=== PATIENT | female | born 1940 | race Caucasian/White ===

== ENCOUNTER 2025-02-09 17:33 | Emergency (ER) | payer MEDICARE, MEDICAID, SELFPAY ==
[2025-02-09 17:44] VITALS: BP 154/61; PULSE 60; RESP 16; TEMP 36.4; O2SAT 94; BMI 22.6
[2025-02-09 18:44] VITALS: PULSE 63; O2SAT 93
[2025-02-09 19:46] LABS: Basophils % 0.4 %; Eosinophils # 0.3 10^3/uL (0.0-0.8); Hematocrit 30.8 % (36-47); Lymphocytes # 2.8 10^3/uL (0.8-4.8); Lymphocytes % 25.8 %; Mean Corpuscular HGB Conc 30.8 g/dL (30-55); Mean Corpuscular Hemoglobin 30.8 pg (27-33); Mean Platelet Volume 9.7 fL (7.4-10.4); Monocytes # 0.6 10^3/uL (0.2-0.9); Monocytes % 5.1 %; Neutrophils # 6.99 10^3/uL (1.8-7.7); Neutrophils % 65.3 %; Nucleated Red Blood Cells % 0 %; Platelet Count 235 10^3/cmm (157-399); Red Blood Count 3.08 10^6/uL (3.85-5.65)
[2025-02-09 20:07] LABS: Anion Gap 13.9 (5-19); Blood Urea Nitrogen 28 mg/dL (8-23); Calcium 9.4 mg/dL (8.5-10.5); Carbon Dioxide 25 mmol/L (22-29); Chloride 104 mmol/L (98-107); Creatinine Clr Calc Pharmacy 23.5781; Glucose 133 mg/dL (65-115); Osmolality Calculated 295 mOsm/kg (285-295); Potassium 3.9 mmol/L (3.5-5.1); Sodium 139 mmol/L (136-145)
== END 2025-02-09 20:32 | disposition left against medical advice (07) ==
PROVIDERS: Emergency Medicine; Emergency Provider Family Medicine
DX: Z53.21 Procedure and treatment not carried out due to patient leaving prior to being seen by health care provider (principal); Z01.89 Encounter for other specified special examinations
CPT/HCPCS: 36415; 80048; 85025

== ENCOUNTER 2025-03-19 12:26 | Outpatient (CLI) | payer MEDICARE, MEDICAID, SELFPAY ==
--- NOTE | 2025-03-19 12:32 | CT_ITS ---
WS: [id number] CT ABDOMEN AND PELVIS WITH AND WITHOUT CONTRAST HISTORY: CLOT HEMATURIA TECHNIQUE: Unenhanced 5 mm axial imaging first performed through the abdomen. Post contrast imaging through the abdomen and pelvis. Oral contrast has not been provided. Sagittal and coronal reformats are submitted. All CT scans at [facility] use at least one of these dose optimization techniques: automated exposure control; mA and/or kV adjustment per patient size (includes targeted exams where dose is matched to clinical indication); or iterative reconstruction. CONTRAST: Omnipaque 350; 95 mL IV. DLP: 853.08 mGy.cm COMPARISON: None available. Lung bases are hyperinflated from centrilobular emphysema. Mild cardiac enlargement. Small hiatal hernia. There is increased soft tissue extending through the distal esophagus into the fundus of the stomach. RIGHT kidney: 8.6 cm in length. Diffusely lobular cortex with cortical thinning with no obstruction. There are a few very tiny calcifications in the renal pelvis. There are a few scattered hypodensities which are too small to characterize. No uroepithelial lesions. LEFT kidney: 9.9 cm in length with mild lobulated cortex. Nonobstructing calcification lower pole measures 7 mm. There is mild LEFT perinephric stranding. No mass or ureteral dilatation. Ureter is intermittently visualized on delayed imaging. Urinary bladder: Urinary bladder is not distended. There is diffuse wall thickening measuring up to 11 mm. On delayed imaging urinary bladder still not well distended and there is bladder wall thickening. There is slight increased bladder wall thickening at the RIGHT ureteral orifice. Normal size liver. There are a few scattered hypodensities within the liver. Focal fatty sparing along the falciform ligament. Very slight central bile duct dilatation is probably on the basis of the cholecystectomy. Mild pancreatic atrophy. No pancreatic duct dilatation. Normal spleen. Normal adrenal glands. Moderate atherosclerosis aorta. Calcified plaque at the origin of the celiac axis and SMA. Calcifications continue into the common iliac arteries. No ascites or pathologically enlarged lymph nodes. No small bowel obstruction. Mild distal colonic constipation. No evidence for acute diverticulitis. Mild colonic wall thickening involving the ascending and hepatic flexure. Additional asymmetric rectal wall thickening. Prior appendectomy. Patent bilateral inguinal canals containing fat only. Severe degenerative changes in the lumbar spine. Prior posterior fusion hardware extending from L3-L5. CT/CT abdomen pelvis wo/w [id number] IMPRESSION: 1. No renal obstruction or solid mass identified. 2. Bilateral renal cortex lobulations. 3. Nonobstructing calcification 7 mm lower pole LEFT kidney. 4. Mild diffuse urinary bladder wall thickening. There is a more focal area of thickening near the orifice of the RIGHT ureter. Cystoscopy may be of benefit. 5. Distal esophageal wall thickening extending into the stomach. Upper endosco py to exclude neoplasm is recommended. 6. Multifocal areas of asymmetric colonic wall thickening including a sending colon, hepatic flexure and rectum. Recommend colonoscopy. 7. Prior cholecystectomy. 8. Prior appendectomy. 9. No ascites or adenopathy.
[2025-03-19] MEDS: iohexol 350 mg/mL 500 mL Btl (per mL) IV (12:56)
== END 2025-03-19 12:27 | disposition home or self-care (01) ==
LOC: RAD 12:28
PROVIDERS: Visit Provider Nurse Practitioner Family
DX: R31.0 Gross hematuria (principal); N28.89 Other specified disorders of kidney and ureter; N32.89 Other specified disorders of bladder; R93.3 Abnormal findings on diagnostic imaging of other parts of digestive tract; R93.89 Abnormal findings on diagnostic imaging of other specified body structures; Z90.49 Acquired absence of other specified parts of digestive tract; Z98.890 Other specified postprocedural states; J43.2 Centrilobular emphysema; I51.7 Cardiomegaly; K44.9 Diaphragmatic hernia without obstruction or gangrene; R93.421 Abnormal radiologic findings on diagnostic imaging of right kidney; R93.422 Abnormal radiologic findings on diagnostic imaging of left kidney; K76.0 Fatty (change of) liver, not elsewhere classified; K86.89 Other specified diseases of pancreas; I70.0 Atherosclerosis of aorta; I70.8 Atherosclerosis of other arteries; K55.1 Chronic vascular disorders of intestine; K59.00 Constipation, unspecified; K40.20 Bilateral inguinal hernia, without obstruction or gangrene, not specified as recurrent; M51.369 Other intervertebral disc degeneration, lumbar region without mention of lumbar back pain or lower extremity pain
CPT/HCPCS: 74178

== ENCOUNTER 2025-06-29 02:33 | Inpatient (IN) | payer OTHER, MEDICAID, SELFPAY ==
--- OUTSIDE RECORDS SUMMARY | 2025-05-15 13:00 | XMS_ITS ---
Author Organization [facility] Address [address] [place] [address] Care Team Providers Care Matrix Repairer Name Role Phone Jayden Vásquez Primary Care Provider ALMA DELIA Zavala Unavailable [phone] CHE COLLINS Unavailable [phone] REASON FOR VISIT L ESWL @ [facility] Encounters Encounter Location Date Provider Diagnosis [facility] [address] [facility] [place] [address] 05/15/2025 CHE COLLINS Plan Of Treatment No Information Progress Notes * Beatris HEMPHILL KDOB: [birth year] (85 yo F)Acc No.[id number]:05/15/2025 Patient: Wolfgang PARRA Beatris Richardson Provider: Una COLLINS MD :1940 A ge:85 Y S ex:Female Date:05/15/2025 Address:[address] [place], [place] [phone] Pcp:Jayden Vásquez * Billing Information: * Visit Code: * Procedure Codes: * Electronic signature of AUST IN MD KARINA on 06/29/2025 at 02:56 AM CDT Sign off status: Pending * Provider: Una COLLINS MD Date: 05/15/2025 Generated for Printi ng/Faxing/eTransmitting on: 06/29/2025 02:56 AM CDT
[2025-06-29] VITALS (31 sets, daily range): BP systolic 90–233; BP diastolic 47–103; PULSE 60–90; RESP 16–24; TEMP 36.1–37; O2SAT 88–100; BMI 26.7
--- NOTE | 2025-06-29 02:35 | XRR_ITS ---
PROCEDURE INFORMATION: Exam: XR Right Femur Exam date and time: 06/29/2025 3:19 AM Age: 85 years old Clinical indication: Injury or trauma; Fall; Fracture, traumatic; Closed fracture and displaced; Femur; Right; Additional info: Fall today, right femoral pain with obvious proximal deformity TECHNIQUE: Imaging protocol: Radiologic exam of the right femur. Views: 2 views. COMPARISON: CT abdomen pelvis wo/w [id number] 03/19/2025 12:51 PM FINDINGS: Bones/joints: Displaced and comminuted intertrochanteric fracture of the right femur is noted. There is advanced degenerative osteoarthritis with narrowing of the joint compartments of the right knee Soft tissues: Calcific plaque outlining the course of the right femoral vessels is noted. XR/XR femur RT min 2V* [id number] IMPRESSION: 1. There is a displaced and comminuted intertrochanteric fracture of the right femur. 2. 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
--- NOTE | 2025-06-29 02:35 | CTR_ITS ---
PROCEDURE INFORMATION: Exam: CT Head Without Contrast Exam date and time: 06/29/2025 3:50 AM Age: 85 years old Clinical indication: Injury or trauma; Fall; Concussion/head injury; Consciousness not specified; Additional info: Unwitnessed fall TECHNIQUE: Imaging protocol: Computed tomography of the head without contrast. Radiation optimization: All CT scans at this facility use at least one of these dose optimization techniques: automated exposure control; mA and/or kV adjustment per patient size (includes targeted exams where dose is matched to clinical indication); or iterative reconstruction. COMPARISON: CT cervical spin wo con* [id number] 06/29/2025 3:50 AM RADIATION DOSE METRICS: Total DLP (mGy-cm): 157.9 FINDINGS: Brain: Prominence of the sulci consistent with diffuse atrophy. No mass effect or midline shift. Periventricular and subcortical white matter low-attenuation consistent with chronic small vessel ischemic changes. No evidence of acute intracranial hemorrhage. Cerebral ventricles: Ventricular prominence proportional to sulci. No hydrocephalus. Paranasal sinuses: No significant or acute abnormality. No air-fluid levels. Mastoid air cells: No acute abnormality. No significant mastoid effusion. Bones: Calvarium appears intact. Cervical spine findings reported separately. Soft tissues: No significant soft tissue abnormalities. CT/CT head wo con* [id number] IMPRESSION: Diffuse atrophy and chronic/remote ischemic changes without evidence of superimposed acute infarct, hemorrhage, mass-effect or acute intracranial injury.
--- NOTE | 2025-06-29 02:35 | XRR_ITS ---
PROCEDURE INFORMATION: Exam: XR Chest Exam date and time: 06/29/2025 4:39 AM Age: 85 years old Clinical indication: Injury or trauma; Fall; Blunt trauma (contusions or hematomas); Additional info: Pre-op TECHNIQUE: Imaging protocol: Radiologic exam of the chest. Views: 1 view. 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 Lungs: Unremarkable. No consolidation. Pleural spaces: Unremarkable. No pleural effusion. No pneumothorax. Heart/Mediastinum: CABG. No cardiomegaly. Bones/joints: Median sternotomy. XR/XR chest 1V portable [id number] IMPRESSION: There is no evidence of active disease.
--- NOTE | 2025-06-29 02:35 | CTR_ITS ---
PROCEDURE INFORMATION: Exam: CT Cervical Spine Without Contrast Exam date and time: 06/29/2025 3:50 AM Age: 85 years old Clinical indication: Injury or trauma; Fall; Concussion/head injury; Additional info: Unwitnessed fall TECHNIQUE: Imaging protocol: Computed tomography of the cervical spine without contrast. Radiation optimization: All CT scans at this facility use at least one of these dose optimization techniques: automated exposure control; mA and/or kV adjustment per patient size (includes targeted exams where dose is matched to clinical indication); or iterative reconstruction. COMPARISON: CT head wo con* [id number] 06/29/2025 3:50 AM RADIATION DOSE METRICS: Total DLP (mGy-cm): 157.9 FINDINGS: Bones: Appearance of old C1-C2 fractures including old odontoid fracture with stabilization posterior fusion rods and pedicle screws in place C1-C3. 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 No evidence of superimposed acute fracture. Slight degenerative C4 anterior subluxation. Normal vertebral body height. Multilevel spondylosis with degenerative endplate spurring. Bilateral facet, uncovertebral and atlantoaxial joint arthrosis with marginal hypertrophic bony spurring. Discs/Spinal canal/Neural foramina: Multilevel disc space narrowing and posterior disc osteophyte complexes. Minimal to mild spinal stenosis. Varying degrees of multilevel bilateral foraminal stenosis. Lungs: Biapical scarring. Soft tissues: No significant soft tissue abnormalities. CT/CT cervical spin wo con* [id number] IMPRESSION: 1. Appearance of old C1-C2 fractures including old odontoid fracture with stabilization posterior fusion rods and pedicle screws in place C1-C3. 2. 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 3. No evidence of superimposed acute fracture. 4. Multilevel spondylosis, diffuse cervical arthrosis and degenerative changes as described.
[2025-06-29] MEDS: fentaNYL 50 mcg/mL INJ 2mL 75 MCG IVP (02:45)
--- OUTSIDE RECORDS SUMMARY | 2025-06-29 02:57 | XMS_ITS | Patient Health Record ---
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 [employer]alking [employer] Name Role Phone Vásquez, Jayden Primary Care Provider ALMA DELIA Zavala Unavailable [phone] CHE COLLINS Unavailable [phone] Allergies Allergen (clinical drug ingredient) Drug/Non Drug Allergy documented on EMR Reaction Allergy Type Onset Date Status codeine Codeine Unknown Drug Allergy Active erythromycin Erythromycin Unknown Drug Allergy A ctive Substance with sulfonamide structure and antibacterial mechanism of action (substance) Sulfa Antibiotics rash Drug Allergy Active Results Component Value Reference Range Notes Urinalysis, Routine Reviewed date:04/09/2025 02:12:15 PM Interpretation: Performing Lab: Notes/Report: Urine-Color yellow Appearance clear Glucose - Bilirubin - Ketones - Specific [place] 1.025 Occult Blood 2+ pH 6.0 Urine Protein 3+ Urobilinogen,Semi-Qn - Nitrite, Urine - WBC Esterase - Urinalysis Gross Exam - Reason For Referral Reason Renal Stone Diagnosis 1 Left renal stone (N2 0.0) Referral Organization [employer] Referring Provider First Name CHE Referring Provider Last Name KARINA Referring Provider Speciality Urology Referred Provider Specialty Urology Referral Priority Routine Medications Medication SIG (Take, Route, Frequency, Duration) Notes Start Date End Date Status tiZANidine HCl Activ e Incruse Ellipta 62.5 MCG/ACT 1 puff Inha lation Once a day Active Benazepril HCl 10 MG 1 tablet Orally Onc e a day Active oxyCODONE HCl 10 MG 1 tablet as needed Orally every 6 hrs Active Clopidogrel Bisulfate Active Mylanta Active ProAir HFA Active Sertraline HCl Activ e Nitrostat Active Lidocaine 4 % 1 patch as needed Externally Four times a day Active Levothyroxine Sodium Active Allopurinol 100 MG 1 tablet Orally Once a day Active Atorvastatin Calcium 20 MG 1 tablet Oral ly Once a day Active glipiZIDE ER Active rOPINIRole HCl 2 MG 1 tablet 1 to 3 hour s before bedtime Orally Once a day Active Biofreeze Active Acetaminophen 500 MG 1 capsule as needed Orally every 6 hrs Active Carvedilol Active Famotidine 20 MG 1 tablet at bedtime as needed Orally Once a day Active hydroCHLOROthiazide 25 MG 1 tablet in th e morning Orally Once a day Active Ergocalciferol Activ e Problems Problem Type SNOMED Code ICD Code Onset Dates Problem Status W/U Status Risk Notes Problem Low back pain (457988511) Low back pain (M54.50) Active confirmed Problem Kidney stone (82046241) Left renal stone (N20.0) Active confirmed Problem Recurrent urinary tract infection (823857688) Recurrent UTI (N39.0) Active confirmed Problem Clot hematuria (855272621) Clot hematuria (R31.0) Active confirmed Vital Signs Heart Rate 88 /min 03/05/2025 Blood pressure diastolic 88 mm Hg 03/05/2025 Height-cm 157.48 cm 03/05/2025 Weight-kg 56.25 kg 03/05/2025 Height 62 in 03/05/2025 Blood pressure systolic 206 mm Hg 03/05/2025 Weight 124 lbs 03/05/2025 BMI 22.68 kg/m2 03/05/2025 Procedures Procedure Date Ordered Date Performed Result Body Sit e Bladder Scan 03/05/2025 03/05/2025 66ml Encounters Encounter Location Date Provider Diagnosis [facility] [address] [place] [address] 03/05/2025 ALMA DELIA SHAFFER Clot hematuria R31.0 ; Recurrent UTI N39.0 ; Low back pain M54.50 ; Upper abdominal pain R10.10 ; History of kidney stones Z87.442 ; History of smoking Z87.891 and Dysuria R30.0 [facility], [facility] [address] [place] [address] 04/09/2025 CHE COLLINS Clot hematuria R31.0 ; Left renal stone N20.0 ; Recurrent UTI N39.0 ; Low back pain M54.50 ; Upper abdominal pain R10.10 ; History of kidney stones Z87.442 ; History of smoking Z87.891 and Dysuria R30.0 [facility] [address] [facility] [place] [address] 02/15/2025 ALMA DELIA SHAFFER [facility] [address] [facility] [place] [address] 03/06/2025 ALMA DELAI SHAFFER [facility] [address] [facility] [place] [address] 04/13/2025 ALMA DELIA SHAFFER Assessments Encounter Date Diagnosis (ICD Code) Assessment Notes Treatment Notes Treatment Clinical Notes Section Notes 04/09/2025 Left renal stone (ICD-10 - N20.0) 85 yo female with hematuria, chronic back pain, and history of UTIs. CT shows a 7mm left lower pole renal stone. Cysto shows multiple scars and areas of inflammation. CT and cysto findings reviewed with patient. We discussed treatment options for her left renal stone with URS vs ESWL. How procedure is performed was reviewed along with risks, benefits, alternatives, and postprocedural expectations. All questions were sought and answered to pt satisfaction and pt is agreeable to proceed. Will schedule next available. Plan: schedule Left ESWL at [facility] obtain clearance from Dr. Vásquez in to hold plavix for surgery 04/09/2025 Clot hematuria (ICD-10 - R31.0) 85 yo female with hematuria, chronic back pain, and history of UTIs. CT shows a 7mm left lower pole renal stone. Cysto shows multiple scars and areas of inflammation. CT and cysto findings reviewed with patient. We discussed treatment options for her left renal stone with URS vs ESWL. How procedure is performed was reviewed along with risks, benefits, alternatives, and postprocedural expectations. All questions were sought and answered to pt satisfaction and pt is agreeable to proceed. Will schedule next available. Plan: schedule Left ESWL at [facility] obtain clearance from Dr. Vásquez in to hold plavix for surgery 03/05/2025 Recurrent UTI (ICD-10 - N39.0) 03/05/2025 Clot hematuria (ICD-10 - R31.0) 03/05/2025 Low back pain (ICD-10 - M54.50) 04/09/2025 Recurrent UTI (ICD-10 - N39.0) 85 yo female with hematuria, chronic back pain, and history of UTIs. CT shows a 7mm left lower pole renal stone. Cysto shows multiple scars and areas of inflammation. CT and cysto findings reviewed with patient. We discussed treatment options for her left renal stone with URS vs ESWL. How procedure is performed was reviewed along with risks, benefits, alternatives, and postprocedural expectations. All questions were sought and answered to pt satisfaction and pt is agreeable to proceed. Will schedule next available. Plan: schedule Left ESWL at [facility] obtain clearance from Dr. Vásquez in [facility] to hold plavix for surgery 04/09/2025 Low back pain (ICD-10 - M54.50) 85 yo female with hematuria, chronic back pain, and history of UTIs. CT shows a 7mm left lower pole renal stone. Cysto shows multiple scars and areas of inflammation. CT and cysto findings reviewed with patient. We discussed treatment options for her left renal stone with URS vs ESWL. How procedure is performed was reviewed along with risks, benefits, alternatives, and postprocedural expectations. All questions were sought and answered to pt satisfaction and pt is agreeable to proceed. Will schedule next available. Plan: schedule Left ESWL at [facility] obtain clearance from Dr. Vásquez in [facility] to hold plavix for surgery 03/05/2025 Upper abdominal pain (ICD-10 - R10.10) 03/05/2025 History of kidney stones (ICD-10 - Z87.442) 04/09/2025 Upper abdominal pain (ICD-10 - R10.10) 85 yo female with hematuria, chronic back pain, and history of UTIs. CT shows a 7mm left lower pole renal stone. Cysto shows multiple scars and areas of inflammation. CT and cysto findings reviewed with patient. We discussed treatment options for her left renal stone with URS vs ESWL. How procedure is performed was reviewed along with risks, benefits, alternatives, and postprocedural expectations. All questions were sought and answered to pt satisfaction and pt is agreeable to proceed. Will schedule next available. Plan: schedule Left ESWL at [facility] obtain clearance from Dr. Vásquez in [place] to hold plavix for surgery 04/09/2025 History of kidney stones (ICD-10 - Z87.442) 85 yo female with hematuria, chronic back pain, and history of UTIs. CT shows a 7mm left lower pole renal stone. Cysto shows multiple scars and areas of inflammation. CT and cysto findings reviewed with patient. We discussed treatment options for her left renal stone with URS vs ESWL. How procedure is performed was reviewed along with risks, benefits, alternatives, and postprocedural expectations. All questions were sought and answered to pt satisfaction and pt is agreeable to proceed. Will schedule next available. Plan: schedule Left ESWL at [facility] obtain clearance from Dr. Vásquez in [facility] to hold plavix for surgery 03/05/2025 History of smoking (ICD-10 - Z87.891) 04/09/2025 History of smoking (ICD-10 - Z87.891) 85 yo female with hematuria, chronic back pain, and history of UTIs. CT shows a 7mm left lower pole renal stone. Cysto shows multiple scars and areas of inflammation. CT and cysto findings reviewed with patient. We discussed treatment options for her left renal stone with URS vs ESWL. How procedure is performed was reviewed along with risks, benefits, alternatives, and postprocedural expectations. All questions were sought and answered to pt satisfaction and pt is agreeable to proceed. Will schedule next available. Plan: schedule Left ESWL at [facility] obtain clearance from Dr. Vásquez in [facility] to hold plavix for surgery 03/05/2025 Dysuria (ICD-10 - R30.0) 04/09/2025 Dysuria (ICD-10 - R30.0) 85 yo female with hematuria, chronic back pain, and history of UTIs. CT shows a 7mm left lower pole renal stone. Cysto shows multiple scars and areas of inflammation. CT and cysto findings reviewed with patient. We discussed treatment options for her left renal stone with URS vs ESWL. How procedure is performed was reviewed along with risks, benefits, alternatives, and postprocedural expectations. All questions were sought and answered to pt satisfaction and pt is agreeable to proceed. Will schedule next available. Plan: schedule Left ESWL at [facility] obtain clearance from Dr. Vásquez in [facility] to hold plavix for surgery 03/05/2025 Other Unable to void in clinic, bladder scan 66ml. She will try to void prior to leaving. Patient with history of intermittent clot hematuria over the past year. We discussed the indications and rationale for a hematuria workup including the possibility of malignancy causing hematuria. In terms of the workup specifically, we discussed the need for evaluation of the upper urinary tracts with radiologic imaging and the lower urinary tract with cystoscopy. We will set up the CT scan w/ and w/o contrast and delayed imaging per hematuria protocol. We will also schedule for next available cystoscopy. Plan Of Treatment Pending Test Test Name Order Date CT Abd & Pelvis [place] & [place] [id number] 03/05/2025 BUN, Creatinine 03/05/2025 Insurance Providers Payer Name Payer Address Payer Phone Subscriber Number Group Number Insured Name Patient Relationship to Insured Coverage Start Date Coverage End Date [facility] Medicare Advantage HMO [address] [address] [place], [place] [id number] [phone] [id number] Beatris Hemphill Self - patient is the insured [place] Medicaid [address] [place], [place] [id number] Beatris Hemphill Self - patient is the insured Medical (General) History Medical History History ICD Code Cystitis with hematuria RA osteoarthritis heart disease COPD Surgical History Surgery Date(Month/Year) triple bypas gallbladder Appendix Tonsils Hospitalization History Reason Date(Month/Year) multiple
[2025-06-29 03:13] LABS: Hematocrit 28.5 % (36-47); Hemoglobin 9.00 g/dL (11.27-16.99); Mean Corpuscular HGB Conc 31.6 g/dL (30-55); Mean Corpuscular Hemoglobin 30.3 pg (27-33); Mean Corpuscular Volume 96.0 fl (85-98); Nucleated Red Blood Cells % 0 %; Platelet Count 284 10^3/cmm (157-399); Red Blood Count 2.97 10^6/uL (3.85-5.65); White Blood Count 11.68 10^3/uL (3.29-11.43)
[2025-06-29 03:23] LABS: INR 0.97 (0.8-1.2); Prothrombin Time 13.50 SECONDS (12.1-14.9)
[2025-06-29 03:30] LABS: Alanine Aminotransferase 15 U/L (0-33); Albumin Level 3.3 g/dL (3.5-5.2); Alkaline Phosphatase 133 U/L (35-105); Anion Gap 12.7 (5-19); Aspartate Amino Transferase 24 U/L (0-32); Blood Urea Nitrogen 19 mg/dL (8-23); Calcium 9.0 mg/dL (8.5-10.5); Carbon Dioxide 28 mmol/L (22-29); Chloride 104 mmol/L (98-107); Creatinine Clr Calc Pharmacy 22.9876; Globulin 3.1 g/dL (1.3-4.6); Glucose 182 mg/dL (65-115); Osmolality Calculated 299 mOsm/kg (285-295); Potassium 3.7 mmol/L (3.5-5.1); Sodium 141 mmol/L (136-145); Total Protein 6.4 g/dL (6.6-8.7)
[2025-06-29] MEDS: ketamine 100 mg/mL Inj 5 mL 35 MG IV (03:45)
[2025-06-29] MEDS: ketamine 100 mg/mL Inj 5 mL 25 MG IVP (03:50)
--- NOTE | 2025-06-29 04:17 | W.ED.FALL ---
HPI - Fall General: Chief Complaint: Fall Stated Complaint: FALL Time Seen by Provider: 06/29/25 02:35 Source: patient and EMS Mode of arrival: EMS Limitations: altered mental status History of Present Illness: Right hip pain, brought in by EMS. Patient is either in a state of delirium or has dementia due to the pain. Unable to get much history from her. Related Data Home Medications ?Medication ?Instructions ?Recorded ?Confirmed acetaminophen 500 mg tablet 1,000 mg PO DAILY 08/21/24 01/02/25 albuterol sulfate 90 mcg/actuation 2 puff inhalation Q6H PRN 08/21/24 01/02/25 aerosol inhaler allopurinol 300 mg tablet 300 mg PO DAILY 08/21/24 01/02/25 atorvastatin 20 mg tablet 20 mg PO DAILY 08/21/24 01/02/25 benazepril 20 mg tablet 20 mg PO DAILY 08/21/24 01/02/25 carvedilol 6.25 mg tablet 6.25 mg PO BID 08/21/24 01/02/25 clopidogrel 75 mg tablet 75 mg PO DAILY 08/21/24 01/02/25 ergocalciferol (vitamin D2) 50,000 50,000 unit PO .weekly 08/21/24 01/02/25 unit tablet famotidine 20 mg tablet 20 mg PO DAILY 08/21/24 01/02/25 gabapentin 300 mg capsule 300 mg PO BID 08/21/24 01/02/25 hydrochlorothiazide 12.5 mg tablet 12.5 mg PO DAILY 08/21/24 01/02/25 levothyroxine 100 mcg tablet 100 mcg PO DAILY 08/21/24 01/02/25 menthol 5 % topical gel (Biofreeze ea topical 08/21/24 01/02/25 (menthol)) nitroglycerin 0.4 mg sublingual 0.4 mg sublingual Q5M PRN 08/21/24 01/02/25 tablet (Nitrostat) oxycodone 5 mg tablet 5 mg PO BID PRN 08/21/24 01/02/25 oxycodone myristate 18 mg capsule 18 mg PO BID 08/21/24 01/02/25 sprinkle extended release 12hr(DON'T CRUSH) (Xtampza ER) polyethylene glycol 3350 17 4 g PO DAILY 08/21/24 01/02/25 gram/dose oral powder (Miralax) ropinirole 0.5 mg tablet 1.5 mg PO DAILY 08/21/24 01/02/25 trolamine salicylate 10 % topical 1 applic topical BID PRN 08/21/24 01/02/25 cream (Pain Relief (trolamine salicylate)) umeclidinium 62.5 mcg/actuation 1 inh inhalation DAILY 08/21/24 01/02/25 blister powder for inhalation (Incruse Ellipta) Previous Rx's ?Medication ?Instructions ?Recorded mupirocin calcium 2 % topical cream 1 applic topical TID #30 grams 12/26/24 Allergies Allergy/AdvReac Type Severity Reaction Status Date / Time codeine Allergy Unknown Unknown Verified 01/02/25 15:19 doxycycline Allergy Unknown Unknown Verified 01/02/25 15:19 erythromycin base Allergy Unknown Unknown Verified 01/02/25 15:19 hydromorphone (From Dilaudid) Allergy Unknown Unknown Verified 01/02/25 15:19 Sulfa (Sulfonamide Allergy Unknown Unknown Verified 01/02/25 15:19 Antibiotics) Review of Systems General: Reports: ROS unobtainable due to mental status PFSH ED PFSH: Medical History (Updated 06/29/25 @ 04:57 by Timur Ness MD) Non-pressure chronic ulcer of left lower leg, limited to breakdown of skin Fusion of spine, 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 Chronic obstructive pulmonary disease, unspecified Fibromyalgia Mixed hyperlipidemia Chronic pain syndrome Personal history of diseases of the skin and subcutaneous tissue Personal history of urinary (tract) infections Personal history of other diseases of the digestive system Unspecified dementia, unspecified severity, without behavioral disturbance, psychotic disturbance, mood disturbance, and anxiety Unsteadiness on feet Presence of cardiac pacemaker Overactive bladder Hypothyroidism, unspecified Hyperlipidemia, unspecified History of falling Gout, unspecified Gastro-esophageal reflux disease without esophagitis Essential (primary) hypertension Surgical History Presence of aortocoronary bypass graft Social History Smoking and tobacco/nicotine status: unknown if used tobacco/nicotine Housing: Intermediate Physical Exam Const: COMMON NORMALS: average body habitus, patient oriented x3, healthy appearing, alert and well nourished GENERAL APPEARANCE: well kempt, well developed and in distress HENMT: COMMON NORMALS: normocephalic, atraumatic, external ears normal and moist oral mucous membranes HEAD & SCALP: normocephalic and atraumatic EXTERNAL EAR: Yes external ears normal Eye: COMMON NORMALS: Equal, round and reactive pupils present, EOMs intact bilaterally and conjunctivae normal CONJUNCTIVA: Yes conjunctivae normal PUPIL: Yes Equal, round and reactive pupils present Neck/C-Spine: COMMON NORMALS: full ROM, no lymphadenopathy and supple Chest: CHEST: Yes Symmetrical chest wall rise and No Surgical scars present (Chest) Resp: COMMON NORMALS: normal respiratory effort, No retractions, No use of accessory muscles and clear to auscultation bilaterally AUSCULTATION: clear to auscultation bilaterally Cardio: COMMON NORMALS: regular rate, regular rhythm, S1 normal heart sound present, S2 normal heart sound present, No gallops present (Cardio), No clicks present (Cardio), No murmurs present (Cardio) and No rub (Cardio) RATE: regular rate RHYTHM: regular rhythm HEART SOUNDS: S1 normal heart sound present, S2 normal heart sound present and no murmurs PERIPHERAL PULSES: other (Radial pulses 2+ and symmetric) GI: COMMON NORMALS: Soft to palpation, non-tender and no masses INSPECTION: No abdominal distension PALPATION: Yes Soft to palpation, No Guarding due to palpation present (GI) and No Rebound tenderness present : COMMON NORMALS: Yes no CVA tenderness BLADDER/KIDNEY EXAM: Yes no CVA tenderness Back/Pelvis: COMMON NORMALS: no CVA tenderness Extremity: COMMON NORMALS: capillary refill normal and no clubbing, cyanosis or edema NARRATIVE EXTREMITY EXAM: Right lower extremity with deformity at the right hip joint and tenderness down the entire length of the femur. Right leg is externally rotated and shortened. Neuro: COMMON NORMALS: patient oriented x3 SENSORIUM/ORIENTATION: Yes alert Psych: APPEARANCE: Yes well kempt Skin: COMMON NORMALS: no rashes or lesions noted, no wounds, turgor normal and no jaundice GENERAL SKIN EXAM: no rashes or lesions noted and turgor normal Procedures Orthopedic Fracture Reduction Fracture #1: Side: right Fracture Reduction Location: other (R hip) Analgesia: procedural sedation Technique: traction/counter-traction Post Reduction X-rays Demonstrate: acceptable reduction Post-reduction neuro exam: intact Post-reduction vascular exam: intact Splint Applied: No Patient Tolerated Procedure: well Additional Comments: done for improvement in alignment and pain control Procedural Sedation Indication: other (Patient obvious deformity of the right femur with severely uncooperative for CT scan and x-ray.) Presedation Evaluation: RRR, CTAB ASA Class: III Preparation: electronic device monitor applied, pulse oximeter, supplemental O2 applied, suction/airway equipment at bedside and IV secured Ketamine dose (mg): 60 Complications: none Course Vital Signs: Vital signs: Vital Signs Temperature 98 F 06/29/25 02:41 Pulse Rate 60 06/29/25 04:19 Respiratory Rate 18 06/29/25 04:19 Blood Pressure 233/84 06/29/25 04:19 Pulse Oximetry 95 06/29/25 04:19 Oxygen Delivery Me thod Nasal Cannula 06/29/25 03:50 Oxygen Flow Rate 2 06/29/25 02:41 MDM - Fall Medical Decision Making Patient with right retrocardiac trigger, some delirium versus dementia as well. Patient was quite combative and had to be chemically sedated to perform CT scans and x-rays. Personal review of CT scan shows negative head CT for acute fracture as well as negative cervical CT for acute fracture. Femur x-ray shows displaced comminuted right hip fracture as well. Radiology read later came out and concur. This case has been discussed with Dr. Gonsales of orthopedics as well as Dr. Sanchez of the hospitalist service. Patient will be admitted. Lab Data 06/29/25 02:55 06/29/25 02:55 Radiology Impressions Cervical Spine CT 06/29/25 02:35 IMPRESSION: 1. Appearance of old C1-C2 fractures including old odontoid fracture with stabilization posterior fusion rods and pedicle screws in place C1-C3. 2. 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 3. No evidence of superimposed acute fracture. 4. Multilevel spondylosis, diffuse cervical arthrosis and degenerative changes as described. Femur X-Ray 06/29/25 02:35 IMPRESSION: 1. There is a displaced and comminuted intertrochanteric fracture of the right femur. 2. 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 Head CT 06/29/25 02:35 IMPRESSION: Diffuse atrophy and chronic/remote ischemic changes without evidence of superimposed acute infarct, hemorrhage, mass-effect or acute intracranial injury. Laboratory Results WBC 11.68 10^3/uL (3.29-11.43) H 06/29/25 02:55 RBC 2.97 10^6/uL (3.85-5.65) L 06/29/25 02:55 Hgb 9.00 g/dL (11.27-16.99) L 06/29/25 02:55 Hct 28.5 % (36-47) L 06/29/25 02:55 MCV 96.0 fl (85-98) 06/29/25 02:55 MCH 30.3 pg (27-33) 06/29/25 02:55 MCHC 31.6 g/dL (30-55) 06/29/25 02:55 RDW 14.7 % (12.1-15.1) 06/29/25 02:55 Plt Count 284 10^3/cmm (157-399) 06/29/25 02:55 MPV 9.7 fL (7.4-10.4) 06/29/25 02:55 Neut % (Auto) 70.3 % 06/29/25 02:55 Lymph % (Auto) 21.4 % 06/29/25 02:55 Floyd % (Auto) 5.6 % 06/29/25 02:55 Eos % (Auto) 1.6 % 06/29/25 02:55 Baso % (Auto) 0.3 % 06/29/25 02:55 Neut # (Auto) 8.21 10^3/uL (1.8-7.7) H 06/29/25 02:55 Lymph # (Auto) 2.5 10^3/uL (0.8-4.8) 06/29/25 02:55 Floyd # (Auto) 0.7 10^3/uL (0.2-0.9) 06/29/25 02:55 Eos # (Auto) 0.2 10^3/uL (0.0-0.8) 06/29/25 02:55 Baso # (Auto) 0.0 10^3/uL (0.0-0.1) 06/29/25 02:55 Nucleated RBC % (auto) 0 % 06/29/25 02:55 Nucleated RBCs # 0.0 /100WBC 06/29/25 02:55 PT 13.50 SECONDS (12.1-14.9) 06/29/25 02:55 INR 0.97 (0.8-1.2) 06/29/25 02:55 Sodium 141 mmol/L (136-145) 06/29/25 02:55 Potassium 3.7 mmol/L (3.5-5.1) 06/29/25 02:55 Chloride 104 mmol/L (98-107) 06/29/25 02:55 Carbon Dioxide 28 mmol/L (22-29) 06/29/25 02:55 Anion Gap 12.7 (5-19) 06/29/25 02:55 BUN 19 mg/dL (8-23) 06/29/25 02:55 Creatinine 1.5 mg/dL (0.5-0.9) H 06/29/25 02:55 GFR Calculation Not Reportable 06/29/25 02:55 Glucose 182 mg/dL (65-115) H 06/29/25 02:55 Calculated Osmolality 299 mOsm/kg (285-295) H 06/29/25 02:55 Calcium 9.0 mg/dL (8.5-10.5) 06/29/25 02:55 Total Bilirubin 0.2 mg/dL (0.15-1.2) 06/29/25 02:55 AST 24 U/L (0-32) 06/29/25 02:55 ALT 15 U/L (0-33) 06/29/25 02:55 Alkaline Phosphatase 133 U/L (35-105) H 06/29/25 02:55 Total Protein 6.4 g/dL (6.6-8.7) L 06/29/25 02:55 Albumin 3.3 g/dL (3.5-5.2) L 06/29/25 02:55 Globulin 3.1 g/dL (1.3-4.6) 06/29/25 02:55 Blood Type O Positive 06/29/25 02:55 Rho(D) Type Rh positive 06/29/25 02:55 Antibody Screen Negative 06/29/25 02:55 All radiology interpretation(s) finalized by discharge ED provider radiology interpretation(s): see MDM. reads were done personally in room during imaging. Critical Care Time Critical Care Time: Critical Care Time: Yes Total Critical Care Time: 33 Attestation: This case had a high probability of a clinically significant, sudden, or life threatening deterioration of this patient's condition which required my full and direct attention, intervention and personal management. This was due to patient's delirium and dementia and increased bedside care time. Discharge Plan Discharge Patient Disposition: Admitted As Inpatient Clinical Impression: Closed intertrochanteric fracture of right femur, Delirium, Leukocytosis, Anemia, Chronic kidney disease (CKD), stage 3 Condition: Stable Coding Level of Care Code ED Nursing Education Consultant for Alber Richardson
--- NOTE | 2025-06-29 04:19 | ECG_ITS ---
[facility] Test Date: 2025-06-29 Pat Name: Kami Hemphill Department: Room: Gender: Female Channeler Outsole: : 1940 Requested By: Timur Ness Order Number: [id number] Angelito MD: Namrata Armenta M.D. Measurements Intervals Cosby Rate: 59 P: 132 IN: 223 QRS: -48 QRSD: 112 T: 85 QT: 406 QTc: 405 Interpretive Statements ELECTRONIC ATRIAL PACEMAKER LEFT AXIS DEVIATION [QRS AXIS < -30] INCOMPLETE RIGHT BUNDLE BRANCH BLOCK [90+ ms QRS DURATION, TERMINAL R IN V1/V2, 40+ ms S IN I/aVL/V4/V5/V6] MODERATE VOLTAGE CRITERIA FOR LVH, CONSIDER NORMAL VARIANT [MEETS CRITERIA IN ONE OF: R(aVL), S(V1), R(V5), R(V5/V6)+S(V1)] POSSIBLE ANTEROSEPTAL MYOCARDIAL INFARCTION , OF INDETERMINATE AGE [30 ms Q WAVE IN V1-V4] No previous ECG available for comparison Electronically Signed On 06-29-2025 13:46:03 CDT by Namrata Armenta M.D. [email or web address]
--- NOTE | 2025-06-29 05:21 | PM.HP ---
Providers/Chief Complaint Chief Complaint: FALL History of Present Illness Kami Hemphill is a 85 year old female with a past medical history of COPD, type 2 diabetes, hypothyroidism, hyperlipidemia, history of dementia, who presents to [facility] for a fall. Currently patient is alert to person, not to place, not to time, she is in severe pain clutching at her right hip, she has received fentanyl and ketamine in the emergency room, I was not able to get much history from her but she does report severe right hip pain, at times is agitated, no family members at bedside, she is from [facility], she is on scheduled oxycodone 18 mg p.o. twice daily, is also on Plavix, presumably last dose was yesterday Medications/Allergies Home Medications ?Medication ?Instructions ?Recorded ?Confirmed ?Last Taken ?Type acetaminophen 500 mg tablet 1,000 mg PO DAILY 08/21/24 01/02/25 Unknown History albuterol sulfate 90 mcg/actuation 2 puff inhalation Q6H PRN 08/21/24 01/02/25 Unknown History aerosol inhaler allopurinol 300 mg tablet 300 mg PO DAILY 08/21/24 01/02/25 Unknown History atorvastatin 20 mg tablet 20 mg PO DAILY 08/21/24 01/02/25 Unknown History benazepril 20 mg tablet 20 mg PO DAILY 08/21/24 01/02/25 Unknown History carvedilol 6.25 mg tablet 6.25 mg PO BID 08/21/24 01/02/25 Unknown History clopidogrel 75 mg tablet 75 mg PO DAILY 08/21/24 01/02/25 Unknown History ergocalciferol (vitamin D2) 50,000 50,000 unit PO .weekly 08/21/24 01/02/25 Unknown History unit tablet famotidine 20 mg tablet 20 mg PO DAILY 08/21/24 01/02/25 Unknown History gabapentin 300 mg capsule 300 mg PO BID 08/21/24 01/02/25 Unknown History hydrochlorothiazide 12.5 mg tablet 12.5 mg PO DAILY 08/21/24 01/02/25 Unknown History levothyroxine 100 mcg tablet 100 mcg PO DAILY 08/21/24 01/02/25 Unknown History menthol 5 % topical gel (Biofreeze ea topical 08/21/24 01/02/25 Unknown History (menthol)) nitroglycerin 0.4 mg sublingual 0.4 mg sublingual Q5M PRN 08/21/24 01/02/25 Unknown History tablet (Nitrostat) oxycodone 5 mg tablet 5 mg PO BID PRN 08/21/24 01/02/25 Unknown History oxycodone myristate 18 mg capsule 18 mg PO BID 08/21/24 01/02/25 Unknown History sprinkle extended release 12hr(DON'T CRUSH) (Xtampza ER) polyethylene glycol 3350 17 4 g PO DAILY 08/21/24 01/02/25 Unknown History gram/dose oral powder (Miralax) ropinirole 0.5 mg tablet 1.5 mg PO DAILY 08/21/24 01/02/25 Unknown History trolamine salicylate 10 % topical 1 applic topical BID PRN 08/21/24 01/02/25 Unknown History cream (Pain Relief (trolamine salicylate)) umeclidinium 62.5 mcg/actuation 1 inh inhalation DAILY 08/21/24 01/02/25 Unknown History blister powder for inhalation (Incruse Ellipta) mupirocin calcium 2 % topical cream 1 applic topical TID #30 grams 12/26/24 01/02/25 Unknown Rx Allergies Allergy/AdvReac Type Severity Reaction Status Date / Time codeine Allergy Unknown Unknown Verified 01/02/25 15:19 doxycycline Allergy Unknown Unknown Verified 01/02/25 15:19 erythromycin base Allergy Unknown Unknown Verified 01/02/25 15:19 hydromorphone (From Dilaudid) Allergy Unknown Unknown Verified 01/02/25 15:19 Sulfa (Sulfonamide Allergy Unknown Unknown Verified 01/02/25 15:19 Antibiotics) PFSH Acute PFSH: Medical History Non-pressure chronic ulcer of left lower leg, limited to breakdown of skin Fusion of spine, 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 Chronic obstructive pulmonary disease, unspecified Fibromyalgia Mixed hyperlipidemia Chronic pain syndrome Personal history of diseases of the skin and subcutaneous tissue Personal history of urinary (tract) infections Personal history of other diseases of the digestive system Unspecified dementia, unspecified severity, without behavioral disturbance, psychotic disturbance, mood disturbance, and anxiety Unsteadiness on feet Presence of cardiac pacemaker Overactive bladder Hypothyroidism, unspecified Hyperlipidemia, unspecified History of falling Gout, unspecified Gastro-esophageal reflux disease without esophagitis Essential (primary) hypertension Surgical History Presence of aortocoronary bypass graft Social History Smoking and tobacco/nicotine status: unknown if used tobacco/nicotine Housing: Prison Vitals/I&O/Wt Last Vital Signs Temp 98 F 06/29/25 02:41 Pulse 60 06/29/25 04:19 Resp 18 06/29/25 04:19 BP 233/84 06/29/25 04:19 Pulse Ox 95 06/29/25 04:19 O2 Del Method Nasal Cannula 06/29/25 03:50 O2 Flow Rate 2 06/29/25 02:41 06/28/25 06/28/25 06/29/25 14:59 22:59 06:59 Intake Total 0 / 0 Balance 0 / 0 Weight last 48 hrs Weight 62.142 kg Physical Exam Const: COMMON NORMALS: no acute distress ORIENTATION/CONSCIOUSNESS: Yes awake, Yes oriented to person, Yes oriented to place and Yes confused; not oriented to time Eye: COMMON NORMALS: Equal, round and reactive pupils present Resp: COMMON NORMALS: normal respiratory effort, No retractions, No use of accessory muscles and clear to auscultation bilaterally AUSCULTATION: clear to auscultation bilaterally Cardio: COMMON NORMALS: no JVD, regular rate, regular rhythm, S1 normal heart sound present and S2 normal heart sound present RATE: regular rate RHYTHM: regular rhythm HEART SOUNDS: S1 normal heart sound present and S2 normal heart sound present GI: COMMON NORMALS: Normal to inspection, nondistended, normoactive bowel sounds present, Soft to palpation and non-tender Extremity: COMMON NORMALS: no calf tenderness and no pedal edema Neuro: OTHER: Moves bilateral upper extremities, easily agitated, grabbing at right hip Skin: OTHER: Multiple superficial wounds bilateral shins, irregular borders, with surrounding erythema, Data 06/29/25 02:55 06/29/25 02:55 A&P Assessment and plan 1. Diabetes mellitus with skin ulcer: 2. Chronic kidney disease (CKD), stage 3: 3. Anemia: 4. Closed intertrochanteric fracture of right femur: 5. Non-pressure chronic ulcer of left lower leg, limited to breakdown of skin: Plan: Right hip fracture XR/XR femur RT min 2V* [id number] IMPRESSION: 1. There is a displaced and comminuted intertrochanteric fracture of the right femur. Plan - Patient is on Plavix, last dose 06/28/2025 - Morphine for pain control - Continue home oxycodone myrisate 18 mg p.o. twice daily - Keep n.p.o. Bilateral lower extremity coronado cellulitis - Vancomycin - IV Rocephin Acute encephalopathy - Baseline mentation unknown - She does have a history of dementia - CT head showing CT/CT head wo con* [id number] IMPRESSION: Diffuse atrophy and chronic/remote ischemic changes without evidence of superimposed acute infarct, hemorrhage, mass-effect or acute intracranial injury. - Did receive ketamine, fentanyl - Monitor mentation closely - Urinalysis Type 2 diabetes mellitus, low-dose sliding scale Acute on chronic anemia Full code SCDs for DVT prophylaxis, Lovenox after surgery PDMP PDMP Reviewed: Last Reviewed 06/29/25 05:02 by Fernandez Sanchez MD Attestations Medical Necessity Statement*: Patient requires hospitalization for right hip fracture, acute encephalopathy, bilateral lower extremity cellulitis, inpatient, greater than 2 midnights Diagnoses Diabetes mellitus with skin ulcer E11.622; L98.499 Chronic kidney disease (CKD), stage 3 N18.30 Anemia D64.9 Closed intertrochanteric fracture of right femur S72.141A Non-pressure chronic ulcer of left lower leg, limited to breakdown of skin L97.921
[2025-06-29] MEDS: cefTRIAXone 1,000 mg SDV 1000 MG IVP (05:50)
[2025-06-29 05:55] LABS: Procalcitonin 0.08 ng/mL (0-0.5)
[2025-06-29 06:01] LABS: Ferritin 317 ng/mL (15-150); Iron 28 ug/dL (37-145)
[2025-06-29 06:44] LABS: Glucose Urine UA Trace (Normal); Nitrate Urine Negative (Negative); Specific Gravity, Urine 1.016 (1.005-1.030)
[2025-06-29 06:49] LABS: Add Urine Microscopic? YES; Universal Test for UA Present (0)
[2025-06-29 07:06] LABS: UA Slide Review UA Slide Review Perf
[2025-06-29] MEDS: hyDRALAzine 20 mg/mL INJ 1 mL 10 MG IVP (07:40)
[2025-06-29 07:44] LABS: Estmated Average Glucose 192; Hemoglobin A1C 8.3 % (4.0-6.0)
--- NOTE | 2025-06-29 07:49 | PC.NURSE ---
pt to or at approx [id number]
--- NOTE | 2025-06-29 07:52 | PM.CONSULT ---
Providers/Reason For Consult Consulting Physician/Specialty*: Hospitalist Reason for Consult*: Right intertrochanteric hip fracture Attending Physician: Mary Orta MD History of Present Illness History of Present Illness Kami Hemphill is a 85 year old female she had a ground-level fall apparently at the longterm. At this point she is in severe pain difficult to get any information out of her. Looks like she was on high-dose oxycodone and on Plavix. Review of Systems General: Reports: ROS unobtainable due to mental status Medications/Allergies Home Medications ?Medication ?Instructions ?Recorded ?Confirmed ?Last Taken ?Type acetaminophen 500 mg tablet 1,000 mg PO DAILY 08/21/24 01/02/25 Unknown History albuterol sulfate 90 mcg/actuation 2 puff inhalation Q6H PRN 08/21/24 01/02/25 Unknown History aerosol inhaler allopurinol 300 mg tablet 300 mg PO DAILY 08/21/24 01/02/25 Unknown History atorvastatin 20 mg tablet 20 mg PO DAILY 08/21/24 01/02/25 Unknown History benazepril 20 mg tablet 20 mg PO DAILY 08/21/24 01/02/25 Unknown History carvedilol 6.25 mg tablet 6.25 mg PO BID 08/21/24 01/02/25 Unknown History clopidogrel 75 mg tablet 75 mg PO DAILY 08/21/24 01/02/25 Unknown History ergocalciferol (vitamin D2) 50,000 50,000 unit PO .weekly 08/21/24 01/02/25 Unknown History unit tablet famotidine 20 mg tablet 20 mg PO DAILY 08/21/24 01/02/25 Unknown History gabapentin 300 mg capsule 300 mg PO BID 08/21/24 01/02/25 Unknown History hydrochlorothiazide 12.5 mg tablet 12.5 mg PO DAILY 08/21/24 01/02/25 Unknown History levothyroxine 100 mcg tablet 100 mcg PO DAILY 08/21/24 01/02/25 Unknown History menthol 5 % topical gel (Biofreeze ea topical 08/21/24 01/02/25 Unknown History (menthol)) nitroglycerin 0.4 mg sublingual 0.4 mg sublingual Q5M PRN 08/21/24 01/02/25 Unknown History tablet (Nitrostat) oxycodone 5 mg tablet 5 mg PO BID PRN 08/21/24 01/02/25 Unknown History oxycodone myristate 18 mg capsule 18 mg PO BID 08/21/24 01/02/25 Unknown History sprinkle extended release 12hr(DON'T CRUSH) (Xtampza ER) polyethylene glycol 3350 17 4 g PO DAILY 08/21/24 01/02/25 Unknown History gram/dose oral powder (Miralax) ropinirole 0.5 mg tablet 1.5 mg PO DAILY 08/21/24 01/02/25 Unknown History trolamine salicylate 10 % topical 1 applic topical BID PRN 08/21/24 01/02/25 Unknown History cream (Pain Relief (trolamine salicylate)) umeclidinium 62.5 mcg/actuation 1 inh inhalation DAILY 08/21/24 01/02/25 Unknown History blister powder for inhalation (Incruse Ellipta) mupirocin calcium 2 % topical cream 1 applic topical TID #30 grams 12/26/24 01/02/25 Unknown Rx Allergies Allergy/AdvReac Type Severity Reaction Status Date / Time codeine Allergy Unknown Unknown Verified 01/02/25 15:19 doxycycline Allergy Unknown Unknown Verified 01/02/25 15:19 erythromycin base Allergy Unknown Unknown Verified 01/02/25 15:19 hydromorphone (From Dilaudid) Allergy Unknown Unknown Verified 01/02/25 15:19 Sulfa (Sulfonamide Allergy Unknown Unknown Verified 01/02/25 15:19 Antibiotics) Current Medications Generic Name Dose Route Start Last Admin Trade Name Freq PRN Reason Stop Dose Admin Ceftriaxone Sodium 1,000 mg 06/29/25 05:45 06/29/25 05:50 Ceftriaxone 1,000 Mg Sdv IVP 1,000 mg Q24H TIMOTHY Administration Protocol Hydralazine HCl 10 mg 06/29/25 06:13 06/29/25 07:40 Hydralazine 20 Mg/Ml Inj 1 Ml IVP 10 mg Q4H PRN Administration sbp>180 or dbp>100 PFSH Acute PFSH: Medical History (Updated 06/29/25 @ 07:55 by Naif Gonsales DO) Non-pressure chronic ulcer of left lower leg, limited to breakdown of skin Fusion of spine, 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 Chronic obstructive pulmonary disease, unspecified Fibromyalgia Mixed hyperlipidemia Chronic pain syndrome Personal history of diseases of the skin and subcutaneous tissue Personal history of urinary (tract) infections Personal history of other diseases of the digestive system Unspecified dementia, unspecified severity, without behavioral disturbance, psychotic disturbance, mood disturbance, and anxiety Unsteadiness on feet Presence of cardiac pacemaker Overactive bladder Hypothyroidism, unspecified Hyperlipidemia, unspecified History of falling Gout, unspecified Gastro-esophageal reflux disease without esophagitis Essential (primary) hypertension Surgical History Presence of aortocoronary bypass graft Social History Smoking and tobacco/nicotine status: unknown if used tobacco/nicotine Housing: [facility] Vitals/I&O/Wt Last Vital Signs Temp 98 F 06/29/25 02:41 Pulse 87 06/29/25 07:13 Resp 22 H 06/29/25 06:30 BP 203/85 06/29/25 07:13 Pulse Ox 96 06/29/25 07:13 O2 Del Method Nasal Cannula 06/29/25 06:30 O2 Flow Rate 2 06/29/25 06:30 06/28/25 06/29/25 06/29/25 22:59 06:59 14:59 Intake Total 0 / 0 Balance 0 / 0 Weight last 48 hrs Weight 137 lb Physical Exam Narrative: Patient's right leg is significantly shortened and externally rotated she is grabbing her hip and pain Data 06/29/25 02:55 06/29/25 02:55 A&P Assessment and plan 1. Closed displaced intertrochanteric fracture of right femur, initial encounter: Plan to do a right hip nail today PDMP PDMP Reviewed: Not Reviewed Coding Level of Care Code Acute Code for Chg Fwd Diagnoses Closed displaced intertrochanteric fracture of right femur, initial encounter S72.141A Encounter type: initial encounter Fracture alignment: displaced
[2025-06-29 07:58] LABS: Cholesterol 102 mg/dL (0-200); HDL Cholesterol 59 mg/dL (60-100); Thyroid Stimulating Hormone 4.84 uIU/mL (0.27-4.20); Triglycerides 81 mg/dL (0-150)
--- NOTE | 2025-06-29 08:44 | ANES.PREANE2 ---
Pre-Anesthetic Assessment Height/Weight: Height 5 ft Weight 137 lb Temp Pulse Resp BP Pulse Ox O2 Del Method O2 Flow Rate 98.6 F 90 16 159/84 97 Nasal Cannula 2 06/29/25 08:11 06/29/25 08:11 06/29/25 08:11 06/29/25 08:11 06/29/25 08:11 06/29/25 08:11 06/29/25 08:11 Preop Diagnosis: Right intertrochanteric fracture Operation Date: 06/29/25 11:20 Proposed Procedures p Trochanteric Femoral Nail(Right) - Naif Gonsales, DO Was Beta Sam taken within 24 hours: N/A (Unknown) Was Clonidine taken within 24 hours: N/A Social No alcohol and No tobacco Exam Patient is arousable, ANO x 0 Airway Mallampati: Class III Dentition: full Anesthetic Plan ASA status: 4E Anesthesia: General Other: Patient arrived overnight with a right intratrochanteric fracture. Patient is asleep in bed in preop. Arousable but does not respond to questions. Multiple attempts have been made to contact family without success Surgeon states that this is emergent and patient needs surgery, plan is to proceed at this time Per chart review patient has CKD stage III Chronic Plavix use is unknown, PT/INR is WNL Type 2 diabetes, BS 209 in preop Labs reviewed from today, hemoglobin 9. Type and screen performed EKG showing atrial pacemaker, incomplete BBB and prior septal CA Plan for general anesthesia Medications/Allergies Home Medications ?Medication ?Instructions ?Recorded ?Confirmed ?Last Taken ?Type acetaminophen 500 mg tablet 1,000 mg PO DAILY 08/21/24 01/02/25 Unknown History albuterol sulfate 90 mcg/actuation 2 puff inhalation Q6H PRN 08/21/24 01/02/25 Unknown History aerosol inhaler allopurinol 300 mg tablet 300 mg PO DAILY 08/21/24 01/02/25 Unknown History atorvastatin 20 mg tablet 20 mg PO DAILY 08/21/24 01/02/25 Unknown History benazepril 20 mg tablet 20 mg PO DAILY 08/21/24 01/02/25 Unknown History carvedilol 6.25 mg tablet 6.25 mg PO BID 08/21/24 01/02/25 Unknown History clopidogrel 75 mg tablet 75 mg PO DAILY 08/21/24 01/02/25 Unknown History ergocalciferol (vitamin D2) 50,000 50,000 unit PO .weekly 08/21/24 01/02/25 Unknown History unit tablet famotidine 20 mg tablet 20 mg PO DAILY 08/21/24 01/02/25 Unknown History gabapentin 300 mg capsule 300 mg PO BID 08/21/24 01/02/25 Unknown History hydrochlorothiazide 12.5 mg tablet 12.5 mg PO DAILY 08/21/24 01/02/25 Unknown History levothyroxine 100 mcg tablet 100 mcg PO DAILY 08/21/24 01/02/25 Unknown History menthol 5 % topical gel (Biofreeze ea topical 08/21/24 01/02/25 Unknown History (menthol)) nitroglycerin 0.4 mg sublingual 0.4 mg sublingual Q5M PRN 08/21/24 01/02/25 Unknown History tablet (Nitrostat) oxycodone 5 mg tablet 5 mg PO BID PRN 08/21/24 01/02/25 Unknown History oxycodone myristate 18 mg capsule 18 mg PO BID 08/21/24 01/02/25 Unknown History sprinkle extended release 12hr(DON'T CRUSH) (Xtampza ER) polyethylene glycol 3350 17 4 g PO DAILY 08/21/24 01/02/25 Unknown History gram/dose oral powder (Miralax) ropinirole 0.5 mg tablet 1.5 mg PO DAILY 08/21/24 01/02/25 Unknown History trolamine salicylate 10 % topical 1 applic topical BID PRN 08/21/24 01/02/25 Unknown History cream (Pain Relief (trolamine salicylate)) umeclidinium 62.5 mcg/actuation 1 inh inhalation DAILY 08/21/24 01/02/25 Unknown History blister powder for inhalation (Incruse Ellipta) mupirocin calcium 2 % topical cream 1 applic topical TID #30 grams 12/26/24 01/02/25 Unknown Rx Allergies Allergy/AdvReac Type Severity Reaction Status Date / Time codeine Allergy Unknown Unknown Verified 01/02/25 15:19 doxycycline Allergy Unknown Unknown Verified 01/02/25 15:19 erythromycin base Allergy Unknown Unknown Verified 01/02/25 15:19 hydromorphone (From Dilaudid) Allergy Unknown Unknown Verified 01/02/25 15:19 Sulfa (Sulfonamide Allergy Unknown Unknown Verified 01/02/25 15:19 Antibiotics) Current Medications Generic Name Dose Route Start Last Admin Trade Name Ashishq PRN Reason Stop Dose Admin Ceftriaxone Sodium 1,000 mg 06/29/25 05:45 06/29/25 05:50 Ceftriaxone 1,000 Mg Sdv IVP 1,000 mg On Hold: 06/29/25 07:56 Q24H TIMOTHY Administration Comment: Order held by Process Protocol Transfer Hydralazine HCl 10 mg 06/29/25 06:13 06/29/25 07:40 Hydralazine 20 Mg/Ml Inj 1 Ml IVP 10 mg On Hold: 06/29/25 07:56 Q4H PRN Administration Comment: Order held by Process sbp>180 or dbp>100 Transfer [facility] Anesthesia Medical History (Updated 06/29/25 @ 07:55 by Naif Gonsales DO) Non-pressure chronic ulcer of left lower leg, limited to breakdown of skin Fusion of spine, 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 Chronic obstructive pulmonary disease, unspecified Fibromyalgia Mixed hyperlipidemia Chronic pain syndrome Personal history of diseases of the skin and subcutaneous tissue Personal history of urinary (tract) infections Personal history of other diseases of the digestive system Unspecified dementia, unspecified severity, without behavioral disturbance, psychotic disturbance, mood disturbance, and anxiety Unsteadiness on feet Presence of cardiac pacemaker Overactive bladder Hypothyroidism, unspecified Hyperlipidemia, unspecified History of falling Gout, unspecified Gastro-esophageal reflux disease without esophagitis Essential (primary) hypertension Surgical History Presence of aortocoronary bypass graft Social History Smoking and tobacco/nicotine status: unknown if used tobacco/nicotine Housing: Detention Data Anesthesia 06/29/25 02:55 06/29/25 02:55 Short CBC 06/29/25 Range/Units 02:55 WBC 11.68 H (3.29-11.43) 10^3/uL Hgb 9.00 L (11.27-16.99) g/dL Hct 28.5 L (36-47) % MCV 96.0 (85-98) fl Plt Count 284 (157-399) 10^3/cmm Neut % (Auto) 70.3 % Neut # (Auto) 8.21 H (1.8-7.7) 10^3/uL BMP 06/29/25 02:55 Sodium 141 Potassium 3.7 Chloride 104 Carbon Dioxide 28 BUN 19 Creatinine 1.5 H Glucose 182 H Calcium 9.0 Liver Function 06/29/25 Range/Units 02:55 Total Bilirubin 0.2 (0.15-1.2) mg/dL AST 24 (0-32) U/L ALT 15 (0-33) U/L Alkaline Phosphatase 133 H (35-105) U/L Albumin 3.3 L (3.5-5.2) g/dL Urine 06/29/25 Range/Units 06:28 Urine Color Larue A (Yellow) Urine Appearance Clear (CLEAR) Urine pH 5.5 (5-7) Ur Specific [place] 1.016 (1.005-1.030) Urine Protein 3+ A (Negative) Urine Glucose (UA) Trace H (Normal) Urine Ketones Trace (Negative) Urine Nitrate Negative (Negative) Urine Bilirubin Negative (Negative) Ur Leukocyte Esterase 1+ A (Negative) Urine RBC 51-100 H (0-2) /hpf Urine WBC 51-100 H (0-5) /hpf Blood Bank 06/29/25 02:55 Blood Type O Positive Rho(D) Type Rh positive Antibody Screen Negative Coags 06/29/25 02:55 PT 13.50 INR 0.97 C-Reactive Protein 3.0
--- NOTE | 2025-06-29 08:55 | PC.NURSE ---
Upon arrival to outpatient surgery patient still wearing home night gown, did not have an allergy band on, and marte statlok placed on the operative thigh. Multiple wounds and abrasions on bilateral legs also noted.
[2025-06-29] MEDS: ceFAZolin 2,000 mg SDV 2000 MG IVP (09:19)
--- NOTE | 2025-06-29 10:02 | PC.NURSE ---
Surgeon declared case emergent (loss of limb). Anesthesia consent not complete nor is the surgical consent signed by patient (mental status) or guardian (will not answer phone).
--- NOTE | 2025-06-29 10:16 | XR_ITS ---
WS: [id number] XR hip RT 2-3V wo/w pel* [id number] REASON FOR EXAM: OR PICS FINDINGS: Short intramedullary rory and large femoral neck nail fixation of comminuted intertrochanteric fracture. Surgical appliances are intact and in proper position and alignment. Fracture fragments are in good apposition and alignment. XR/XR hip RT 2-3V wo/w pel* [id number] IMPRESSION: Hip fracture with internal fixation without abnormality.
--- NOTE | 2025-06-29 10:20 | PM.OP ---
Operative Report Date of procedure: June 29, 2025 Pre-op diagnosis: Right intertrochanteric hip fracture Post-op diagnosis: same Procedure done: Right intramedullary hip nail Surgeon: Naif Gonsales DO Estimated blood loss (mL): 25 Procedure: Right intramedullary hip nail Patient was brought to the operative suite after undergoing anesthesia was placed supine on the Holden table. All areas of impingement were well-padded. Traction was applied and checked under C arm guidance to reduce the fracture. Once the fracture was adequately reduced the Holden table was locked into position. Patient was then prepped and draped in normal sterile fashion. Skin incision was made over the proximal tip of the greater trochanter. A starting wire was inserted at the tip of the greater trochanter. Opening reamer was inserted. The nail was inserted however was little tight so I brought in the canal reamers and reamed to 13 in order to facilitate placing the nail. The nail was then placed. A wire was placed up in the center center position of the head for the lag screw. The lag screw was drilled and measured to be 95 and 95 lag screw was placed the nail was a 125 degree nail. And then attention was brought to the distal locking screw. Distal locking screw was 35. Screw was placed AP lateral fluoroscopy ensured the hardware and fracture were in good position. Wounds were irrigated closed with Vicryl mary. Sterile dressings were applied and patient is transferred to the PACU in stable condition.
[2025-06-29] MEDS: fentaNYL 50 mcg/mL INJ 2mL IVP (10:40)
--- NOTE | 2025-06-29 10:47 | PC.OT ---
OT eval order received; pt placed on hold due to surgery today. Will attempt OT evaluation again at later time.
--- NOTE | 2025-06-29 10:55 | ANE.PACU2 ---
Inpatient post-anesthesia follow up: Airway intact: Yes Vital signs: Temperature 98 F Pulse Rate 75 Respiratory Rate 18 Blood Pressure 126/63 Pulse Oximetry 96 Oxygen Delivery Me thod Nasal Cannula Oxygen Flow Rate 2 Fraction of Inspir ed Oxygen Hydration adequate: Yes Nausea and vomiting: No Pain level: 1 Mental status: Baseline
--- NOTE | 2025-06-29 11:43 | PM.MISC ---
Miscellaneous Note Purpose of Documentation: Overnight labs and H&P reviewed.patient taken to the OR this morning for a right intertrochanteric hip fracture with plan for right intramedullary hip nail.
--- NOTE | 2025-06-29 14:15 | PHA.VACGOAL ---
Vancomycin Goal - Goal Vancomycin Goal:: 10-15 mg/L Vancomycin Indication:: SSTI - Therapy Current therapy:: Other Antibiotic (CEFTRIAXONE) Day of therpy:: Day []of [] . Actual body weight (kg): 137 lb - Data Labs: WBC 11.68 10^3/uL (3.29-11.43) H 06/29/25 02:55 RBC 2.97 10^6/uL (3.85-5.65) L 06/29/25 02:55 Hgb 9.00 g/dL (11.27-16.99) L 06/29/25 02:55 Hct 28.5 % (36-47) L 06/29/25 02:55 MCV 96.0 fl (85-98) 06/29/25 02:55 MCH 30.3 pg (27-33) 06/29/25 02:55 MCHC 31.6 g/dL (30-55) 06/29/25 02:55 RDW 14.7 % (12.1-15.1) 06/29/25 02:55 Sodium 141 mmol/L (136-145) 06/29/25 02:55 Potassium 3.7 mmol/L (3.5-5.1) 06/29/25 02:55 Chloride 104 mmol/L (98-107) 06/29/25 02:55 Carbon Dioxide 28 mmol/L (22-29) 06/29/25 02:55 Anion Gap 12.7 (5-19) 06/29/25 02:55 BUN 19 mg/dL (8-23) 06/29/25 02:55 Creatinine 1.5 mg/dL (0.5-0.9) H 06/29/25 02:55 GFR Calculation Not Reportable 06/29/25 02:55 Last dialysis session:: N/A Treatment plan:: new consult Regimen:: INITIAL LOADING DOSE OF 1250 MG X 1. DUE TO RENAL FUNCTION, PLAN TO PULSE DOSE. Follow up:: WILL OBTAIN TROUGH 24 HOURS POST LOADING DOSE.
--- NOTE | 2025-06-29 15:07 | PC.SOCIAL ---
IMM Update pg 2 of IMM updated and reviewed w/ patient. Copy provided and copy dated, initialed and placed in chart.
[2025-06-29] MEDS: morphine 4 mg/mL SDV 1 mL IVP (15:46)
[2025-06-29] MEDS: acetaminophen 1,000 MG/100 ML PIGGYBACK 400 MG IV (16:36)
[2025-06-29] MEDS: oxyCODONE 5 mg IR Tab/Cap 10 MG PO (17:08)
[2025-06-29] MEDS: LORazepam 1 MG/0.5 ML injection 0.5 MG IVP (19:00)
--- NOTE | 2025-06-29 23:36 | PC.NURSE ---
b/p been low, notified Dr. Sanchez, orders for stat labs and albumin received
[2025-06-30] VITALS (38 sets, daily range): BP systolic 91–187; BP diastolic 49–76; PULSE 59–68; RESP 15–21; TEMP 36.4–37.2; O2SAT 2–100
[2025-06-30 00:05] LABS: Mean Corpuscular HGB Conc 30.3 g/dL (30-55); Mean Corpuscular Hemoglobin 30.3 pg (27-33); Mean Corpuscular Volume 100.0 fl (85-98); Nucleated Red Blood Cells % 0 %; Platelet Count 192 10^3/cmm (157-399); Red Blood Count 2.08 10^6/uL (3.85-5.65); White Blood Count 11.42 10^3/uL (3.29-11.43)
[2025-06-30 00:08] LABS: Hematocrit 20.8 % (36-47); Hemoglobin 6.30 g/dL (11.27-16.99)
[2025-06-30 00:21] LABS: Alanine Aminotransferase 10 U/L (0-33); Albumin Level 2.6 g/dL (3.5-5.2); Alkaline Phosphatase 90 U/L (35-105); Anion Gap 15.4 (5-19); Aspartate Amino Transferase 22 U/L (0-32); Blood Urea Nitrogen 25 mg/dL (8-23); Calcium 8.4 mg/dL (8.5-10.5); Carbon Dioxide 25 mmol/L (22-29); Chloride 105 mmol/L (98-107); Creatinine Clr Calc Pharmacy 19.1564; Globulin 2.9 g/dL (1.3-4.6); Glucose 137 mg/dL (65-115); Lactate (Lactic Acid level) 1.1 mmol/L (0.5-2.2); Osmolality Calculated 299 mOsm/kg (285-295); Potassium 4.4 mmol/L (3.5-5.1); Sodium 141 mmol/L (136-145); Total Protein 5.5 g/dL (6.6-8.7)
--- NOTE | 2025-06-30 01:23 | P.PNCC_ITS ---
Critical Care Event Note The high probability of a clinically significant, sudden or life threatening deterioration of the patient's [] system(s) required my full and direct attention, intervention and personal management. The critical care time is as shown. This time is in addition to time spent performing any reported procedures but includes the following: [x] Data and vital sign review and interpretation [x] Patient assessment, examination and intervention [x] Documentation [x] Medication orders and management Critical Care Time Code activated: No Critical Care Time (min): 10 Additional information about critical care time: Patient's hemoglobin this evening is 92/48, hemoglobin is 6.3, no active bloody or black stools, she was on Plavix which she did receive the day before surgery, suspect that this is postoperative anemia - Given hemodynamic compromise this is a bit of a emergent situation which I have to give patient 1 unit of blood, and albumin - I can see documented anywhere in the chart that she is a [employer] - I have reached 3 separate times to reach Marshall Hemphill but unfortunately I am not able to reach him to get consent to give blood - Given that this is an emergent situation, risks and benefits, given her low blood pressure and her low hemoglobin I think you would be reasonable to go ahead and proceed with transfusing her with 1 unit of blood - I reviewed her DURABLE POWER OF NETWORK TECHNICIAN of healthcare which lists Marshall Hemphill, again I have called his #3 separate times and nursing staff have tried to call him, but unable to reach him - At #4 and her DURABLE POWER OF NETWORK TECHNICIAN it states that the DURABLE POWER OF NETWORK TECHNICIAN is effective as to healthcare decision making but I am incapacitated unable to make and communicate healthcare decision as certified by 1 physician - Currently Vonnie cannot make decisions for herself nursing staff report that she remains confused, they cannot get any clear answers from her, she mumbles and pulls away when stimulated -Will proceed and transfuse her 1 unit PRBC, albumin, monitor hemoglobin Coding Level of Care Code Acute Code for [facility] Fwd
[2025-06-30] MEDS: acetaminophen 1,000 MG/100 ML PIGGYBACK 400 MG IV ×2 (01:24→08:42)
[2025-06-30] MEDS: pantoprazole 40 mg SDV IVP ×2 (01:43→13:25)
[2025-06-30] MEDS: albumin 25 G/100 ML BAG 60 G IV (01:48)
[2025-06-30] MEDS: cefTRIAXone 1,000 mg SDV 1000 MG IVP (05:36)
--- NOTE | 2025-06-30 06:17 | PC.NURSE ---
06/29/25 @ 3366, call placed to son to obtain consent for blood products, no answer, message left to call facility and direct number to this floor given also
--- NOTE | 2025-06-30 06:19 | PC.NURSE ---
multiple calls placed to pt son to obtain consent for blood products and messages left to call facility. around 0100 call was placed to [facility], first number called stated that pt does not live there, second number called to verify that pt is not jehova witness stated she did not believe that pt is Jehova witness. also stated that she cannot look up pt info due pt out of the system right now since pt is in the hospital, also when asked about availability to reach son the person on the other line verbalized that pt son is difficult to get hold of.
--- NOTE | 2025-06-30 06:58 | PC.PHAR ---
Addendum entered by Sonya Hagen 06/30/25 08:38: Verified medications on MAR with current intermediate med list. Original Note: Pt is from [facility]
[2025-06-30 07:13] LABS: Mean Corpuscular HGB Conc 31.1 g/dL (30-55); Mean Corpuscular Hemoglobin 30.7 pg (27-33); Mean Corpuscular Volume 98.6 fl (85-98); Nucleated Red Blood Cells % 0 %; Platelet Count 165 10^3/cmm (157-399); Red Blood Count 2.12 10^6/uL (3.85-5.65); White Blood Count 9.63 10^3/uL (3.29-11.43)
[2025-06-30 07:19] LABS: Hematocrit 20.9 % (36-47); Hemoglobin 6.50 g/dL (11.27-16.99)
[2025-06-30 07:28] LABS: Alanine Aminotransferase 9 U/L (0-33); Albumin Level 2.7 g/dL (3.5-5.2); Alkaline Phosphatase 79 U/L (35-105); Anion Gap 16.2 (5-19); Aspartate Amino Transferase 27 U/L (0-32); Blood Urea Nitrogen 26 mg/dL (8-23); Calcium 8.2 mg/dL (8.5-10.5); Carbon Dioxide 24 mmol/L (22-29); Chloride 107 mmol/L (98-107); Creatinine Clr Calc Pharmacy 17.0129; Globulin 2.5 g/dL (1.3-4.6); Glucose 116 mg/dL (65-115); Osmolality Calculated 302 mOsm/kg (285-295); Potassium 4.2 mmol/L (3.5-5.1); Sodium 143 mmol/L (136-145); Total Protein 5.2 g/dL (6.6-8.7)
--- NOTE | 2025-06-30 10:25 | CTR_ITS ---
PROCEDURE INFORMATION: Exam: CT Head Without Contrast Exam date and time: 06/30/2025 1:54 PM Age: 85 years old Clinical indication: Altered mental status/memory loss; Additional info: AMS, assess for stroke TECHNIQUE: Imaging protocol: Computed tomography of the head without contrast. Radiation optimization: All CT scans at this facility use at least one of these dose optimization techniques: automated exposure control; mA and/or kV adjustment per patient size (includes targeted exams where dose is matched to clinical indication); or iterative reconstruction. COMPARISON: CT head wo con* [id number] 06/29/2025 3:50 AM RADIATION DOSE METRICS: Total DLP (mGy-cm): 920.48 FINDINGS: Brain: No acute infarct, hemorrhage, mass, or mass effect. Moderate chronic white matter microvascular ischemic change. Cerebral ventricles: Normal ventricles. No appreciable extra-axial fluid. Paranasal sinuses: Mucosal thickening in the paranasal sinuses. Mastoid air cells: Clear. Orbital cavities: Orbits are unremarkable. Sella is unremarkable. Bones: Unremarkable calvarium. Partially seen posterior instrumented fusion upper cervical spine, without distinct hardware complication. Soft tissues: Unremarkable. CT/CT head wo con* [id number] IMPRESSION: 1. No acute intracranial abnormality. 2. Moderate chronic white matter microvascular ischemic change.
--- NOTE | 2025-06-30 10:25 | CTR_ITS ---
PROCEDURE INFORMATION: Exam: CT Abdomen And Pelvis Without Contrast Exam date and time: 06/30/2025 1:57 PM Age: 85 years old Clinical indication: Abdominal pain; Generalized; Prior surgery; Surgery date: Post-operative (0-2 days); Surgery type: Right hip; Additional info: Assess for hemoperitoneum TECHNIQUE: Imaging protocol: Computed tomography of the abdomen and pelvis without contrast. Radiation optimization: All CT scans at this facility use at least one of these dose optimization techniques: automated exposure control; mA and/or kV adjustment per patient size (includes targeted exams where dose is matched to clinical indication); or iterative reconstruction. COMPARISON: CT abdomen pelvis wo/w [id number] 03/19/2025 12:51 PM RADIATION DOSE METRICS: Total DLP (mGy-cm): 649.26 FINDINGS: Pleural spaces: Small bilateral pleural effusions with dependent atelectasis. Liver: Slight nodularity of the liver surface suggesting possible cirrhosis. There is mild periportal edema. Gallbladder and biliary ducts: Gallbladder is not visualized and likely surgically absent. Pancreas: Normal. No ductal dilation. Spleen: Normal. No splenomegaly. Adrenal glands: Normal. No mass. Kidneys and ureters: The right kidney is somewhat small and atrophic. 7 mm stone in the lower pole of the left kidney. No hydronephrosis. Stomach and bowel: There is mild to moderate wall thickening of the ascending and transverse colon suggesting colitis. Appendix: No evidence of appendicitis. Intraperitoneal space: Trace free fluid is seen around the liver and in the pelvis. Vasculature: Unremarkable. No abdominal aortic aneurysm. Lymph nodes: Unremarkable. No enlarged lymph nodes. Urinary bladder: Randle catheter in the urinary bladder. Reproductive: The uterus may be surgically absent. Bones/joints: Postsurgical changes of the lumbar spine from L3-L5. Severe degenerative disc disease at T12-L1 with reactive endplate/vertebral body sclerosis. Mild scoliosis. Status post ORIF through the acute proximal right femur fracture. Soft tissues: There is soft tissue swelling/edema in the right proximal thigh without discrete fluid collection. Scattered foci of gas are seen adjacent to the right hip and right gluteal region, likely related to ORIF. Small fat containing inguinal hernias bilaterally. CT/CT abdomen pelvis wo con [id number] IMPRESSION: 1. Wall thickening of the ascending and transverse colon compatible with colitis. Note that colonic wall thickening can also be seen in the setting of portal hypertension, particularly right colon wall thickening. 2. Mild ascites. 3. Hepatic cirrhosis. 4. Soft tissue swelling in the right gluteal region and right hip and thigh with scattered foci of gas status post ORIF of proximal right femur acute fracture. 5. Other findings as detailed above.
--- NOTE | 2025-06-30 10:26 | P.PN_ITS ---
Subjective 2 Subjective: Patient was noted to have anemia overnight with a hemoglobin dropped to 6.3. She has received 1 unit of packed red blood cell transfusion. This morning hemoglobin remains at 6.5. She was transiently hypotensive overnight with a blood pressure of 90/57, this is improved after transfusion to 122/72 this morning. Patient is lethargic compared to yesterday when on her postop check she was alert awake but in significant pain and exhibited signs of delirium. Medications: Reviewed: Yes Vitals/I&O/Wt Last Vital Signs Temp 98.2 F 06/30/25 10:05 Pulse 60 06/30/25 10:05 Resp 17 06/30/25 10:05 BP 122/72 06/30/25 10:05 Pulse Ox 98 06/30/25 10:05 O2 Del Method Nasal Cannula 06/30/25 08:17 O2 Flow Rate 1.5 06/30/25 08:22 06/29/25 06/30/25 06/30/25 22:59 06:59 14:59 Intake Total 460 / 1710 1450 / 3160 100 / 100 Output Total 900 / 1335 100 / 1435 Balance -440 / 375 1350 / 1725 100 / 100 Weight last 48 hrs Weight 60.419 kg Weight 62.142 kg Weight 62.142 kg Physical Exam 2 Narrative: General: Asleep at the time of exam. Opens eyes to calling name but more lethargic compared to yesterday. HEENT: PERRLA, pupils bilaterally equal and reactive, pallors not present Chest: Normal vesicular breath sounds, no added sounds, equal good air entry bilaterally CVS: S1-S2 regular, no murmurs, no tachycardia, no gallops, no rubs Abdomen: Soft, nontender, no organomegaly, bowel sounds present Neuro: Somnolent. Opens eyes to calling name but otherwise is not following commands at this time. Urinary Catheter Management: Randle: Cath Placed During This Visit: no Reason for Continuing Indwelling Catheter: Perioperative Use in Selected Surgeries Data 06/30/25 07:00 06/30/25 07:00 A&P Assessment and plan 1. Diabetes mellitus with skin ulcer: 2. Chronic kidney disease (CKD), stage 3: 3. Anemia: 4. Closed displaced intertrochanteric fracture of right femur, initial encounter: 5. Non-pressure chronic ulcer of left lower leg, limited to breakdown of skin: 6. Delirium: 7. JORDY (acute kidney injury): Plan: Right hip fracture XR/XR femur RT min 2V* [id number] IMPRESSION: 1. There is a displaced and comminuted intertrochanteric fracture of the right femur. Plan - Patient is on Plavix, last dose 06/28/2025 - Morphine for pain control - Continue home oxycodone myrisate 18 mg p.o. twice daily - Keep n.p.o. Bilateral lower extremity coronado cellulitis - Vancomycin - IV Rocephin Acute encephalopathy - Baseline mentation unknown - She does have a history of dementia - CT head showing CT/CT head wo con* [id number] IMPRESSION: Diffuse atrophy and chronic/remote ischemic changes without evidence of superimposed acute infarct, hemorrhage, mass-effect or acute intracranial injury. - Did receive ketamine, fentanyl - Monitor mentation closely - Urinalysis Type 2 diabetes mellitus, low-dose sliding scale Acute on chronic anemia Full code SCDs for DVT prophylaxis, Lovenox after surgery June 30, 2025 85 year old female with a past medical history of COPD, type 2 diabetes, hypothyroidism, hyperlipidemia, history of dementia, who presents to [facility] for a [facility] and was found to have an intertrochanteric hip fracture. she is status post ORIF with right intramedullary hip nail on June 29, 2025. Postop course has been complicated by severe pain, delirium, acute on chronic anemia. This morning patient is noted to be somnolent. She opens eyes to calling name however is not following commands. Overnight she was noted to have a hemoglobin drop to 6.3, likely from postoperative blood loss, transfused 1 unit with minimal improvement in her hemoglobin this morning at 6.5. Patient was additionally hypotensive overnight with a blood pressure of 90/57 mmHg. This is improved after the transfusion to 122/72 at the time of this assessment. Additional 3 units of blood transfusion have been ordered with a target hemoglobin of 9 given hemodynamic compromise with the acute blood loss anemia. Pain has been difficult to control postoperatively. Review of chart shows patient is typically on oxycodone 18 mg every 12 hours and had also received several doses of fentanyl and ketamine in the emergency room. She is currently able to maintain her airway and saturating 98% on 2 L/min supplemental O2. Last evening she received gabapentin at 5 PM, 4 mg of IV morphine at 1546, 10 mg of p.o. oxycodone at 5 PM and 0.5 mg of IV Ativan at 7 PM. With this she appears to have had adequate control of pain however is lethargic this morning. This may potentially be associated with opiate stacking, however at this point has not received any doses in over 24 hours. Patient's overnight nurse reported to me this morning that she has been lethargic through much of the night. Will check ABG to assess for hypercapnia given reported history of COPD. Will additionally check CT of the head to rule out any stroke. Trial of Narcan if CT head and ABG remain unrevealing and patient continues to be somnolent. Currently she is able to maintain her airway. Holding Coreg, hydralazine, lisinopril at this time. Labs today also notable for JORDY with creatinine up to 2.0. Urine output of 1000 cc. Start IV hydration with normal saline at 75 cc an hour. Patient appears to be clinically dehydrated with dry parched mucous membrane and atrophic tongue. Continue ceftriaxone and vancomycin for lower extremity chronic wounds. PDMP PDMP Reviewed: Not Reviewed Attestations 2 Medical Necessity Statement*: Continued admission for anemia, needing blood transfusion, delirium, altered mental status and lethargy Coding Level of Care Code Acute Code for [facility] Fwd High MDM includes number and complexity of problems actively addressed during encounter, amount and/or complexity of data reviewed/ordered and described risk of complication, morbidity or mortality of management as documented Diagnoses Diabetes mellitus with skin ulcer E11.622; L98.499 Chronic kidney disease (CKD), stage 3 N18.30 Anemia D64.9 Closed displaced intertrochanteric fracture of right femur, initial encounter S72.141A Encounter type: initial encounter Fracture alignment: displaced Non-pressure chronic ulcer of left lower leg, limited to breakdown of skin L97.921 Delirium R41.0 JORDY (acute kidney injury) N17.9
[2025-06-30 10:51] LABS: ABG PCO2 49.2 mmHg (35-45); ABG PH Result 7.30 (7.35-7.45); Arterial Blood Gas Hematocrit 24.1 % (37-47); Blood Gas Allen Test Pos; Blood Gas Sample Type Arterial; HCO3 ABG 24.4 mmol/L (22-26); PO2 ABG 83.6 mmHg (80.0-100.0)
[2025-06-30 10:52] LABS: Blood Gas LPM 2.0 %; Blood Gas Operator Identificat MONRO; Blood Gas Sample Site Radial, left; PO2 FiO2 Ratio Arterial Blood 298
[2025-06-30] MEDS: morphine 4 mg/mL SDV 1 mL 2 MG IVP ×3 (11:00→23:30)
--- NOTE | 2025-06-30 12:07 | P.PN_ITS ---
Subjective 2 Subjective: Patient is resting in bed comfortably. Currently getting blood. Is somewhat confused. Vitals/I&O/Wt Last Vital Signs Temp 98.1 F 06/30/25 11:29 Pulse 68 06/30/25 11:29 Resp 21 H 06/30/25 11:29 BP 143/58 06/30/25 11:29 Pulse Ox 92 06/30/25 11:29 O2 Del Method Nasal Cannula 06/30/25 11:29 O2 Flow Rate 1.5 06/30/25 11:05 06/29/25 06/30/25 06/30/25 22:59 06:59 14:59 Intake Total 460 / 1710 1450 / 3160 100 / 100 Output Total 900 / 1335 100 / 1435 Balance -440 / 375 1350 / 1725 100 / 100 Weight last 48 hrs Weight 133 lb 3.2 oz Weight 137 lb Weight 137 lb Physical Exam 2 Narrative: Seated in bed dressings clean dry intact currently getting blood. Urinary Catheter Management: Randle: Cath Placed During This Visit: no Reason for Continuing Indwelling Catheter: Perioperative Use in Selected Surgeries Data 06/30/25 07:00 06/30/25 07:00 A&P Assessment and plan 1. Closed displaced intertrochanteric fracture of right femur, initial encounter: Postop day #1 right hip nail. Up with physical therapy after he gets blood. PDMP PDMP Reviewed: Not Reviewed Attestations 2 Medical Necessity Statement*: Per primary service Coding Level of Care Code Acute Code for [facility] Fwd Diagnoses Closed displaced intertrochanteric fracture of right femur, initial encounter S72.141A Encounter type: initial encounter Fracture alignment: displaced
[2025-06-30] MEDS: sucralfate 1 gm/10 mL Oral Liq UDC PO ×2 (13:25→17:48)
--- NOTE | 2025-06-30 15:53 | PC.OT ---
OT evaluation withheld this date per nursing request, currently receiving blood transfusion and needs to rest. To attempt evaluation on a later date.
--- NOTE | 2025-06-30 17:41 | PC.PT ---
PT attempted evaluation today. Nursing reported her hemoglobin was a 6 and that she has received blood several times today. She also reports she has been in a lot of pain and had difficulty going down for CT scan. She was sleeping after CT scan and nursing requested holding today.
[2025-07-01] VITALS (11 sets, daily range): BP systolic 102–202; BP diastolic 55–91; PULSE 62–92; RESP 14–22; TEMP 36.4–37.4; O2SAT 94–99
[2025-07-01] MEDS: sucralfate 1 gm/10 mL Oral Liq UDC PO ×2 (00:29→12:13)
[2025-07-01] MEDS: pantoprazole 40 mg SDV IVP (00:29)
[2025-07-01] MEDS: LORazepam 1 MG/0.5 ML injection 0.5 MG IVP (00:29)
[2025-07-01 01:17] LABS: Hematocrit 30.3 % (36-47); Hemoglobin 9.10 g/dL (11.27-16.99)
[2025-07-01] MEDS: morphine 4 mg/mL SDV 1 mL 2 MG IVP ×3 (01:26→10:04)
[2025-07-01] MEDS: haloperidol inj 5 mg/mL INJ 1 mL 1 MG IM ×2 (03:29→03:52)
[2025-07-01 04:22] LABS: Hematocrit 38.3 % (36-47); Hemoglobin 12.50 g/dL (11.27-16.99); Mean Corpuscular HGB Conc 32.6 g/dL (30-55); Mean Corpuscular Hemoglobin 29.7 pg (27-33); Mean Corpuscular Volume 91.0 fl (85-98); Nucleated Red Blood Cells % 0 %; Platelet Count 182 10^3/cmm (157-399); Red Blood Count 4.21 10^6/uL (3.85-5.65); White Blood Count 13.92 10^3/uL (3.29-11.43)
[2025-07-01 04:50] LABS: Alanine Aminotransferase 9 U/L (0-33); Albumin Level 3.2 g/dL (3.5-5.2); Alkaline Phosphatase 104 U/L (35-105); Anion Gap 18.4 (5-19); Aspartate Amino Transferase 36 U/L (0-32); Blood Urea Nitrogen 32 mg/dL (8-23); Calcium 8.7 mg/dL (8.5-10.5); Carbon Dioxide 23 mmol/L (22-29); Chloride 105 mmol/L (98-107); Creatinine Clr Calc Pharmacy 16.2028; Globulin 2.7 g/dL (1.3-4.6); Glucose 197 mg/dL (65-115); Osmolality Calculated 306 mOsm/kg (285-295); Potassium 4.4 mmol/L (3.5-5.1); Sodium 142 mmol/L (136-145); Total Protein 5.9 g/dL (6.6-8.7)
[2025-07-01] MEDS: cefTRIAXone 1,000 mg SDV 1000 MG IVP (05:18)
--- NOTE | 2025-07-01 13:26 | P.PN_ITS ---
Subjective 2 Subjective: Patient is up to chair complain of pain in the right hip. Vitals/I&O/Wt Last Vital Signs Temp 97.5 F L 07/01/25 11:52 Pulse 71 07/01/25 11:52 Resp 16 07/01/25 11:52 BP 102/55 07/01/25 11:52 Pulse Ox 95 07/01/25 11:52 O2 Del Method Nasal Cannula 07/01/25 11:52 O2 Flow Rate 2 07/01/25 10:00 06/30/25 07/01/25 07/01/25 22:59 06:59 14:59 Intake Total 1488.75 / 1938.75 331.25 / 2270.00 360 / 360 Output Total 725 / 925 200 / 1125 Balance 763.75 / 1013.75 131.25 / 1145.00 360 / 360 Weight last 48 hrs Weight 133 lb 11.2 oz Weight 133 lb 3.2 oz Physical Exam 2 Narrative: Dressings clean dry intact patient sitting up in chair seems to be comfortable eating lunch Urinary Catheter Management: Randle: Cath Placed During This Visit: no Reason for Continuing Indwelling Catheter: Other Data 07/01/25 03:18 07/01/25 03:18 Micro: Microbiology 06/29/25 06:28 Urine Culture - Final Urine,Clean Catch A&P Assessment and plan 1. Closed displaced intertrochanteric fracture of right femur, initial encounter: Postop day 2 right hip nail Up with therapy Discharge planning PDMP PDMP Reviewed: Not Reviewed Attestations 2 Medical Necessity Statement*: Per primary service Coding Level of Care Code Acute Code for [facility] Fwd Diagnoses Closed displaced intertrochanteric fracture of right femur, initial encounter S72.141A Encounter type: initial encounter Fracture alignment: displaced
--- NOTE | 2025-07-01 15:21 | PM.PN ---
Subjective Subjective: Patient is much more alert and awake this afternoon. She is able to hold a conversation. Agreeable to taking her Randle out. States that she is still sore but pain is much better. She was agitated overnight but has been alert and oriented since about 9 AM today. Medications: Reviewed: Yes Vitals/I&O/Wt Last Vital Signs Temp 97.5 F L 07/01/25 11:52 Pulse 71 07/01/25 11:52 Resp 16 07/01/25 11:52 BP 102/55 07/01/25 11:52 Pulse Ox 95 07/01/25 11:52 O2 Del Method Nasal Cannula 07/01/25 11:52 O2 Flow Rate 2 07/01/25 10:00 07/01/25 07/01/25 07/01/25 06:59 14:59 22:59 Intake Total 331.25 / 2270.00 360 / 360 Output Total 200 / 1125 Balance 131.25 / 1145.00 360 / 360 Weight last 48 hrs Weight 60.645 kg Weight 60.419 kg Physical Exam Narrative: General: Asleep at the time of exam. Opens eyes to calling name but more lethargic compared to yesterday. HEENT: PERRLA, pupils bilaterally equal and reactive, pallors not present Chest: Normal vesicular breath sounds, no added sounds, equal good air entry bilaterally CVS: S1-S2 regular, no murmurs, no tachycardia, no gallops, no rubs Abdomen: Soft, nondistended nontender. Urinary Catheter Management: Randle: Cath Placed During This Visit: no Reason for Continuing Indwelling Catheter: Other Data 07/01/25 03:18 07/01/25 03:18 Micro: Microbiology 06/29/25 06:28 Urine Culture - Final Urine,Clean Catch A&P Assessment and plan 1. Diabetes mellitus with skin ulcer: 2. Chronic kidney disease (CKD), stage 3: 3. Anemia: 4. Closed displaced intertrochanteric fracture of right femur, initial encounter: 5. Non-pressure chronic ulcer of left lower leg, limited to breakdown of skin: 6. Delirium: 7. JORDY (acute kidney injury): Plan: Right hip fracture XR/XR femur RT min 2V* [id number] IMPRESSION: 1. There is a displaced and comminuted intertrochanteric fracture of the right femur. Plan - Patient is on Plavix, last dose 06/28/2025 - Morphine for pain control - Continue home oxycodone myrisate 18 mg p.o. twice daily - Keep n.p.o. Bilateral lower extremity coronado cellulitis - Vancomycin - IV Rocephin Acute encephalopathy - Baseline mentation unknown - She does have a history of dementia - CT head showing CT/CT head wo con* [id number] IMPRESSION: Diffuse atrophy and chronic/remote ischemic changes without evidence of superimposed acute infarct, hemorrhage, mass-effect or acute intracranial injury. - Did receive ketamine, fentanyl - Monitor mentation closely - Urinalysis Type 2 diabetes mellitus, low-dose sliding scale Acute on chronic anemia Full code SCDs for DVT prophylaxis, Lovenox after surgery June 30, 2025 85 year old female with a past medical history of COPD, type 2 diabetes, hypothyroidism, hyperlipidemia, history of dementia, who presents to [facility] for a fall and was found to have an intertrochanteric hip fracture. she is status post ORIF with right intramedullary hip nail on June 29, 2025. Postop course has been complicated by severe pain, delirium, acute on chronic anemia. This morning patient is noted to be somnolent. She opens eyes to calling name however is not following commands. Overnight she was noted to have a hemoglobin drop to 6.3, likely from postoperative blood loss, transfused 1 unit with minimal improvement in her hemoglobin this morning at 6.5. Patient was additionally hypotensive overnight with a blood pressure of 90/57 mmHg. This is improved after the transfusion to 122/72 at the time of this assessment. Additional 3 units of blood transfusion have been ordered with a target hemoglobin of 9 given hemodynamic compromise with the acute blood loss anemia. Pain has been difficult to control postoperatively. Review of chart shows patient is typically on oxycodone 18 mg every 12 hours and had also received several doses of fentanyl and ketamine in the emergency room. She is currently able to maintain her airway and saturating 98% on 2 L/min supplemental O2. Last evening she received gabapentin at 5 PM, 4 mg of IV morphine at 1546, 10 mg of p.o. oxycodone at 5 PM and 0.5 mg of IV Ativan at 7 PM. With this she appears to have had adequate control of pain however is lethargic this morning. This may potentially be associated with opiate stacking, however at this point has not received any doses in over 24 hours. Patient's overnight nurse reported to me this morning that she has been lethargic through much of the night. Will check ABG to assess for hypercapnia given reported history of COPD. Will additionally check CT of the head to rule out any stroke. Trial of Narcan if CT head and ABG remain unrevealing and patient continues to be somnolent. Currently she is able to maintain her airway. Holding Coreg, hydralazine, lisinopril at this time. Labs today also notable for JORDY with creatinine up to 2.0. Urine output of 1000 cc. Start IV hydration with normal saline at 75 cc an hour. Patient appears to be clinically dehydrated with dry parched mucous membrane and atrophic tongue. Continue ceftriaxone and vancomycin for lower extremity chronic wounds. July 01, 2025 Patient's mental status is much improved today. She is awake, alert, able to hold a conversation. She does not recall being in the hospital for the last 3 days however when reminded she does recall she had surgery on her hip. She agreed to removal of her Randle catheter today as long as someone is able to help her get on the bedpan fairly quickly. She is sitting up in a chair and self-feeding today. She did require Haldol overnight for agitation. Will add tramadol 50 mg p.o. every 6 hours as needed for pain management. Patient is chronically on oxycodone 18 mg twice daily at home, will resume opiates to minimize risk of opiate withdrawal, however after dose of oxycodone 5 mg p.o. every 6 hours as needed. Goal would be still to minimize opiates in favor of tramadol and Tylenol. Blood pressure is better controlled today after resuming carvedilol today. Continue to hold losartan given JORDY. Creatinine today at 2.1. Urine output of about 1000 cc. Continue to closely monitor the creatinine for improvement. Discontinue IV antibiotics ceftriaxone and vancomycin and switch to oral antibiotics for lower extremity wounds. Patient is yet to participate with PT OT for appropriate disposition planning. PDMP PDMP Reviewed: Not Reviewed Attestations Medical Necessity Statement*: Mental status is better today. Anemia is improved after blood transfusion. Blood pressure adequately controlled. Transitioning IV to oral antibiotics. Coding Level of Care Code Acute Code for Chg Fwd High MDM includes number and complexity of problems actively addressed during encounter, amount and/or complexity of data reviewed/ordered and described risk of complication, morbidity or mortality of management as documented Diagnoses Diabetes mellitus with skin ulcer E11.622; L98.499 Chronic kidney disease (CKD), stage 3 N18.30 Anemia D64.9 Closed displaced intertrochanteric fracture of right femur, initial encounter S72.141A Encounter type: initial encounter Fracture alignment: displaced Non-pressure chronic ulcer of left lower leg, limited to breakdown of skin L97.921 Delirium R41.0 JORDY (acute kidney injury) N17.9
[2025-07-01 15:38] LABS: C.Diff PCR (Lab) POSITIVE (Negative)
[2025-07-01 16:07] LABS: Clostridioides Difficile Toxin NEGATIVE (Negative)
[2025-07-01] MEDS: mupirocin oint 22 gm 1 APPLIC TOPICAL (18:10)
[2025-07-01] MEDS: hyDRALAzine 20 mg/mL INJ 1 mL 10 MG IVP (18:31)
[2025-07-01 20:03] LABS: MRSA PCR OZH (swab) NOT DETECTED (Not Detecte)
[2025-07-02] VITALS (10 sets, daily range): BP systolic 100–192; BP diastolic 60–80; PULSE 65–80; RESP 16–18; TEMP 35.9–36.9; O2SAT 92–99
[2025-07-02 06:03] LABS: Hematocrit 32.4 % (36-47); Hemoglobin 10.50 g/dL (11.27-16.99); Mean Corpuscular HGB Conc 32.4 g/dL (30-55); Mean Corpuscular Hemoglobin 29.9 pg (27-33); Mean Corpuscular Volume 92.3 fl (85-98); Nucleated Red Blood Cells % 0 %; Platelet Count 132 10^3/cmm (157-399); Red Blood Count 3.51 10^6/uL (3.85-5.65); White Blood Count 10.38 10^3/uL (3.29-11.43)
[2025-07-02 06:25] LABS: Alanine Aminotransferase 7 U/L (0-33); Albumin Level 2.4 g/dL (3.5-5.2); Alkaline Phosphatase 81 U/L (35-105); Anion Gap 12.6 (5-19); Aspartate Amino Transferase 18 U/L (0-32); Blood Urea Nitrogen 34 mg/dL (8-23); Calcium 8.3 mg/dL (8.5-10.5); Carbon Dioxide 22 mmol/L (22-29); Chloride 108 mmol/L (98-107); Creatinine Clr Calc Pharmacy 20.0496; Globulin 2.8 g/dL (1.3-4.6); Glucose 155 mg/dL (65-115); Osmolality Calculated 299 mOsm/kg (285-295); Potassium 3.6 mmol/L (3.5-5.1); Sodium 139 mmol/L (136-145); Total Protein 5.2 g/dL (6.6-8.7)
[2025-07-02] MEDS: morphine 4 mg/mL SDV 1 mL 2 MG IVP (08:26)
[2025-07-02] MEDS: mupirocin oint 22 gm 1 APPLIC TOPICAL ×2 (08:33→17:24)
--- NOTE | 2025-07-02 15:44 | P.PN_ITS ---
Subjective 2 Subjective: ongoing pain with ambulation after surgery Vitals/I&O/Wt Last Vital Signs Temp 97.5 F L 07/02/25 15:22 Pulse 65 07/02/25 15:22 Resp 16 07/02/25 15:22 BP 154/70 07/02/25 15:22 Pulse Ox 94 07/02/25 15:22 O2 Del Method Room Air 07/02/25 15:22 O2 Flow Rate 2 07/02/25 08:20 07/02/25 07/02/25 07/02/25 06:59 14:59 22:59 Intake Total 240 / 2320 1240 / 1240 Output Total 400 / 800 Balance -160 / 1520 1240 / 1240 Weight last 48 hrs Weight 60.64 kg Weight 60.645 kg Physical Exam 2 Const: COMMON NORMALS: no acute distress and patient oriented x3 HENMT: COMMON NORMALS: normocephalic and atraumatic HEAD & SCALP: n ormocephalic and atraumatic Eye: COMMON NORMALS: Equal, round and reactive pupils present PUPIL: Yes Equal, round and reactive pupils present Neck/C-Spine: COMMON NORMALS: full ROM and no lymphadenopathy Resp: COMMON NORMALS: normal respiratory effort and No retractions Cardio: COMMON NORMALS: regular rate, regular rhythm, No gallops present (Cardio), No murmurs present (Cardio) and No rub (Cardio) RATE: regular rate RHYTHM: regular rhythm GI: COMMON NORMALS: Soft to palpation, No hepatosplenomegaly present and no masses PALPATION: Yes Soft to palpation and Yes No hepatosplenomegaly present Extremity: NARRATIVE EXTREMITY EXAM: BL LE edema right > left. Neuro: COMMON NORMALS: patient oriented x3 and moves all extremities Urinary Catheter Management: Randle: Cath Placed During This Visit: yes, but has since been removed by the nurse Reason for Continuing Indwelling Catheter: Decision to DC Catheter Date Urinary Catheter Removed: 07/01/25 Time Urinary Catheter Discontinued: 14:00 Data 07/02/25 05:31 07/02/25 05:31 Micro: Microbiology 06/29/25 06:28 Urine Culture - Final Urine,Clean Catch A&P Assessment and plan 1. Closed displaced intertrochanteric fracture of right femur, initial encounter: 2. C. difficile colitis: Plan: 85 year old female presenting after fall with fracture. Right hip fracture - displaced and comminuted intertrochanteric fracture of the right femur. - Patient is on Plavix, last dose 06/28/2025 - Morphine for pain control, increased to 4 mg for breakthrough pain - Continue home oxycodone myrisate 18 mg p.o. twice daily - S/P ORIF per ortho - received blood transfusion after surgery, stable currently Bilateral lower extremity coronado cellulitis - cont. cefuroxime C. diff positive - ongoing watery diarrhea - cont oral. fidaxomicin Acute encephalopathy - Baseline mentation unknown - She does have a history of dementia - CT head showing Diffuse atrophy and chronic/remote ischemic changes without evidence of superimposed acute infarct, hemorrhage, mass-effect or acute intracranial injury. - Did receive ketamine, fentanyl - Monitor mentation closely, appears to be improving. - Urinalysis equivocal for UTI, abx as above. - minimize opioids as able. Type 2 diabetes mellitus, low-dose sliding scale - CC diet Acute on chronic anemia Disposition Full code SCDs for DVT prophylaxis, Lovenox after surgery - when no longer having watery stools, can consider D/C to skilled PDMP PDMP Reviewed: Not Reviewed Attestations 2 Medical Necessity Statement*: ongoing inpatient care for CDIFF Time Spent in Patient Care: 16 - 35 minutes (>than 50% of time sp ent in counselling and/or direct pt care on unit) . Coding Level of Care Code Acute Code for Chg Fwd Diagnoses Closed displaced intertrochanteric fracture of right femur, initial encounter S72.141A Encounter type: initial encounter Fracture alignment: displaced C. difficile colitis A04.72
[2025-07-02] MEDS: morphine 4 mg/mL SDV 1 mL IVP (20:15)
[2025-07-02] MEDS: LORazepam 1 MG/0.5 ML injection 0.5 MG IVP (23:52)
[2025-07-03] VITALS (14 sets, daily range): BP systolic 134–215; BP diastolic 65–94; PULSE 74–97; RESP 16–26; TEMP 36.3–37.1; O2SAT 2–98
[2025-07-03] MEDS: morphine 4 mg/mL SDV 1 mL IVP ×3 (00:29→21:11)
[2025-07-03 05:13] LABS: Hematocrit 37.1 % (36-47); Hemoglobin 11.80 g/dL (11.27-16.99); Mean Corpuscular HGB Conc 31.8 g/dL (30-55); Mean Corpuscular Hemoglobin 29.8 pg (27-33); Mean Corpuscular Volume 93.7 fl (85-98); Nucleated Red Blood Cells % 0 %; Platelet Count 172 10^3/cmm (157-399); Red Blood Count 3.96 10^6/uL (3.85-5.65); White Blood Count 11.57 10^3/uL (3.29-11.43)
[2025-07-03 05:38] LABS: Anion Gap 14.4 (5-19); Blood Urea Nitrogen 26 mg/dL (8-23); Calcium 8.8 mg/dL (8.5-10.5); Carbon Dioxide 21 mmol/L (22-29); Chloride 104 mmol/L (98-107); Creatinine Clr Calc Pharmacy 26.2473; Glucose 153 mg/dL (65-115); Osmolality Calculated 290 mOsm/kg (285-295); Potassium 3.4 mmol/L (3.5-5.1); Sodium 136 mmol/L (136-145)
[2025-07-03] MEDS: hyDRALAzine 20 mg/mL INJ 1 mL 10 MG IVP (07:53)
[2025-07-03] MEDS: mupirocin oint 22 gm 1 APPLIC TOPICAL ×2 (09:15→16:45)
[2025-07-03] MEDS: potassium chloride premix 200 ML 25 MEQ IV (09:15)
--- NOTE | 2025-07-03 13:07 | PM.PN ---
Subjective Subjective: diarrhea resolving, still having watery stools, pain improving some. Vitals/I&O/Wt Last Vital Signs Temp 97.8 F 07/03/25 11:10 Pulse 74 07/03/25 11:10 Resp 20 H 07/03/25 11:10 BP 134/65 07/03/25 11:10 Pulse Ox 97 07/03/25 11:10 O2 Del Method Nasal Cannula 07/03/25 11:10 O2 Flow Rate 2 07/03/25 09:08 07/02/25 07/03/25 07/03/25 22:59 06:59 14:59 Intake Total 787.5 / 7.5 977.5 / 977.5 Balance 787.5 / 7.5 977.5 / 977.5 Weight last 48 hrs Weight 60.781 kg Weight 60.64 kg Physical Exam Const: COMMON NORMALS: no acute distress and patient oriented x3 HENMT: COMMON NORMALS: normocephalic and atraumatic HEAD & SCALP: normocephalic and atraumatic Eye: COMMON NORMALS: Equal, round and reactive pupils present PUPIL: Yes Equal, round and reactive pupils present Neck/C-Spine: COMMON NORMALS: full ROM and no lymphadenopathy Resp: COMMON NORMALS: normal respiratory effort and No retractions Cardio: COMMON NORMALS: regular rate, regular rhythm, No gallops present (Cardio), No murmurs present (Cardio) and No rub (Cardio) RATE: regular rate RHYTHM: regular rhythm GI: COMMON NORMALS: Soft to palpation, No hepatosplenomegaly present and no masses PALPATION: Yes Soft to palpation and Yes No hepatosplenomegaly present Extremity: NARRATIVE EXTREMITY EXAM: BL LE edema right > left. Neuro: COMMON NORMALS: patient oriented x3 and moves all extremities Urinary Catheter Management: Randle: Cath Placed During This Visit: yes, but has since been removed by the nurse Reason for Continuing Indwelling Catheter: Decision to DC Catheter Date Urinary Catheter Removed: 07/01/25 Time Urinary Catheter Discontinued: 14:00 Data 07/03/25 04:49 07/03/25 04:49 A&P Assessment and plan 1. C. difficile colitis: 2. JORDY (acute kidney injury): 3. Delirium: Plan: 85 year old female presenting after fall with fracture. Right hip fracture - displaced and comminuted intertrochanteric fracture of the right femur. - Patient is on Plavix, last dose 06/28/2025 - Morphine for pain control, increased to 4 mg for breakthrough pain - Continue home oxycodone myrisate 18 mg p.o. twice daily - S/P ORIF per ortho Bilateral lower extremity coronado cellulitis - cont. cefuroxime PO. C. diff positive - ongoing watery diarrhea - cont oral. fidaxomicin. To complete 10 day course. Acute encephalopathy - Baseline mentation unknown - She does have a history of dementia - CT head showing Diffuse atrophy and chronic/remote ischemic changes without evidence of superimposed acute infarct, hemorrhage, mass-effect or acute intracranial injury. - Did receive ketamine, fentanyl - Monitor mentation closely, appears to be improving. - Urinalysis equivocal for UTI, abx as above. - minimize opioids as able. Type 2 diabetes mellitus, low-dose sliding scale - CC diet Acute on chronic anemia - received blood transfusion after surgery, stable currently - appears now resolved. Hypokalemia - given 40 meq this AM - recheck in AM. Disposition Full code SCDs for DVT prophylaxis, Lovenox after surgery - when no longer having watery stools, can consider D/C to skilled - discussed P2P this morning with insurance company. They will consider most recent notes and decide. PDMP PDMP Reviewed: Not Reviewed Attestations Medical Necessity Statement*: ongoing inpatient need for C. diff, post surgical care. Time Spent in Patient Care: 16 - 35 minutes (>than 50% of time spent in counselling and/or direct pt care on unit). Coding Level of Care Code Acute Code for [facility] Fwd Diagnoses C. difficile colitis A04.72 JORDY (acute kidney injury) N17.9 Delirium R41.0
[2025-07-04] VITALS (9 sets, daily range): BP systolic 148–202; BP diastolic 64–77; PULSE 73–85; RESP 16–24; TEMP 36.4–36.6; O2SAT 93–100
[2025-07-04] MEDS: morphine 4 mg/mL SDV 1 mL IVP ×2 (01:08→08:07)
[2025-07-04] MEDS: mupirocin oint 22 gm 1 APPLIC TOPICAL (05:11)
[2025-07-04 05:23] LABS: Hematocrit 38.3 % (36-47); Hemoglobin 12.20 g/dL (11.27-16.99); Mean Corpuscular HGB Conc 31.9 g/dL (30-55); Mean Corpuscular Hemoglobin 30.3 pg (27-33); Mean Corpuscular Volume 95.0 fl (85-98); Nucleated Red Blood Cells % 0 %; Platelet Count 196 10^3/cmm (157-399); Red Blood Count 4.03 10^6/uL (3.85-5.65); White Blood Count 11.42 10^3/uL (3.29-11.43)
[2025-07-04 05:49] LABS: Anion Gap 14.9 (5-19); Blood Urea Nitrogen 27 mg/dL (8-23); Calcium 8.9 mg/dL (8.5-10.5); Carbon Dioxide 21 mmol/L (22-29); Chloride 109 mmol/L (98-107); Creatinine Clr Calc Pharmacy 29.8904; Glucose 162 mg/dL (65-115); Osmolality Calculated 301 mOsm/kg (285-295); Potassium 3.9 mmol/L (3.5-5.1); Sodium 141 mmol/L (136-145)
[2025-07-04] MEDS: hyDRALAzine 20 mg/mL INJ 1 mL 10 MG IVP (08:07)
--- NOTE | 2025-07-04 10:21 | P.DS_ITS ---
Discharge Providers Date of Admission: 06/29/25 04:36 Date of Discharge: July 04, 2025 Attending Provider at Admission: Fernandez Sanchez MD Attending Provider at Discharge: Eulalio Arellano MD Consults: Orthopedics. Diagnoses at Discharge Discharge Diagnosis 1. C. difficile colitis: 2. JORDY (acute kidney injury): 3. Delirium: Reason for Visit Reason for Visit: FALL Brief History: 85 year old female presenting after fall with fracture. Hospital Course Hospital Course Right hip fracture - displaced and comminuted intertrochanteric fracture of the right femur. - Patient is on Plavix, last dose 06/28/2025 - Morphine for pain control, increased to 4 mg for breakthrough pain - Continue home oxycodone myrisate 18 mg p.o. twice daily - S/P ORIF per ortho Bilateral lower extremity coronado cellulitis - cont. cefuroxime PO. C. diff positive - diarrhea has been lessening, reports more formed stools this AM. - cont oral. fidaxomicin to complete 10 day course. Acute toxic metabolic encephalopathy Dementia with acute delirium - 2/2 above issues. - Baseline mentation unknown - She does have a history of dementia - CT head showing Diffuse atrophy and chronic/remote ischemic changes without evidence of superimposed acute infarct, hemorrhage, mass-effect or acute intracranial injury. - Did receive ketamine, fentanyl - Monitor mentation closely, appears to be improving. - Urinalysis equivocal for UTI, abx as above. - minimize opioids as able. Type 2 diabetes mellitus - low-dose sliding scale while inpatient. - CC diet Acute on chronic anemia - received blood transfusion after surgery, stable currently - appears now resolved. Hypokalemia - replete this AM. Disposition Full code SCDs for DVT prophylaxis, Lovenox after surgery - discussed P2P this morning with insurance company yesterday. It appears she was denied skilled placement. 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 Physical Exam Const: COMMON NORMALS: no acute distress and patient oriented x3 HENMT: COMMON NORMALS: normocephalic and atraumatic HEAD & SCALP: normocephalic and atraumatic Eye: COMMON NORMALS: Equal, round and reactive pupils present PUPIL: Yes Eq ual, round and reactive pupils present Neck/C-Spine: COMMON NORMALS: full ROM and no lymphadenopathy Resp: COMMON NORMALS: normal respiratory effort and No retractions Cardio: COMMON NORMALS: regular rate, regular rhythm, No gallops present (Cardio), No murmurs present (Cardio) and No rub (Cardio) RATE: regular rate RHYTHM: regular rhythm GI: COMMON NORMALS: Soft to palpation, No hepatosplenomegaly present and no masses PALPATION: Yes Soft to palpation and Yes No hepatosplenomegaly present Extremity: NARRATIVE EXTREMITY EXAM: BL LE edema right > left. Neuro: COMMON NORMALS: patient oriented x3 and moves all extremities Urinary Catheter Management: Randle: Cath Placed During This Visit: yes, but has since been removed by the nurse Reason for Continuing Indwelling Catheter: Decision to DC Catheter Date Urinary Catheter Removed: 07/01/25 Time Urinary Catheter Discontinued: 14:00 Discharge Data Studies Completed and Pending Completed Studies During Hospitalization Category Date Time Status CT abdomen pelvis wo con [id number] Routine Cat Scan 06/30/25 10:[address] cervical spin wo con* [id number] Stat Cat Scan 06/29/25 02:[address] head wo con* [id number] Routine Cat Scan 06/30/25 10:[address] head wo con* [id number] Stat Cat Scan 06/29/25 02:35 Completed XR chest 1V portable [id number] Stat Exams 06/29/25 02:35 Completed XR femur RT min 2V* [id number] Stat Exams 06/29/25 02:35 Completed XR hip RT 2-3V wo/w pel* [id number] Routine Exams 06/29/25 10:16 Completed Pending at discharge Category Date Time Status SARS Covid-2 Antigen Routine Lab 07/04/25 08:12 Uncollected Radiology Impressions Cervical Spine CT 06/29/25 02:35 IMPRESSION: 1. Appearance of old C1-C2 fractures including old odontoid fracture with stabilization posterior fusion rods and pedicle screws in place C1-C3. 2. 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 3. No evidence of superimposed acute fracture. 4. Multilevel spondylosis, diffuse cervical arthrosis and degenerative changes as described. Chest X-Ray 06/29/25 02:35 IMPRESSION: There is no evidence of active disease. Femur X-Ray 06/29/25 02:35 IMPRESSION: 1. There is a displaced and comminuted intertrochanteric fracture of the right femur. 2. 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 Hip/Pelvis X-Ray 06/29/25 10:16 IMPRESSION: Hip fracture with internal fixation without abnormality. Abdomen/Pelvis CT 06/30/25 10:25 IMPRESSION: 1. Wall thickening of the ascending and transverse colon compatible with colitis. Note that colonic wall thickening can also be seen in the setting of portal hypertension, particularly right colon wall thickening. 2. Mild ascites. 3. Hepatic cirrhosis. 4. Soft tissue swelling in the right gluteal region and right hip and thigh with scattered foci of gas status post ORIF of proximal right femur acute fracture. 5. Other findings as detailed above. Head CT 06/30/25 10:25 IMPRESSION: 1. No acute intracranial abnormality. 2. Moderate chronic white matter microvascular ischemic change. Laboratory Results WBC 11.42 10^3/uL (3.29-11.43) 07/04/25 05:02 RBC 4.03 10^6/uL (3.85-5.65) 07/04/25 05:02 Hgb 12.20 g/dL (11.27-16.99) 07/04/25 05:02 Hct 38.3 % (36-47) 07/04/25 05:02 MCV 95.0 fl (85-98) 07/04/25 05:02 MCH 30.3 pg (27-33) 07/04/25 05:02 MCHC 31.9 g/dL (30-55) 07/04/25 05:02 RDW 16.2 % (12.1-15.1) H 07/04/25 05:02 Plt Count 196 10^3/cmm (157-399) 07/04/25 05:02 MPV 9.7 fL (7.4-10.4) 07/04/25 05:02 Neut % (Auto) 74.5 % 07/04/25 05:02 Lymph % (Auto) 16.1 % 07/04/25 05:02 Wilbarger % (Auto) 6.0 % 07/04/25 05:02 Eos % (Auto) 2.5 % 07/04/25 05:02 Baso % (Auto) 0.3 % 07/04/25 05:02 Neut # (Auto) 8.51 10^3/uL (1.8-7.7) H 07/04/25 05:02 Lymph # (Auto) 1.8 10^3/uL (0.8-4.8) 07/04/25 05:02 Wilbarger # (Auto) 0.7 10^3/uL (0.2-0.9) 07/04/25 05:02 Eos # (Auto) 0.3 10^3/uL (0.0-0.8) 07/04/25 05:02 Baso # (Auto) 0.0 10^3/uL (0.0-0.1) 07/04/25 05:02 Nucleated RBC % (auto) 0 % 07/04/25 05:02 Nucleated RBCs # 0.0 /100WBC 07/04/25 05:02 PT 13.50 SECONDS (12.1-14.9) 06/29/25 02:55 INR 0.97 (0.8-1.2) 06/29/25 02:55 Specimen Type Arterial 06/30/25 10:39 Sample Site Radial, left 06/30/25 10:39 ABG pH 7.30 (7.35-7.45) L 06/30/25 10:39 ABG pCO2 49.2 mmHg (35-45) H 06/30/25 10:39 ABG pO2 83.6 mmHg (80.0-100.0) 06/30/25 10:39 ABG PO2/FiO2 Ratio 298 06/30/25 10:39 ABG HCO3 24.4 mmol/L (22-26) 06/30/25 10:39 ABG Base Excess -2.0 mmol/L (-2.0-2.0) 06/30/25 10:39 Kristian Test Pos 06/30/25 10:39 Hematocrit 24.1 % (37-47) L 06/30/25 10:39 O2 Delivery Device Nc 06/30/25 10:39 O2 Liters/Min 2.0 % 06/30/25 10:39 FiO2 28.0 % 06/30/25 10:39 Utility Systems Repairer Operator ID Monro 06/30/25 10:39 Sodium 141 mmol/L (136-145) 07/04/25 05:02 Potassium 3.9 mmol/L (3.5-5.1) 07/04/25 05:02 Chloride 109 mmol/L (98-107) H 07/04/25 05:02 Carbon Dioxide 21 mmol/L (22-29) L 07/04/25 05:02 Anion Gap 14.9 (5-19) 07/04/25 05:02 BUN 27 mg/dL (8-23) H 07/04/25 05:02 Creatinine 1.2 mg/dL (0.5-0.9) H 07/04/25 05:02 GFR Calculation Not Reportable 07/04/25 05:02 Glucose 162 mg/dL (65-115) H 07/04/25 05:02 POC Glucose 150 mg/dL (70-110) H 07/04/25 06:25 Estimat Average Glucose 192 06/29/25 02:55 Hemoglobin A1c 8.3 % (4.0-6.0) H 06/29/25 02:55 Calculated Osmolality 301 mOsm/kg (285-295) H 07/04/25 05:02 Lactate 1.1 mmol/L (0.5-2.2) 06/29/25 23:55 Calcium 8.9 mg/dL (8.5-10.5) 07/04/25 05:02 Iron 28 ug/dL (37-145) L 06/29/25 02:55 Ferritin 317 ng/mL (15-150) H 06/29/25 02:55 Total Bilirubin 0.3 mg/dL (0.15-1.2) 07/02/25 05:31 AST 18 U/L (0-32) 07/02/25 05:31 ALT 7 U/L (0-33) 07/02/25 05:31 Alkaline Phosphatase 81 U/L (35-105) 07/02/25 05:31 C-Reactive Protein 3.0 mg/L (0.0-4.9) 06/29/25 02:55 Total Protein 5.2 g/dL (6.6-8.7) L 07/02/25 05:31 Albumin 2.4 g/dL (3.5-5.2) L 07/02/25 05:31 Globulin 2.8 g/dL (1.3-4.6) 07/02/25 05:31 Triglycerides 81 mg/dL (0-150) 06/29/25 02:55 Cholesterol 102 mg/dL (0-200) 06/29/25 02:55 LDL Cholesterol, Calc 27 mg/dL (50-129) L 06/29/25 02:55 HDL Cholesterol 59 mg/dL (60-100) L 06/29/25 02:55 LDL/HDL Ratio 0.46 RATIO (0.00-3.22) 06/29/25 02:55 Cholesterol/HDL Ratio 1.73 mg/dL (0.0-4.40) 06/29/25 02:55 Procalcitonin 0.08 ng/mL (0-0.5) 06/29/25 02:55 TSH 4.84 uIU/mL (0.27-4.20) H 06/29/25 02:55 Urine Color Esmeralda (Yellow) A 06/29/25 06:28 Urine Appearance Clear (CLEAR) 06/29/25 06:28 Urine pH 5.5 (5-7) 06/29/25 06:28 Ur Specific [place] 1.016 (1.005-1.030) 06/29/25 06:28 Urine Protein 3+ (Negative) A 06/29/25 06:28 Urine Glucose (UA) Trace (Normal) H 06/29/25 06:28 Urine Ketones Trace (Negative) 06/29/25 06:28 Urine Blood 2+ (Negative) A 06/29/25 06:28 Urine Nitrate Negative (Negative) 06/29/25 06:28 Urine Bilirubin Negative (Negative) 06/29/25 06:28 Urine Urobilinogen 0.2 mg/dL (Negative) 06/29/25 06:28 Ur Leukocyte Esterase 1+ (Negative) A 06/29/25 06:28 Urine RBC 51-100 /hpf (0-2) H 06/29/25 06:28 Urine WBC 51-100 /hpf (0-5) H 06/29/25 06:28 Ur Squamous Epith Cells 6-10 /hpf (0-5) 06/29/25 06:28 Amorphous Sediment Not Reportable 06/29/25 06:28 Urine Bacteria Trace /hpf (NONE) 06/29/25 06:28 Hyaline Casts 2.46 /lpf 06/29/25 06:28 Nasal MRSA (PCR) Not detected (Not Detecte) 07/01/25 18:38 Vancomycin Trough 13.0 ug/mL (10-15) 07/01/25 03:18 C. difficile (PCR) Positive (Negative) H 07/01/25 14:25 C.difficile Tox Confrm Negative (Negative) 07/01/25 14:25 Blood Type O Positive 06/29/25 02:55 Rho(D) Type Rh positive 06/29/25 02:55 Antibody Screen Negative 06/29/25 02:55 Crossmatch See Detail 06/29/25 02:55 Vitals Last Vital Signs Temp 97.5 F L 07/04/25 07:26 Pulse 85 07/04/25 08:45 Resp 16 07/04/25 08:45 BP 202/77 07/04/25 07:26 Pulse Ox 96 07/04/25 08:45 O2 Del Method Nasal Cannula 07/04/25 08:45 O2 Flow Rate 1 07/04/25 08:45 Discharge Plan Discharge Patient Disposition: Xfer SNF Condition: Stable Prescriptions: New Dificid 200 mg Tablet 200 mg PO BID@0500,1700 Qty: 20 0RF cefuroxime axetil 250 mg Tablet 500 mg PO BID@0500,1700 Qty: 10 0RF Continued acetaminophen 500 mg tablet See Rx Instructions .ROUTE .COMPLEX Rx Instructions: Take 2 tablets by mouth daily and at bedtime. polyethylene glycol 3350 [Miralax] 17 gram/dose powder 17 g PO DAILY ropinirole 0.5 mg tablet 1.5 mg PO BEDTIME atorvastatin 20 mg tablet 20 mg PO DAILY famotidine 20 mg tablet 20 mg PO QAM Incruse Ellipta 62.5 mcg/actuation blister with device 1 inh inhalation DAILY levothyroxine 100 mcg tablet 100 mcg PO DAILY nitroglycerin [Nitrostat] 0.4 mg tablet, sublingual 0.4 mg sublingual Q5M PRN (Reason: Chest Pain) Rx Instructions: do not exceed 3 doses per episode albuterol sulfate 90 mcg/actuation HFA aerosol inhaler 2 puff inhalation Q6H PRN (Reason: Shortness Of Breath) clopidogrel 75 mg tablet 75 mg PO DAILY carvedilol 6.25 mg tablet 6.25 mg PO BID Rx Instructions: must administer with a meal/food Biofreeze (menthol) 5 % gel 1 ea topical TID tizanidine 2 mg tablet 2 mg PO Q8H allopurinol 100 mg tablet 100 mg PO DAILY lidocaine 5 % adhesive patch,medicated 1 patch transdermal Q12H losartan 25 mg tablet 25 mg PO DAILY hydrochlorothiazide 25 mg tablet 25 mg PO DAILY ergocalciferol (vitamin D2) 1,250 mcg (50,000 unit) Capsule 1,250 mcg PO Q7D sertraline 50 mg tablet 50 mg PO BEDTIME glipizide 5 mg tablet 5 mg PO DAILY trolamine salicylate 10 % Cream 1 applic TOPICAL BID PRN (Reason: arthritis pain) Refresh P.M. 57.3-42.5 % Ointment 1 applic OPHTHALMIC (EYE) BEDTIME Refresh Optive Advanced (PF) 0.5-1-0.5 % Dropperette 1 drp OPHTHALMIC (EYE) QID PRN (Reason: Dry Eyes) Eucerin Intensive Repair Lotion 1 ea TOPICAL PRN PRN (Reason: Dry Skin) oxycodone 5 mg tablet 5 mg PO BID PRN (Reason: breakthrough pain) Qty: 14 0RF Xtampza ER 18 mg cap,sprinkl,ER12hr(DONT CRUSH) 18 mg PO BID Qty: 14 0RF Rx Instructions: must administer with a meal/correctional food service supervisor OK for DC: Orthopedics Discharge Order = DC NOW: Discharge Order (Routine); Ordered 07/04/25 Ordered By: Eulalio Arellano Referrals: Naif Gonsales DO [Physician, Orthopedics] - 07/17/25 8:00 am Discharge Diet: Usual diet Discharge Activity: Resume usual activity Patient Instructions: Fidaxomicin (By mouth), C. Diff (Clostridioides Difficile) Infection (GEN), Acute Wound Care (DC), Post Anesthesia Care Activity Restrictions/Additional Instructions: You are being discharged from the hospital today during which time you have been under the care of Dr. Gonsales. You had a right hip fracture. You were treated for this injury with right hip nail. You may resume you normal diet (including any special diets as directed by your primary doctor) as well as your home medications. You should follow up with you primary doctor if you have any questions regarding medication you took prior to your stay in the hospital. You may take your pain medication as prescribed. After the first few days, take your pain medication as needed. Do not drive or drink alcohol while taking your pain medication. Your injury may increase your risk of developing a blood clot,or DVT, in your arm or leg. This could potentially dislodge and travel to your lungs and become a life threatening condition called apulmonary embolus,or PE. You have been prescribed Plavix to be taken to prevent this. Frequent movement of the legs will also help prevent this from occurring. If you develop any new or worsening cough, chestpain, bloody sputum or shortness of breath, call 911 or go to the EmergencyRoom. Always keep your surgical incision/dressing clean and dry. If you experience increasing pain at your incision site, redness, swelling, increasing discharge, foul odors, or fevers (greater than 100.4), night sweats or chills you should call the office at the above number. If you feel this is an emergency you should be evaluated in the Emergency Department of a nearby hospital. Orthopedic Patient Instructions Summary: Weight Bearing: Weight-bear as tolerated Activity: As tolerated. Diet: Regular. Wound Care: Keep dressing clean and dry. Anticoagulation: Plavix Pain Medication: Take only as needed. Ice, rest and elevation will be of great benefit. Please plan to follow-up [facility] Dr Gonsales in 2 weeks. You will need to call the clinic [phone] to schedule this visit. Thank you far allowing me to participate in your care. Do not hesitate to call the office with any questions or concerns. Discharge Attestations Time Spent in Discharge Care*: greater than 30 min Quality Metrics Clinical Quality Measures [ No reported AMI, CVA or VTE this stay] Coding Level of Care Code Acute Code for Chg Fwd Diagnoses C. difficile colitis A04.72 JORDY (acute kidney injury) N17.9 Delirium R41.0
[2025-07-04 11:58] LABS: SARS Covid-2 Antigen Negative (Negative)
--- NOTE | 2025-07-04 12:44 | PC.NURSE ---
this nurse called report to gerard shannon. this nurse spoke to zara and gave verbal report. gerard johnson will be sending transport to pick pt up.
== END 2025-07-04 14:48 | disposition intermediate care facility (04) | DRG 480 ==
LOC: ER 05:19 → MEDSURG 06:06
PROVIDERS: Orthopaedic Surgery; Student in an Organized Health Care Education/Training Program; Admitting Provider Family Medicine; Emergency Provider Emergency Medicine; Visit Provider Internal Medicine
PROC: 0QS606Z Reposition Right Upper Femur with Intramedullary Internal Fixation Device, Open Approach (ICD-10-PCS; CPT 27245; principal; 2025-06-29 10:50)
DX: S72.141A Displaced intertrochanteric fracture of right femur, initial encounter for closed fracture (principal); G92.8 Other toxic encephalopathy; A04.72 Enterocolitis due to Clostridium difficile, not specified as recurrent; N17.9 Acute kidney failure, unspecified; F05 Delirium due to known physiological condition; L03.116 Cellulitis of left lower limb; L03.115 Cellulitis of right lower limb; L97.821 Non-pressure chronic ulcer of other part of left lower leg limited to breakdown of skin; D62 Acute posthemorrhagic anemia; W19.XXXA Unspecified fall, initial encounter; Y92.129 Unspecified place in nursing home as the place of occurrence of the external cause; F03.90 Unspecified dementia, unspecified severity, without behavioral disturbance, psychotic disturbance, mood disturbance, and anxiety; E11.42 Type 2 diabetes mellitus with diabetic polyneuropathy; E11.622 Type 2 diabetes mellitus with other skin ulcer; D64.9 Anemia, unspecified; E87.6 Hypokalemia; E11.22 Type 2 diabetes mellitus with diabetic chronic kidney disease; I12.9 Hypertensive chronic kidney disease with stage 1 through stage 4 chronic kidney disease, or unspecified chronic kidney disease; N18.30 Chronic kidney disease, stage 3 unspecified; J44.9 Chronic obstructive pulmonary disease, unspecified; E03.9 Hypothyroidism, unspecified; M10.9 Gout, unspecified; Z95.0 Presence of cardiac pacemaker; Z98.1 Arthrodesis status; Z79.02 Long term (current) use of antithrombotics/antiplatelets
CPT/HCPCS: 36415; 36416; 36430; 36600; 70450; 71045; 72125; 73502; 73552; 74176; 76000; 80048; 80053; 80061; 80202; 81001; 82728; 82803; 82962; 83036; 83540; 83605; 84145; 84443; 85014; 85018; 85025; 85610; 86140; 86850; 86900; 86920; 87086; 87324; 87426; 87493; 93005; 94664; 96365; 96372; 96375; 97161; 97166; 97530; 97535; 99285; A4216; C1713; J0131; J0360; J0690; J0696; J1630; J1815; J2060; J2270; J2470; J2704; J3010; J3373; J3480; J3490; J7030; J9999; P9016; P9040; P9046

== ENCOUNTER → 2025-07-11 09:19 | Outpatient (BNVA) | payer OTHER, MEDICAID, SELFPAY | PROVIDERS: Visit Provider Thoracic Surgery (Cardiothoracic Vascular Surgery) | DX: I96 Gangrene, not elsewhere classified (principal); L89.322 Pressure ulcer of left buttock, stage 2; L89.311 Pressure ulcer of right buttock, stage 1; L97.821 Non-pressure chronic ulcer of other part of left lower leg limited to breakdown of skin ==

== ENCOUNTER → 2025-07-17 07:58 | Outpatient (BNVA) | payer OTHER, MEDICAID, SELFPAY | PROVIDERS: PCP Internal Medicine; Visit Provider Orthopaedic Surgery | DX: Z98.890 Other specified postprocedural states (principal) | CPT/HCPCS: 73502; 99024 ==

== ENCOUNTER 2025-07-25 07:39 | Emergency (ER) | payer OTHER, MEDICAID, SELFPAY ==
--- OUTSIDE RECORDS SUMMARY | 2025-05-15 13:00 | XMS_ITS ---
Author Organization [facility] Address [address] [place] [address] Care Team Providers Care Filament Maker Name Role Phone Jayden Vásquez Primary Care Provider ALMA DELIA Zavala Unavailable [phone] CHE COLLINS Unavailable [phone] REASON FOR VISIT L ESWL @ [facility] Encounters Encounter Location Date Provider Diagnosis [facility] [address] [facility] [place] [address] 05/15/2025 CHE COLLINS Plan Of Treatment No Information Progress Notes * Beatris HEMPHILL KDOB: [birth year] (85 yo F)Acc No.[id number]:05/15/2025 Patient: Wolfgang PARRA Beatris Richardson Provider: Una COLLINS MD :1940 A ge:85 Y S ex:Female Date:05/15/2025 Address:[address] [place], [place] [phone] Pcp:Jayden Vásquez * Billing Information: * Visit Code: * Procedure Codes: * Electronic signature of AUST IN MD KARINA on 07/25/2025 at 07:58 AM CDT Sign off status: Pending * Provider: Una COLLINS MD Date: 05/15/2025 Generated for Printi ng/Faxing/eTransmitting on: 07/25/2025 07:58 AM CDT
--- NOTE | 2025-07-25 07:44 | XR_ITS ---
WS: [id number] Right hip, 2 views, AP pelvis 2 views, 07/25/2025 Clinical Data: fall Comparison: Pelvis and right hip, 07/17/2025 Findings: The internal fixation of the right hip remains stable. There is an avulsion of the lesser trochanter. There is comminution of the right greater trochanter. The adjacent pelvis and left hip are not remarkable. The surgical mary have been removed. There is a posterior lumbar fusion. XR/XR hip RT 2-3V wo/w pel* [id number] Impression: Stable internal fixation of the right hip intertrochanteric fracture.
--- NOTE | 2025-07-25 07:44 | XR_ITS ---
WS: [id number] Right shoulder, 3 views, 07/25/2025 Clinical Data: fall Comparison: None. Findings: No fractures or dislocations are seen. The glenohumeral joint shows mild irregularity. The AC joint is normal. The adjacent right clavicle, right scapula and ribs are normal. The soft tissues are unremarkable. XR/XR shoulder RT min 2V* [id number] Impression: Mild osteoarthritis of the right glenohumeral joint.
--- NOTE | 2025-07-25 07:44 | XR_ITS ---
WS: [email or web address] Right knee, 3 views, 07/25/2025 Clinical Data: fall Comparison: None. Findings: No fractures or dislocations are seen. There is medial and lateral joint space narrowing with spurring of the medial femoral condyle and medial tibial plateau. The posterior patella shows irregularity. The soft tissues are unremarkable. XR/XR knee RT 3V* [id number] Impression: 1. Negative for fracture. 2. Osteoarthritis of the right knee.
--- NOTE | 2025-07-25 07:44 | CT_ITS ---
WS: [id number] CT HEAD NONCONTRAST HISTORY: fall TECHNIQUE: Contiguous axial imaging performed through the brain. Bone and soft tissue windows. Sagittal and coronal reformats reviewed. All CT scans at [facility] use at least one of these dose optimization techniques: automated exposure control; mA and/or kV adjustment per patient size (includes targeted exams where dose is matched to clinical indication); or iterative reconstruction. DLP: 1312.08 mGy.cm COMPARISON: 06/30/2025 No acute intracranial hemorrhage, midline shift or mass effect. Mild atrophy and small vessel disease. Ventricles: Normal size with no hydrocephalus. Paranasal sinuses: As visualized are clear. Mastoid air cells: Well pneumatized. Calvarium and scalp: Limited by motion artifact. CT/CT head wo con* [id number] IMPRESSION: 1. Study is limited by motion artifact. 2. Mild atrophy and small vessel disease. 3. No acute intracranial hemorrhage or edema.
--- NOTE | 2025-07-25 07:44 | CT_ITS ---
WS: [id number] CT CERVICAL SPINE HISTORY: fall TECHNIQUE: Contiguous 2.0 mm axial imaging performed through the entire cervical spine. Sagittal and coronal reformats also performed. All CT scans at [facility] use at least one of these dose optimization techniques: automated exposure control; mA and/or kV adjustment per patient size (includes targeted exams where dose is matched to clinical indication); or iterative reconstruction. DLP: 1312.08 mGy.cm COMPARISON: 06/29/2025 Status post posterior upper cervical stabilization extending from C1-C3. Patient has remote fractures at C1 and C2 with partial healing and ankylosis. No acute fractures identified. The hardware is unchanged in position. No hardware fracture is identified. There is a new lucency involving the LEFT C3 lamina for which nondisplaced fracture cannot be excluded. This does follow the facet joint. Mild anterolisthesis of C4 is stable. Osteophytic ridging around the vertebral bodies. Mild central and foraminal stenosis throughout the cervical spine. Biapical fibrotic changes at the lung apices. CT/CT cervical spin wo con* [id number] IMPRESSION: 1. Indeterminate for possible nondisplaced fracture involving the LEFT C3 lami na. This is adjacent to an area of facet joint arthropathy and osteophytosis. T his was not present on the study of 06/29/2025. Recommend evaluation by spine kaylee geon. 2. Posterior upper cervical fusion from C1-C3. 3. Partial healing of the C1 and C2 remote fractures.
[2025-07-25 07:53] VITALS: BP 171/109; PULSE 97; RESP 18; TEMP 36.7; O2SAT 92
--- OUTSIDE RECORDS SUMMARY | 2025-07-25 08:00 | XMS_ITS | Patient Health Record ---
Author Organization [employer] Address [address] [place] [address] Care Team Providers Care Stockroom Worker Name Role Phone Vásquez, Jayden Primary Care Provider ALMA DELIA Zavala Unavailable [phone] [facility] COLLINS Unavailable [phone] Allergies Allergen (clinical drug ingredient) Drug/Non Drug [...] Glucose - Bilirubin - Ketones - Specific Bonn[place] 1.025 Occult Blood 2+ pH 6.0 Urine Protein 3+ Urobilinogen,Semi-Qn - Nitrite, Urine - WBC Esterase - Urinalysis Gross Exam - Reason For Referral Reason Renal Stone Diagnosis 1 Left renal stone (N2 0.0) Referral Organization [employer] [employer] Referring Provider First Name CHE Referring Provider [...] Status Risk Notes Problem Low back pain (401105439) Low back pain (M54.50) Active confirmed Problem Kidney stone (09812965) Left renal stone (N20.0) Active confirmed Problem Recurrent urinary tract infection (084287121) Recurrent UTI (N39.0) Active confirmed Problem Clot hematuria (029479252) Clot hematuria (R31.0) Active confirmed Vital Signs [...] 66ml Encounters Encounter Location Date Provider Diagnosis [facility] [address] [place] [address] 03/05/2025 ALMA DELIA SHAFFER Clot hematuria R31.0 ; Recurrent UTI N39.0 ; Low back pain M54.50 ; Upper abdominal pain R10.10 ; History of kidney stones Z87.442 ; History of smoking Z87.891 and Dysuria R30.0 [facility], [facility] [address] [place] [address] 04/09/2025 CHE COLLINS Clot hematuria R31.0 ; Left renal stone N20.0 ; Recurrent UTI N39.0 ; Low back pain M54.50 ; Upper abdominal pain R10.10 ; History of kidney stones Z87.442 ; History of smoking Z87.891 and Dysuria R30.0 [facility] [address] [facility] [place] [address] 02/15/2025 ALMA DELIA SHAFFER [facility] [address] [facility] [place] [address] 03/06/2025 ALMA DELIA SHAFFER [facility] [address] [facility] [place] [address] 04/13/2025 ALMA DELIA SHAFFER Assessments Encounter Date [...] next available. Plan: schedule Left E[facility] at [facility] obtain clearance from Dr. Vásquez [...] next available. Plan: schedule Left ESWL at [facility] obtain clearance from Dr. Vásquez [...] next available. Plan: schedule Left ESWL at [facility] obtain clearance from Dr. Vásquez [...] next available. Plan: schedule Left ESWL at [facility] obtain clearance from Dr. Vásquez [...] next available. Plan: schedule Left E[facility]L at [facility] obtain clearance from Dr. Vásquez [...] next available. Plan: schedule Left ESWL at [facility] obtain clearance from Dr. Vásquez [...] next available. Plan: schedule Left ESWL at [facility] obtain clearance from Dr. Vásquez [...] next available. Plan: schedule Left ESWL at [facility] obtain clearance from Dr. Vásquez [...] & Pelvis W & [place] contrast [id number] 03/05/2025 BUN, Creatinine 03/05/2025 Insurance Providers Payer Name Payer Address Payer Phone Subscriber Number Group Number Insured Name Patient Relationship to Insured Coverage Start Date Coverage End Date [employer] HMO [address] [address] [place], [place] [id number] [phone] [id number] Beatris Hemphill Self - patient is the insured [place] Medicaid [address] [place], [place] [id number] Beatris Hemphill Self - patient is the insured Medical (General) History Medical History History ICD Code Cystitis with hematuria RA osteoarthritis heart disease COPD Surgical History Surgery Date(Month/Year) triple bypas gallbladder Appendix Tonsils Hospitalization History Reason Date(Month/Year) multiple
--- NOTE | 2025-07-25 08:05 | W.ED.FALL ---
HPI - Fall General: Chief Complaint: Fall Stated Complaint: fall Time Seen by Provider: 07/25/25 07:42 Source: patient and EMS Mode of arrival: EMS Limitations: no limitations History of Present Illness: 85-year-old female who states that she had hip surgery a little over a week ago she is at the long-term and had fell. She had a ground-level fall states she landed on her right side she hurts on her right shoulder right knee and right hip states she is also having neck pain she is unsure if she hit her head. Denies any other injuries Associated symptoms-after fall: Denies abdominal pain, chest pain, headache(s) or neck pain Related Data Home Medications ?Medication ?Instructions ?Recorded ?Confirmed acetaminophen 500 mg tablet See Rx Instructions .Route .COMPLEX 08/21/24 07/17/25 albuterol sulfate 90 mcg/actuation 2 puff inhalation Q6H PRN 08/21/24 07/17/25 aerosol inhaler Shortness Of Breath atorvastatin 20 mg tablet 20 mg PO DAILY 08/21/24 07/17/25 carvedilol 6.25 mg tablet 6.25 mg PO BID 08/21/24 07/17/25 clopidogrel 75 mg tablet 75 mg PO DAILY 08/21/24 07/17/25 famotidine 20 mg tablet 20 mg PO QAM 08/21/24 07/17/25 levothyroxine 100 mcg tablet 100 mcg PO DAILY 08/21/24 07/17/25 menthol 5 % topical gel (Biofreeze 1 ea topical TID 08/21/24 07/17/25 (menthol)) nitroglycerin 0.4 mg sublingual 0.4 mg sublingual Q5M PRN Chest 08/21/24 07/17/25 tablet (Nitrostat) Pain polyethylene glycol 3350 17 17 g PO DAILY 08/21/24 07/17/25 gram/dose oral powder (Miralax) ropinirole 0.5 mg tablet 1.5 mg PO BEDTIME 08/21/24 07/17/25 umeclidinium 62.5 mcg/actuation 1 inh inhalation DAILY 08/21/24 07/17/25 blister powder for inhalation (Incruse Ellipta) allopurinol 100 mg tablet 100 mg PO DAILY 06/30/25 07/17/25 carboxymethyl 0.5 %-glycerin 1 1 drp ophthalmic (eye) QID PRN Dry 06/30/25 07/17/25 %-polysorb 80 0.5 %-PF eye Eyes dropperette (Refresh Optive Advanced (PF)) emollient combination no.110 1 ea topical PRN PRN Dry Skin 06/30/25 07/17/25 (Eucerin Intensive Repair lotion) ergocalciferol (vitamin D2) 1,250 1,250 mcg PO Q7D 06/30/25 07/17/25 mcg (50,000 unit) capsule glipizide 5 mg tablet 5 mg PO DAILY 06/30/25 07/17/25 hydrochlorothiazide 25 mg tablet 25 mg PO DAILY 06/30/25 07/17/25 lidocaine 5 % topical patch 1 patch transdermal Q12H 06/30/25 07/17/25 losartan 25 mg tablet 25 mg PO DAILY 06/30/25 07/17/25 sertraline 50 mg tablet 50 mg PO BEDTIME 06/30/25 07/17/25 tizanidine 2 mg tablet 2 mg PO Q8H 06/30/25 07/17/25 trolamine salicylate 10 % topical 1 applic topical BID PRN arthritis 06/30/25 07/17/25 cream pain white petrolatum-mineral oil 57.3 1 applic ophthalmic (eye) BEDTIME 06/30/25 07/17/25 %-42.5 % eye ointment (Refresh P.M.) Previous Rx's ?Medication ?Instructions ?Recorded cefuroxime axetil 250 mg tablet 500 mg (2 x 250 mg) PO 07/04/25 BID@0500,1700 #10 tabs fidaxomicin 200 mg tablet (Dificid) 200 mg PO BID@0500,1700 #20 tabs 07/04/25 oxycodone 5 mg tablet 5 mg PO BID PRN breakthrough pain 07/04/25 #14 tabs oxycodone myristate 18 mg capsule 18 mg PO BID #14 ea 07/04/25 sprinkle extended release 12hr(DON'T CRUSH) (Xtampza ER) Allergies Allergy/AdvReac Type Severity Reaction Status Date / Time codeine Allergy Unknown Unknown Verified 01/02/25 15:19 doxycycline Allergy Unknown Unknown Verified 01/02/25 15:19 erythromycin base Allergy Unknown Unknown Verified 01/02/25 15:19 hydromorphone (From Dilaudid) Allergy Unknown Unknown Verified 01/02/25 15:19 Sulfa (Sulfonamide Allergy Unknown Unknown Verified 01/02/25 15:19 Antibiotics) Review of Systems Const: Denies: fever(s), chills, body aches or change in appetite ENMT: Denies: throat pain or dental pain Card: Denies: chest pain Resp: Denies: dyspnea GI: Denies: abdominal pain, nausea, vomiting or diarrhea Musc: Reports: extremity pain; Denies: neck pain or back pain Skin/Breast: Denies: rash Neuro: Denies: headache(s) PFSH ED PFSH: Medical History Non-pressure chronic ulcer of left lower leg, limited to breakdown of skin Fusion of spine, 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 Chronic obstructive pulmonary disease, unspecified Fibromyalgia Mixed hyperlipidemia Chronic pain syndrome Personal history of diseases of the skin and subcutaneous tissue Personal history of urinary (tract) infections Personal history of other diseases of the digestive system Unspecified dementia, unspecified severity, without behavioral disturbance, psychotic disturbance, mood disturbance, and anxiety Unsteadiness on feet Presence of cardiac pacemaker Overactive bladder Hypothyroidism, unspecified Hyperlipidemia, unspecified History of falling Gout, unspecified Gastro-esophageal reflux disease without esophagitis Essential (primary) hypertension Surgical History Presence of aortocoronary bypass graft Social History Smoking and tobacco/nicotine status: unknown if used tobacco/nicotine Housing: Half-Way Physical Exam Const: COMMON NORMALS: no acute distress, patient oriented x3 and healthy appearing HENMT: COMMON NORMALS: normocephalic and atraumatic HEAD & SCALP: normocephalic and atraumatic Neck/C-Spine: COMMON NORMALS: full ROM and supple Chest: COMMONS NORMALS: normal inspection of the chest and normal palpation of entire chest wall Resp: COMMON NORMALS: normal respiratory effort, No retractions, No use of accessory muscles and clear to auscultation bilaterally AUSCULTATION: clear to auscultation bilaterally Cardio: COMMON NORMALS: regular rate, regular rhythm and No murmurs present (Cardio) RATE: regular rate RHYTHM: regular rhythm GI: COMMON NORMALS: Normal to inspection, nondistended, normoactive bowel sounds present, Soft to palpation, non-tender and no masses PALPATION: Yes Soft to palpation Extremity: COMMON NORMALS: full ROM NARRATIVE EXTREMITY EXAM: Tenderness noted right hip tenderness noted right knee and shoulder incisions clean dry and intact Neuro: COMMON NORMALS: patient oriented x3, moves all extremities and no focal motor deficits Psych: COMMON NORMALS: mental status grossly normal, Normal thought process present and cooperative THOUGHT PROCESS: Normal thought process present Skin: COMMON NORMALS: no rashes or lesions noted and no wounds GENERAL SKIN EXAM: no rashes or lesions noted Course Vital Signs: Vital signs: Vital Signs Temperature 98.1 F 07/25/25 07:53 Pulse Rate 97 07/25/25 07:53 Respiratory Rate 18 07/25/25 07:53 Blood Pressure 171/109 07/25/25 07:53 Pulse Oximetry 92 07/25/25 07:53 Oxygen Delivery Me thod Room Air 07/25/25 07:53 MDM - Fall Medical Decision Making Patient presents here shoulder hip and neck pain after a fall. X-rays are negative no sign of hip fracture CT showed a possible cervical fracture spoke to her spine surgeon Dr. Langston and he states put her in a c-collar and he will follow-up with her outpatient will discharge back to long-term Medical Records I reviewed the patient's medical records. Lab Data Radiology Impressions Cervical Spine CT 07/25/25 07:44 IMPRESSION: 1. Indeterminate for possible nondisplaced fracture involving the LEFT C3 lamina. This is adjacent to an area of facet joint arthropathy and osteophytosis. This was not present on the study of 06/29/2025. Recommend evaluation by spine surgeon. 2. Posterior upper cervical fusion from C1-C3. 3. Partial healing of the C1 and C2 remote fractures. Head CT 07/25/25 07:44 IMPRESSION: 1. Study is limited by motion artifact. 2. Mild atrophy and small vessel disease. 3. No acute intracranial hemorrhage or edema. Hip/Pelvis X-Ray 07/25/25 07:44 Impression: Stable internal fixation of the right hip intertrochanteric fracture. Knee X-Ray 07/25/25 07:44 Impression: 1. Negative for fracture. 2. Osteoarthritis of the right knee. Shoulder X-Ray 07/25/25 07:44 Impression: Mild osteoarthritis of the right glenohumeral joint. All radiology interpretation(s) finalized by discharge Discharge Plan Discharge Patient Disposition: Home Clinical Impression: Cervical spine fracture, Fall Condition: Stable Prescriptions: No Action acetaminophen 500 mg tablet See Rx Instructions .ROUTE .COMPLEX Rx Instructions: Take 2 tablets by mouth daily and at bedtime. polyethylene glycol 3350 [Miralax] 17 gram/dose powder 17 g PO DAILY ropinirole 0.5 mg tablet 1.5 mg PO BEDTIME atorvastatin 20 mg tablet 20 mg PO DAILY famotidine 20 mg tablet 20 mg PO QAM Incruse Ellipta 62.5 mcg/actuation blister with device 1 inh inhalation DAILY levothyroxine 100 mcg tablet 100 mcg PO DAILY nitroglycerin [Nitrostat] 0.4 mg tablet, sublingual 0.4 mg sublingual Q5M PRN (Reason: Chest Pain) Rx Instructions: do not exceed 3 doses per episode albuterol sulfate 90 mcg/actuation HFA aerosol inhaler 2 puff inhalation Q6H PRN (Reason: Shortness Of Breath) clopidogrel 75 mg tablet 75 mg PO DAILY carvedilol 6.25 mg tablet 6.25 mg PO BID Rx Instructions: must administer with a meal/food Biofreeze (menthol) 5 % gel 1 ea topical TID tizanidine 2 mg tablet 2 mg PO Q8H allopurinol 100 mg tablet 100 mg PO DAILY lidocaine 5 % adhesive patch,medicated 1 patch transdermal Q12H losartan 25 mg tablet 25 mg PO DAILY hydrochlorothiazide 25 mg tablet 25 mg PO DAILY ergocalciferol (vitamin D2) 1,250 mcg (50,000 unit) Capsule 1,250 mcg PO Q7D sertraline 50 mg tablet 50 mg PO BEDTIME glipizide 5 mg tablet 5 mg PO DAILY trolamine salicylate 10 % Cream 1 applic TOPICAL BID PRN (Reason: arthritis pain) Refresh P.M. 57.3-42.5 % Ointment 1 applic OPHTHALMIC (EYE) BEDTIME Refresh Optive Advanced (PF) 0.5-1-0.5 % Dropperette 1 drp OPHTHALMIC (EYE) QID PRN (Reason: Dry Eyes) Eucerin Intensive Repair Lotion 1 ea TOPICAL PRN PRN (Reason: Dry Skin) oxycodone 5 mg tablet 5 mg PO BID PRN (Reason: breakthrough pain) Qty: 14 0RF Xtampza ER 18 mg cap,sprinkl,ER12hr(DONT CRUSH) 18 mg PO BID Qty: 14 0RF Rx Instructions: must administer with a meal/food Dificid 200 mg Tablet 200 mg PO BID@0500,1700 Qty: 20 0RF cefuroxime axetil 250 mg Tablet 500 mg PO BID@0500,1700 Qty: 10 0RF Discharge Orders: Discharge ED (Routine); Ordered 07/25/25 Ordered By: Martha Torres Referrals: Naif Gonsales DO [Physician, Orthopedics] - 4-7 days Jayden Vásquez DO [Primary Care Provider, Internal Medicine] Discharge Diet: Advance as tolerated Discharge Activity: Resume usual activity Patient Instructions: Cervical Fracture (ED) Print Language: Andorran Coding Level of Care Code ED Developmental Specialist for Alber Richardson
[2025-07-25] MEDS: HYDROcodone-acetaminophen 5-325 mg Tablet 1 TAB PO (08:50)
--- NOTE | 2025-07-25 10:08 | PC.NURSE ---
cervical collar placed on pt per verbal order of Dr. Torres
[2025-07-25 10:09] VITALS: BP 175/96
--- NOTE | 2025-07-25 10:14 | PC.NURSE ---
called report to [facility], states transport on way
[2025-07-25 10:37] VITALS: BP 175/85; PULSE 86; O2SAT 92
--- NOTE | 2025-07-26 07:58 | DCPLANNER ---
messaged ortho for er f/u
== END 2025-07-25 10:38 | disposition home or self-care (01) ==
PROVIDERS: Emergency Provider Emergency Medicine; PCP Internal Medicine
DX: S12.291A Other nondisplaced fracture of third cervical vertebra, initial encounter for closed fracture (principal); Z98.1 Arthrodesis status; M43.22 Fusion of spine, cervical region; M19.011 Primary osteoarthritis, right shoulder; M17.11 Unilateral primary osteoarthritis, right knee; W18.30XA Fall on same level, unspecified, initial encounter; E11.42 Type 2 diabetes mellitus with diabetic polyneuropathy; I10 Essential (primary) hypertension; E78.2 Mixed hyperlipidemia; Z95.0 Presence of cardiac pacemaker; Z95.1 Presence of aortocoronary bypass graft; Z79.02 Long term (current) use of antithrombotics/antiplatelets
CPT/HCPCS: 70450; 72125; 73030; 73502; 73562; 99284; J9999

== ENCOUNTER → 2025-07-31 13:29 | Outpatient (BNVA) | payer OTHER, MEDICAID, SELFPAY | PROVIDERS: PCP Internal Medicine; Visit Provider Orthopaedic Surgery | DX: S72.141D Displaced intertrochanteric fracture of right femur, subsequent encounter for closed fracture with routine healing (principal); W19.XXXD Unspecified fall, subsequent encounter; Z09 Encounter for follow-up examination after completed treatment for conditions other than malignant neoplasm | CPT/HCPCS: 72040; 73502; 99213 ==

== ENCOUNTER → 2025-08-03 09:30 | Outpatient (BNVA) | payer OTHER, MEDICAID, SELFPAY | PROVIDERS: PCP Internal Medicine; Visit Provider Thoracic Surgery (Cardiothoracic Vascular Surgery) | DX: I96 Gangrene, not elsewhere classified (principal); I87.2 Venous insufficiency (chronic) (peripheral); L97.821 Non-pressure chronic ulcer of other part of left lower leg limited to breakdown of skin; L89.312 Pressure ulcer of right buttock, stage 2; L89.322 Pressure ulcer of left buttock, stage 2; L89.611 Pressure ulcer of right heel, stage 1 | CPT/HCPCS: 97597; A6252 ==

== ENCOUNTER 2025-08-04 19:23 | Inpatient (IN) | payer OTHER, MEDICAID, SELFPAY ==
--- OUTSIDE RECORDS SUMMARY | 2025-05-15 13:00 | XMS_ITS ---
Author Organization [facility] Address [address] [place] [address] Care Team Providers Care Central Supply Technician Supervisor Name Role Phone Jayden Vásquez Primary Care Provider ALMA DELIA Zavala Unavailable [phone] CHE COLLINS Unavailable [phone] REASON FOR VISIT L ESWL @ [facility] Encounters Encounter Location Date Provider Diagnosis [facility] [address] [facility] [place] [address] 05/15/2025 CHE COLLINS Plan Of Treatment No Information Progress Notes * Beatris HEMPHILL KDOB: [birth year] (85 yo F)Acc No.[id number]:05/15/2025 Patient: Wolfgang PARRA Beatris Richardson Provider: Una COLLINS MD :1940 A ge:85 Y S ex:Female Date:05/15/2025 Address:[address] [place], [place] [phone] Pcp:Jayden Vásquez * Billing Information: * Visit Code: * Procedure Codes: * Electronic signature of AUST IN MD KARINA on 08/04/2025 at 07:40 PM CDT Sign off status: Pending * Provider: Una COLLINS MD Date: 05/15/2025 Generated for Printi ng/Faxing/eTransmitting on: 08/04/2025 07:40 PM CDT
[2025-08-04 19:28] VITALS: BP 166/90; PULSE 86; RESP 18; TEMP 36.9; O2SAT 97; BMI 23.3
--- OUTSIDE RECORDS SUMMARY | 2025-08-04 19:41 | XMS_ITS | Patient Health Record ---
Author Organization [facility] Address [address] [place] [address] Care Team Providers Care Filter Changing Technician Name Role Phone Vásquez, Jayden Primary Care Provider ALMA DELIA Zavala Unavailable [phone] CHE COLLINS Unavailable [phone] Allergies Allergen (clinical drug ingredient) Drug/Non Drug [...] Glucose - Bilirubin - Ketones - Specific [place] 1.025 Occult Blood 2+ pH 6.0 Urine Protein 3+ Urobilinogen,Semi-Qn - Nitrite, Urine - WBC Esterase - Urinalysis Gross Exam - Reason For Referral Reason Renal Stone Diagnosis 1 Left renal stone (N2 0.0) Referral Organization [facility] Referring Provider First Name CHE Referring Provider [...] Status Risk Notes Problem Low back pain (836653725) Low back pain (M54.50) Active confirmed Problem Kidney stone (37974868) Left renal stone (N20.0) Active confirmed Problem Recurrent urinary tract infection (711287953) Recurrent UTI (N39.0) Active confirmed Problem Clot hematuria (444834588) Clot hematuria (R31.0) Active confirmed Vital Signs Heart Rate 88 /min 03/05/2025 Height-cm 157.48 cm 03/05/2025 Blood pressure diastolic 88 mm Hg 03/05/2025 Weight-kg 56.25 kg 03/05/2025 Height 62 in 03/05/2025 Blood pressure systolic 206 mm Hg 03/05/2025 Weight 124 lbs 03/05/2025 BMI 22.68 kg/m2 03/05/2025 Procedures Procedure Date Ordered Date Performed Result Body Sit e Bladder Scan 03/05/2025 03/05/2025 66ml Encounters Encounter Location Date Provider Diagnosis [facility] [address] [place] [address] 03/05/2025 ALMA DELIA SHAFFER Clot hematuria R31.0 ; Recurrent UTI N39.0 ; Low back pain M54.50 ; Upper abdominal pain R10.10 ; History of kidney stones Z87.442 ; History of smoking Z87.891 and Dysuria R30.0 [facility] [address] [place] [address] 04/09/2025 [facility] COLLINS Clot hematuria R31.0 ; Left renal stone N20.0 ; Recurrent UTI N39.0 ; Low back pain M54.50 ; Upper abdominal pain R10.10 ; History of kidney stones Z87.442 ; History of smoking Z87.891 and Dysuria R30.0 [facility] [address] [place] [address] 02/15/2025 ALMA DELIA SHAFFER [facility] [address] [place] [address] 03/06/2025 ALMA DELIA SHAFFER [facility] [address] [place] [address] 04/13/2025 ALMA DELIA SHAFFER Assessments Encounter Date [...] next available. Plan: schedule Left [facility] at [facility] obtain clearance from Dr. Vásquez in [...] next available. Plan: schedule Left [facility] at [facility] obtain clearance from Dr. Vásquez in [...] next available. Plan: schedule Left [facility] at [facility] obtain clearance from Dr. Vásquez in [...] next available. Plan: schedule Left [facility] at [facility] obtain clearance from Dr. Vásquez in [...] next available. Plan: schedule Left [facility] at [facility] obtain clearance from Dr. Vásquez in [...] next available. Plan: schedule Left [facility] at [facility] obtain clearance from Dr. Vásquez in [...] next available. Plan: schedule Left [facility] at [facility] obtain clearance from Dr. Vásquez in [...] next available. Plan: schedule Left [facility] at [facility] obtain clearance from Dr. Vásquez in [...] & Pelvis W & [place] [id number] 03/05/2025 BUN, Creatinine 03/05/2025 Insurance Providers Payer Name Payer Address Payer Phone Subscriber Number Group Number Insured Name Patient Relationship to Insured Coverage Start Date Coverage End Date [facility] Medicare Advantage HMO [address] [address] [place], [place] [id number] [phone] [id number] Beatris Hemphill Self - patient is the insured [place] Medicaid [address] [place], [place] [id number] Beatris Hemphill Self - patient is the insured Medical (General) History Medical History History ICD Code Cystitis with hematuria RA osteoarthritis heart disease COPD Surgical History Surgery Date(Month/Year) triple bypas gallbladder Appendix Tonsils Hospitalization History Reason Date(Month/Year) multiple
--- NOTE | 2025-08-04 19:43 | XRR_ITS ---
PROCEDURE INFORMATION: Exam: XR Chest Exam date and time: 08/04/2025 8:07 PM Age: 85 years old Clinical indication: Pain; Chest pressure; Additional info: Lt hip pain post fall TECHNIQUE: Imaging protocol: Radiologic exam of the chest. Views: 1 view. Total images: 1 COMPARISON: CR (CHEST, ) 06/29/2025 4:39 AM FINDINGS: Lungs: Stable right upper lobe peripheral subtle ground-glass lung opacity. Lungs otherwise well-aerated without focal acute pathologic pulmonary process. Pleural spaces: No significant pleural effusion. No pneumothorax. Heart/Mediastinum: A dual lead cardiac conduction assist device (pacemaker) is present with its leads project within the of the right atrium and right ventricle respectively. The heart is not enlarged. Coronary bypass graft accounting for surgical clips. Atherosclerotic calcification of the red devil coronary arteries. Vasculature: Aortic wall demonstrates mild atherosclerotic calcification. Bones/joints: Post sternotomy. Severe chronic generalized degenerative changes of the vertebral column characterized by multilevel osteophyte formation, degenerative disc height loss, vacuum disc phenomenon, and degenerative facet arthrosis commensurate with patient's age. Shoulder glenohumeral osteoarthritis. XR/XR chest 1V portable [id number] IMPRESSION: 1. No new pulmonary consolidation or other adverse interval change radiographically. 2. Stable right upper lobe peripheral subtle nonspecific ground-glass lung opacity. 3. Generalized advanced skeletal chronic degenerative and other nonacute findings as described above.
--- NOTE | 2025-08-04 19:43 | XRR_ITS ---
PROCEDURE INFORMATION: Exam: XR Left Hip Exam date and time: 08/04/2025 8:07 PM Age: 85 years old Clinical indication: Hip pain; Left hip; Prior surgery; Surgery date: 6+ months; Surgery type: RT hip replacement; Additional info: Lt hip pain post fall TECHNIQUE: Imaging protocol: Radiologic exam of the left hip. Views: 2 or 3 views hip with pelvis when performed. Total images: 1 COMPARISON: 1. CT abdomen pelvis wo con [id number] 06/30/2025 1:[address] abdomen pelvis wo/w [id number] 03/19/2025 12:51 PM FINDINGS: Bones/joints: Low lumbar L4-L5 stabilization rods are present. Moderate generalized degenerative changes of the vertebral column characterized by multilevel osteophyte formation, degenerative disc height loss and facet arthrosis commensurate with patient's age. Sacroiliac joint degenerative manifestations. Pubic symphysis degenerative changes (osteitis pubis). Mild degenerative changes of both hips. Left greater trochanter elevated fracture fragment of age indeterminate. Stable right proximal femoral intertrochanteric fracture fixated by intramedullary nail and right femoral neck screw. Bones are qualitatively demineralized (osteopenic) limiting evaluation for nondisplaced fractures. Generalized bony tendon origin/insertion proliferative enthesopathy, mild. Soft tissues: Soft tissues are normal as visualized, demonstrating no masses or induration. XR/XR hip LT 2-3V wo/w pel* [id number] IMPRESSION: 1. Stable right proximal femoral intertrochanteric fracture fixated by intramedullary nail and right femoral neck screw. 2. Left greater trochanter elevated fracture fragment of age indeterminate. 3. Generalized moderate skeletal degenerative and other chronic/nonacute findings as described above.
--- NOTE | 2025-08-04 20:00 | W.ED.FALL ---
Documented by User: MIS Lambert 08/05/25 01:18 HPI - Fall General: Chief Complaint: Fall Stated Complaint: Left rib and hip pain Time Seen by Provider: 08/04/25 19:51 History of Present Illness: Patient is an 85-year-old female that [facility], reports back to the emergency room with a fall of unknown manner. She does not remember what happened, but says she has left rib pain and hip pain. She had a fall last week resulting in a C3 fracture. She states she has not followed up with Dr. Gonsales, and the doctor here told her it was not fractured. I have corrected this, and spoke to the patient stating that he did tell you it was fractured and to follow-up with the spine surgeon. Associated symptoms-after fall: Reports chest pain (Rib pain) Related Data Home Medications ?Medication ?Instructions ?Recorded ?Confirmed acetaminophen 500 mg tablet See Rx Instructions .Route .COMPLEX 08/21/24 08/05/25 albuterol sulfate 90 mcg/actuation 2 puff inhalation Q6H PRN 08/21/24 08/05/25 aerosol inhaler Shortness Of Breath atorvastatin 20 mg tablet 20 mg PO DAILY 08/21/24 08/05/25 carvedilol 6.25 mg tablet 6.25 mg PO BID 08/21/24 08/05/25 clopidogrel 75 mg tablet 75 mg PO DAILY 08/21/24 08/05/25 famotidine 20 mg tablet 20 mg PO QAM 08/21/24 08/05/25 levothyroxine 100 mcg tablet 100 mcg PO DAILY 08/21/24 08/05/25 menthol 5 % topical gel (Biofreeze 1 ea topical TID 08/21/24 07/31/25 (menthol)) nitroglycerin 0.4 mg sublingual 0.4 mg sublingual Q5M PRN Chest 08/21/24 08/05/25 tablet (Nitrostat) Pain polyethylene glycol 3350 17 17 g PO DAILY 08/21/24 08/05/25 gram/dose oral powder (Miralax) ropinirole 0.5 mg tablet 1.5 mg PO BEDTIME 08/21/24 08/05/25 umeclidinium 62.5 mcg/actuation 1 inh inhalation DAILY 08/21/24 07/31/25 blister powder for inhalation (Incruse Ellipta) allopurinol 100 mg tablet 100 mg PO DAILY 06/30/25 08/05/25 carboxymethyl 0.5 %-glycerin 1 1 drp ophthalmic (eye) QID PRN Dry 06/30/25 08/05/25 %-polysorb 80 0.5 %-PF eye Eyes dropperette (Refresh Optive Advanced (PF)) emollient combination no.110 1 ea topical PRN PRN Dry Skin 06/30/25 08/05/25 (Eucerin Intensive Repair lotion) ergocalciferol (vitamin D2) 1,250 1,250 mcg PO Q7D 06/30/25 08/05/25 mcg (50,000 unit) capsule glipizide 5 mg tablet 2.5 mg PO DAILY 06/30/25 08/05/25 hydrochlorothiazide 25 mg tablet 25 mg PO DAILY 06/30/25 08/05/25 lidocaine 5 % topical patch 1 patch transdermal Q12H 06/30/25 08/05/25 losartan 25 mg tablet 25 mg PO DAILY 06/30/25 07/31/25 sertraline 50 mg tablet (Zoloft) 50 mg PO BEDTIME 06/30/25 08/05/25 tizanidine 2 mg tablet 2 mg PO Q8H PRN Muscle Spasm 06/30/25 08/05/25 trolamine salicylate 10 % topical 1 applic topical BID PRN arthritis 06/30/25 08/05/25 cream pain white petrolatum-mineral oil 57.3 1 applic ophthalmic (eye) BEDTIME 06/30/25 08/05/25 %-42.5 % eye ointment (Refresh P.M.) quetiapine 50 mg tablet 50 mg PO BEDTIME 08/05/25 08/05/25 Previous Rx's ?Medication ?Instructions ?Recorded cefuroxime axetil 250 mg tablet 500 mg (2 x 250 mg) PO 07/04/25 BID@0500,1700 #10 tabs fidaxomicin 200 mg tablet (Dificid) 200 mg PO BID@0500,1700 #20 tabs 07/04/25 oxycodone 5 mg tablet 5 mg PO BID PRN breakthrough pain 07/04/25 #14 tabs oxycodone myristate 18 mg capsule 18 mg PO BID #14 ea 07/04/25 sprinkle extended release 12hr(DON'T CRUSH) (Xtampza ER) Allergies Allergy/AdvReac Type Severity Reaction Status Date / Time codeine Allergy Unknown Unknown Verified 07/31/25 07:52 doxycycline Allergy Unknown Unknown Verified 07/31/25 07:52 erythromycin base Allergy Unknown Unknown Verified 07/31/25 07:52 hydromorphone (From Dilaudid) Allergy Unknown Unknown Verified 07/31/25 07:52 Sulfa (Sulfonamide Allergy Unknown Unknown Verified 07/31/25 07:52 Antibiotics) Review of Systems General: Reports: ROS unobtainable due to mental status (Patient does not have memory of fall) Card: Reports: chest pain (Rib pain) Musc: Reports: extremity pain PFSH ED PFSH: Medical History (Updated 08/05/25 @ 11:03 by Curt De La Rosa MD) Non-pressure chronic ulcer of left lower leg, limited to breakdown of skin Fusion of spine, 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 Chronic obstructive pulmonary disease, unspecified Fibromyalgia Mixed hyperlipidemia Chronic pain syndrome Personal history of diseases of the skin and subcutaneous tissue Personal history of urinary (tract) infections Personal history of other diseases of the digestive system Unspecified dementia, unspecified severity, without behavioral disturbance, psychotic disturbance, mood disturbance, and anxiety Unsteadiness on feet Presence of cardiac pacemaker Overactive bladder Hypothyroidism, unspecified Hyperlipidemia, unspecified History of falling Gout, unspecified Gastro-esophageal reflux disease without esophagitis Essential (primary) hypertension Surgical History Presence of aortocoronary bypass graft Social History Smoking and tobacco/nicotine status: unknown if used tobacco/nicotine Housing: Jail Physical Exam Const: COMMON NORMALS: no acute distress, patient oriented x3 and healthy appearing HENMT: COMMON NORMALS: normocephalic and atraumatic HEAD & SCALP: normocephalic and atraumatic Neck/C-Spine: COMMON NORMALS: full ROM and supple Chest: COMMONS NORMALS: normal inspection of the chest and normal palpation of entire chest wall Resp: COMMON NORMALS: normal respiratory effort, No retractions, No use of accessory muscles and clear to auscultation bilaterally AUSCULTATION: clear to auscultation bilaterally Cardio: COMMON NORMALS: regular rate, regular rhythm and No murmurs present (Cardio) RATE: regular rate RHYTHM: regular rhythm GI: COMMON NORMALS: Normal to inspection, nondistended, normoactive bowel sounds present, Soft to palpation, non-tender and no masses PALPATION: Yes Soft to palpation Extremity: COMMON NORMALS: negative for full ROM NARRATIVE EXTREMITY EXAM: Decreased range of motion of the left leg and external rotation due to pain. Neuro: COMMON NORMALS: patient oriented x3, moves all extremities and no focal motor deficits Psych: COMMON NORMALS: mental status grossly normal, Normal thought process present and cooperative THOUGHT PROCESS: Normal thought process present Skin: COMMON NORMALS: no rashes or lesions noted and no wounds GENERAL SKIN EXAM: no rashes or lesions noted Course Consultations: Consultation #1: D/w Dr. De La Rosa admit for possible fx Consultation #2: D/w Dr. Cabrera, will admit with Rj consulting Vital Signs: Vital signs: Vital Signs Temperature 97.5 F L 08/05/25 08:00 Pulse Rate 75 08/05/25 11:29 Respiratory Rate 18 08/05/25 11:29 Blood Pressure 155/71 08/05/25 11:29 Pulse Oximetry 96 08/05/25 11:29 Oxygen Delivery Me thod Nasal Cannula 08/05/25 11:29 Oxygen Flow Rate 3 08/05/25 11:29 MDM - Fall Medical Decision Making Patient presents after a fall, left hip pain, left rib pain. X-ray is fairly inconclusive as well as CT. Patient does have these complaints. It could be from her fall last week and neck fracture. In any event, she will be placed in inpatient admission for possible intertrochanteric fracture and repair. Further decision making as per Dr. De La Rosa tomorrow after discernment. Pain is controlled after morphine 4 mg x 2. Lab Data 08/05/25 01:53 08/05/25 01:53 Radiology Impressions Chest X-Ray 08/04/25 19:43 IMPRESSION: 1. No new pulmonary consolidation or other adverse interval change radiographically. 2. Stable right upper lobe peripheral subtle nonspecific ground-glass lung opacity. 3. Generalized advanced skeletal chronic degenerative and other nonacute findings as described above. Hip/Pelvis X-Ray 08/04/25 19:43 IMPRESSION: 1. Stable right proximal femoral intertrochanteric fracture fixated by intramedullary nail and right femoral neck screw. 2. Left greater trochanter elevated fracture fragment of age indeterminate. 3. Generalized moderate skeletal degenerative and other chronic/nonacute findings as described above. Pelvis CT 08/04/25 21:06 IMPRESSION: 1. Left greater trochanter distracted fracture of age indeterminate, slice positions reported above, along with generalized enthesophyte formation. 2. Right proximal femur intertrochanteric-subtrochanteric fracture fixated by intramedullary nail and hip screw demonstrating incompletely bridging bony callus formation. 3. Generalized advanced skeletal chronic degenerative and other nonacute findings as described above. 4. Diffuse soft tissue edema is present and suspicious for anasarca. Laboratory Results WBC 10.64 10^3/uL (3.29-11.43) 08/04/25 20:38 RBC 2.79 10^6/uL (3.85-5.65) L 08/04/25 20:38 Hgb 8.20 g/dL (11.27-16.99) L 08/04/25 20:38 Hct 26.8 % (36-47) L 08/04/25 20:38 MCV 96.1 fl (85-98) 08/04/25 20:38 MCH 29.4 pg (27-33) 08/04/25 20:38 MCHC 30.6 g/dL (30-55) 08/04/25 20:38 RDW 16.8 % (12.1-15.1) H 08/04/25 20:38 Plt Count 301 10^3/cmm (157-399) 08/04/25 20:38 MPV 10.0 fL (7.4-10.4) 08/04/25 20:38 Neut % (Auto) 80.2 % 08/04/25 20:38 Lymph % (Auto) 13.5 % 08/04/25 20:38 [place] % (Auto) 4.7 % 08/04/25 20:38 Eos % (Auto) 1.0 % 08/04/25 20:38 Baso % (Auto) 0.3 % 08/04/25 20:38 Neut # (Auto) 8.53 10^3/uL (1.8-7.7) H 08/04/25 20:38 Lymph # (Auto) 1.4 10^3/uL (0.8-4.8) 08/04/25 20:38 [place] # (Auto) 0.5 10^3/uL (0.2-0.9) 08/04/25 20:38 Eos # (Auto) 0.1 10^3/uL (0.0-0.8) 08/04/25 20:38 Baso # (Auto) 0.0 10^3/uL (0.0-0.1) 08/04/25 20:38 Nucleated RBC % (auto) 0 % 08/04/25 20:38 Nucleated RBCs # 0.0 /100WBC 08/04/25 20:38 Sodium 142 mmol/L (136-145) 08/04/25 20:38 Potassium 3.5 mmol/L (3.5-5.1) 08/04/25 20:38 Chloride 103 mmol/L (98-107) 08/04/25 20:38 Carbon Dioxide 29 mmol/L (22-29) 08/04/25 20:38 Anion Gap 13.5 (5-19) 08/04/25 20:38 BUN 19 mg/dL (8-23) 08/04/25 20:38 Creatinine 1.1 mg/dL (0.5-0.9) H 08/04/25 20:38 GFR Calculation Not Reportable 08/04/25 20:38 Glucose 234 mg/dL (65-115) H 08/04/25 20:38 Calculated Osmolality 304 mOsm/kg (285-295) H 08/04/25 20:38 Calcium 8.1 mg/dL (8.5-10.5) L 08/04/25 20:38 Total Bilirubin 0.3 mg/dL (0.15-1.2) 08/04/25 20:38 AST 14 U/L (0-32) 08/04/25 20:38 ALT 9 U/L (0-33) 08/04/25 20:38 Alkaline Phosphatase 258 U/L (35-105) H 08/04/25 20:38 Total Protein 6.6 g/dL (6.6-8.7) 08/04/25 20:38 Albumin 2.8 g/dL (3.5-5.2) L 08/04/25 20:38 Globulin 3.8 g/dL (1.3-4.6) 08/04/25 20:38 All radiology interpretation(s) finalized by discharge Discharge Plan Discharge Patient Disposition: Admitted As Inpatient Admit Provider: Audrey Cabrera Clinical Impression: Closed intertrochanteric fracture of left femur Qualifiers: Encounter type: initial encounter Fracture alignment: displaced Qualified Code(s): S72.142A - Displaced intertrochanteric fracture of left femur, initial encounter for closed fracture Condition: Stable Discharge Diet: Usual diet Discharge Activity: Limit activity as instructed Coding Level of Care Code ED Wire Frame Dipper for Chg Fwd Documented by User: Braeden Bonner, 08/05/25 14:52 HPI - Fall General: Chief Complaint: Fall Stated Complaint: Left rib and hip pain Time Seen by Provider: 08/04/25 19:51 Related Data Home Medications ?Medication ?Instructions ?Recorded ?Confirmed acetaminophen 500 mg tablet See Rx Instructions .Route .COMPLEX 08/21/24 08/05/25 albuterol sulfate 90 mcg/actuation 2 puff inhalation Q6H PRN 08/21/24 08/05/25 aerosol inhaler Shortness Of Breath atorvastatin 20 mg tablet 20 mg PO DAILY 08/21/24 08/05/25 carvedilol 6.25 mg tablet 6.25 mg PO BID 08/21/24 08/05/25 clopidogrel 75 mg tablet 75 mg PO DAILY 08/21/24 08/05/25 famotidine 20 mg tablet 20 mg PO QAM 08/21/24 08/05/25 levothyroxine 100 mcg tablet 100 mcg PO DAILY 08/21/24 08/05/25 menthol 5 % topical gel (Biofreeze 1 ea topical TID 08/21/24 07/31/25 (menthol)) nitroglycerin 0.4 mg sublingual 0.4 mg sublingual Q5M PRN Chest 08/21/24 08/05/25 tablet (Nitrostat) Pain polyethylene glycol 3350 17 17 g PO DAILY 08/21/24 08/05/25 gram/dose oral powder (Miralax) ropinirole 0.5 mg tablet 1.5 mg PO BEDTIME 08/21/24 08/05/25 umeclidinium 62.5 mcg/actuation 1 inh inhalation DAILY 08/21/24 07/31/25 blister powder for inhalation (Incruse Ellipta) allopurinol 100 mg tablet 100 mg PO DAILY 06/30/25 08/05/25 carboxymethyl 0.5 %-glycerin 1 1 drp ophthalmic (eye) QID PRN Dry 06/30/25 08/05/25 %-polysorb 80 0.5 %-PF eye Eyes dropperette (Refresh Optive Advanced (PF)) emollient combination no.110 1 ea topical PRN PRN Dry Skin 06/30/25 08/05/25 (Eucerin Intensive Repair lotion) ergocalciferol (vitamin D2) 1,250 1,250 mcg PO Q7D 06/30/25 08/05/25 mcg (50,000 unit) capsule glipizide 5 mg tablet 2.5 mg PO DAILY 06/30/25 08/05/25 hydrochlorothiazide 25 mg tablet 25 mg PO DAILY 06/30/25 08/05/25 lidocaine 5 % topical patch 1 patch transdermal Q12H 06/30/25 08/05/25 losartan 25 mg tablet 25 mg PO DAILY 06/30/25 07/31/25 sertraline 50 mg tablet (Zoloft) 50 mg PO BEDTIME 06/30/25 08/05/25 tizanidine 2 mg tablet 2 mg PO Q8H PRN Muscle Spasm 06/30/25 08/05/25 trolamine salicylate 10 % topical 1 applic topical BID PRN arthritis 06/30/25 08/05/25 cream pain white petrolatum-mineral oil 57.3 1 applic ophthalmic (eye) BEDTIME 06/30/25 08/05/25 %-42.5 % eye ointment (Refresh P.M.) quetiapine 50 mg tablet 50 mg PO BEDTIME 08/05/25 08/05/25 Previous Rx's ?Medication ?Instructions ?Recorded cefuroxime axetil 250 mg tablet 500 mg (2 x 250 mg) PO 07/04/25 BID@0500,1700 #10 tabs fidaxomicin 200 mg tablet (Dificid) 200 mg PO BID@0500,1700 #20 tabs 07/04/25 oxycodone 5 mg tablet 5 mg PO BID PRN breakthrough pain 07/04/25 #14 tabs oxycodone myristate 18 mg capsule 18 mg PO BID #14 ea 07/04/25 sprinkle extended release 12hr(DON'T CRUSH) (Xtampza ER) Allergies Allergy/AdvReac Type Severity Reaction Status Date / Time codeine Allergy Unknown Unknown Verified 07/31/25 07:52 doxycycline Allergy Unknown Unknown Verified 07/31/25 07:52 erythromycin base Allergy Unknown Unknown Verified 07/31/25 07:52 hydromorphone (From Dilaudid) Allergy Unknown Unknown Verified 07/31/25 07:52 Sulfa (Sulfonamide Allergy Unknown Unknown Verified 07/31/25 07:52 Antibiotics) PFSH ED PFSH: Medical History (Updated 08/05/25 @ 11:03 by Curt De La Rosa MD) Non-pressure chronic ulcer of left lower leg, limited to breakdown of skin Fusion of spine, 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 Chronic obstructive pulmonary disease, unspecified Fibromyalgia Mixed hyperlipidemia Chronic pain syndrome Personal history of diseases of the skin and subcutaneous tissue Personal history of urinary (tract) infections Personal history of other diseases of the digestive system Unspecified dementia, unspecified severity, without behavioral disturbance, psychotic disturbance, mood disturbance, and anxiety Unsteadiness on feet Presence of cardiac pacemaker Overactive bladder Hypothyroidism, unspecified Hyperlipidemia, unspecified History of falling Gout, unspecified Gastro-esophageal reflux disease without esophagitis Essential (primary) hypertension Surgical History Presence of aortocoronary bypass graft Social History Smoking and tobacco/nicotine status: unknown if used tobacco/nicotine Housing: Jail Course Vital Signs: Vital signs: Vital Signs Temperature 97.5 F L 08/05/25 08:00 Pulse Rate 75 08/05/25 11:29 Respiratory Rate 18 08/05/25 11:29 Blood Pressure 155/71 08/05/25 11:29 Pulse Oximetry 96 08/05/25 11:29 Oxygen Delivery Me thod Nasal Cannula 08/05/25 11:29 Oxygen Flow Rate 3 08/05/25 11:29 MDM - Fall Medical Decision Making Patient presents after a fall, left hip pain, left rib pain. X-ray is fairly inconclusive as well as CT. Patient does have these complaints. It could be from her fall last week and neck fracture. In any event, she will be placed in inpatient admission for possible intertrochanteric fracture and repair. Further decision making as per Dr. De La Rosa tomorrow after discernment. Pain is controlled after morphine 4 mg x 2. This patient was originally seen by Ms. Elly PA-C. I agree with her history, evaluation, and management. Lab Data 08/05/25 01:53 08/05/25 01:53 Radiology Impressions Chest X-Ray 08/04/25 19:43 IMPRESSION: 1. No new pulmonary consolidation or other adverse interval change radiographically. 2. Stable right upper lobe peripheral subtle nonspecific ground-glass lung opacity. 3. Generalized advanced skeletal chronic degenerative and other nonacute findings as described above. Hip/Pelvis X-Ray 08/04/25 19:43 IMPRESSION: 1. Stable right proximal femoral intertrochanteric fracture fixated by intramedullary nail and right femoral neck screw. 2. Left greater trochanter elevated fracture fragment of age indeterminate. 3. Generalized moderate skeletal degenerative and other chronic/nonacute findings as described above. Pelvis CT 08/04/25 21:06 IMPRESSION: 1. Left greater trochanter distracted fracture of age indeterminate, slice positions reported above, along with generalized enthesophyte formation. 2. Right proximal femur intertrochanteric-subtrochanteric fracture fixated by intramedullary nail and hip screw demonstrating incompletely bridging bony callus formation. 3. Generalized advanced skeletal chronic degenerative and other nonacute findings as described above. 4. Diffuse soft tissue edema is present and suspicious for anasarca. Laboratory Results WBC 10.64 10^3/uL (3.29-11.43) 08/04/25 20:38 RBC 2.79 10^6/uL (3.85-5.65) L 08/04/25 20:38 Hgb 8.20 g/dL (11.27-16.99) L 08/04/25 20:38 Hct 26.8 % (36-47) L 08/04/25 20: MCV 96.1 fl (85-98) 08/04/25 20: MCH 29.4 pg (27-33) 08/04/25 20: MCHC 30.6 g/dL (30-55) 08/04/25 20:38 RDW 16.8 % (12.1-15.1) H 08/04/25 20:38 Plt Count 301 10^3/cmm (157-399) 08/04/25 20: MPV 10.0 fL (7.4-10.4) 08/04/25 20: Neut % (Auto) 80.2 % 08/04/25 20: Lymph % (Auto) 13.5 % 08/04/25 20: [place] % (Auto) 4.7 % 08/04/25 20: Eos % (Auto) 1.0 % 08/04/25: Baso % (Auto) 0.3 % 08/04/25: Neut # (Auto) 8.53 10^3/uL (1.8-7.7) H 08/04/25 20: Lymph # (Auto) 1.4 10^3/uL (0.8-4.8) 08/04/25 20: [place] # (Auto) 0.5 10^3/uL (0.2-0.9) 08/04/25 20: Eos # (Auto) 0.1 10^3/uL (0.0-0.8) 08/04/25: Baso # (Auto) 0.0 10^3/uL (0.0-0.1) 08/04/25 20: Nucleated RBC % (auto) 0 % 08/04/25: Nucleated RBCs # 0.0 /100WBC 08/04/25 20:38 Sodium 142 mmol/L (136-145) 08/04/25 20: Potassium 3.5 mmol/L (3.5-5.1) 08/04/25 20: Chloride 103 mmol/L (98-107) 08/04/25 20: Carbon Dioxide 29 mmol/L (22-29) 08/04/25 20: Anion Gap 13.5 (5-19) 08/04/25 20:38 BUN 19 mg/dL (8-23) 08/04/25 20:38 Creatinine 1.1 mg/dL (0.5-0.9) H 08/04/25 20:38 GFR Calculation Not Reportable 08/04/25 20:38 Glucose 234 mg/dL (65-115) H 08/04/25 20:38 Calculated Osmolality 304 mOsm/kg (285-295) H 08/04/25 20:38 Calcium 8.1 mg/dL (8.5-10.5) L 08/04/25 20:38 Total Bilirubin 0.3 mg/dL (0.15-1.2) 08/04/25 20:38 AST 14 U/L (0-32) 08/04/25 20:38 ALT 9 U/L (0-33) 08/04/25 20:38 Alkaline Phosphatase 258 U/L (35-105) H 08/04/25 20:38 Total Protein 6.6 g/dL (6.6-8.7) 08/04/25 20:38 Albumin 2.8 g/dL (3.5-5.2) L 08/04/25 20:38 Globulin 3.8 g/dL (1.3-4.6) 08/04/25 20:38 Discharge Plan Discharge Patient Disposition: Admitted As Inpatient Admit Provider: Audrey Cabrera Clinical Impression: Closed intertrochanteric fracture of left femur Qualifiers: Encounter type: initial encounter Fracture alignment: displaced Qualified Code(s): S72.142A - Displaced intertrochanteric fracture of left femur, initial encounter for closed fracture Condition: Stable Discharge Diet: Usual diet Discharge Activity: Limit activity as instructed Coding Level of Care Code ED Wire Frame Dipper for Alber Richardson
[2025-08-04 20:07] VITALS: BP 159/91; PULSE 78; RESP 18; O2SAT 99
[2025-08-04 21:05] VITALS: RESP 20; O2SAT 95
[2025-08-04] MEDS: morphine 4 mg/mL SDV 1 mL IVP (21:05)
[2025-08-04] MEDS: ondansetron 2 mg/ML SDV 2 mL 4 MG IVP (21:05)
--- NOTE | 2025-08-04 21:06 | CTR_ITS ---
PROCEDURE INFORMATION: Exam: CT Pelvis Without Contrast, Skeleton Exam date and time: 08/04/2025 9:33 PM Age: 85 years old Clinical indication: Injury or trauma; Blunt trauma (contusions or hematomas); Prior surgery; Surgery date: 6+ months; Surgery type: RT troc nail. Lumbar fusion; Fall with left hip pain. ; Additional info: Left hip fracture potentially, Dr. De La Rosa would like pleasee TECHNIQUE: Imaging protocol: Computed tomography of the pelvis without contrast. Exam focused on the skeleton. Total images: 351 Radiation optimization: All CT scans at this facility use at least one of these dose optimization techniques: automated exposure control; mA and/or kV adjustment per patient size (includes targeted exams where dose is matched to clinical indication); or iterative reconstruction. COMPARISON: 1. CT abdomen pelvis wo con [id number] 06/30/2025 1:[address] abdomen pelvis wo/w [id number] 03/19/2025 12:51 PM 3. CR (PELVIS, ) 08/04/2025 8:07 PM 4. CR XR hip RT 2-3V wo/w pel* [id number] 07/31/2025 2:03 PM RADIATION DOSE METRICS: Total DLP (mGy-cm): 269.19 FINDINGS: Liver: Right liver lobe extends caudal to the level of the right iliac crest, query hepatomegaly. Intestine: No obstructive findings insofar as bowel visualized. Appendix: Appendix is not identified, however there are no specific manifestations of acute appendicitis. Intraperitoneal space: No significant peritoneal free fluid. No free peritoneal air. Coarse calcification lies just posterior to the cecum, nonspecific. Urinary bladder: The bladder is decompressed by a Randle catheter and not well assessed. Bones/joints: Bones are qualitatively demineralized (osteopenic) limiting evaluation for nondisplaced fractures. Lumbar S shaped scoliosis curvature. Prior L4 laminectomy. Satisfactory intervertebral cage prosthesis at the L3-L4 and L4-L5 levels. Spinal stabilization rods with right-sided pedicle screws at L3, L4, L5; left-sided pedicle screws at L4 and L5. Prior L4 and L5 laminectomy. Severe chronic generalized degenerative changes of the vertebral column characterized by multilevel osteophyte formation, degenerative disc height loss, vacuum disc phenomenon, and degenerative facet arthrosis commensurate with patient's age. T11-12 vacuum disc phenomenon. T12-L1 vacuum disc phenomenon. Right proximal femur satisfactory intramedullary nail and hip screw fixation of a comminuted intertrochanteric, subtrochanteric fracture likely accounting for extensive air within the gluteus muscular fascial planes and upper thigh. Pubic symphysis degenerative changes (osteitis pubis). Sacroiliac joint degenerative manifestations. Left greater trochanter enthesophyte formation and distracted fracture of age indeterminate (coronal series 12, image [id number]; series 13, image 12-18). Generalized bony tendon origin/insertion proliferative enthesopathy, mild. Soft tissues: Small volume inguinal canal preperitoneal fat without bowel or peritoneal sac herniation. Diffuse soft tissue edema is present and suspicious for anasarca. Lymph nodes: No lymphadenopathy. Bilateral inguinal shotty lymph nodes. Bilateral shotty iliac chain lymph nodes. CT/CT bony pelvis [id number] IMPRESSION: 1. Left greater trochanter distracted fracture of age indeterminate, slice positions reported above, along with generalized enthesophyte formation. 2. Right proximal femur intertrochanteric-subtrochanteric fracture fixated by intramedullary nail and hip screw demonstrating incompletely bridging bony callus formation. 3. Generalized advanced skeletal chronic degenerative and other nonacute findings as described above. 4. Diffuse soft tissue edema is present and suspicious for anasarca.
[2025-08-04 21:10] LABS: Hematocrit 26.8 % (36-47); Hemoglobin 8.20 g/dL (11.27-16.99); Mean Corpuscular HGB Conc 30.6 g/dL (30-55); Mean Corpuscular Hemoglobin 29.4 pg (27-33); Mean Corpuscular Volume 96.1 fl (85-98); Nucleated Red Blood Cells % 0 %; Platelet Count 301 10^3/cmm (157-399); Red Blood Count 2.79 10^6/uL (3.85-5.65); White Blood Count 10.64 10^3/uL (3.29-11.43)
[2025-08-04 21:27] LABS: Alanine Aminotransferase 9 U/L (0-33); Albumin Level 2.8 g/dL (3.5-5.2); Alkaline Phosphatase 258 U/L (35-105); Anion Gap 13.5 (5-19); Aspartate Amino Transferase 14 U/L (0-32); Blood Urea Nitrogen 19 mg/dL (8-23); Calcium 8.1 mg/dL (8.5-10.5); Carbon Dioxide 29 mmol/L (22-29); Chloride 103 mmol/L (98-107); Globulin 3.8 g/dL (1.3-4.6); Glucose 234 mg/dL (65-115); Osmolality Calculated 304 mOsm/kg (285-295); Potassium 3.5 mmol/L (3.5-5.1); Sodium 142 mmol/L (136-145); Total Protein 6.6 g/dL (6.6-8.7)
[2025-08-04 21:28] LABS: Creatinine Clr Calc Pharmacy 33.2678
[2025-08-04 22:11] VITALS: BP 150/74; PULSE 83; RESP 16; O2SAT 97
--- NOTE | 2025-08-04 23:54 | PM.HP ---
Providers/Chief Complaint Admitting Physician: PETER CABRERA DO--- patient seen and evaluated before 12 midnight Primary Care Provider: Jayden Vásquez DO Chief Complaint: Left rib and hip pain History of Present Illness Kami Hemphill is a 85 year old female, a [place] resident who had fallen a week ago having a cervical spine fracture for which a spine physician is following up on. Patient seem to have had a lab work drawn early around this morning at 5 AM and hemoglobin was 12 at the time. Patient had returned to [facility] and was reportedly noted to have fallen on the left hip with excruciating pain patient returned here to the emergency room for further evaluation. CT we had done it showed possible age indeterminant fracture of the left hip the emergency room attending had spoken with orthopedics who advised that the patient be brought in for evaluation and care. The attending of the emergency room had consulted me to see and evaluate patient for admission. I have seen and evaluated patient in the emergency room room #13. The 1 thing that struck me was how pale the patient looked patient is very pale. Upon review of chart I note that the hemoglobin at this time at 8 PM drawl was 8.20 whereas 1 that was drawn at 5 AM was 12 within the same day. Patient must have lost a lot of blood significantly minimum 4 g hemoglobin. Definitely most likely the patient had a fracture which will be the source of bleed. I will type cross and match for 2 units of packed red blood cells for at least transfuse this patient with hemoglobin of 10. Prior to that a redraw will be drawn because this is 4 hours from 8 PM to see new level of hemoglobin at the moment. Will be repeating hemoglobin at this time I anticipate that it will be lower than 8.20 Review of Systems Narrative: System review upon 10 organ review we are noted to be that of vascular system with loss of blood resulting to very pale skin with lower hemoglobin drop of 4 g from 12 at 5 AM to an 8.20 at 8 PM today Medications/Allergies Home Medications ?Medication ?Instructions ?Recorded ?Confirmed ?Last Taken ?Type acetaminophen 500 mg tablet See Rx Instructions .Route .COMPLEX 08/21/24 07/31/25 Unknown History albuterol sulfate 90 mcg/actuation 2 puff inhalation Q6H PRN 08/21/24 07/31/25 Unknown History aerosol inhaler Shortness Of Breath atorvastatin 20 mg tablet 20 mg PO DAILY 08/21/24 07/31/25 Unknown History carvedilol 6.25 mg tablet 6.25 mg PO BID 08/21/24 07/31/25 Unknown History clopidogrel 75 mg tablet 75 mg PO DAILY 08/21/24 07/31/25 Unknown History famotidine 20 mg tablet 20 mg PO QAM 08/21/24 07/31/25 Unknown History levothyroxine 100 mcg tablet 100 mcg PO DAILY 08/21/24 07/31/25 Unknown History menthol 5 % topical gel (Biofreeze 1 ea topical TID 08/21/24 07/31/25 Unknown History (menthol)) nitroglycerin 0.4 mg sublingual 0.4 mg sublingual Q5M PRN Chest 08/21/24 07/31/25 Unknown History tablet (Nitrostat) Pain polyethylene glycol 3350 17 17 g PO DAILY 08/21/24 07/31/25 Unknown History gram/dose oral powder (Miralax) ropinirole 0.5 mg tablet 1.5 mg PO BEDTIME 08/21/24 07/31/25 Unknown History umeclidinium 62.5 mcg/actuation 1 inh inhalation DAILY 08/21/24 07/31/25 Unknown History blister powder for inhalation (Incruse Ellipta) allopurinol 100 mg tablet 100 mg PO DAILY 06/30/25 07/31/25 Unknown History carboxymethyl 0.5 %-glycerin 1 1 drp ophthalmic (eye) QID PRN Dry 06/30/25 07/31/25 Unknown History %-polysorb 80 0.5 %-PF eye Eyes dropperette (Refresh Optive Advanced (PF)) emollient combination no.110 1 ea topical PRN PRN Dry Skin 06/30/25 07/31/25 Unknown History (Eucerin Intensive Repair lotion) ergocalciferol (vitamin D2) 1,250 1,250 mcg PO Q7D 06/30/25 07/31/25 Unknown History mcg (50,000 unit) capsule glipizide 5 mg tablet 5 mg PO DAILY 06/30/25 07/31/25 Unknown History hydrochlorothiazide 25 mg tablet 25 mg PO DAILY 06/30/25 07/31/25 Unknown History lidocaine 5 % topical patch 1 patch transdermal Q12H 06/30/25 07/31/25 Unknown History losartan 25 mg tablet 25 mg PO DAILY 06/30/25 07/31/25 Unknown History sertraline 50 mg tablet 50 mg PO BEDTIME 06/30/25 07/31/25 Unknown History tizanidine 2 mg tablet 2 mg PO Q8H 06/30/25 07/31/25 Unknown History trolamine salicylate 10 % topical 1 applic topical BID PRN arthritis 06/30/25 07/31/25 Unknown History cream pain white petrolatum-mineral oil 57.3 1 applic ophthalmic (eye) BEDTIME 06/30/25 07/31/25 Unknown History %-42.5 % eye ointment (Refresh P.M.) cefuroxime axetil 250 mg tablet 500 mg (2 x 250 mg) PO 07/04/25 07/31/25 Unknown Rx BID@0500,1700 #10 tabs fidaxomicin 200 mg tablet (Dificid) 200 mg PO BID@0500,1700 #20 tabs 07/04/25 07/31/25 Unknown Rx oxycodone 5 mg tablet 5 mg PO BID PRN breakthrough pain 07/04/25 07/31/25 Unknown Rx #14 tabs oxycodone myristate 18 mg capsule 18 mg PO BID #14 ea 07/04/25 07/31/25 Unknown Rx sprinkle extended release 12hr(DON'T CRUSH) (Xtampza ER) Allergies Allergy/AdvReac Type Severity Reaction Status Date / Time codeine Allergy Unknown Unknown Verified 07/31/25 07:52 doxycycline Allergy Unknown Unknown Verified 07/31/25 07:52 erythromycin base Allergy Unknown Unknown Verified 07/31/25 07:52 hydromorphone (From Dilaudid) Allergy Unknown Unknown Verified 07/31/25 07:52 Sulfa (Sulfonamide Allergy Unknown Unknown Verified 07/31/25 07:52 Antibiotics) PFSH Acute PFSH: Medical History Non-pressure chronic ulcer of left lower leg, limited to breakdown of skin Fusion of spine, 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 Chronic obstructive pulmonary disease, unspecified Fibromyalgia Mixed hyperlipidemia Chronic pain syndrome Personal history of diseases of the skin and subcutaneous tissue Personal history of urinary (tract) infections Personal history of other diseases of the digestive system Unspecified dementia, unspecified severity, without behavioral disturbance, psychotic disturbance, mood disturbance, and anxiety Unsteadiness on feet Presence of cardiac pacemaker Overactive bladder Hypothyroidism, unspecified Hyperlipidemia, unspecified History of falling Gout, unspecified Gastro-esophageal reflux disease without esophagitis Essential (primary) hypertension Surgical History Presence of aortocoronary bypass graft Social History Smoking and tobacco/nicotine status: unknown if used tobacco/nicotine Housing: [facility] Vitals/I&O/Wt Last Vital Signs Temp 98.4 F 08/04/25 19:28 Pulse 83 08/04/25 22:11 Resp 16 08/04/25 22:11 BP 150/74 08/04/25 22:11 Pulse Ox 97 08/04/25 22:11 O2 Del Method Room Air 08/04/25 22:11 08/04/25 08/04/25 08/05/25 14:59 22:59 06:59 Intake Total 0 / 0 Balance 0 / 0 Weight last 48 hrs Weight 59.783 kg Physical Exam Narrative: Generally patient looks very pale as white as a ghost likely from an acute anemia HEENT normocephalic/atraumatic neck neck is supple cardiovascular heart rate is regular lungs are pretty much clear abdomen soft nontender nondistended unremarkable extremities are intact there are no edema has good pulses neurology no focality lab studies lab studies reviewed and noted for a hemoglobin of 8.2 at 8:38 PM today 08/04/2025 12.0 at 5 AM today 08/04/2025 This shows 4 g drop of hemoglobin within 16 hours on the same day I am repeating hemoglobin at this time since it had been 4 hours since the last hemoglobin had been drawn and definitely either way we will transfuse patient to a hemoglobin of 10 to a minimum. Loss of hemoglobin could be from the long bone Urinary Catheter Management: Randle: Cath Placed During This Visit: yes Urinary Catheter Date of Insertion: 08/04/25 Urinary Catheter Time of Insertion: 21:10 Data 08/05/25 01:53 08/05/25 01:53 A&P Assessment and plan 1. Acute blood loss anemia: 2. Closed left hip fracture: 3. Impaired integumentary status: 4. Dehydration determined by examination: Plan: #1 Acute left intertrochanteric fracture of the left hip - Admit to general medical floor - Patient with left hip pain - Choice of pain medication very challenging as patient is allergic to morphine and Dilaudid and allergy is Unknown - NSAIDs are not a very good choice at this time as a patient is suspected of having acute blood loss anemia in the setting of having antiplatelets such as Plavix on board with a drop of hemoglobin noted - Patient has Lidoderm patch but this is not helping to the left hip region - May use IV Tylenol at the moment for pain management and topical Lidoderm #2 Acute blood loss anemia - Patient dropped 4 g of hemoglobin within 16 hours in the setting of left hip fracture and Plavix on board - Do not restart Plavix Zosyn allow the repair of the fracture and then may resume as quickly as possible - Patient hemoglobin went from 12 to 8 thus patient is being given 2 units of packed red blood cell as she was Very pale from a blood loss likely the source is hip fracture and Plavix therapy from home does not help matter - Follow H&H 2 hours after the last unit had completely infused #3 Dehydration -Patient needs packed red blood cell for rehydration - Patient had been given Lasix at the beginning of each blood transfusion per order and this is to avoid volume overload - Continue to treat and optimize - Hope to see the color back on the patient #4 GI and DVT prophylaxis in place PDMP PDMP Reviewed: Last Reviewed 08/05/25 00:24 by Peter Cabrera MD Attestations Medical Necessity Statement*: Patient with left hip fracture and status post acute blood loss anemia greater than 4 g within 24 hours needs inpatient care for at least 2 midnights. Coding Level of Care Code 22361 Diagnoses Acute blood loss anemia D62 Closed left hip fracture S72.002A Impaired integumentary status R23.9 Dehydration determined by examination E86.0 Time Spent (min) 60
[2025-08-05] VITALS (14 sets, daily range): BP systolic 116–155; BP diastolic 55–80; PULSE 68–99; RESP 16–20; TEMP 36.4–37.1; O2SAT 90–99; BMI 22.8
[2025-08-05] MEDS: morphine 4 mg/mL SDV 1 mL IVP
[2025-08-05 02:22] LABS: Hematocrit 27.0 % (36-47); Hemoglobin 8.30 g/dL (11.27-16.99); Mean Corpuscular HGB Conc 30.7 g/dL (30-55); Mean Corpuscular Hemoglobin 30.2 pg (27-33); Mean Corpuscular Volume 98.2 fl (85-98); Nucleated Red Blood Cells % 0 %; Platelet Count 313 10^3/cmm (157-399); Red Blood Count 2.75 10^6/uL (3.85-5.65); White Blood Count 10.18 10^3/uL (3.29-11.43)
[2025-08-05 02:25] LABS: Alanine Aminotransferase 7 U/L (0-33); Albumin Level 2.7 g/dL (3.5-5.2); Alkaline Phosphatase 255 U/L (35-105); Anion Gap 8.8 (5-19); Aspartate Amino Transferase 11 U/L (0-32); Blood Urea Nitrogen 20 mg/dL (8-23); Calcium 8.2 mg/dL (8.5-10.5); Carbon Dioxide 33 mmol/L (22-29); Chloride 104 mmol/L (98-107); Globulin 3.8 g/dL (1.3-4.6); Glucose 182 mg/dL (65-115); Osmolality Calculated 301 mOsm/kg (285-295); Potassium 3.8 mmol/L (3.5-5.1); Sodium 142 mmol/L (136-145); Total Protein 6.5 g/dL (6.6-8.7)
[2025-08-05 02:40] LABS: Creatinine Clr Calc Pharmacy 32.9899
[2025-08-05] MEDS: FUROsemide 10 mg/mL SDV 4mL 40 MG IVP ×2 (05:38→09:29)
--- NOTE | 2025-08-05 10:57 | PM.CONSULT ---
Providers/Reason For Consult Consulting Physician/Specialty*: Curt De La Rosa MD/orthopedic surgery Reason for Consult*: Possible left hip fracture Attending Physician: Jerrell Carey MD Primary Care Provider: Jayden Vásquez DO History of Present Illness History of Present Illness Kami Hemphill is a 85 year old female who earlier this year fractured her right hip and Dr. Gonsales placed a proximal trochanteric nail for fixation. Appears that her hip is going on and healing quite well. Though she still complains of pain in this hip. She is brought back to the emergency room last night after apparent fall at her snf injuring her left side now. She states her left hip is painful and she could not bear weight. She also has rib pain at this time. During the ED's workup of her hip pain x-rays were indeterminant of the whether she had a hip fracture however fragments were seen off the superior tip of the greater trochanter. I reviewed these x-rays and requested a CT scan of the hip. CT scan reveals that there is a proximal greater trochanteric fracture of the superior portion of the greater trochanter. However there is no fracture line through the femoral neck or through the intertrochanteric area. Patient was admitted for further workup as well as for pain control. Orthopedic consultation was requested. Review of Systems General: Reports: ROS unobtainable due to mental status (Patient does not have memory of fall) Narrative: System review upon 10 organ review we are noted to be that of vascular system with loss of blood resulting to very pale skin with lower hemoglobin drop of 4 g from 12 at 5 AM to an 8.20 at 8 PM today Card: Reports: chest pain (Rib pain) Musc: Reports: extremity pain Medications/Allergies Home Medications ?Medication ?Instructions ?Recorded ?Confirmed ?Last Taken ?Type acetaminophen 500 mg tablet See Rx Instructions .Route .COMPLEX 08/21/24 08/05/25 08/04/25 08:00 History albuterol sulfate 90 mcg/actuation 2 puff inhalation Q6H PRN 08/21/24 08/05/25 08/04/25 18:00 History aerosol inhaler Shortness Of Breath atorvastatin 20 mg tablet 20 mg PO DAILY 08/21/24 08/05/25 07/26/25 19:00 History carvedilol 6.25 mg tablet 6.25 mg PO BID 08/21/24 08/05/2508/04/25 18:00 History clopidogrel 75 mg tablet 75 mg PO DAILY 08/21/24 08/05/25 08/04/25 11:00 History famotidine 20 mg tablet 20 mg PO QAM 08/21/24 08/05/25 08/04/25 06:00 History levothyroxine 100 mcg tablet 100 mcg PO DAILY 08/21/24 08/05/25 08/04/25 06:00 History menthol 5 % topical gel (Biofreeze 1 ea topical TID 08/21/24 07/31/25 Unknown History (menthol)) nitroglycerin 0.4 mg sublingual 0.4 mg sublingual Q5M PRN Chest 08/21/24 08/05/25 Unknown History tablet (Nitrostat) Pain polyethylene glycol 3350 17 17 g PO DAILY 08/21/24 08/05/25 Unknown History gram/dose oral powder (Miralax) ropinirole 0.5 mg tablet 1.5 mg PO BEDTIME 08/21/24 08/05/25 07/25/25 20:00 History umeclidinium 62.5 mcg/actuation 1 inh inhalation DAILY 08/21/24 07/31/25 Unknown History blister powder for inhalation (Incruse Ellipta) allopurinol 100 mg tablet 100 mg PO DAILY 06/30/25 08/05/25 08/04/25 07:00 History carboxymethyl 0.5 %-glycerin 1 1 drp ophthalmic (eye) QID PRN Dry 06/30/25 08/05/25 08/04/25 18:00 History %-polysorb 80 0.5 %-PF eye Eyes dropperette (Refresh Optive Advanced (PF)) emollient combination no.110 1 ea topical PRN PRN Dry Skin 06/30/25 08/05/25 Unknown History (Eucerin Intensive Repair lotion) ergocalciferol (vitamin D2) 1,250 1,250 mcg PO Q7D 06/30/25 08/05/25 07/23/25 History mcg (50,000 unit) capsule glipizide 5 mg tablet 2.5 mg PO DAILY 06/30/25 08/05/25 07/26/25 History hydrochlorothiazide 25 mg tablet 25 mg PO DAILY 06/30/25 08/05/2525 10:00 History lidocaine 5 % topical patch 1 patch transdermal Q12H 06/30/25 08/05/25 08/04/25 09:00 History losartan 25 mg tablet 25 mg PO DAILY 06/30/25 07/31/25 Unknown History sertraline 50 mg tablet (Zoloft) 50 mg PO BEDTIME 06/30/25 08/05/25 07/25/25 19:00 History tizanidine 2 mg tablet 2 mg PO Q8H PRN Muscle Spasm 06/30/25 08/05/25 07/26/25 History trolamine salicylate 10 % topical 1 applic topical BID PRN arthritis 06/30/25 08/05/25 08/04/25 19:00 History cream pain white petrolatum-mineral oil 57.3 1 applic ophthalmic (eye) BEDTIME 06/30/25 08/05/25 08/04/25 20:00 History %-42.5 % eye ointment (Refresh P.M.) cefuroxime axetil 250 mg tablet 500 mg (2 x 250 mg) PO 07/04/25 07/31/25 Unknown Rx BID@0500,1700 #10 tabs fidaxomicin 200 mg tablet (Dificid) 200 mg PO BID@0500,1700 #20 tabs 07/04/25 07/31/25 Unknown Rx oxycodone 5 mg tablet 5 mg PO BID PRN breakthrough pain 07/04/25 07/31/25 Unknown Rx #14 tabs oxycodone myristate 18 mg capsule 18 mg PO BID #14 ea 07/04/25 07/31/25 Unknown Rx sprinkle extended release 12hr(DON'T CRUSH) (Xtampza ER) quetiapine 50 mg tablet 50 mg PO BEDTIME 08/05/25 08/05/25 08/04/25 20:00 History Allergies Allergy/AdvReac Type Severity Reaction Status Date / Time codeine Allergy Unknown Unknown Verified 07/31/25 07:52 doxycycline Allergy Unknown Unknown Verified 07/31/25 07:52 erythromycin base Allergy Unknown Unknown Verified 07/31/25 07:52 hydromorphone (From Dilaudid) Allergy Unknown Unknown Verified 07/31/25 07:52 Sulfa (Sulfonamide Allergy Unknown Unknown Verified 07/31/25 07:52 Antibiotics) Current Medications Generic Name Dose Route Start Last Admin Trade Name Tracy PRN Reason Stop Dose Admin Lactated Ringer's 1,000 mls @ 75 mls/hr 08/04/25 21:00 08/05/25 01:38 Lactated Ringers IV 0 mls/hr .[id number] TIMOTHY Infusion Sodium Chloride 1,000 mls @ 75 mls/hr 08/04/25 23:45 08/05/25 01:39 Sodium Chloride 0.9% IV 75 mls/hr .[id number] TIMOTHY Administration Pantoprazole Sodium 40 mg 08/05/25 09:00 08/05/25 09:[address] 40 Mg Tablet PO 40 mg DAILY TIMOTHY Administration PFSH Acute PFSH: Medical History (Updated 08/05/25 @ 11:03 by Curt De La Rosa MD) Non-pressure chronic ulcer of left lower leg, limited to breakdown of skin Fusion of spine, 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 Chronic obstructive pulmonary disease, unspecified Fibromyalgia Mixed hyperlipidemia Chronic pain syndrome Personal history of diseases of the skin and subcutaneous tissue Personal history of urinary (tract) infections Personal history of other diseases of the digestive system Unspecified dementia, unspecified severity, without behavioral disturbance, psychotic disturbance, mood disturbance, and anxiety Unsteadiness on feet Presence of cardiac pacemaker Overactive bladder Hypothyroidism, unspecified Hyperlipidemia, unspecified History of falling Gout, unspecified Gastro-esophageal reflux disease without esophagitis Essential (primary) hypertension Surgical History Presence of aortocoronary bypass graft Social History Smoking and tobacco/nicotine status: unknown if used tobacco/nicotine Housing: [facility] Vitals/I&O/Wt Last Vital Signs Temp 97.5 F L 08/05/25 08:00 Pulse 76 08/05/25 08:00 Resp 16 08/05/25 08:00 BP 142/80 08/05/25 08:00 Pulse Ox 98 08/05/25 08:00 O2 Del Method Nasal Cannula 08/05/25 08:00 O2 Flow Rate 3 08/05/25 08:00 08/04/25 08/05/25 08/05/25 22:59 06:59 14:59 Intake Total 0 / 0 321.25 / 321.25 Balance 0 / 0 321.25 / 321.25 Weight last 48 hrs Weight 129 lb 4 oz Weight 132 lb Weight 129 lb 4 oz Weight 131 lb 12.8 oz Physical Exam Narrative: On orthopedic exam today patient is laying in bed curled up laying on her left side. When I question her if her left hip hurts she states it does. When a ask about her fall she is confused as to if she even had a fall. She also points to her right hip and says it is painful to. I remind her that Dr. Gonsales recently fix this after a fall and a fracture. I reposition her in bed so she is lying supine. She has some tenderness over the groin fold directly over the hip joint itself however she is exquisitely tender over the greater trochanter primarily towards the proximal portion. With gentle manipulation of her left leg internal/external rotation she has no increased pain. With compression and percussion she has no increased pain at her hip region either. She appears to be neurovasc intact distally. Urinary Catheter Management: Randle: Cath Placed During This Visit: yes Reason for Continuing Indwelling Catheter: Other Urinary Catheter Date of Insertion: 08/04/25 Urinary Catheter Time of Insertion: 21:10 Data 08/05/25 01:53 08/05/25 01:53 A&P Assessment and plan 1. Left hip pain: At this time I believe the patient has an avulsion fracture of the proximal portion of the greater trochanter of the left hip. I have personally reviewed all radiological images both x-ray and CT scan and do not see a fracture line through the femoral neck or through the intertrochanteric region of the left hip. My clinical exam she does not have pain in her left hip but has tenderness over her greater trochanter. Plan: Plan at this time is to continue with pain control. Also to start doing some physical therapy for a walker ambulation with partial weightbearing on this side. I would recommend 2 weeks of partial weightbearing to allow for the avulsion fracture of the proximal portion of the greater trochanter to stabilize and then may advance to full weightbearing over the course of this time. If the patient starts having increased amounts of pain with weightbearing then may be repeat x-rays will be warranted at a later date. PDMP PDMP Reviewed: Not Reviewed Consult Attestations Medical Necessity Statement: Patient is in need of continued pain control as well as therapy for evaluation of ambulatory status. Coding Level of Care Code Critical Care >/= 30 minutes Diagnoses Left hip pain M25.552
--- NOTE | 2025-08-05 17:04 | PM.PN ---
Subjective Subjective: 85-year-old female states she [facility] and fell a few days before admission. She thought it was Wednesday and was surprised it was Wednesday but states it has been a couple days. She tells me that the top of her hip bone is fractured off. That is basically correct. She tells me her left shoulder and left elbow also hurt after a fall and that it has not been x-rayed. Reviewing the records her left shoulder was x-rayed on chest x-ray and right shoulder had specific x-rays the left elbow has not been Vitals/I&O/Wt Last Vital Signs Temp 97.5 F L 08/05/25 08:00 Pulse 75 08/05/25 11:29 Resp 18 08/05/25 11:29 BP 155/71 08/05/25 11:29 Pulse Ox 96 08/05/25 11:29 O2 Del Method Nasal Cannula 08/05/25 11:29 O2 Flow Rate 3 08/05/25 11:29 08/05/25 08/05/25 08/05/25 06:59 14:59 22:59 Intake Total 321.25 / 321.25 1490 / 1490 Balance 321.25 / 321.25 1490 / 1490 Weight last 48 hrs Weight 58.627 kg Weight 59.874 kg Weight 58.627 kg Weight 59.783 kg Physical Exam Narrative: General well-developed female relatively good historian for her age CV regular rate and rhythm Lungs clear to auscultation bilaterally Abdomen positive bowel tones soft nontender Calves no tenderness pretibial edema Left elbow with dependent edema moderately tender to movement She is able to hold her left arm up away from the body. Left greater trochanter and right anterior superior iliac spine are both tender to palpation. I rotated the patient off her left hip and she was markedly painful stating 10/10 while she was not painful before. I flexed her left leg a little but ultimately had to put her back partially on her left side Urinary Catheter Management: Randle: Cath Placed During This Visit: yes Reason for Continuing Indwelling Catheter: Other Urinary Catheter Date of Insertion: 08/04/25 Urinary Catheter Time of Insertion: 21:10 Data 08/05/25 01:53 08/05/25 01:53 A&P Assessment and plan 1. Acute blood loss anemia: Dr. Cabrera was mistakenly looking at 07/04/2025 CBC with the patient's hemoglobin was 12.2 in the morning and comparing that to 08/04/2025 when it has dropped to 8.2. This is a concerning drop but did not happen in the same day but rather over a month. Patient received 1 unit packed red cells and will hold second unit pending repeat CBC. Continue PPI 2. Closed left hip fracture: Patient has been evaluated by Dr. De La Rosa and she has a nonoperative fracture there are ligaments between the ASIS and left greater trochanter which accounts for some of the patient's pain. I think this is stretched some when she is not laying on her left side causing additional pain. I am going to give the patient dose of Toradol 15 mg IV and an additional dose of morphine. 3. Impaired integumentary status: History of left lower leg ulcer and right leg ulcer 4. Chronic kidney disease (CKD), stage 3: Improved with creatinine down to 1.1 this admission 5. History of Clostridioides difficile colitis: Last admission discharge 07/04/2025 and treated with a 10-day course of fidaxomicin no current diarrhea 6. Type 2 diabetes mellitus with diabetic polyneuropathy: Follow sliding scale insulin and diabetic diet 7. 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 Presence of cardiac pacemaker: Electronic atrial pacemaker on EKG. Right atrial and ventricular pacemaker lead seen on chest x-ray with otherwise clear lung kapad[place] PDMP PDMP Reviewed: Not Reviewed Attestations Medical Necessity Statement*: Patient is in the hospital with pain control and physical therapy and we will crier greater than 2 midnight Coding Level of Care Code 65518 Diagnoses Acute blood loss anemia D62 Closed left hip fracture S72.002A Impaired integumentary status R23.9 Chronic kidney disease (CKD), stage 3 N18.30 History of Clostridioides difficile colitis Z86.19 Type 2 diabetes mellitus with diabetic polyneuropathy E11.42 S/P CABG x 3 Z95.1 Presence of cardiac pacemaker Z95.0 Time Spent (min) 35
[2025-08-05] MEDS: morphine 4 mg/mL SDV 1 mL 2 MG IVP (17:13)
--- NOTE | 2025-08-05 17:35 | PC.PHAR ---
I called and left messages with [facility] and they never called or faxed a med list so I can verify the rest of the mediations on the list .
[2025-08-06] VITALS: BP 148/77; PULSE 73; RESP 24; TEMP 37; O2SAT 97
[2025-08-06 03:21] LABS: Hematocrit 28.9 % (36-47); Hemoglobin 9.10 g/dL (11.27-16.99); Mean Corpuscular HGB Conc 31.5 g/dL (30-55); Mean Corpuscular Hemoglobin 30.6 pg (27-33); Mean Corpuscular Volume 97.3 fl (85-98); Nucleated Red Blood Cells % 0 %; Platelet Count 242 10^3/cmm (157-399); Red Blood Count 2.97 10^6/uL (3.85-5.65); White Blood Count 8.09 10^3/uL (3.29-11.43)
[2025-08-06 03:37] LABS: Anion Gap 11.1 (5-19); Blood Urea Nitrogen 27 mg/dL (8-23); Calcium 7.8 mg/dL (8.5-10.5); Carbon Dioxide 29 mmol/L (22-29); Chloride 109 mmol/L (98-107); Glucose 234 mg/dL (65-115); Osmolality Calculated 313 mOsm/kg (285-295); Potassium 4.1 mmol/L (3.5-5.1); Sodium 145 mmol/L (136-145)
[2025-08-06 03:38] LABS: Creatinine Clr Calc Pharmacy 24.1926
[2025-08-06 03:46] VITALS: PULSE 70
[2025-08-06 03:59] VITALS: BP 128/72; PULSE 86; RESP 20; TEMP 36.6; O2SAT 96
--- NOTE | 2025-08-06 07:15 | PC.PHAR ---
Will follow up with [facility] this morning 08/06/25 on cdiff medication and both pain medications.
[2025-08-06 08:05] VITALS: PULSE 69; RESP 16; O2SAT 98
[2025-08-06] MEDS: ATORVASTATIN 10 MG TABLET 20 MG PO (08:18)
[2025-08-06 10:04] VITALS: BP 189/89; PULSE 74; RESP 17; TEMP 37.3; O2SAT 91
--- NOTE | 2025-08-06 11:16 | PC.SOCIAL ---
IMM Updated Updated pt on IMM. No questions voiced. Provided pt a copy. Initialed, dated, & timed a copy & placed in chart.
[2025-08-06 11:52] VITALS: BP 137/62; PULSE 80; RESP 18; TEMP 36.7; O2SAT 90
[2025-08-06] MEDS: morphine 4 mg/mL SDV 1 mL 2 MG IVP (15:04)
--- NOTE | 2025-08-06 15:44 | P.DS_ITS ---
Discharge Providers Date of Admission: 08/04/25 23:47 Date of Discharge: August 06, 2025 Attending Provider at Admission: Audrey Cabrera MD Attending Provider at Discharge: Darling Muñiz MD Primary Care Provider: Jayden Vásquez DO Diagnoses at Discharge Discharge Diagnosis 1. Closed left hip fracture: 2. Impaired integumentary status: 3. Chronic kidney disease (CKD), stage 3: 4. History of Clostridioides difficile colitis: 5. Type 2 diabetes mellitus with diabetic polyneuropathy: 6. S/P CABG x 3: 7. Presence of cardiac pacemaker: Reason for Visit Reason for Visit: Left rib and hip pain Brief History: As per the previous retrospective notes and the patient Kami Hemphill is a 85 year old female, a shelter resident who had fallen a week ago having a cervical spine fracture for which a spine physician is following up on. Patient had returned to shelter and was reportedly noted to have fallen on the left hip with excruciating pain patient returned here to the emergency room for further evaluation. CT we had done it showed possible age indeterminant fracture of the left hip the emergency room attending had spoken with orthopedics who advised that the patient be brought in for evaluation and care. Hospital Course Hospital Course The patient admitted as a Of left greater trochanteric fracture and was reviewed by the orthopedics. The patient underwent OT PT evaluation and recommended 2 weeks of partial weightbearing to allow for the avulsion fracture of the proximal portion of the greater trochanter to stabilize and then may advance to full weightbearing over the course of time as per orthopedic recommendation. The patient also had anemia which was normocytic in nature. There was no acute blood loss. Previous records/lab investigation revealed correlation with anemia of chronic disease however the patient need further workup as outpatient since there is no acute or obvious significant/concerning source of bleeding. The patient is on clopidogrel in the shelter but no NSAIDs were in her medication reconciliation list. Patient was continued on PPI and the repeat hemoglobin was stable. Patient to be discharged on multivitamins with supplementation of iron and folic acid. Patient was taking famotidine as her home medication and changed to pantoprazole 40 mg daily. Patient kidney functions were also monitored and were at baseline around 1.3- 1.5. The patient also had low albumin with a corrected calcium at 8.8. Rest of the previous investigation was also reviewed. Patient was discharged with her home medications after physical therapy evaluation to shelter facility. She was given morphine during her stay without any significant reaction and provided adequate analgesia for her left trochanteric fracture. Adequate follow-ups and referrals were provided with orthopedic and primary care physician for further optimization of her care as outpatient Physical Exam Narrative: General: alert, but was not oriented to place or person, in mild distress due to pain HEENT: Normocephalic, atraumatic, EOMI, breathing at room air Cardio: Regular rate rhythm, normal S1-S2, no murmurs rubs gallops, JVD not raised Respiratory: Good bilateral air entry, no wheezes no rhonchi appreciated GI: Abdomen soft, nontender, nondistended, normoactive bowel sounds present all 4 quadrants, Neuro: no gross neurological deficit Extremities: Pulses 2+, no edema, no cyanosis, mild external rotated left limb Skin: Visible skin intact, no rashes Urinary Catheter Management: Randle: Cath Placed During This Visit: yes Reason for Continuing Indwelling Catheter: Other Urinary Catheter Date of Insertion: 08/04/25 Urinary Catheter Time of Insertion: 21:10 Discharge Data Studies Completed and Pending Completed Studies During Hospitalization Category Date Time Status CT pelvis wo bone [CT bony pelvis [id number]] Stat Cat Scan 08/04/25 21:06 Completed XR chest 1V portable [id number] Stat Exams 08/04/25 19:43 Completed XR hip LT 2-3V wo/w pel* [id number] Stat Exams 08/04/25 19:43 Completed Pending at discharge Category Date Time Status PACKED CELLS [Leukocyte Reduced RBC] Stat Lab 08/05/25 01:53 Results SARS Covid-2 Antigen Stat Lab 08/06/25 15:08 Ordered Type and Screen Stat Lab 08/05/25 01:53 Results Radiology Impressions Chest X-Ray 08/04/25 19:43 IMPRESSION: 1. No new pulmonary consolidation or other adverse interval change radiographically. 2. Stable right upper lobe peripheral subtle nonspecific ground-glass lung opacity. 3. Generalized advanced skeletal chronic degenerative and other nonacute findings as described above. Hip/Pelvis X-Ray 08/04/25 19:43 IMPRESSION: 1. Stable right proximal femoral intertrochanteric fracture fixated by intramedullary nail and right femoral neck screw. 2. Left greater trochanter elevated fracture fragment of age indeterminate. 3. Generalized moderate skeletal degenerative and other chronic/nonacute findings as described above. Pelvis CT 08/04/25 21:06 IMPRESSION: 1. Left greater trochanter distracted fracture of age indeterminate, slice positions reported above, along with generalized enthesophyte formation. 2. Right proximal femur intertrochanteric-subtrochanteric fracture fixated by intramedullary nail and hip screw demonstrating incompletely bridging bony callus formation. 3. Generalized advanced skeletal chronic degenerative and other nonacute findings as described above. 4. Diffuse soft tissue edema is present and suspicious for anasarca. Laboratory Results WBC 8.09 10^3/uL (3.29-11.43) 08/06/25 02:49 RBC 2.97 10^6/uL (3.85-5.65) L 08/06/25 02:49 Hgb 9.10 g/dL (11.27-16.99) L 08/06/25 02:49 Hct 28.9 % (36-47) L 08/06/25 02:49 MCV 97.3 fl (85-98) 08/06/25 02:49 MCH 30.6 pg (27-33) 08/06/25 02:49 MCHC 31.5 g/dL (30-55) 08/06/25 02:49 RDW 18.0 % (12.1-15.1) H 08/06/25 02:49 Plt Count 242 10^3/cmm (157-399) 08/06/25 02:49 MPV 9.7 fL (7.4-10.4) 08/06/25 02:49 Neut % (Auto) 68.7 % 08/06/25 02:49 Lymph % (Auto) 21.4 % 08/06/25 02:49 [place] % (Auto) 6.8 % 08/06/25 02:49 Eos % (Auto) 2.5 % 08/06/25 02:49 Baso % (Auto) 0.1 % 08/06/25 02:49 Neut # (Auto) 5.56 10^3/uL (1.8-7.7) 08/06/25 02:49 Lymph # (Auto) 1.7 10^3/uL (0.8-4.8) 08/06/25 02:49 [place] # (Auto) 0.6 10^3/uL (0.2-0.9) 08/06/25 02:49 Eos # (Auto) 0.2 10^3/uL (0.0-0.8) 08/06/25 02:49 Baso # (Auto) 0.0 10^3/uL (0.0-0.1) 08/06/25 02:49 Nucleated RBC % (auto) 0 % 08/06/25 02:49 Nucleated RBCs # 0.0 /100WBC 08/06/25 02:49 Sodium 145 mmol/L (136-145) 08/06/25 02:49 Potassium 4.1 mmol/L (3.5-5.1) 08/06/25 02:49 Chloride 109 mmol/L (98-107) H 08/06/25 02:49 Carbon Dioxide 29 mmol/L (22-29) 08/06/25 02:49 Anion Gap 11.1 (5-19) 08/06/25 02:49 BUN 27 mg/dL (8-23) H 08/06/25 02:49 Creatinine 1.5 mg/dL (0.5-0.9) H 08/06/25 02:49 GFR Calculation Not Reportable 08/06/25 02:49 Glucose 234 mg/dL (65-115) H 08/06/25 02:49 Calculated Osmolality 313 mOsm/kg (285-295) H 08/06/25 02:49 Calcium 7.8 mg/dL (8.5-10.5) L 08/06/25 02:49 Total Bilirubin 0.2 mg/dL (0.15-1.2) 08/05/25 01:53 AST 11 U/L (0-32) 08/05/25 01:53 ALT 7 U/L (0-33) 08/05/25 01:53 Alkaline Phosphatase 255 U/L (35-105) H 08/05/25 01:53 Total Protein 6.5 g/dL (6.6-8.7) L 08/05/25 01:53 Albumin 2.7 g/dL (3.5-5.2) L 08/05/25 01:53 Globulin 3.8 g/dL (1.3-4.6) 08/05/25 01:53 Blood Type O Positive 08/05/25 01:53 Rho(D) Type Rh positive 08/05/25 01:53 Antibody Screen Negative 08/05/25 01:53 Crossmatch See Detail 08/05/25 01:53 Vitals Last Vital Signs Temp 98.1 F 08/06/25 11:52 Pulse 80 08/06/25 11:52 Resp 18 08/06/25 11:52 BP 137/62 08/06/25 11:52 Pulse Ox 90 08/06/25 11:52 O2 Del Method Nasal Cannula 08/06/25 11:52 O2 Flow Rate 1.5 08/06/25 08:05 Discharge Plan Discharge Patient Disposition: Xfer SNF Condition: Stable Prescriptions: New morphine (PF) 1 mg/mL solution 2 mg SUBCUT Q6H PRN (Reason: pain (scale score 7-10)) Qty: 50 0RF Centrum Complete 18-400 mg-mcg tablet 1 tab PO DAILY Qty: 90 0RF pantoprazole 40 mg Tablet,Delayed Release (Dr/Ec) 40 mg PO DAILY 90 Days Qty: 90 0RF Continued acetaminophen 500 mg tablet See Rx Instructions .ROUTE .COMPLEX Rx Instructions: Take 2 tablets by mouth daily and at bedtime. polyethylene glycol 3350 [Miralax] 17 gram/dose powder 17 g PO DAILY ropinirole 0.5 mg tablet 1.5 mg PO BEDTIME atorvastatin 20 mg tablet 20 mg PO DAILY levothyroxine 100 mcg tablet 100 mcg PO DAILY nitroglycerin [Nitrostat] 0.4 mg tablet, sublingual 0.4 mg sublingual Q5M PRN (Reason: Chest Pain) Rx Instructions: do not exceed 3 doses per episode albuterol sulfate 90 mcg/actuation HFA aerosol inhaler 2 puff inhalation Q6H PRN (Reason: Shortness Of Breath) clopidogrel 75 mg tablet 75 mg PO DAILY carvedilol 6.25 mg tablet 6.25 mg PO BID Rx Instructions: must administer with a meal/food Biofreeze (menthol) 5 % gel 1 ea topical TID PRN (Reason: Pain) tizanidine 2 mg tablet 2 mg PO Q8H PRN (Reason: Muscle Spasm) allopurinol 100 mg tablet 100 mg PO DAILY lidocaine 5 % adhesive patch,medicated 1 patch transdermal Q12H losartan 25 mg tablet 25 mg PO DAILY hydrochlorothiazide 25 mg tablet 25 mg PO DAILY ergocalciferol (vitamin D2) 1,250 mcg (50,000 unit) Capsule 1,250 mcg PO Q7D sertraline [Zoloft] 50 mg tablet 50 mg PO BEDTIME glipizide 5 mg tablet 2.5 mg PO DAILY trolamine salicylate 10 % Cream 1 applic TOPICAL BID PRN (Reason: arthritis pain) Refresh P.M. 57.3-42.5 % Ointment 1 applic OPHTHALMIC (EYE) BEDTIME Refresh Optive Advanced (PF) 0.5-1-0.5 % Dropperette 1 drp OPHTHALMIC (EYE) QID PRN (Reason: Dry Eyes) Eucerin Intensive Repair Lotion 1 ea TOPICAL PRN PRN (Reason: Dry Skin) oxycodone 5 mg tablet 5 mg PO BID PRN (Reason: breakthrough pain) Qty: 14 0RF Xtampza ER 18 mg cap,sprinkl,ER12hr(DONT CRUSH) 18 mg PO BID Qty: 14 0RF Rx Instructions: must administer with a meal/food fidaxomicin [Dificid] 200 mg Tablet 200 mg PO BID@0500,1700 Qty: 20 0RF quetiapine 50 mg tablet 50 mg PO BEDTIME Discontinued famotidine 20 mg tablet 20 mg PO QAM Discharge Order = DC NOW: Discharge Order (Routine); Ordered 08/06/25 Ordered By: Darling Muñiz Referrals: [facility] [Outside] Curt De La Rosa MD [Physician, Orthopedics] - 08/14/25 11:00 am Referral Note: case left greater trochanteric fracture, for follow-up Jayden Vásquez DO [Primary Care Provider, Internal Medicine] - 7-10 days Referral Note: post discharge follow up Discharge Diet: Usual diet Discharge Activity: Limit activity as instructed Patient Instructions: Morphine, Slow Release (By mouth), Hip Fracture (GEN), Opioid Safety, Patient Portal & Nitesh Instructions Discharge Attestations Time Spent in Discharge Care*: greater than 30 min Specific Discharge Activities: educating patient, educating and/or supporting family/caregiver, discussing with pcp/other providers, discussing with clinical case manager/social workers/dc planners, documenting/other paperwork and evaluating patient/reviewing data Status at Discharge: Cognitive status at discharge: mildly impaired cognition , Behavioral status at discharge: can be uncooperative , Functional status at discharge: other assisted ambulation , Overall status at discharge: patient is back to baseline Quality Metrics Clinical Quality Measures [ No reported AMI, CVA or VTE this stay] Coding Level of Care Code Acute Code for Chg Fwd Diagnoses Closed left hip fracture S72.002A Impaired integumentary status R23.9 Chronic kidney disease (CKD), stage 3 N18.30 History of Clostridioides difficile colitis Z86.19 Type 2 diabetes mellitus with diabetic polyneuropathy E11.42 S/P CABG x 3 Z95.1 Presence of cardiac pacemaker Z95.0
[2025-08-06 17:16] LABS: SARS Covid-2 Antigen Negative (Negative)
== END 2025-08-06 16:30 | disposition skilled nursing facility (03) | DRG 536 ==
LOC: ER 08-05 00:07 → MEDSURG 08-05 00:10
PROVIDERS: Internal Medicine; Admitting Provider Internal Medicine; Emergency Provider Physician Assistant; PCP Internal Medicine; Visit Provider Student in an Organized Health Care Education/Training Program
DX: S72.112A Displaced fracture of greater trochanter of left femur, initial encounter for closed fracture (principal); D62 Acute posthemorrhagic anemia; W01.0XXA Fall on same level from slipping, tripping and stumbling without subsequent striking against object, initial encounter; E11.22 Type 2 diabetes mellitus with diabetic chronic kidney disease; N18.30 Chronic kidney disease, stage 3 unspecified; E11.42 Type 2 diabetes mellitus with diabetic polyneuropathy; I25.10 Atherosclerotic heart disease of native coronary artery without angina pectoris; D63.1 Anemia in chronic kidney disease; W01.0XXD Fall on same level from slipping, tripping and stumbling without subsequent striking against object, subsequent encounter; J44.9 Chronic obstructive pulmonary disease, unspecified; M79.7 Fibromyalgia; E86.0 Dehydration; K21.9 Gastro-esophageal reflux disease without esophagitis; E03.9 Hypothyroidism, unspecified; R26.81 Unsteadiness on feet; F03.90 Unspecified dementia, unspecified severity, without behavioral disturbance, psychotic disturbance, mood disturbance, and anxiety; G89.4 Chronic pain syndrome; E78.2 Mixed hyperlipidemia; S12.200D Unspecified displaced fracture of third cervical vertebra, subsequent encounter for fracture with routine healing; Z79.02 Long term (current) use of antithrombotics/antiplatelets; Z79.84 Long term (current) use of oral hypoglycemic drugs; Z79.891 Long term (current) use of opiate analgesic; Z95.1 Presence of aortocoronary bypass graft; Z95.0 Presence of cardiac pacemaker; Z98.1 Arthrodesis status
CPT/HCPCS: 36415; 36430; 51702; 71045; 72192; 73502; 80048; 80053; 85025; 86850; 86900; 86920; 87426; 94640; 96374; 96375; 97161; 97167; 97597; 99285; A6252; J1885; J1938; J2270; J2405; J7030; J7120; J7613; J9999; P9040

== ENCOUNTER 2025-08-08 10:45 | Emergency (ER) | payer OTHER, MEDICAID, SELFPAY ==
--- OUTSIDE RECORDS SUMMARY | 2025-05-15 13:00 | XMS_ITS ---
Author Organization [facility] Address [address] [place] [address] Care Team Providers Care Wastewater Analyst Lab Analyst Name Role Phone Jayden Vásquez Primary Care Provider ALMA DELIA Zavala Unavailable [phone] CHE COLLINS Unavailable [phone] REASON FOR VISIT L ESWL @ [facility] Encounters Encounter Location Date Provider Diagnosis [facility] [address] [place] [facility] [place] [address] 05/15/2025 CHE COLLINS Plan Of Treatment No Information Progress Notes * Beatris HEMPHILL KDOB: [birth year] (85 yo F)Acc No.[id number]:05/15/2025 Patient: Wolfgang PARRA Beatris Richardson Provider: Una COLLINS MD :1940 A ge:85 Y S ex:Female Date:05/15/2025 Address:[address] [place], [place] [id number] Pcp:Jayden Vásquez * Billing Information: * Visit Code: * Procedure Codes: * Electronic signature of AUST IN MD KARINA on 08/08/2025 at 10:53 AM CDT Sign off status: Pending * Provider: Una COLLINS MD Date: 05/15/2025 Generated for Printi ng/Faxing/eTransmitting on: 0 08/08/2025 10:53 AM CDT
--- NOTE | 2025-08-08 10:31 | XR_ITS ---
WS: [id number] XR chest 1V portable [id number] REASON FOR EXAM: dyspnea/cough FINDINGS: Cardiac device over the left chest with trans left subclavian vein leads to the right atrium and right ventricular apex. Previous aortocoronary bypass surgery with multiple coronary artery stents. Normal heart size. Compared to previous examination 08/04/2025 there is increased left pleural effusion and compressive atelectasis in the left lower lung. No other interval change or new finding. XR/XR chest 1V portable [id number] IMPRESSION: Increased left pleural fluid and compressive atelectasis in the left hemithorax compared to previous examination as above.
--- NOTE | 2025-08-08 10:46 | ECG_ITS ---
[facility]: [facility]25[facility]08 Pat Name: Kami Hemphill Department: Room: Gender: Female Bath House Attendant: : 1940 Requested By: Rodrigo Can Order Number: [id number] Angelito MD: Namrata Armenta M.D. Measurements Intervals [place] Rate: 78 P: 156 OR: 230 QRS: -40 QRSD: 97 T: 126 QT: 373 QTc: 427 Interpretive Statements ELECTRONIC ATRIAL PACEMAKER LEFT AXIS DEVIATION [QRS AXIS < -30] INCOMPLETE RIGHT BUNDLE BRANCH BLOCK [90+ ms QRS DURATION, TERMINAL R IN V1/V2, 40+ ms S IN I/aVL/V4/V5/V6] ANTEROSEPTAL MYOCARDIAL INFARCTION , OF INDETERMINATE AGE [40+ ms Q WAVE IN V1-V4] MODERATE T-WAVE ABNORMALITY, CONSIDER LATERAL ISCHEMIA [-0.1+ mV T-WAVE IN I/aVL/V5/V6] Compared to ECG 06/29/2025 04:19:35 T-wave abnormality now present Possible ischemia now present Myocardial infarct finding still present Electronically Signed On 08-08-2025 13:40:05 CDT by Namrata Armenta M.D. [email or web address] [id number]
[2025-08-08 10:48] VITALS: BP 190/85; PULSE 99; RESP 22; TEMP 36.6; O2SAT 93; BMI 21.5
--- OUTSIDE RECORDS SUMMARY | 2025-08-08 10:53 | XMS_ITS | Patient Health Record ---
Author Organization [facility] Address [address] [place] [address] Care Team Providers Care Project Archivist Name Role Phone Vásquez, Jayden Primary Care Provider ALMA DELIA Zavala Unavailable [phone] [facility] COLLINS Unavailable [phone] Allergies Allergen (clinical drug ingredient) Drug/Non Drug [...] Glucose - Bilirubin - Ketones - Specific Gobles 1.025 Occult Blood 2+ pH 6.0 Urine Protein 3+ Urobilinogen,Semi-Qn - Nitrite, Urine - WBC Esterase - Urinalysis Gross Exam - Reason For Referral Reason Renal Stone Diagnosis 1 Left renal stone (N2 0.0) Referral Organization [facility] [employer] Referring Provider First Name CHE Referring Provider [...] Status Risk Notes Problem Low back pain (016698232) Low back pain (M54.50) Active confirmed Problem Kidney stone (86199576) Left renal stone (N20.0) Active confirmed Problem Recurrent urinary tract infection (021454161) Recurrent UTI (N39.0) Active confirmed Problem Clot hematuria (013169601) Clot hematuria (R31.0) Active confirmed Vital Signs [...] 66ml Encounters Encounter Location Date Provider Diagnosis [facility] [address] [place] [address] 03/05/2025 ALMA DELIA SHAFFER Clot hematuria R31.0 ; Recurrent UTI N39.0 ; Low back pain M54.50 ; Upper abdominal pain R10.10 ; History of kidney stones Z87.442 ; History of smoking Z87.891 and Dysuria R30.0 [facility] [address] [place] [address] 04/09/2025 [facility] COLLINS Clot hematuria R31.0 ; Left renal stone N20.0 ; Recurrent UTI N39.0 ; Low back pain M54.50 ; Upper abdominal pain R10.10 ; History of kidney stones Z87.442 ; History of smoking Z87.891 and Dysuria R30.0 [facility] [address] [place] [facility] [place] [address] 02/15/2025 ALMA DELIA SHAFFER [facility] [address] [facility] [place] [address] 03/06/2025 ALMA DELIA SHAFFER [facility] [address] [facility] [place] [address] 04/13/2025 ALMA DELIA SHAFFER Assessments Encounter Date Diagnosis (ICD Code) Assessment Notes Treatment Notes Treatment Clinical Notes Section Notes 03/05/2025 Recurrent UTI (ICD-10 - N39.0) 03/05/2025 Clot hematuria (ICD-10 - R31.0) 04/09/2025 Left renal stone (ICD-10 - N20.0) [...] next available. Plan: schedule Left ESWL at [facility] obtain clearance from Dr. Vásquez in [...] next available. Plan: schedule Left ESWL at [facility] obtain clearance from Dr. Vásquez in to hold plavix for surgery 04/09/2025 Recurrent UTI (ICD-10 - N39.0) 85 [...] next available. Plan: schedule Left ESWL at [facility] obtain clearance from Dr. Vásquez in [place] to hold plavix for surgery 03/05/2025 Low back pain (ICD-10 - M54.50) 03/05/2025 Upper abdominal pain (ICD-10 - R10.10) 04/09/2025 Low back pain (ICD-10 - M54.50) [...] next available. Plan: schedule Left ESWL at [facility] obtain clearance from Dr. Vásquez in [place] to hold plavix for surgery 04/09/2025 Upper abdominal pain (ICD-10 - R10.10) [...] next available. Plan: schedule Left ESWL at [facility] obtain clearance from Dr. Vásquez in [place] to hold plavix for surgery 03/05/2025 History of kidney stones (ICD-10 - Z87.442) 03/05/2025 History of smoking (ICD-10 - Z87.891) 04/09/2025 History of kidney stones (ICD-10 - [...] next available. Plan: schedule Left ESWL at [facility] obtain clearance from Dr. Vásquez in [place] to hold plavix for surgery 03/05/2025 Dysuria (ICD-10 - R30.0) 04/09/2025 History of smoking (ICD-10 - Z87.891) [...] next available. Plan: schedule Left ESWL at [facility] obtain clearance from Dr. Vásquez in [place] to hold plavix for surgery 04/09/2025 Dysuria (ICD-10 - R30.0) 85 yo [...] next available. Plan: schedule Left ESWL at [facility] obtain clearance from Dr. Vásquez in [...] & Pelvis W & [place] [id number] 03/05/2025 BUN, Creatinine 03/05/2025 Insurance Providers Payer Name Payer Address Payer Phone Subscriber Number Group Number Insured Name Patient Relationship to Insured Coverage Start Date Coverage End Date [facility] Medicare Advantage HMO [address] [address] [place], [place] [id number] [phone] [id number] Beatris Hemphill Self - patient is the insured [place] Medicaid [address] [place], [place] [id number] Beatris Hemphill Self - patient is the insured Medical (General) History Medical History History ICD Code Cystitis with hematuria RA osteoarthritis heart disease COPD Surgical History Surgery Date(Month/Year) triple bypas gallbladder Appendix Tonsils Hospitalization History Reason Date(Month/Year) multiple
[2025-08-08 11:03] LABS: Hematocrit 32.0 % (36-47); Hemoglobin 9.90 g/dL (11.27-16.99); Mean Corpuscular HGB Conc 30.9 g/dL (30-55); Mean Corpuscular Hemoglobin 29.9 pg (27-33); Mean Corpuscular Volume 96.7 fl (85-98); Nucleated Red Blood Cells % 0 %; Platelet Count 313 10^3/cmm (157-399); Red Blood Count 3.31 10^6/uL (3.85-5.65); White Blood Count 10.01 10^3/uL (3.29-11.43)
[2025-08-08 11:21] LABS: Alanine Aminotransferase 6 U/L (0-33); Albumin Level 2.6 g/dL (3.5-5.2); Alkaline Phosphatase 233 U/L (35-105); Anion Gap 12.6 (5-19); Aspartate Amino Transferase 9 U/L (0-32); Blood Urea Nitrogen 25 mg/dL (8-23); Calcium 8.8 mg/dL (8.5-10.5); Carbon Dioxide 30 mmol/L (22-29); Chloride 104 mmol/L (98-107); Creatinine Clr Calc Pharmacy 30.9337; Globulin 3.9 g/dL (1.3-4.6); Glucose 260 mg/dL (65-115); Osmolality Calculated 307 mOsm/kg (285-295); Potassium 4.6 mmol/L (3.5-5.1); Sodium 142 mmol/L (136-145); Total Protein 6.5 g/dL (6.6-8.7)
[2025-08-08 11:38] LABS: Respiratory Syncytial Virus Ce NEGATIVE (Negative); SARS-CoV-2 PCR NEGATIVE (Negative)
[2025-08-08 11:51] VITALS: BP 162/99; PULSE 67; RESP 24; O2SAT 94
--- NOTE | 2025-08-08 12:04 | US_ITS ---
WS: [id number] Ultrasound chest INDICATION: Pleural fluid TECHNIQUE: Ultrasound LEFT chest FINDINGS: Small LEFT pleural effusion with subsegmental atelectasis LEFT lower lobe. Insufficient fluid for thoracentesis. US/US chest [id number] IMPRESSION: Insufficient fluid for thoracentesis.
[2025-08-08 12:11] VITALS: RESP 18; O2SAT 99
[2025-08-08] MEDS: morphine 4 mg/mL SDV 1 mL 2 MG IVP (12:11)
--- NOTE | 2025-08-08 12:20 | PC.NURSE ---
pt provided with blanket, TV on, lights off per pt request
--- NOTE | 2025-08-08 12:23 | W.ED.SOB ---
HPI - SOB/Dyspnea General: Chief Complaint: Shortness of Breath/Dyspnea Stated Complaint: SOB X 2 days History of Present Illness: HPI Narrative: 85-year-old female presents from group home she recently had a fall and fracture of the left 6th and 7th ribs with discharge from [facility] at this facility 2 days ago. She is complaining of increasing chest pain and shortness of breath. Oxygen saturation was 99% on 2 L by nasal cannula. Reviewing imaging done at the time of the recent hospitalization at does not appear there was a hemothorax or pleural large pleural effusion at that time. Chest x-ray was read as normal. There is no documentation of rib fractures any of the hospitalist notes or the imaging done. Associated symptoms: Reports chest pain; Deny abdominal pain or fever(s) Related Data Home Medications ?Medication ?Instructions ?Recorded ?Confirmed acetaminophen 500 mg tablet See Rx Instructions .Route .COMPLEX 08/21/24 08/05/25 albuterol sulfate 90 mcg/actuation 2 puff inhalation Q6H PRN 08/21/24 08/05/25 aerosol inhaler Shortness Of Breath atorvastatin 20 mg tablet 20 mg PO DAILY 08/21/24 08/05/25 carvedilol 6.25 mg tablet 6.25 mg PO BID 08/21/24 08/05/25 clopidogrel 75 mg tablet 75 mg PO DAILY 08/21/24 08/05/25 levothyroxine 100 mcg tablet 100 mcg PO DAILY 08/21/24 08/05/25 menthol 5 % topical gel (Biofreeze 1 ea topical TID PRN Pain 08/21/24 08/06/25 (menthol)) nitroglycerin 0.4 mg sublingual 0.4 mg sublingual Q5M PRN Chest 08/21/24 08/05/25 tablet (Nitrostat) Pain polyethylene glycol 3350 17 17 g PO DAILY 08/21/24 08/05/25 gram/dose oral powder (Miralax) ropinirole 0.5 mg tablet 1.5 mg PO BEDTIME 08/21/24 08/05/25 allopurinol 100 mg tablet 100 mg PO DAILY 06/30/25 08/05/25 carboxymethyl 0.5 %-glycerin 1 1 drp ophthalmic (eye) QID PRN Dry 06/30/25 08/05/25 %-polysorb 80 0.5 %-PF eye Eyes dropperette (Refresh Optive Advanced (PF)) emollient combination no.110 1 ea topical PRN PRN Dry Skin 06/30/25 08/05/25 (Eucerin Intensive Repair lotion) ergocalciferol (vitamin D2) 1,250 1,250 mcg PO Q7D 06/30/25 08/05/25 mcg (50,000 unit) capsule glipizide 5 mg tablet 2.5 mg PO DAILY 06/30/25 08/05/25 hydrochlorothiazide 25 mg tablet 25 mg PO DAILY 06/30/25 08/05/25 lidocaine 5 % topical patch 1 patch transdermal Q12H 06/30/25 08/05/25 losartan 25 mg tablet 25 mg PO DAILY 06/30/25 08/06/25 sertraline 50 mg tablet (Zoloft) 50 mg PO BEDTIME 06/30/25 08/05/25 tizanidine 2 mg tablet 2 mg PO Q8H PRN Muscle Spasm 06/30/25 08/05/25 trolamine salicylate 10 % topical 1 applic topical BID PRN arthritis 06/30/25 08/05/25 cream pain white petrolatum-mineral oil 57.3 1 applic ophthalmic (eye) BEDTIME 06/30/25 08/05/25 %-42.5 % eye ointment (Refresh P.M.) quetiapine 50 mg tablet 50 mg PO BEDTIME 08/05/25 08/05/25 Previous Rx's ?Medication ?Instructions ?Recorded fidaxomicin 200 mg tablet (Dificid) 200 mg PO BID@0500,1700 #20 tabs 07/04/25 oxycodone 5 mg tablet 5 mg PO BID PRN breakthrough pain 07/04/25 #14 tabs oxycodone myristate 18 mg capsule 18 mg PO BID #14 ea 07/04/25 sprinkle extended release 12hr(DON'T CRUSH) (Xtampza ER) morphine (PF) 1 mg/mL injection 2 mg (2 mL) SUBCUT Q6H PRN pain 08/06/25 solution (scale score 7-10) #50 mL multivitamin-ferrous 1 tab PO DAILY #90 tabs 08/06/25 fumarate-folic acid 18 mg-400 mcg tablet (Centrum Complete) pantoprazole 40 mg tablet,delayed 40 mg PO DAILY 90 days #90 tabs 08/06/25 release Allergies Allergy/AdvReac Type Severity Reaction Status Date / Time codeine Allergy Unknown Unknown Verified 07/31/25 07:52 doxycycline Allergy Unknown Unknown Verified 07/31/25 07:52 erythromycin base Allergy Unknown Unknown Verified 07/31/25 07:52 hydromorphone (From Dilaudid) Allergy Unknown Unknown Verified 07/31/25 07:52 Sulfa (Sulfonamide Allergy Unknown Unknown Verified 07/31/25 07:52 Antibiotics) Review of Systems Const: Denies: fever(s) or chills Card: Reports: chest pain Resp: Reports: dyspnea and productive cough GI: Denies: abdominal pain : Denies: dysuria, urinary frequency or urinary urgency Musc: Denies: neck pain or back pain Skin/Breast: Denies: rash PFSH ED PFSH: Medical History Non-pressure chronic ulcer of left lower leg, limited to breakdown of skin Fusion of spine, 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 Chronic obstructive pulmonary disease, unspecified Fibromyalgia Mixed hyperlipidemia Chronic pain syndrome Personal history of diseases of the skin and subcutaneous tissue Personal history of urinary (tract) infections Personal history of other diseases of the digestive system Unspecified dementia, unspecified severity, without behavioral disturbance, psychotic disturbance, mood disturbance, and anxiety Unsteadiness on feet Presence of cardiac pacemaker Overactive bladder Hypothyroidism, unspecified Hyperlipidemia, unspecified History of falling Gout, unspecified Gastro-esophageal reflux disease without esophagitis Essential (primary) hypertension Surgical History 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 Social History Smoking and tobacco/nicotine status: unknown if used tobacco/nicotine Housing: [facility] Physical Exam Const: GENERAL APPEARANCE: cooperative ORIENTATION/CONSCIOUSNESS: Yes awake HENMT: COMMON NORMALS: normocephalic, atraumatic and hearing grossly normal bilaterally HEAD & SCALP: normocephalic and atraumatic Resp: AUSCULTATION: diminished lung sounds Cardio: COMMON NORMALS: regular rate, regular rhythm and No murmurs present (Cardio) RATE: regular rate RHYTHM: regular rhythm GI: COMMON NORMALS: Soft to palpation and No hepatosplenomegaly present AUSCULTATION: Yes normoactive bowel sounds PALPATION: Yes Soft to palpation, No Tenderness to palpation present (GI), No Guarding due to palpation present (GI) and Yes No hepatosplenomegaly present Extremity: COMMON NORMALS: normal to inspection, capillary refill normal, no clubbing, cyanosis or edema, no calf tenderness and no pedal edema Skin: COMMON NORMALS: no rashes or lesions noted GENERAL SKIN EXAM: no rashes or lesions noted Course Vital Signs: Vital signs: Vital Signs Temperature 97.8 F 08/08/25 10:48 Pulse Rate 72 08/08/25 13:08 Respiratory Rate 18 08/08/25 13:08 Blood Pressure 166/69 08/08/25 13:08 Pulse Oximetry 98 08/08/25 13:08 Oxygen Delivery Me thod Nasal Cannula 08/08/25 13:08 Oxygen Flow Rate 2 08/08/25 13:08 MDM - SOB/Dyspnea Medical Decision Making X-ray shows a left pleural effusion which is increased from previous ultrasound shows that is not amenable to thoracentesis. The previous outside x-rays showed rib fractures at left 6th and 7th ribs. Discussed with the family treatment at this point is pain control good pulmonary toilet. They asked about rib belting advised and we generally do not do that as it increases atelectasis. She can return to the group home continue current pain control and follow-up with her primary care doctor. Medical Records I reviewed the patient's medical records. Lab Data I reviewed the patient's lab results. 08/08/25 10:56 08/08/25 10:56 Labs/Radiology: Radiology Impressions Chest X-Ray 08/08/25 10:31 IMPRESSION: Increased left pleural fluid and compressive atelectasis in the left hemithorax compared to previous examination as above. Chest Ultrasound 08/08/25 12:04 IMPRESSION: Insufficient fluid for thoracentesis. Laboratory Results WBC 10.01 10^3/uL (3.29-11.43) 08/08/25 10:56 RBC 3.31 10^6/uL (3.85-5.65) L 08/08/25 10:56 Hgb 9.90 g/dL (11.27-16.99) L 08/08/25 10:56 Hct 32.0 % (36-47) L 08/08/25 10:56 MCV 96.7 fl (85-98) 08/08/25 10:56 MCH 29.9 pg (27-33) 08/08/25 10:56 MCHC 30.9 g/dL (30-55) 08/08/25 10:56 RDW 16.9 % (12.1-15.1) H 08/08/25 10:56 Plt Count 313 10^3/cmm (157-399) 08/08/25 10:56 MPV 9.8 fL (7.4-10.4) 08/08/25 10:56 Neut % (Auto) 82.9 % 08/08/25 10:56 Lymph % (Auto) 11.4 % 08/08/25 10:56 [place] % (Auto) 4.2 % 08/08/25 10:56 Eos % (Auto) 0.8 % 08/08/25 10:56 Baso % (Auto) 0.3 % 08/08/25 10:56 Neut # (Auto) 8.30 10^3/uL (1.8-7.7) H 08/08/25 10:56 Lymph # (Auto) 1.1 10^3/uL (0.8-4.8) 08/08/25 10:56 [place] # (Auto) 0.4 10^3/uL (0.2-0.9) 08/08/25 10:56 Eos # (Auto) 0.1 10^3/uL (0.0-0.8) 08/08/25 10:56 Baso # (Auto) 0.0 10^3/uL (0.0-0.1) 08/08/25 10:56 Nucleated RBC % (auto) 0 % 08/08/25 10:56 Nucleated RBCs # 0.0 /100WBC 08/08/25 10:56 Sodium 142 mmol/L (136-145) 08/08/25 10:56 Potassium 4.6 mmol/L (3.5-5.1) 08/08/25 10:56 Chloride 104 mmol/L (98-107) 08/08/25 10:56 Carbon Dioxide 30 mmol/L (22-29) H 08/08/25 10:56 Anion Gap 12.6 (5-19) 08/08/25 10:56 BUN 25 mg/dL (8-23) H 08/08/25 10:56 Creatinine 1.1 mg/dL (0.5-0.9) H 08/08/25 10:56 GFR Calculation Not Reportable 08/08/25 10:56 Glucose 260 mg/dL (65-115) H 08/08/25 10:56 Calculated Osmolality 307 mOsm/kg (285-295) H 08/08/25 10:56 Calcium 8.8 mg/dL (8.5-10.5) 08/08/25 10:56 Total Bilirubin 0.3 mg/dL (0.15-1.2) 08/08/25 10:56 AST 9 U/L (0-32) 08/08/25 10:56 ALT 6 U/L (0-33) 08/08/25 10:56 Alkaline Phosphatase 233 U/L (35-105) H 08/08/25 10:56 Total Protein 6.5 g/dL (6.6-8.7) L 08/08/25 10:56 Albumin 2.6 g/dL (3.5-5.2) L 08/08/25 10:56 Globulin 3.9 g/dL (1.3-4.6) 08/08/25 10:56 Influenza A (PCR) Negative (Negative) 08/08/25 10:56 Influenza Type B (PCR) Negative (Negative) 08/08/25 10:56 RSV (PCR) Negative (Negative) 08/08/25 10:56 SARS-CoV-2 (PCR) Negative (Negative) 08/08/25 10:56 All radiology interpretation(s) finalized by discharge Discharge Plan Discharge Patient Disposition: Home Clinical Impression: Pleural effusion on right, Fracture of rib of left side Condition: Stable Prescriptions: No Action acetaminophen 500 mg tablet See Rx Instructions .ROUTE .COMPLEX Rx Instructions: Take 2 tablets by mouth daily and at bedtime. polyethylene glycol 3350 [Miralax] 17 gram/dose powder 17 g PO DAILY ropinirole 0.5 mg tablet 1.5 mg PO BEDTIME atorvastatin 20 mg tablet 20 mg PO DAILY levothyroxine 100 mcg tablet 100 mcg PO DAILY nitroglycerin [Nitrostat] 0.4 mg tablet, sublingual 0.4 mg sublingual Q5M PRN (Reason: Chest Pain) Rx Instructions: do not exceed 3 doses per episode albuterol sulfate 90 mcg/actuation HFA aerosol inhaler 2 puff inhalation Q6H PRN (Reason: Shortness Of Breath) clopidogrel 75 mg tablet 75 mg PO DAILY carvedilol 6.25 mg tablet 6.25 mg PO BID Rx Instructions: must administer with a meal/food Biofreeze (menthol) 5 % gel 1 ea topical TID PRN (Reason: Pain) tizanidine 2 mg tablet 2 mg PO Q8H PRN (Reason: Muscle Spasm) allopurinol 100 mg tablet 100 mg PO DAILY lidocaine 5 % adhesive patch,medicated 1 patch transdermal Q12H losartan 25 mg tablet 25 mg PO DAILY hydrochlorothiazide 25 mg tablet 25 mg PO DAILY ergocalciferol (vitamin D2) 1,250 mcg (50,000 unit) Capsule 1,250 mcg PO Q7D sertraline [Zoloft] 50 mg tablet 50 mg PO BEDTIME glipizide 5 mg tablet 2.5 mg PO DAILY trolamine salicylate 10 % Cream 1 applic TOPICAL BID PRN (Reason: arthritis pain) Refresh P.M. 57.3-42.5 % Ointment 1 applic OPHTHALMIC (EYE) BEDTIME Refresh Optive Advanced (PF) 0.5-1-0.5 % Dropperette 1 drp OPHTHALMIC (EYE) QID PRN (Reason: Dry Eyes) Eucerin Intensive Repair Lotion 1 ea TOPICAL PRN PRN (Reason: Dry Skin) oxycodone 5 mg tablet 5 mg PO BID PRN (Reason: breakthrough pain) Qty: 14 0RF Xtampza ER 18 mg cap,sprinkl,ER12hr(DONT CRUSH) 18 mg PO BID Qty: 14 0RF Rx Instructions: must administer with a meal/food fidaxomicin [Dificid] 200 mg Tablet 200 mg PO BID@0500,1700 Qty: 20 0RF quetiapine 50 mg tablet 50 mg PO BEDTIME morphine (PF) 1 mg/mL solution 2 mg SUBCUT Q6H PRN (Reason: pain (scale score 7-10)) Qty: 50 0RF Centrum Complete 18-400 mg-mcg tablet 1 tab PO DAILY Qty: 90 0RF pantoprazole 40 mg Tablet,Delayed Release (Dr/Ec) 40 mg PO DAILY 90 Days Qty: 90 0RF Discharge Orders: Discharge ED (Routine); Ordered 08/08/25 Ordered By: Rodrigo Salas Referrals: Jayden Vásquez DO [Primary Care Provider, Internal Medicine] Patient Instructions: Opioid Safety, Pain Management, Patient Portal & Nitesh Instructions Print Language: Czech Coding Level of Care Code ED Emergency Medicine Specialist for Alber Richardson
[2025-08-08 13:08] VITALS: BP 166/69; PULSE 72; RESP 18; O2SAT 98
--- NOTE | 2025-08-08 15:22 | PC.NURSE ---
report called to Juaquin Acosta, report given to [facility]; pt left approx @[phone]
[2025-08-08 15:23] VITALS: BP 192/79; PULSE 78; O2SAT 93
== END 2025-08-08 15:23 | disposition home or self-care (01) ==
PROVIDERS: Emergency Provider Family Medicine; PCP Internal Medicine
DX: J90 Pleural effusion, not elsewhere classified (principal); S22.32XD Fracture of one rib, left side, subsequent encounter for fracture with routine healing; W19.XXXD Unspecified fall, subsequent encounter; I10 Essential (primary) hypertension; Z95.1 Presence of aortocoronary bypass graft; E78.49 Other hyperlipidemia; Z95.0 Presence of cardiac pacemaker; E11.42 Type 2 diabetes mellitus with diabetic polyneuropathy
CPT/HCPCS: 32555; 36415; 71045; 76604; 80053; 85025; 87637; 93005; 96374; 99285; J2270

== ENCOUNTER → 2025-08-17 08:57 | Outpatient (BNVA) | payer OTHER, MEDICAID, SELFPAY | PROVIDERS: PCP Internal Medicine; Visit Provider Thoracic Surgery (Cardiothoracic Vascular Surgery) | DX: I96 Gangrene, not elsewhere classified (principal); I87.2 Venous insufficiency (chronic) (peripheral); L97.821 Non-pressure chronic ulcer of other part of left lower leg limited to breakdown of skin; L89.312 Pressure ulcer of right buttock, stage 2; L89.322 Pressure ulcer of left buttock, stage 2; E11.52 Type 2 diabetes mellitus with diabetic peripheral angiopathy with gangrene; E11.621 Type 2 diabetes mellitus with foot ulcer; L89.611 Pressure ulcer of right heel, stage 1; S51.012A Laceration without foreign body of left elbow, initial encounter; X58.XXXA Exposure to other specified factors, initial encounter | CPT/HCPCS: 97597; A6212 ==

== ENCOUNTER → 2025-08-21 14:45 | Outpatient (BNVA) | payer OTHER, MEDICAID, SELFPAY | PROVIDERS: PCP Internal Medicine; Visit Provider Orthopaedic Surgery | DX: Z98.890 Other specified postprocedural states (principal) | CPT/HCPCS: 73502; 99024 ==

== ENCOUNTER 2025-08-30 08:40 | Outpatient (CLI) | payer OTHER, MEDICAID, SELFPAY ==
--- NOTE | 2025-08-30 08:45 | NMR_ITS ---
PROCEDURE INFORMATION: Exam: NM Bone and/or Joint, Whole Body Exam date and time: 08/30/2025 8:56 AM Clinical indication: Bone pain; Bilateral; Prior surgery; Surgery date: 6+ months; Surgery type: Right hip pain TECHNIQUE: Imaging protocol: Nuclear bone scan was obtained. Views: Anterior and posterior whole body Time of imaging post radiopharmaceutical administration: 3 hours Radiopharmaceutical: 25.3 mCi Tc-99m HDP, IV COMPARISON: Pelvis radiographs 08/21/2025. FINDINGS: Skeleton: Areas of mildly increased uptake present in the lower cervical spine anteriorly, nonspecific but favored degenerative. Moderate focal uptake present within two lower left anterolateral ribs approximately left 5th and 7th ribs. Mild uptake present posteriorly within both the mid and upper lumbar spine Mild uptake present within the medial aspect of the upper sacrum bilaterally. Uptake within the left greater trochanter and left intertrochanteric region. Uptake within the right greater and lesser trochanter and right femoral head/neck, as well as within the proximal right femoral shaft. Minimal uptake in the medial right femoral condyle. Residual activity in the urinary bladder could obscure lesions in the pubic symphysis/ superior pubic rami, and potentially in the lower sacrum and coccyx. Soft tissues: Bladder activity identified in addition to bilateral renal activity. PROCEDURE INFORMATION: Exam: NM Bone and/or Joint, 3 Phase Exam date and time: 08/30/2025 8:56 AM Age: 85 years old Clinical indication: Bone pain; Bilateral; Prior surgery; Surgery date: 6+ months; Surgery type: Right hip pain TECHNIQUE: Imaging protocol: Nuclear 3 phase bone scan of the hips was obtained. Views: Frontal and posterior Total images: 3 Radiopharmaceutical: 25.3 mCi Tc-99m HDP (Oxidronate), IV. Time of imaging post radiopharmaceutical administration: Immediate and 3 hour COMPARISON: No relevant prior studies available. FINDINGS: Skeleton: Delayed phase (3rd phase) demonstrate increased uptake in the inferior aspect of the right femoral head/neck, as well as in the right greater trochanter , and lesser trochanter region, and mild uptake in the proximal femoral shaft at approximately the level of the distal screws. On the left, there is uptake localizing to the left greater trochanter and intertrochanteric region. Mild uptake in the upper posterior sacrum bilaterally. Soft tissues: Anterior blood flow (phase 1) images are symmetric without localizing hypervascularity. Anterior and posterior blood pool images (phase 2) demonstrate mild hyperemia adjacent to both greater trochanters, and the proximal right femoral shaft. NM/NM bone 3 phase [id number] IMPRESSION: 1. Multifocal uptake, including lower left anterolateral ribs, as well as lumbar spine, the latter possibly related to prior spinal surgery. 2. Mild uptake in the medial upper sacrum bilaterally 3. Findings in the hips more fully discussed below. IMPRESSION: 1. Essentially unremarkable blood flow images to both hips, with mild hyperemia adjacent to both greater trochanters and the proximal right femoral shaft. This is thought consistent with postoperative change. 2. Delayed phase uptake at the left proximal femur consistent with activity related to left greater trochanter fracture. 4. Delayed phase uptake in the right hip consistent with sequelae of prior trauma and surgical ORIF.
== END 2025-08-30 08:41 | disposition home or self-care (01) ==
LOC: RAD 08:45
PROVIDERS: PCP Internal Medicine; Visit Provider Orthopaedic Surgery
DX: M25.551 Pain in right hip (principal); R68.89 Other general symptoms and signs
CPT/HCPCS: 78315; A9561

== ENCOUNTER → 2025-08-31 10:18 | Outpatient (BNVA) | payer OTHER, MEDICAID, SELFPAY | PROVIDERS: PCP Internal Medicine; Visit Provider Thoracic Surgery (Cardiothoracic Vascular Surgery) | DX: I96 Gangrene, not elsewhere classified (principal); L89.312 Pressure ulcer of right buttock, stage 2; E11.52 Type 2 diabetes mellitus with diabetic peripheral angiopathy with gangrene; E11.621 Type 2 diabetes mellitus with foot ulcer; L89.611 Pressure ulcer of right heel, stage 1; I87.2 Venous insufficiency (chronic) (peripheral); L97.821 Non-pressure chronic ulcer of other part of left lower leg limited to breakdown of skin; Z09 Encounter for follow-up examination after completed treatment for conditions other than malignant neoplasm | CPT/HCPCS: 11042; 97597; A6212 ==

== ENCOUNTER → 2025-09-06 10:39 | Outpatient (BNVA) | payer OTHER, MEDICAID, SELFPAY | PROVIDERS: PCP Internal Medicine; Visit Provider Thoracic Surgery (Cardiothoracic Vascular Surgery) | DX: I96 Gangrene, not elsewhere classified (principal); L89.312 Pressure ulcer of right buttock, stage 2; I87.2 Venous insufficiency (chronic) (peripheral); L97.821 Non-pressure chronic ulcer of other part of left lower leg limited to breakdown of skin; L97.811 Non-pressure chronic ulcer of other part of right lower leg limited to breakdown of skin; E11.52 Type 2 diabetes mellitus with diabetic peripheral angiopathy with gangrene; E11.621 Type 2 diabetes mellitus with foot ulcer; L89.611 Pressure ulcer of right heel, stage 1 | CPT/HCPCS: 97597; A6252; A6253 ==

== ENCOUNTER 2025-09-08 10:27 | Emergency (ER) | payer OTHER, MEDICAID, SELFPAY ==
--- OUTSIDE RECORDS SUMMARY | 2025-05-15 13:00 | XMS_ITS ---
Author Organization [facility] Address [address] [facility] [place] [address] Care Team Providers Care Die Maker Electronic Name Role Phone Jayden Vásquez Primary Care Provider ALMA DELIA Zavala Unavailable [phone] CHE COLLINS Unavailable [phone] REASON FOR VISIT L ESWL @ [facility] Encounters Encounter Location Date Provider Diagnosis [facility] [address] [place] [facility] [place] [address] 05/15/2025 CHE COLLINS Plan Of Treatment No Information Progress Notes * Beatris HEMPHILL KDOB: [birth year] (85 yo F)Acc No.[id number]:05/15/2025 Patient: Wolfgang PARRA Beatris Richardson Provider: Una COLLINS MD :1940 A ge:85 Y S ex:Female Date:05/15/2025 Address:[address] [place], [place] [phone] Pcp:Jayden Vásquez * Billing Information: * Visit Code: * Procedure Codes: * Electronic signature of AUST IN MD KARINA on 09/08/2025 at 10:35 AM CDT Sign off status: Pending * Provider: Una COLLINS MD Date: 05/15/2025 Generated for Printi ng/Faxing/eTransmitting on: 1 10:35 AM CDT
[2025-09-08 10:29] VITALS: BP 163/92; PULSE 74; RESP 25; O2SAT 94; BMI 25.0
--- NOTE | 2025-09-08 10:29 | CTR_ITS ---
PROCEDURE INFORMATION: Exam: CT Head Without Contrast Exam date and time: 09/08/2025 10:36 AM Age: 85 years old Clinical indication: Injury or trauma; Fall; Blunt trauma (contusions or hematomas); Additional info: Fall, head injury TECHNIQUE: Imaging protocol: Computed tomography of the head without contrast. Radiation optimization: All CT scans at this facility use at least one of these dose optimization techniques: automated exposure control; mA and/or kV adjustment per patient size (includes targeted exams where dose is matched to clinical indication); or iterative reconstruction. COMPARISON: CT head wo con* [id number] 07/25/2025 9:15 AM RADIATION DOSE METRICS: Total DLP (mGy-cm): 646.78 FINDINGS: Brain: There is no mass effect, midline shift, acute hemorrhage, extra-axial fluid collection or acute lobar infarct. Patchy white matter hypodensity likely represents chronic microvascular ischemic change. Cerebral ventricles: No ventriculomegaly. Paranasal sinuses: Visualized sinuses are unremarkable. No fluid levels. Mastoid air cells: Visualized mastoid air cells are well aerated. Orbital cavities: Patient is post bilateral cataract surgery. Bones: Unremarkable. No acute fracture. Soft tissues: Unremarkable. CT/CT head wo con* [id number] IMPRESSION: No acute intracranial process.
--- NOTE | 2025-09-08 10:29 | XRR_ITS ---
PROCEDURE INFORMATION: Exam: XR Left Elbow Exam date and time: 09/08/2025 10:39 AM Age: 85 years old Clinical indication: Injury or trauma; Fall; Blunt trauma (contusions or hematomas); Elbow; Left; Additional info: Fall, pain TECHNIQUE: Imaging protocol: Radiologic exam of the left elbow. Views: 3 or more views. COMPARISON: MA bone 3 phase [id number] 08/30/2025 8:56 AM FINDINGS: Bones/joints: Normal. Soft tissues: Normal. XR/XR elbow LT min 3V* [id number] IMPRESSION: No acute findings.
--- NOTE | 2025-09-08 10:30 | XRR_ITS ---
PROCEDURE INFORMATION: Exam: XR Left Hip Exam date and time: 09/08/2025 10:39 AM Age: 85 years old Clinical indication: Injury or trauma; Fall; Blunt trauma (contusions or hematomas); Left; Prior surgery; Surgery date: 6+ months; Surgery type: RT hip; Additional info: Fall, left hip pain. With pelvis TECHNIQUE: Imaging protocol: Radiologic exam of the left hip. Views: 2 or 3 views hip with pelvis when performed. COMPARISON: CT bony pelvis [id number] 08/04/2025 9:33 PM FINDINGS: Bones/joints: The bones are osteopenic. There is displaced fracture of the greater trochanter. The patient is post internal fixation of the right proximal femur with an intramedullary rory and dynamic femoral head screw. Joint spaces are generally preserved. Soft tissues: Unremarkable. XR/XR hip LT 2-3V wo/w pel* [id number] IMPRESSION: Age indeterminate displaced fracture of the left greater trochanter. Underlying osteopenia. Postsurgical change, right hip.
--- OUTSIDE RECORDS SUMMARY | 2025-09-08 10:35 | XMS_ITS | Patient Health Record ---
Author Organization [employer] Address [address] [place] [address] Care Team Providers Care Inspector And Mender Name Role Phone Vásquez, Jayden Primary Care Provider ALMA DELIA Zavala Unavailable [phone] CHE COLLINS Unavailable [phone] Allergies Allergen (clinical drug ingredient) Drug/Non Drug [...] Glucose - Bilirubin - Ketones - Specific [place] 1.025 Occult Blood 2+ pH 6.0 Urine Protein 3+ Urobilinogen,Semi-Qn - Nitrite, Urine - WBC Esterase - Urinalysis Gross Exam - Reason For Referral Reason Renal Stone Diagnosis 1 Left renal stone (N2 0.0) Referral Organization [email or web address] Referring Provider First Name CHE Referring Provider [...] Status Risk Notes Problem Low back pain (061060839) Low back pain (M54.50) Active confirmed Problem Kidney stone (09680373) Left renal stone (N20.0) Active confirmed Problem Recurrent urinary tract infection (965748969) Recurrent UTI (N39.0) Active confirmed Problem Clot hematuria (904036287) Clot hematuria (R31.0) Active confirmed Vital Signs [...] 66ml Encounters Encounter Location Date Provider Diagnosis [facility] [address] [place] [address] 03/05/2025 ALMA DELIA SHAFFER Clot hematuria R31.0 ; Recurrent UTI N39.0 ; Low back pain M54.50 ; Upper abdominal pain R10.10 ; History of kidney stones Z87.442 ; History of smoking Z87.891 and Dysuria R30.0 [facility] [address] [place] [address] 04/09/2025 CHE COLLINS Clot hematuria R31.0 ; Left renal stone N20.0 ; Recurrent UTI N39.0 ; Low back pain M54.50 ; Upper abdominal pain R10.10 ; History of kidney stones Z87.442 ; History of smoking Z87.891 and Dysuria R30.0 [facility] [address] [place] [address] 02/15/2025 ALMA DELIA SHAFFER [facility] [address] [place] [address] 03/06/2025 ALMA DELIA SHAFFER [facility] [address] [place] [address] 04/13/2025 ALMA DELIA SHAFFER Assessments Encounter Date [...] & Pelvis W & [place] contrast [id number] 03/05/2025 BUN, Creatinine 03/05/2025 Insurance Providers Payer Name Payer Address Payer Phone Subscriber Number Group Number Insured Name Patient Relationship to Insured Coverage Start Date Coverage End Date [facility] Medicare Advantage HMO [address] [address] [place], [place] [id number] [phone] [id number] Beatris Hemphill Self - patient is the insured [place] Medicaid [address] [place], [place] [id number] Beatris Hemphill Self - patient is the insured Medical (General) History Medical History History ICD Code Cystitis with hematuria RA osteoarthritis heart disease COPD Surgical History Surgery Date(Month/Year) triple bypas gallbladder Appendix Tonsils Hospitalization History Reason Date(Month/Year) multiple
--- NOTE | 2025-09-08 10:47 | W.ED.FALL ---
HPI - Fall General: Chief Complaint: Fall Stated Complaint: left hip and elbow pain Time Seen by Provider: 09/08/25 10:29 History of Present Illness: This is an 85-year-old female with a history of diabetes, COPD, fibromyalgia, chronic pain syndrome, pacemaker placement, anticoagulation with Plavix, gait issues, multiple falls and a recent right hip replacement and trochanteric fracture being managed nonop who [facility] emergency [facility] from [facility] by [facility] after having had a fall. Related Data Home Medications ?Medication ?Instructions ?Recorded ?Confirmed acetaminophen 500 mg tablet See Rx Instructions .Route .COMPLEX 08/21/24 08/21/25 albuterol sulfate 90 mcg/actuation 2 puff inhalation Q6H PRN 08/21/24 08/21/25 aerosol inhaler Shortness Of Breath atorvastatin 20 mg tablet 20 mg PO DAILY 08/21/24 08/21/25 carvedilol 6.25 mg tablet 6.25 mg PO BID 08/21/24 08/21/25 clopidogrel 75 mg tablet 75 mg PO DAILY 08/21/24 08/21/25 levothyroxine 100 mcg tablet 100 mcg PO DAILY 08/21/24 08/21/25 menthol 5 % topical gel (Biofreeze 1 ea topical TID PRN Pain 08/21/24 08/21/25 (menthol)) nitroglycerin 0.4 mg sublingual 0.4 mg sublingual Q5M PRN Chest 08/21/24 08/21/25 tablet (Nitrostat) Pain polyethylene glycol 3350 17 17 g PO DAILY 08/21/24 08/21/25 gram/dose oral powder (Miralax) ropinirole 0.5 mg tablet 1.5 mg PO BEDTIME 08/21/24 08/21/25 allopurinol 100 mg tablet 100 mg PO DAILY 06/30/25 08/21/25 carboxymethyl 0.5 %-glycerin 1 1 drp ophthalmic (eye) QID PRN Dry 06/30/25 08/21/25 %-polysorb 80 0.5 %-PF eye Eyes dropperette (Refresh Optive Advanced (PF)) emollient combination no.110 1 ea topical PRN PRN Dry Skin 06/30/25 08/21/25 (Eucerin Intensive Repair lotion) ergocalciferol (vitamin D2) 1,250 1,250 mcg PO Q7D 06/30/25 08/21/25 mcg (50,000 unit) capsule glipizide 5 mg tablet 2.5 mg PO DAILY 06/30/25 08/21/25 hydrochlorothiazide 25 mg tablet 25 mg PO DAILY 06/30/25 08/21/25 lidocaine 5 % topical patch 1 patch transdermal Q12H 06/30/25 08/21/25 losartan 25 mg tablet 25 mg PO DAILY 06/30/25 08/21/25 sertraline 50 mg tablet (Zoloft) 50 mg PO BEDTIME 06/30/25 08/21/25 tizanidine 2 mg tablet 2 mg PO Q8H PRN Muscle Spasm 06/30/25 08/21/25 trolamine salicylate 10 % topical 1 applic topical BID PRN arthritis 06/30/25 08/21/25 cream pain white petrolatum-mineral oil 57.3 1 applic ophthalmic (eye) BEDTIME 06/30/25 08/21/25 %-42.5 % eye ointment (Refresh P.M.) quetiapine 50 mg tablet 50 mg PO BEDTIME 08/05/25 08/21/25 Previous Rx's ?Medication ?Instructions ?Recorded fidaxomicin 200 mg tablet (Dificid) 200 mg PO BID@0500,1700 #20 tabs 07/04/25 oxycodone 5 mg tablet 5 mg PO BID PRN breakthrough pain 07/04/25 #14 tabs oxycodone myristate 18 mg capsule 18 mg PO BID #14 ea 07/04/25 sprinkle extended release 12hr(DON'T CRUSH) (Xtampza ER) morphine (PF) 1 mg/mL injection 2 mg (2 mL) SUBCUT Q6H PRN pain 08/06/25 solution (scale score 7-10) #50 mL multivitamin-ferrous 1 tab PO DAILY #90 tabs 08/06/25 fumarate-folic acid 18 mg-400 mcg tablet (Centrum Complete) pantoprazole 40 mg tablet,delayed 40 mg PO DAILY 90 days #90 tabs 08/06/25 release Allergies Allergy/AdvReac Type Severity Reaction Status Date / Time codeine Allergy Unknown Unknown Verified 08/21/25 10:49 doxycycline Allergy Unknown Unknown Verified 08/21/25 10:49 erythromycin base Allergy Unknown Unknown Verified 08/21/25 10:49 hydromorphone (From Dilaudid) Allergy Unknown Unknown Verified 08/21/25 10:49 Sulfa (Sulfonamide Allergy Unknown Unknown Verified 08/21/25 10:49 Antibiotics) PFS ED PFSH: Medical History (Updated 09/08/25 @ 12:13 by Ara Santoyo MD) Non-pressure chronic ulcer of left lower leg, limited to breakdown of skin Fusion of spine, 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 Chronic obstructive pulmonary disease, unspecified Fibromyalgia Mixed hyperlipidemia Chronic pain syndrome Personal history of diseases of the skin and subcutaneous tissue Personal history of urinary (tract) infections Personal history of other diseases of the digestive system Unspecified dementia, unspecified severity, without behavioral disturbance, psychotic disturbance, mood disturbance, and anxiety Unsteadiness on feet Presence of cardiac pacemaker Overactive bladder Hypothyroidism, unspecified Hyperlipidemia, unspecified History of falling Gout, unspecified Gastro-esophageal reflux disease without esophagitis Essential (primary) hypertension Surgical History 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 Social History Smoking and tobacco/nicotine status: unknown if used tobacco/nicotine Housing: Half-Way Course Vital Signs: Vital signs: Vital Signs Pulse Rate 74 09/08/25 10:29 Respiratory Rate 25 H 09/08/25 10:29 Blood Pressure 163/92 09/08/25 10:29 Pulse Oximetry 94 09/08/25 10:29 Oxygen Delivery Me thod Nasal Cannula 09/08/25 10:29 Oxygen Flow Rate 3 09/08/25 10:29 MDM - Fall Medical Decision Making Medical decision making: Differential diagnosis including but not limited to and based on the above HPI, review of systems and physical exam: In this patient with a musculoskeletal extremity traumatic injury and x-ray is being ordered to rule out fractures and dislocations. Orders placed to evaluate differential diagnosis based on the above differential, HPI and physical exam Differential diagnosis including but not limited to and based on the above HPI, review of systems and physical exam: patient with fall and head injury. Subdural hematoma, subarachnoid hemorrhage, concussion, skull fracture. Orders placed to evaluate differential diagnosis based on the above differential, HPI and physical exam CT scan of the head was ordered. X-ray of the left elbow: No acute findings. This was reviewed and interpreted by myself the emergency room physician. I also reviewed the radiology report. CT head: No acute intracranial process. No intracranial hemorrhage, no evidence of infarct. No evidence of acute fracture. This was reviewed and interpreted by myself the emergency room physician. I also reviewed the radiology report. X-ray of the left hip and pelvis: Right hip nail is present. There is a trochanteric fracture that is old. No through and through femur fractures. This was reviewed and interpreted by myself the emergency room physician. I also reviewed the radiology report. I reviewed the patient's medical record. his is an 85-year-old female with a history of diabetes, COPD, fibromyalgia, chronic pain syndrome, pacemaker placement, anticoagulation with Plavix, gait issues, multiple falls and a recent right hip replacement and trochanteric fracture being managed nonop. I reviewed Dr. Gonsales's most recent note and he does discussed that she has this trochanteric fracture this being managed nonoperatively. Reexamination: Patient remained stable. No increased work of breathing. No altered mental status. No focal motor deficits. Patient's feels like she has been here forever and wants to go home. Assessment and plan: Fall Head injury Hip injury Elbow pain - Discharged home - Discussed plan with patient. Answered any questions. - Evaluation and treatment of this problem were appropriate in the emergency setting. Lab Data Radiology Impressions Elbow X-Ray 09/08/25 10:29 IMPRESSION: No acute findings. Head CT 09/08/25 10:29 IMPRESSION: No acute intracranial process. Hip/Pelvis X-Ray 09/08/25 10:30 IMPRESSION: Age indeterminate displaced fracture of the left greater trochanter. Underlying osteopenia. Postsurgical change, right hip. All radiology interpretation(s) finalized by discharge Discharge Plan Discharge Patient Disposition: Home Clinical Impression: Fall, Acute hip pain, Elbow pain, left Condition: Stable Prescriptions: No Action acetaminophen 500 mg tablet See Rx Instructions .ROUTE .COMPLEX Rx Instructions: Take 2 tablets by mouth daily and at bedtime. polyethylene glycol 3350 [Miralax] 17 gram/dose powder 17 g PO DAILY ropinirole 0.5 mg tablet 1.5 mg PO BEDTIME atorvastatin 20 mg tablet 20 mg PO DAILY levothyroxine 100 mcg tablet 100 mcg PO DAILY nitroglycerin [Nitrostat] 0.4 mg tablet, sublingual 0.4 mg sublingual Q5M PRN (Reason: Chest Pain) Rx Instructions: do not exceed 3 doses per episode albuterol sulfate 90 mcg/actuation HFA aerosol inhaler 2 puff inhalation Q6H PRN (Reason: Shortness Of Breath) clopidogrel 75 mg tablet 75 mg PO DAILY carvedilol 6.25 mg tablet 6.25 mg PO BID Rx Instructions: must administer with a meal/food Biofreeze (menthol) 5 % gel 1 ea topical TID PRN (Reason: Pain) tizanidine 2 mg tablet 2 mg PO Q8H PRN (Reason: Muscle Spasm) allopurinol 100 mg tablet 100 mg PO DAILY lidocaine 5 % adhesive patch,medicated 1 patch transdermal Q12H losartan 25 mg tablet 25 mg PO DAILY hydrochlorothiazide 25 mg tablet 25 mg PO DAILY ergocalciferol (vitamin D2) 1,250 mcg (50,000 unit) Capsule 1,250 mcg PO Q7D sertraline [Zoloft] 50 mg tablet 50 mg PO BEDTIME glipizide 5 mg tablet 2.5 mg PO DAILY trolamine salicylate 10 % Cream 1 applic TOPICAL BID PRN (Reason: arthritis pain) Refresh P.M. 57.3-42.5 % Ointment 1 applic OPHTHALMIC (EYE) BEDTIME Refresh Optive Advanced (PF) 0.5-1-0.5 % Dropperette 1 drp OPHTHALMIC (EYE) QID PRN (Reason: Dry Eyes) Eucerin Intensive Repair Lotion 1 ea TOPICAL PRN PRN (Reason: Dry Skin) oxycodone 5 mg tablet 5 mg PO BID PRN (Reason: breakthrough pain) Qty: 14 0RF Xtampza ER 18 mg cap,sprinkl,ER12hr(DONT CRUSH) 18 mg PO BID Qty: 14 0RF Rx Instructions: must administer with a meal/food fidaxomicin [Dificid] 200 mg Tablet 200 mg PO BID@0500,1700 Qty: 20 0RF quetiapine 50 mg tablet 50 mg PO BEDTIME morphine (PF) 1 mg/mL solution 2 mg SUBCUT Q6H PRN (Reason: pain (scale score 7-10)) Qty: 50 0RF Centrum Complete 18-400 mg-mcg tablet 1 tab PO DAILY Qty: 90 0RF pantoprazole 40 mg Tablet,Delayed Release (Dr/Ec) 40 mg PO DAILY 90 Days Qty: 90 0RF Discharge Orders: Discharge ED (Routine); Ordered 09/08/25 Ordered By: Ara Santoyo Referrals: Jayden Vásquez DO [Primary Care Provider, Internal Medicine] Discharge Diet: Usual diet Discharge Activity: Increase activity as tolerated Patient Instructions: Fall Prevention for Older Adults (ED), Opioid Safety, Pain Management, Patient Portal & Nitesh Instructions Activity Restrictions/Additional Instructions: Thank you for choosing [facility] for your healthcare needs today. You have been screened and evaluated and felt safe for discharge. Health conditions do change or evolve sometimes and as such it is important that you follow up with your Primary Doctor to be re checked, 3-5 days is a general good time frame for follow up. You are always welcome to return to the ED for re assessment if your symptoms are worsening or you have new concerns Print Language: Yi Coding Level of Care Code ED Customer Service And Sales Consultant for Alber Richardson
[2025-09-08 11:00] VITALS: BP 132/92; PULSE 75; RESP 18; O2SAT 94
[2025-09-08 12:33] VITALS: BP 187/80; PULSE 74; RESP 14; O2SAT 98
== END 2025-09-08 12:55 | disposition home or self-care (01) ==
PROVIDERS: Emergency Provider Emergency Medicine; PCP Internal Medicine
DX: M25.552 Pain in left hip (principal); M25.522 Pain in left elbow; E78.2 Mixed hyperlipidemia; I10 Essential (primary) hypertension; E11.42 Type 2 diabetes mellitus with diabetic polyneuropathy; Z95.0 Presence of cardiac pacemaker
CPT/HCPCS: 70450; 73080; 73502; 99284

== ENCOUNTER 2025-09-15 11:27 | Emergency (ER) | payer OTHER, MEDICAID, SELFPAY ==
--- OUTSIDE RECORDS SUMMARY | 2025-05-15 13:00 | XMS_ITS ---
Author Organization [facility] Address [address] [facility] [place] [address] Care Team Providers Care Securities Sales Associate Name Role Phone Jayden Vásquez Primary Care Provider ALMA DELIA Zavala Unavailable [phone] CHE COLLINS Unavailable [phone] REASON FOR VISIT L ESWL @ [facility] Encounters Encounter Location Date Provider Diagnosis [facility] [address] [place] [address] 05/15/2025 CHE COLLINS Plan Of Treatment No Information Progress Notes * Beatris HEMPHILL KDOB: [birth year] (85 yo F)Acc No.[id number]:05/15/2025 Patient: Wolfgang PARRA Beatris Richardson Provider: Una COLLINS MD :1940 A ge:85 Y S ex:Female Date:05/15/2025 Address:[address] [place], [place] [phone] Pcp:Jayden Vásquez * Billing Information: * Visit Code: * Procedure Codes: * Electronic signature of AUST IN MD KARINA on 09/15/2025 at 11:31 AM CDT Sign off status: Pending * Provider: Una COLLINS MD Date: 05/15/2025 Generated for Printi ng/Faxing/eTransmitting on: 1 11:31 AM CDT
[2025-09-15 11:29] VITALS: BP 188/63; PULSE 115; RESP 18; TEMP 36.8; O2SAT 97
--- OUTSIDE RECORDS SUMMARY | 2025-09-15 11:31 | XMS_ITS | Patient Health Record ---
Author Organization [employer] Address [address] [place] [address] Care Team Providers Care Pain Coordinator Name Role Phone Vásquez, Jayden Primary Care Provider ALMA DELIA Zavala Unavailable [phone] CHE COLLINS Unavailable [phone] Allergies Allergen (clinical drug ingredient) Drug/Non Drug [...] Glucose - Bilirubin - Ketones - Specific [place] 1.025 Occult Blood 2+ pH 6.0 Urine Protein 3+ Urobilinogen,Semi-Qn - Nitrite, Urine - WBC Esterase - Urinalysis Gross Exam - Reason For Referral Reason Renal Stone Diagnosis 1 Left renal stone (N2 0.0) Referral Organization [facility] [employer] Referring Provider First Name CHE Referring Provider [...] Status Risk Notes Problem Low back pain (660033800) Low back pain (M54.50) Active confirmed Problem Kidney stone (41661513) Left renal stone (N20.0) Active confirmed Problem Recurrent urinary tract infection (912461439) Recurrent UTI (N39.0) Active confirmed Problem Clot hematuria (935507654) Clot hematuria (R31.0) Active confirmed Vital Signs [...] 66ml Encounters Encounter Location Date Provider Diagnosis [facility] [address] [place] [address] 03/05/2025 ALMA DELIA SHAFFER Clot hematuria R31.0 ; Recurrent UTI N39.0 ; Low back pain M54.50 ; Upper abdominal pain R10.10 ; History of kidney stones Z87.442 ; History of smoking Z87.891 and Dysuria R30.0 [facility] [address] [place] [address] 04/09/2025 CHE COLLINS Clot hematuria R31.0 ; Left renal stone N20.0 ; Recurrent UTI N39.0 ; Low back pain M54.50 ; Upper abdominal pain R10.10 ; History of kidney stones Z87.442 ; History of smoking Z87.891 and Dysuria R30.0 [facility] [address] [place] [address] 02/15/2025 ALMA DELIA SHAFFER [facility] [address] [place] [address] 03/06/2025 ALMA DELIA SHAFFER [facility] [address] [place] [address] 04/13/2025 ALMA DELIA SHAFFER Assessments Encounter Date [...] next available. Plan: schedule Left ESWL at [facility] obtain clearance from Dr. Vásquez in to [...] next available. Plan: schedule Left ESWL at [facility] obtain clearance from Dr. Vásquez in to [...] next available. Plan: schedule Left ESWL at [facility] obtain clearance from Dr. Vásquez in [facility] [...] next available. Plan: schedule Left ESWL at [facility] obtain clearance from Dr. Vásquez in [facility] [...] next available. Plan: schedule Left ESWL at [facility] obtain clearance from Dr. Vásquez in [facility] [...] next available. Plan: schedule Left ESWL at [facility] obtain clearance from Dr. Vásquez in [facility] [...] next available. Plan: schedule Left ESWL at [facility] obtain clearance from Dr. Vásquez in [facility] [...] next available. Plan: schedule Left ESWL at [facility] obtain clearance from Dr. Vásquez in [facility] [...] & Pelvis W & [place] [id number] 03/05/2025 BUN, Creatinine 03/05/2025 Insurance Providers Payer Name Payer Address Payer Phone Subscriber Number Group Number Insured Name Patient Relationship to Insured Coverage Start Date Coverage End Date [facility] Medicare Advantage HMO [address] [address] [place], [place] [phone] [id number] Beatris Hemphill Self - patient is the insured [place] Medicaid [address] [place], [place] [id number] Beatris Hemphill Self - patient is the insured Medical (General) History Medical History History ICD Code Cystitis with hematuria RA osteoarthritis heart disease COPD Surgical History Surgery Date(Month/Year) triple bypas gallbladder Appendix Tonsils Hospitalization History Reason Date(Month/Year) multiple
--- NOTE | 2025-09-15 11:35 | XRR_ITS ---
PROCEDURE INFORMATION: Exam: XR Chest Exam date and time: 09/15/2025 12:16 PM Age: 85 years old Clinical indication: Cough; Additional info: Dyspnea; Cough TECHNIQUE: Imaging protocol: Radiologic exam of the chest. Views: 1 view. COMPARISON: CR XR chest 1V portable [id number] 08/08/2025 10:55 AM FINDINGS: Tubes, catheters and devices: Left subclavian pacer with right atrial appendage and right ventricular leads. Lungs: Patchy left basilar opacities. The right lung is clear. Pleural spaces: Small left pleural effusion. Heart/Mediastinum: Coronary artery calcifications. Bones/joints: Post median sternotomy and CABG. XR/XR chest 1V portable [id number] IMPRESSION: Small left pleural effusion with adjacent compressive atelectasis. Superimposed infection not excluded.
--- NOTE | 2025-09-15 11:47 | CTR_ITS ---
PROCEDURE INFORMATION: Exam: CT Head Without Contrast Exam date and time: 09/15/2025 11:58 AM Age: 85 years old Clinical indication: Altered mental status/memory loss; Confusion or disorientation TECHNIQUE: Imaging protocol: Computed tomography of the head without contrast. Radiation optimization: All CT scans at this facility use at least one of these dose optimization techniques: automated exposure control; mA and/or kV adjustment per patient size (includes targeted exams where dose is matched to clinical indication); or iterative reconstruction. COMPARISON: CT head wo con* [id number] 09/08/2025 10:36 AM RADIATION DOSE METRICS: Total DLP (mGy-cm): 1239.78 FINDINGS: Brain: Mild generalized cortical volume loss. No hemorrhage. Periventricular and subcortical white matter hypodensities likely represent chronic small vessel ischemic changes. No mass effect. Cerebral ventricles: No ventriculomegaly. Paranasal sinuses: Visualized sinuses are unremarkable. No fluid levels. Mastoid air cells: Visualized mastoid air cells are well aerated. Orbital cavities: Bilateral lens replacements. Nasal cavity: Rightward deviation of the nasal septum. Bones: Posterior cervical fusion hardware appears intact. No acute fracture. Soft tissues: Unremarkable. CT/CT head wo con* [id number] IMPRESSION: No acute intracranial abnormality.
[2025-09-15 12:06] LABS: Glucose Urine UA 1+ (Normal); Hematocrit 29.0 % (36-47); Hemoglobin 8.20 g/dL (11.27-16.99); Mean Corpuscular HGB Conc 28.3 g/dL (30-55); Mean Corpuscular Hemoglobin 31.2 pg (27-33); Mean Corpuscular Volume 110.3 fl (85-98); Nitrate Urine Negative (Negative); Nucleated Red Blood Cells % 0 %; Platelet Count 269 10^3/cmm (157-399); Red Blood Count 2.63 10^6/uL (3.85-5.65); Specific Gravity, Urine 1.018 (1.005-1.030); White Blood Count 6.93 10^3/uL (3.29-11.43)
[2025-09-15 12:09] LABS: Add Urine Microscopic? YES
--- NOTE | 2025-09-15 12:16 | PC.NURSE ---
increased o2 to 4L. pt oxygen sat decreased to 83%; o2 sat currently 92%
[2025-09-15 12:18] VITALS: BP 137/83; PULSE 60; RESP 16; O2SAT 92
[2025-09-15 12:21] LABS: Alanine Aminotransferase 9 U/L (0-33); Albumin Level 2.9 g/dL (3.5-5.2); Alkaline Phosphatase 200 U/L (35-105); Anion Gap 6.3 (5-19); Aspartate Amino Transferase 14 U/L (0-32); Blood Urea Nitrogen 17 mg/dL (8-23); Calcium 8.8 mg/dL (8.5-10.5); Carbon Dioxide 38 mmol/L (22-29); Chloride 100 mmol/L (98-107); Globulin 3.9 g/dL (1.3-4.6); Glucose 197 mg/dL (65-115); Lipase 58 U/L (13-60); Magnesium 1.3 mg/dL (1.7-2.3); Osmolality Calculated 297 mOsm/kg (285-295); Potassium 4.3 mmol/L (3.5-5.1); Sodium 140 mmol/L (136-145); Total Protein 6.8 g/dL (6.6-8.7)
[2025-09-15 12:37] LABS: NT Pro B Type Natriuretic Pept 18950 pg/mL (0-450)
[2025-09-15 12:54] VITALS: BP 147/62; PULSE 78; RESP 18; O2SAT 93
--- NOTE | 2025-09-15 12:56 | ECG_ITS ---
[id number] Test Date: 2025-09-15 Pat Name: Kami Hemphill Department: Room: Gender: Female Midwife Practitioner: : 1940 Requested By: Rodrigo Can Order Number: [id number] Reading MD: LEÓN PADILLA Measurements Intervals [place] Rate: 60 P: 125 KS: 226 QRS: -30 QRSD: 91 T: 129 QT: 396 QTc: 397 Interpretive Statements ELECTRONIC ATRIAL PACEMAKER BORDERLINE LEFT AXIS DEVIATION [QRS AXIS < -20] ST DEVIATION AND MODERATE T-WAVE ABNORMALITY, CONSIDER LATERAL ISCHEMIA [-0.1+ mV T-WAVE IN I/aVL/V5/V6] WARNING: DATA QUALITY MAY AFFECT INTERPRETATION Compared to ECG 08/08/2025 10:46:33 Incomplete right bundle-branch block no longer present Myocardial infarct finding no longer present T-wave abnormality still present Possible ischemia still present Electronically Signed On 09-16-2025 22:29:16 CDT by LEÓN PADILLA [email or web address]
--- NOTE | 2025-09-15 13:15 | W.ED.GENADLT ---
HPI - General Adult General: Chief complaint: General Medical Stated complaint: ams,chf Time Seen by Provider: 09/15/25 11:33 History of Present Illness: 85-year-old female presents to the emergency room with report of altered mental status. She resides at a local detention. She has severe dementia. Nursing staff reported she had been somewhat altered. No fever. Vital signs are stable she cannot add to history. Related Data Home Medications ?Medication ?Instructions ?Recorded ?Confirmed acetaminophen 500 mg tablet 1,000 mg PO BID 08/21/24 09/17/25 albuterol sulfate 90 mcg/actuation 2 puff inhalation Q6H PRN 08/21/24 09/17/25 aerosol inhaler Shortness Of Breath carvedilol 6.25 mg tablet 6.25 mg PO BID 08/21/24 09/17/25 clopidogrel 75 mg tablet 75 mg PO DAILY 08/21/24 09/17/25 levothyroxine 100 mcg tablet 100 mcg PO DAILY 08/21/24 09/17/25 nitroglycerin 0.4 mg sublingual 0.4 mg sublingual Q5M PRN Chest 08/21/24 09/17/25 tablet (Nitrostat) Pain ropinirole 0.5 mg tablet 1 mg PO BEDTIME 08/21/24 09/17/25 allopurinol 100 mg tablet 100 mg PO DAILY 06/30/25 09/17/25 carboxymethyl 0.5 %-glycerin 1 1 drp ophthalmic (eye) QID PRN Dry 06/30/25 09/17/25 %-polysorb 80 0.5 %-PF eye Eyes dropperette (Refresh Optive Advanced (PF)) emollient combination no.110 1 ea topical BID Dry Skin 06/30/25 09/17/25 (Eucerin Intensive Repair lotion) lidocaine 5 % topical patch 1 patch transdermal Q12H 06/30/25 09/17/25 losartan 25 mg tablet 25 mg PO DAILY 06/30/25 09/17/25 sertraline 50 mg tablet (Zoloft) 50 mg PO BEDTIME 06/30/25 09/17/25 white petrolatum-mineral oil 57.3 1 applic ophthalmic (eye) BEDTIME 06/30/25 09/17/25 %-42.5 % eye ointment (Refresh P.M.) quetiapine 50 mg tablet 50 mg PO BEDTIME 08/05/25 09/17/25 bisacodyl 10 mg rectal suppository 10 mg MS DAILY PRN Constipation 09/17/25 09/17/25 (Dulcolax (bisacodyl)) camphor 4 %-methyl salicylate 30 1 applic topical BID pain 09/17/25 09/17/25 %-menthol 10 % topical cream (Pain Relieving Cream) furosemide 20 mg tablet (Lasix) 20 mg PO QAM 09/17/25 09/17/25 gentian neha 1 % topical solution 1 applic topical DAILY 09/17/25 09/17/25 magnesium hydroxide 400 mg/5 mL 30 ml PO DAILY PRN Constipation 09/17/25 09/17/25 oral suspension (Milk of Magnesia) menthol 4 % topical gel (Biofreeze 1 applic topical Q8H PRN Pain 09/17/25 09/17/25 (menthol)) ondansetron HCl 4 mg tablet 4 mg PO Q6H PRN Nausea And Vomiting 09/17/25 09/17/25 potassium chloride 10 mEq 10 meq PO QPM 09/17/25 09/17/25 tablet,extended release sodium phosphates 19 gram-7 118 ml MS DAILY PRN Constipation 09/17/25 09/17/25 gram/118 mL enema (Fleet Enema) Previous Rx's ?Medication ?Instructions ?Recorded oxycodone 5 mg tablet 5 mg PO BID PRN breakthrough pain 07/04/25 #14 tabs oxycodone myristate 18 mg capsule 18 mg PO BID #14 ea 07/04/25 sprinkle extended release 12hr(DON'T CRUSH) (Xtampza ER) multivitamin-ferrous 1 tab PO DAILY #90 tabs 08/06/25 fumarate-folic acid 18 mg-400 mcg tablet (Centrum Complete) pantoprazole 40 mg tablet,delayed 40 mg PO DAILY 90 days #90 tabs 08/06/25 release levofloxacin 500 mg tablet 500 mg PO DAILY 7 days #7 tabs 09/15/25 Allergies Allergy/AdvReac Type Severity Reaction Status Date / Time codeine Allergy Unknown Unknown Verified 08/21/25 10:49 doxycycline Allergy Unknown Unknown Verified 08/21/25 10:49 erythromycin base Allergy Unknown Unknown Verified 08/21/25 10:49 hydromorphone (From Dilaudid) Allergy Unknown Unknown Verified 08/21/25 10:49 Sulfa (Sulfonamide Allergy Unknown Unknown Verified 08/21/25 10:49 Antibiotics) Review of Systems General: Reports: ROS unobtainable due to mental status PFSH ED PFSH: Medical History Non-pressure chronic ulcer of left lower leg, limited to breakdown of skin Fusion of spine, 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 Chronic obstructive pulmonary disease, unspecified Fibromyalgia Mixed hyperlipidemia Chronic pain syndrome Personal history of diseases of the skin and subcutaneous tissue Personal history of urinary (tract) infections Personal history of other diseases of the digestive system Unspecified dementia, unspecified severity, without behavioral disturbance, psychotic disturbance, mood disturbance, and anxiety Unsteadiness on feet Presence of cardiac pacemaker Overactive bladder Hypothyroidism, unspecified Hyperlipidemia, unspecified History of falling Gout, unspecified Gastro-esophageal reflux disease without esophagitis Essential (primary) hypertension Surgical History 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 Social History Smoking and tobacco/nicotine status: unknown if used tobacco/nicotine Housing: Retirement Physical Exam Const: ORIENTATION/CONSCIOUSNESS: Yes awake HENMT: COMMON NORMALS: normocephalic, atraumatic and hearing grossly normal bilaterally HEAD & SCALP: normocephalic and atraumatic Resp: COMMON NORMALS: normal respiratory effort, No retractions, No use of accessory muscles and clear to auscultation bilaterally AUSCULTATION: clear to auscultation bilaterally Cardio: COMMON NORMALS: regular rate, regular rhythm and No murmurs present (Cardio) RATE: regular rate RHYTHM: regular rhythm GI: COMMON NORMALS: Soft to palpation and No hepatosplenomegaly present AUSCULTATION: Yes normoactive bowel sounds PALPATION: Yes Soft to palpation, No Tenderness to palpation present (GI), No Guarding due to palpation present (GI) and Yes No hepatosplenomegaly present Extremity: COMMON NORMALS: normal to inspection, capillary refill normal, no clubbing, cyanosis or edema, no calf tenderness and no pedal edema Skin: COMMON NORMALS: no rashes or lesions noted GENERAL SKIN EXAM: no rashes or lesions noted Course Vital Signs: Vital signs: Vital Signs Temperature 98.3 F 09/15/25 11:29 Pulse Rate 69 09/15/25 14:58 Respiratory Rate 18 09/15/25 14:42 Blood Pressure 167/69 09/15/25 14:58 Pulse Oximetry 98 09/15/25 14:58 Oxygen Delivery Me thod Nasal Cannula 09/15/25 14:42 Oxygen Flow Rate 4 09/15/25 14:42 MDM - General Adult Medical Decision Making Small pleural effusion with possible underlying pneumonia. Patient is anemic but it is at a range where she typically has been running. No acute heart failure on chest x-ray at this time. Will treat as outpatient for pneumonia will need follow-up as outpatient for the small pleural effusion. Discharged back to the detention with levofloxacin return if has further problems. Medical Records I reviewed the patient's medical records. Lab Data I reviewed the patient's lab results. 09/15/25 11:57 09/15/25 11:57 Radiology Impressions Chest X-Ray 09/15/25 11:35 IMPRESSION: Small left pleural effusion with adjacent compressive atelectasis. Superimposed infection not excluded. Head CT 09/15/25 11:47 IMPRESSION: No acute intracranial abnormality. Laboratory Results WBC 6.93 10^3/uL (3.29-11.43) 09/15/25 11:57 RBC 2.63 10^6/uL (3.85-5.65) L 09/15/25 11:57 Hgb 8.20 g/dL (11.27-16.99) L 09/15/25 11:57 Hct 29.0 % (36-47) L 09/15/25 11:57 MCV 110.3 fl (85-98) H 09/15/25 11:57 MCH 31.2 pg (27-33) 09/15/25 11:57 MCHC 28.3 g/dL (30-55) L 09/15/25 11:57 RDW 20.4 % (12.1-15.1) H 09/15/25 11:57 Plt Count 269 10^3/cmm (157-399) 09/15/25 11:57 MPV 9.7 fL (7.4-10.4) 09/15/25 11:57 Neut % (Auto) 66.8 % 09/15/25 11:57 Lymph % (Auto) 26.0 % 09/15/25 11:57 Kimble % (Auto) 4.0 % 09/15/25 11:57 Eos % (Auto) 1.6 % 09/15/25 11:57 Baso % (Auto) 0.3 % 09/15/25 11:57 Neut # (Auto) 4.63 10^3/uL (1.8-7.7) 09/15/25 11:57 Lymph # (Auto) 1.8 10^3/uL (0.8-4.8) 09/15/25 11:57 Kimble # (Auto) 0.3 10^3/uL (0.2-0.9) 09/15/25 11:57 Eos # (Auto) 0.1 10^3/uL (0.0-0.8) 09/15/25 11:57 Baso # (Auto) 0.0 10^3/uL (0.0-0.1) 09/15/25 11:57 Nucleated RBC % (auto) 0 % 09/15/25 11:57 Nucleated RBCs # 0.0 /100WBC 09/15/25 11:57 Sodium 140 mmol/L (136-145) 09/15/25 11:57 Potassium 4.3 mmol/L (3.5-5.1) 09/15/25 11:57 Chloride 100 mmol/L (98-107) 09/15/25 11:57 Carbon Dioxide 38 mmol/L (22-29) H 09/15/25 11:57 Anion Gap 6.3 (5-19) 09/15/25 11:57 BUN 17 mg/dL (8-23) 09/15/25 11:57 Creatinine 0.9 mg/dL (0.5-0.9) 09/15/25 11:57 GFR Calculation Not Reportable 09/15/25 11:57 Glucose 197 mg/dL (65-115) H 09/15/25 11:57 Calculated Osmolality 297 mOsm/kg (285-295) H 09/15/25 11:57 Calcium 8.8 mg/dL (8.5-10.5) 09/15/25 11:57 Magnesium 1.3 mg/dL (1.7-2.3) L 09/15/25 11:57 Total Bilirubin 0.2 mg/dL (0.15-1.2) 09/15/25 11:57 AST 14 U/L (0-32) 09/15/25 11:57 ALT 9 U/L (0-33) 09/15/25 11:57 Alkaline Phosphatase 200 U/L (35-105) H 09/15/25 11:57 NT-Pro-B Natriuret Pep 61541 pg/mL (0-450) H 09/15/25 11:57 Total Protein 6.8 g/dL (6.6-8.7) 09/15/25 11:57 Albumin 2.9 g/dL (3.5-5.2) L 09/15/25 11:57 Globulin 3.9 g/dL (1.3-4.6) 09/15/25 11:57 Lipase 58 U/L (13-60) 09/15/25 11:57 Urine Color Yellow (Yellow) 09/15/25 11:57 Urine Appearance Clear (CLEAR) 09/15/25 11:57 Urine pH 6.0 (5-7) 09/15/25 11:57 Ur Specific [place] 1.018 (1.005-1.030) 09/15/25 11:57 Urine Protein 3+ (Negative) A 09/15/25 11:57 Urine Glucose (UA) 1+ (Normal) H 09/15/25 11:57 Urine Ketones Negative (Negative) 09/15/25 11:57 Urine Blood 2+ (Negative) A 09/15/25 11:57 Urine Nitrate Negative (Negative) 09/15/25 11:57 Urine Bilirubin Negative (Negative) 09/15/25 11:57 Urine Urobilinogen 0.2 mg/dL (Negative) 09/15/25 11:57 Ur Leukocyte Esterase Negative (Negative) 09/15/25 11:57 Urine RBC 11-20 /hpf (0-2) H 09/15/25 11:57 Urine WBC 51-100 /hpf (0-5) H 09/15/25 11:57 Ur Squamous Epith Cells 0-5 /hpf (0-5) 09/15/25 11:57 Amorphous Sediment Not Reportable 09/15/25 11:57 Urine Bacteria None seen /hpf (NONE) 09/15/25 11:57 Hyaline Casts 0.81 /lpf 09/15/25 11:57 All radiology interpretation(s) finalized by discharge EKG Data EKG 1: I personally reviewed and interpreted this EKG as follows: Interpretation: EKG paced rate of 60 QTc [address] changes noted. No significant change from previous EKG 08/08/2020 Computer generated interpretation: Chest X-Ray 09/15/25 11:35 IMPRESSION: Small left pleural effusion with adjacent compressive atelectasis. Superimposed infection not excluded. Head CT 09/15/25 11:47 IMPRESSION: No acute intracranial abnormality. Discharge Plan Discharge Patient Disposition: Home Clinical Impression: Pneumonia, Pleural effusion on left Condition: Stable Prescriptions: New levofloxacin 500 mg tablet 500 mg PO DAILY 7 Days Qty: 7 0RF No Action acetaminophen 500 mg tablet 1,000 mg PO BID ropinirole 0.5 mg tablet 1 mg PO BEDTIME levothyroxine 100 mcg tablet 100 mcg PO DAILY nitroglycerin [Nitrostat] 0.4 mg tablet, sublingual 0.4 mg sublingual Q5M PRN (Reason: Chest Pain) Rx Instructions: do not exceed 3 doses per episode albuterol sulfate 90 mcg/actuation HFA aerosol inhaler 2 puff inhalation Q6H PRN (Reason: Shortness Of Breath) clopidogrel 75 mg tablet 75 mg PO DAILY carvedilol 6.25 mg tablet 6.25 mg PO BID Rx Instructions: must administer with a meal/food allopurinol 100 mg tablet 100 mg PO DAILY lidocaine 5 % adhesive patch,medicated 1 patch transdermal Q12H losartan 25 mg tablet 25 mg PO DAILY sertraline [Zoloft] 50 mg tablet 50 mg PO BEDTIME Refresh P.M. 57.3-42.5 % Ointment 1 applic OPHTHALMIC (EYE) BEDTIME Refresh Optive Advanced (PF) 0.5-1-0.5 % Dropperette 1 drp OPHTHALMIC (EYE) QID PRN (Reason: Dry Eyes) Eucerin Intensive Repair Lotion 1 ea TOPICAL BID oxycodone 5 mg tablet 5 mg PO BID PRN (Reason: breakthrough pain) Qty: 14 0RF Xtampza ER 18 mg cap,sprinkl,ER12hr(DONT CRUSH) 18 mg PO BID Qty: 14 0RF Rx Instructions: must administer with a meal/food ondansetron HCl 4 mg tablet 4 mg PO Q6H PRN (Reason: Nausea And Vomiting) gentian neha 1 % Solution 1 applic TOPICAL DAILY Rx Instructions: to right heal potassium chloride 10 mEq Tablet Extended Release 10 meq PO QPM Pain Relieving Cream 4-30-10 % Cream 1 applic TOPICAL BID Rx Instructions: to back and right hip magnesium hydroxide [Milk of Magnesia] 400 mg/5 mL Suspension 30 ml PO DAILY PRN (Reason: Constipation) bisacodyl [Dulcolax (bisacodyl)] 10 mg Suppository 10 mg MS DAILY PRN (Reason: Constipation) Fleet Enema 19-7 gram/118 mL Enema 118 ml MS DAILY PRN (Reason: Constipation) furosemide [Lasix] 20 mg Tablet 20 mg PO QAM Biofreeze (menthol) 4 % Gel 1 applic TOPICAL Q8H PRN (Reason: Pain) quetiapine 50 mg tablet 50 mg PO BEDTIME Centrum Complete 18-400 mg-mcg tablet 1 tab PO DAILY Qty: 90 0RF pantoprazole 40 mg Tablet,Delayed Release (Dr/Ec) 40 mg PO DAILY 90 Days Qty: 90 0RF Discharge Orders: Discharge ED (Routine); Ordered 09/15/25 Ordered By: Rodrigo Salas Referrals: Jayden Vásquez DO [Primary Care Provider, Internal Medicine] Discharge Diet: Usual diet Discharge Activity: Resume usual activity Patient Instructions: Opioid Safety, Pain Management, Patient Portal & Nitesh Instructions Activity Restrictions/Additional Instructions: Thank you for choosing [facility] for your healthcare needs today. It is very important that you follow up as instructed or that you return to the Emergency Department should you have concerns or if your condition changes or worsens in any way. Emergency department visits are focused on emergent conditions, in some cases you may require further evaluation on an outpatient basis. You were seen in the emergency room with reports of low oxygen levels. While in the emergency room your oxygenation remained stable and your usual oxygen supplementation. Chest x-ray shows slightly increased left pleural effusion with possible underlying infiltrate. Recommend you start oral antibiotics 1 pill daily for the next 7 days follow-up with your primary care doctor through the detention for further evaluation of the pleural effusion if needed. (Please note that included in your discharge packet is information concerning opioid safety and pain management. This information is given to all patients were discharged from the ER regardless of their discharge diagnosis or the medicines they usually take or are prescribed.) Print Language: Bolivian Coding Level of Care Code ED Director Talent Acquisition for Alber Richardson
[2025-09-15 14:42] VITALS: BP 155/68; PULSE 60; RESP 18; O2SAT 100
--- NOTE | 2025-09-15 14:56 | PC.NURSE ---
PT REPORT GIVEN TO [facility] @3532; REPORT TO [facility] @3257. PT DISCHARGE SENT WITH EMS
[2025-09-15 14:58] VITALS: BP 167/69; PULSE 69; O2SAT 98
== END 2025-09-15 15:01 | disposition home or self-care (01) ==
PROVIDERS: Emergency Provider Family Medicine; PCP Internal Medicine
DX: J18.9 Pneumonia, unspecified organism (principal); J90 Pleural effusion, not elsewhere classified; I10 Essential (primary) hypertension; E11.42 Type 2 diabetes mellitus with diabetic polyneuropathy; Z95.0 Presence of cardiac pacemaker; Z95.1 Presence of aortocoronary bypass graft; E78.2 Mixed hyperlipidemia
CPT/HCPCS: 70450; 71045; 80053; 81001; 83690; 83735; 83880; 85025; 87086; 93005; 99285

== ENCOUNTER 2025-09-16 20:14 | Inpatient (IN) | payer OTHER, MEDICAID, SELFPAY ==
--- OUTSIDE RECORDS SUMMARY | 2025-05-15 13:00 | XMS_ITS ---
Author Organization [facility] Address [address] [facility] [place] [address] Care Team Providers Care Rn Medical Inpatient Services Name Role Phone Jayden Vásquez Primary Care Provider ALMA DELIA Zavala Unavailable [phone] CHE COLLINS Unavailable [phone] REASON FOR VISIT L ESWL @ [facility] Encounters Encounter Location Date Provider Diagnosis [facility] [address] [facility] [place] [address] 05/15/2025 CHE COLLINS Plan Of Treatment No Information Progress Notes * Beatris HEMPHILL KDOB: [birth year] (85 yo F)Acc No.[id number]:05/15/2025 Patient: Wolfgang PARRA Beatris Richardson Provider: Una COLLINS MD :1940 A ge:85 Y S ex:Female Date:05/15/2025 Address:[address] [place], [place] [id number] Pcp:Jayden Vásquez * Billing Information: * Visit Code: * Procedure Codes: * Electronic signature of AUST IN MD KARINA on 09/16/2025 at 08:24 PM CDT Sign off status: Pending * Provider: Una COLLINS MD Date: 05/15/2025 Generated for Printi ng/Faxing/eTransmitting on: 1 08:24 PM CDT
--- OUTSIDE RECORDS SUMMARY | 2025-09-16 20:24 | XMS_ITS | Patient Health Record ---
Author Organization [employer] Address [address] [place] [address] Care Team Providers Care Student Outreach Coordinator Name Role Phone Vásquez, Jayden Primary Care Provider ALMA DELIA Zavala Unavailable [phone] CHE COLLINS Unavailable [phone] Allergies Allergen (clinical drug ingredient) Drug/Non Drug [...] Glucose - Bilirubin - Ketones - Specific [place] 1.025 Occult Blood 2+ pH 6.0 Urine Protein 3+ Urobilinogen,Semi-Qn - Nitrite, Urine - WBC Esterase - Urinalysis Gross Exam - Reason For Referral Reason Renal Stone Diagnosis 1 Left renal stone (N2 0.0) Referral Organization [email or web address] Referring Provider First Name CHE Referring Provider [...] Status Risk Notes Problem Low back pain (750672252) Low back pain (M54.50) Active confirmed Problem Kidney stone (06467734) Left renal stone (N20.0) Active confirmed Problem Recurrent urinary tract infection (813462505) Recurrent UTI (N39.0) Active confirmed Problem Clot hematuria (740812740) Clot hematuria (R31.0) Active confirmed Vital Signs [...] 66ml Encounters Encounter Location Date Provider Diagnosis [facility] [address] [place] [address] 03/05/2025 ALMA DELIA SHAFFER Clot hematuria R31.0 ; Recurrent UTI N39.0 ; Low back pain M54.50 ; Upper abdominal pain R10.10 ; History of kidney stones Z87.442 ; History of smoking Z87.891 and Dysuria R30.0 [facility] [address] [place] [address] 04/09/2025 CHE COLLINS Clot hematuria R31.0 ; Left renal stone N20.0 ; Recurrent UTI N39.0 ; Low back pain M54.50 ; Upper abdominal pain R10.10 ; History of kidney stones Z87.442 ; History of smoking Z87.891 and Dysuria R30.0 [facility] [address] [place] [address] 02/15/2025 ALMA DELIA SHAFFER [facility] [address] [place] [address] 03/06/2025 ALMA DELIA SHAFFER [facility] [address] [place] [address] 04/13/2025 ALMA DELIA SHAFFER Assessments Encounter Date [...] next available. Plan: schedule Left ESWL at [facility] obtain clearance from Dr. Vásquez in [...] next available. Plan: schedule Left ESWL at [facility] obtain clearance from Dr. Vásquez in [...] next available. Plan: schedule Left ESWL at [facility] obtain clearance from Dr. Vásquez in [...] next available. Plan: schedule Left ESWL at [facility] obtain clearance from Dr. Vásquez in [...] next available. Plan: schedule Left ESWL at [facility] obtain clearance from Dr. Vásquez in [...] next available. Plan: schedule Left ESWL at [facility] obtain clearance from Dr. Vásquez in [...] next available. Plan: schedule Left ESWL at [facility] obtain clearance from Dr. Vásquez in [...] next available. Plan: schedule Left ESWL at [facility] obtain clearance from Dr. Vásquez in [...] & Pelvis W & [place] contrast [address]86 03/05/2025 BUN, Creatinine 03/05/2025 Insurance Providers Payer Name Payer Address Payer Phone Subscriber Number Group Number Insured Name Patient Relationship to Insured Coverage Start Date Coverage End Date [facility] Medicare Advantage HMO [address] [address] [place], [place] [id number] [phone] [id number] Beatris Hemphill Self - patient is the insured [place] Medicaid [address] [place], [place] [id number] Beatris Hemphill Self - patient is the insured Medical (General) History Medical History History ICD Code Cystitis with hematuria RA osteoarthritis heart disease COPD Surgical History Surgery Date(Month/Year) triple bypas gallbladder Appendix Tonsils Hospitalization History Reason Date(Month/Year) multiple
--- NOTE | 2025-09-16 20:26 | XRR_ITS ---
PROCEDURE INFORMATION: Exam: XR Chest Exam date and time: 09/16/2025 8:30 PM Age: 85 years old Clinical indication: Shortness of breath; Prior surgery; Surgery date: 6+ months; Surgery type: Cabg. Pacer; EMS arrival from longterm for SOB and hypoxia; Additional info: Short of breath TECHNIQUE: Imaging protocol: Radiologic exam of the chest. Views: 1 view. COMPARISON: CR (CHEST, ) 09/15/2025 12:16 PM FINDINGS: Tubes, catheters and devices: Dual-lead cardiac pacer via left subclavian approach is stable in position with the lead tips in the expected locations of the right atrium and right ventricle. Lungs: Compressive atelectasis in the left lingula and left lower lobe. Pleural spaces: Stable moderate left pleural effusion. No pneumothorax. Heart/Mediastinum: Stable moderate enlargement of the cardiac silhouette. Mediastinal contours are unremarkable. No coronary artery calcification(s). Vasculature: Stable vascular calcifications in the aorta. Bones/joints: Stable poststernotomy changes in the chest. Changes consistent with a previous fusion in the right lumbar spine are partially visualized. Bones are diffusely osteopenic. Degenerative changes in the spine and shoulders. Osseous findings are stable. XR/XR chest 1V portable [id number] IMPRESSION: 1. Stable moderate left pleural effusion with compressive atelectasis in the left lingula and left lower lobe. 2. Incidental/nonacute findings are listed in the report.
[2025-09-16 20:27] VITALS: BP 131/70; PULSE 60; RESP 14; TEMP 36.7; O2SAT 100; BMI 23.3
--- NOTE | 2025-09-16 20:28 | W.ED.AMS ---
Documented by User: MIS Lambert 09/16/25 22:32 HPI - Altered Mental Status General: Chief Complaint: Altered Mental Status Stated Complaint: ams Time Seen by Provider: 09/16/25 20:16 History of Present Illness: Patient is a 85-year-old female that was here and discharged yesterday for pneumonia, presents back to the emergency room with altered mentation. Patient has increasing swelling to bilateral upper extremities, and EMS noting hypoxia. Patient is chronically on 2 L/min, however she removed her oxygen, and was 84% on room air. Patient was placed on Levaquin 500 mg daily yesterday. Worsened mental status was noted today. This was prior to EMS call. No fevers. Patient is a full code. Related Data Home Medications ?Medication ?Instructions ?Recorded ?Confirmed acetaminophen 500 mg tablet See Rx Instructions .Route .COMPLEX 08/21/24 08/21/25 albuterol sulfate 90 mcg/actuation 2 puff inhalation Q6H PRN 08/21/24 08/21/25 aerosol inhaler Shortness Of Breath atorvastatin 20 mg tablet 20 mg PO DAILY 08/21/24 08/21/25 carvedilol 6.25 mg tablet 6.25 mg PO BID 08/21/24 08/21/25 clopidogrel 75 mg tablet 75 mg PO DAILY 08/21/24 08/21/25 levothyroxine 100 mcg tablet 100 mcg PO DAILY 08/21/24 08/21/25 menthol 5 % topical gel (Biofreeze 1 ea topical TID PRN Pain 08/21/24 08/21/25 (menthol)) nitroglycerin 0.4 mg sublingual 0.4 mg sublingual Q5M PRN Chest 08/21/24 08/21/25 tablet (Nitrostat) Pain polyethylene glycol 3350 17 17 g PO DAILY 08/21/24 08/21/25 gram/dose oral powder (Miralax) ropinirole 0.5 mg tablet 1.5 mg PO BEDTIME 08/21/24 08/21/25 allopurinol 100 mg tablet 100 mg PO DAILY 06/30/25 08/21/25 carboxymethyl 0.5 %-glycerin 1 1 drp ophthalmic (eye) QID PRN Dry 06/30/25 08/21/25 %-polysorb 80 0.5 %-PF eye Eyes dropperette (Refresh Optive Advanced (PF)) emollient combination no.110 1 ea topical PRN PRN Dry Skin 06/30/25 08/21/25 (Eucerin Intensive Repair lotion) ergocalciferol (vitamin D2) 1,250 1,250 mcg PO Q7D 06/30/25 08/21/25 mcg (50,000 unit) capsule glipizide 5 mg tablet 2.5 mg PO DAILY 06/30/25 08/21/25 hydrochlorothiazide 25 mg tablet 25 mg PO DAILY 06/30/25 08/21/25 lidocaine 5 % topical patch 1 patch transdermal Q12H 06/30/25 08/21/25 losartan 25 mg tablet 25 mg PO DAILY 06/30/25 08/21/25 sertraline 50 mg tablet (Zoloft) 50 mg PO BEDTIME 06/30/25 08/21/25 tizanidine 2 mg tablet 2 mg PO Q8H PRN Muscle Spasm 06/30/25 08/21/25 trolamine salicylate 10 % topical 1 applic topical BID PRN arthritis 06/30/25 08/21/25 cream pain white petrolatum-mineral oil 57.3 1 applic ophthalmic (eye) BEDTIME 06/30/25 08/21/25 %-42.5 % eye ointment (Refresh P.M.) quetiapine 50 mg tablet 50 mg PO BEDTIME 08/05/25 08/21/25 Previous Rx's ?Medication ?Instructions ?Recorded fidaxomicin 200 mg tablet (Dificid) 200 mg PO BID@0500,1700 #20 tabs 07/04/25 oxycodone 5 mg tablet 5 mg PO BID PRN breakthrough pain 07/04/25 #14 tabs oxycodone myristate 18 mg capsule 18 mg PO BID #14 ea 07/04/25 sprinkle extended release 12hr(DON'T CRUSH) (Xtampza ER) morphine (PF) 1 mg/mL injection 2 mg (2 mL) SUBCUT Q6H PRN pain 08/06/25 solution (scale score 7-10) #50 mL multivitamin-ferrous 1 tab PO DAILY #90 tabs 08/06/25 fumarate-folic acid 18 mg-400 mcg tablet (Centrum Complete) pantoprazole 40 mg tablet,delayed 40 mg PO DAILY 90 days #90 tabs 08/06/25 release levofloxacin 500 mg tablet 500 mg PO DAILY 7 days #7 tabs 09/15/25 Allergies Allergy/AdvReac Type Severity Reaction Status Date / Time codeine Allergy Unknown Unknown Verified 08/21/25 10:49 doxycycline Allergy Unknown Unknown Verified 08/21/25 10:49 erythromycin base Allergy Unknown Unknown Verified 08/21/25 10:49 hydromorphone (From Dilaudid) Allergy Unknown Unknown Verified 08/21/25 10:49 Sulfa (Sulfonamide Allergy Unknown Unknown Verified 08/21/25 10:49 Antibiotics) Review of Systems General: Reports: ROS unobtainable due to mental status PFSH ED PFSH: Medical History (Updated 09/16/25 @ 22:32 by MIS Lambert) Non-pressure chronic ulcer of left lower leg, limited to breakdown of skin Fusion of spine, 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 Chronic obstructive pulmonary disease, unspecified Fibromyalgia Mixed hyperlipidemia Chronic pain syndrome Personal history of diseases of the skin and subcutaneous tissue Personal history of urinary (tract) infections Personal history of other diseases of the digestive system Unspecified dementia, unspecified severity, without behavioral disturbance, psychotic disturbance, mood disturbance, and anxiety Unsteadiness on feet Presence of cardiac pacemaker Overactive bladder Hypothyroidism, unspecified Hyperlipidemia, unspecified History of falling Gout, unspecified Gastro-esophageal reflux disease without esophagitis Essential (primary) hypertension Surgical History 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 Social History Smoking and tobacco/nicotine status: unknown if used tobacco/nicotine Housing: Shelter Physical Exam Const: COMMON NORMALS: no acute distress, average body habitus, patient oriented x3 and no limitations EXAM LIMITATIONS: altered mental status and behavioral limitations GENERAL APPEARANCE: cooperative OTHER: Close to mental baseline HENMT: COMMON NORMALS: normocephalic, atraumatic and hearing grossly normal bilaterally HEAD & SCALP: normocephalic and atraumatic Neck/C-Spine: COMMON NORMALS: full ROM, no lymphadenopathy and supple Chest: COMMONS NORMALS: normal inspection of the chest and normal palpation of entire chest wall Resp: COMMON NORMALS: normal respiratory effort, No retractions and No use of accessory muscles AUSCULTATION: rales on the left and diminished lung sounds Cardio: COMMON NORMALS: regular rate and regular rhythm RATE: regular rate RHYTHM: regular rhythm GI: COMMON NORMALS: Normal to inspection, nondistended, normoactive bowel sounds present, Soft to palpation and non-tender PALPATION: Yes Soft to palpation : COMMON NORMALS: Yes no CVA tenderness BLADDER/KIDNEY EXAM: Yes no CVA tenderness Back/Pelvis: COMMON NORMALS: no CVA tenderness Extremity: COMMON NORMALS: normal to inspection, full ROM and capillary refill normal GENERAL: Yes normal exam except as noted OTHER: Edema to all extremities Neuro: COMMON NORMALS: patient oriented x3, CN's II-XII intact bilaterally and moves all extremities Psych: COMMON NORMALS: cooperative Course Consultations: Consultation #1: Hospitalist accepted admission Vital Signs: Vital signs: Vital Signs Temperature 98.1 F 09/16/25 20:40 Pulse Rate 68 09/16/25 23:25 Respiratory Rate 20 H 09/16/25 23:25 Blood Pressure 128/50 09/16/25 23:25 Pulse Oximetry 97 09/16/25 23:25 Oxygen Delivery Me thod Nasal Cannula 09/16/25 22:11 Oxygen Flow Rate 4 09/16/25 22:11 MDM - Altered Mental Status Medical Decision Making Patient is an 85-year-old female with confusion, altered mentation, however she is chronically on 2 L/min, and EMS found her on room air with oxygen saturation of 84%. This alone could cause this elderly demented patient and her underlying confusion. Medical Records I reviewed the patient's medical records. Lab Data I reviewed the patient's lab results. 09/16/25 20:20 09/16/25 20:20 Radiology Impressions Chest X-Ray 09/16/25 20:26 IMPRESSION: 1. Stable moderate left pleural effusion with compressive atelectasis in the left lingula and left lower lobe. 2. Incidental/nonacute findings are listed in the report. Laboratory Results WBC 8.86 10^3/uL (3.29-11.43) 09/16/25 20:20 RBC 2.27 10^6/uL (3.85-5.65) L 09/16/25 20:20 Hgb 7.10 g/dL (11.27-16.99) L 09/16/25 20:20 Hct 24.6 % (36-47) L 09/16/25 20:20 MCV 108.4 fl (85-98) H 09/16/25 20:20 MCH 31.3 pg (27-33) 09/16/25 20:20 MCHC 28.9 g/dL (30-55) L 09/16/25 20:20 RDW 19.9 % (12.1-15.1) H 09/16/25 20:20 Plt Count 244 10^3/cmm (157-399) 09/16/25 20:20 MPV 10.1 fL (7.4-10.4) 09/16/25 20:20 Neut % (Auto) 71.7 % 09/16/25 20:20 Lymph % (Auto) 21.0 % 09/16/25 20:20 [place] % (Auto) 6.3 % 09/16/25 20:20 Eos % (Auto) 0.3 % 09/16/25 20:20 Baso % (Auto) 0.2 % 09/16/25 20:20 Neut # (Auto) 6.35 10^3/uL (1.8-7.7) 09/16/25 20:20 Lymph # (Auto) 1.9 10^3/uL (0.8-4.8) 09/16/25 20:20 [place] # (Auto) 0.6 10^3/uL (0.2-0.9) 09/16/25 20:20 Eos # (Auto) 0.0 10^3/uL (0.0-0.8) 09/16/25 20:20 Baso # (Auto) 0.0 10^3/uL (0.0-0.1) 09/16/25 20:20 Nucleated RBC % (auto) 0 % 09/16/25 20:20 Nucleated RBCs # 0.0 /100WBC 09/16/25 20:20 Specimen Type Arterial 09/16/25 21:00 Sample Site Radial, right 09/16/25 21:00 ABG pH 7.30 (7.35-7.45) L 09/16/25 21:00 ABG pO2 122.0 mmHg (80.0-100.0) H 09/16/25 21:00 ABG PO2/FiO2 Ratio 338 09/16/25 21:00 ABG HCO3 37.1 mmol/L (22-26) H 09/16/25 21:00 ABG O2 Saturation 98.9 09/16/25 21:00 ABG Base Excess 9.3 mmol/L (-2.0-2.0) H 09/16/25 21:00 Kristian Test Pos 09/16/25 21:00 A-a O2 Gradient 5.5 mmHg (5-10) 09/16/25 21:00 Hematocrit 23.1 % (37-47) L 09/16/25 21:00 Hgb O2 Saturation 96.9 % (95-100) 09/16/25 21:00 Carboxyhemoglobin 1.6 %THgb (0.4-20.1) 09/16/25 21:00 Methemoglobin 0.4 % (0.4-1.5) 09/16/25 21:00 Total Hemoglobin 7.5 g/dL (12-16) L 09/16/25 21:00 Sodium 144.0 mmol/L (131-143) H 09/16/25 21:00 Potassium 4.9 mmol/L (3.5-5.0) 09/16/25 21:00 Glucose 165.0 mg/dL (70-115) H 09/16/25 21:00 Ionized Calcium 1.2 mmol/L (1.1-1.4) 09/16/25 21:00 O2 Delivery Device Nc 09/16/25 21:00 O2 Liters/Min 4.0 % 09/16/25 21:00 FiO2 36.0 % 09/16/25 21:00 Application Assistant ID [email or web address] 09/16/25 21:00 Sodium 141 mmol/L (136-145) 09/16/25 20:20 Potassium 5.0 mmol/L (3.5-5.1) 09/16/25 20:20 Chloride 100 mmol/L (98-107) 09/16/25 20:20 Carbon Dioxide 32 mmol/L (22-29) H 09/16/25 20:20 Anion Gap 14.0 (5-19) 09/16/25 20:20 BUN 23 mg/dL (8-23) 09/16/25 20:20 Creatinine 1.6 mg/dL (0.5-0.9) H 09/16/25 20:20 GFR Calculation Not Reportable 09/16/25 20:20 Glucose 158 mg/dL (65-115) H 09/16/25 20:20 Calculated Osmolality 299 mOsm/kg (285-295) H 09/16/25 20:20 Calcium 8.4 mg/dL (8.5-10.5) L 09/16/25 20:20 Total Bilirubin 0.2 mg/dL (0.15-1.2) 09/16/25 20:20 AST 16 U/L (0-32) 09/16/25 20:20 ALT 8 U/L (0-33) 09/16/25 20:20 Alkaline Phosphatase 169 U/L (35-105) H 09/16/25 20:20 Ammonia 27 umol/L (11-51) 09/16/25 20:20 Total Protein 6.1 g/dL (6.6-8.7) L 09/16/25 20:20 Albumin 2.8 g/dL (3.5-5.2) L 09/16/25 20:20 Globulin 3.3 g/dL (1.3-4.6) 09/16/25 20:20 Procalcitonin 0.13 ng/mL (0-0.5) 09/16/25 20:20 Urine Color Dark yellow (Yellow) A 09/16/25 21: Urine Appearance Turbid (CLEAR) A 09/16/25 21: Urine pH 5.0 (5-7) 09/16/25: Ur Specific [place] 1.021 (1.005-1.030) 09/16/25: Urine Protein 3+ (Negative) A 09/16/25: Urine Glucose (UA) Negative (Normal) 09/16/25: Urine Ketones Negative (Negative) 09/16/25: Urine Blood 2+ (Negative) A 09/16/25: Urine Nitrate Negative (Negative) 09/16/25: Urine Bilirubin Negative (Negative) 09/16/25: Urine Urobilinogen 1.0 mg/dL (Negative) 09/16/25: Ur Leukocyte Esterase 3+ (Negative) A 10/26/25 21:25 Urine RBC 3-5 /hpf (0-2) 09/16/25 21:25 Urine WBC >100 /hpf (0-5) H 09/16/25 21:25 Ur Squamous Epith Cells 0-5 /hpf (0-5) 09/16/25 21:25 Amorphous Sediment Not Reportable 09/16/25 21:25 Urine Bacteria None seen /hpf (NONE) 09/16/25 21:25 Hyaline Casts 17.37 /lpf 09/16/25 21:25 XR interpretation done by ED provider, pending radiology final review EKG Data EKG 1: Interpretation: Paced rhythm, left axis, no ST segment elevation, no change Discharge Plan Discharge Patient Disposition: Admitted As Inpatient Admit Provider: Audrey Cabrera Clinical Impression: Pleural effusion on left, Acute and chronic respiratory failure with hypercapnia, Anemia, CKD (chronic kidney disease), stage III, Acute on chronic diastolic CHF (congestive heart failure) Condition: Stable Discharge Diet: Usual diet Discharge Activity: Resume usual activity Coding Level of Care Code ED Weather Clerk for Chg Fwd Documented by User: Braeden Bonner DO 09/17/25 00:09 HPI - Altered Mental Status General: Chief Complaint: Altered Mental Status Stated Complaint: ams Time Seen by Provider: 09/16/25 20:16 Related Data Home Medications ?Medication ?Instructions ?Recorded ?Confirmed acetaminophen 500 mg tablet See Rx Instructions .Route .COMPLEX 08/21/24 08/21/25 albuterol sulfate 90 mcg/actuation 2 puff inhalation Q6H PRN 08/21/24 08/21/25 aerosol inhaler Shortness Of Breath atorvastatin 20 mg tablet 20 mg PO DAILY 08/21/24 08/21/25 carvedilol 6.25 mg tablet 6.25 mg PO BID 08/21/24 08/21/25 clopidogrel 75 mg tablet 75 mg PO DAILY 08/21/24 08/21/25 levothyroxine 100 mcg tablet 100 mcg PO DAILY 08/21/24 08/21/25 menthol 5 % topical gel (Biofreeze 1 ea topical TID PRN Pain 08/21/24 08/21/25 (menthol)) nitroglycerin 0.4 mg sublingual 0.4 mg sublingual Q5M PRN Chest 08/21/24 08/21/25 tablet (Nitrostat) Pain polyethylene glycol 3350 17 17 g PO DAILY 08/21/24 08/21/25 gram/dose oral powder (Miralax) ropinirole 0.5 mg tablet 1.5 mg PO BEDTIME 08/21/24 08/21/25 allopurinol 100 mg tablet 100 mg PO DAILY 06/30/25 08/21/25 carboxymethyl 0.5 %-glycerin 1 1 drp ophthalmic (eye) QID PRN Dry 06/30/25 08/21/25 %-polysorb 80 0.5 %-PF eye Eyes dropperette (Refresh Optive Advanced (PF)) emollient combination no.110 1 ea topical PRN PRN Dry Skin 06/30/25 08/21/25 (Eucerin Intensive Repair lotion) ergocalciferol (vitamin D2) 1,250 1,250 mcg PO Q7D 06/30/25 08/21/25 mcg (50,000 unit) capsule glipizide 5 mg tablet 2.5 mg PO DAILY 06/30/25 08/21/25 hydrochlorothiazide 25 mg tablet 25 mg PO DAILY 06/30/25 08/21/25 lidocaine 5 % topical patch 1 patch transdermal Q12H 06/30/25 08/21/25 losartan 25 mg tablet 25 mg PO DAILY 06/30/25 08/21/25 sertraline 50 mg tablet (Zoloft) 50 mg PO BEDTIME 06/30/25 08/21/25 tizanidine 2 mg tablet 2 mg PO Q8H PRN Muscle Spasm 06/30/25 08/21/25 trolamine salicylate 10 % topical 1 applic topical BID PRN arthritis 06/30/25 08/21/25 cream pain white petrolatum-mineral oil 57.3 1 applic ophthalmic (eye) BEDTIME 06/30/25 08/21/25 %-42.5 % eye ointment (Refresh P.M.) quetiapine 50 mg tablet 50 mg PO BEDTIME 08/05/25 08/21/25 Previous Rx's ?Medication ?Instructions ?Recorded fidaxomicin 200 mg tablet (Dificid) 200 mg PO BID@0500,1700 #20 tabs 07/04/25 oxycodone 5 mg tablet 5 mg PO BID PRN breakthrough pain 07/04/25 #14 tabs oxycodone myristate 18 mg capsule 18 mg PO BID #14 ea 07/04/25 sprinkle extended release 12hr(DON'T CRUSH) (Xtampza ER) morphine (PF) 1 mg/mL injection 2 mg (2 mL) SUBCUT Q6H PRN pain 08/06/25 solution (scale score 7-10) #50 mL multivitamin-ferrous 1 tab PO DAILY #90 tabs 08/06/25 fumarate-folic acid 18 mg-400 mcg tablet (Centrum Complete) pantoprazole 40 mg tablet,delayed 40 mg PO DAILY 90 days #90 tabs 08/06/25 release levofloxacin 500 mg tablet 500 mg PO DAILY 7 days #7 tabs 09/15/25 Allergies Allergy/AdvReac Type Severity Reaction Status Date / Time codeine Allergy Unknown Unknown Verified 08/21/25 10:49 doxycycline Allergy Unknown Unknown Verified 08/21/25 10:49 erythromycin base Allergy Unknown Unknown Verified 08/21/25 10:49 hydromorphone (From Dilaudid) Allergy Unknown Unknown Verified 08/21/25 10:49 Sulfa (Sulfonamide Allergy Unknown Unknown Verified 08/21/25 10:49 Antibiotics) [facility] ED PFSH: Medical History (Updated 09/16/25 @ 22:32 by MIS Lambert) Non-pressure chronic ulcer of left lower leg, limited to breakdown of skin Fusion of spine, 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 Chronic obstructive pulmonary disease, unspecified Fibromyalgia Mixed hyperlipidemia Chronic pain syndrome Personal history of diseases of the skin and subcutaneous tissue Personal history of urinary (tract) infections Personal history of other diseases of the digestive system Unspecified dementia, unspecified severity, without behavioral disturbance, psychotic disturbance, mood disturbance, and anxiety Unsteadiness on feet Presence of cardiac pacemaker Overactive bladder Hypothyroidism, unspecified Hyperlipidemia, unspecified History of falling Gout, unspecified Gastro-esophageal reflux disease without esophagitis Essential (primary) hypertension Surgical History 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 Social History Smoking and tobacco/nicotine status: unknown if used tobacco/nicotine Housing: Shelter Course Vital Signs: Vital signs: Vital Signs Temperature 98.1 F 09/16/25 20:40 Pulse Rate 68 09/16/25 23:25 Respiratory Rate 20 H 09/16/25 23:25 Blood Pressure 128/50 09/16/25 23:25 Pulse Oximetry 97 09/16/25 23:25 Oxygen Delivery Me thod Nasal Cannula 09/16/25 22:11 Oxygen Flow Rate 4 09/16/25 22:11 MDM - Altered Mental Status Medical Decision Making Patient is an 85-year-old female with confusion, altered mentation, however she is chronically on 2 L/min, and EMS found her on room air with oxygen saturation of 84%. This alone could cause this elderly demented patient and her underlying confusion. Patient was originally seen by Ms. Elly PA-C. I agree with her history, evaluation, and treatment. Lab Data 09/16/25 20:20 09/16/25 20:20 Radiology Impressions Chest X-Ray 09/16/25 20:26 IMPRESSION: 1. Stable moderate left pleural effusion with compressive atelectasis in the left lingula and left lower lobe. 2. Incidental/nonacute findings are listed in the report. Laboratory Results WBC 8.86 10^3/uL (3.29-11.43) 09/16/25 20:20 RBC 2.27 10^6/uL (3.85-5.65) L 09/16/25 20:20 Hgb 7.10 g/dL (11.27-16.99) L 09/16/25 20:20 Hct 24.6 % (36-47) L 09/16/25 20:20 MCV 108.4 fl (85-98) H 09/16/25 20:20 MCH 31.3 pg (27-33) 09/16/25 20:20 MCHC 28.9 g/dL (30-55) L 09/16/25 20:20 RDW 19.9 % (12.1-15.1) H 09/16/25 20:20 Plt Count 244 10^3/cmm (157-399) 09/16/25 20:20 MPV 10.1 fL (7.4-10.4) 09/16/25 20:20 Neut % (Auto) 71.7 % 09/16/25 20:20 Lymph % (Auto) 21.0 % 09/16/25 20:20 [place] % (Auto) 6.3 % 09/16/25 20:20 Eos % (Auto) 0.3 % 09/16/25 20:20 Baso % (Auto) 0.2 % 09/16/25 20:20 Neut # (Auto) 6.35 10^3/uL (1.8-7.7) 09/16/25 20:20 Lymph # (Auto) 1.9 10^3/uL (0.8-4.8) 09/16/25 20:20 [place] # (Auto) 0.6 10^3/uL (0.2-0.9) 09/16/25 20:20 Eos # (Auto) 0.0 10^3/uL (0.0-0.8) 09/16/25 20:20 Baso # (Auto) 0.0 10^3/uL (0.0-0.1) 09/16/25 20:20 Nucleated RBC % (auto) 0 % 09/16/25 20:20 Nucleated RBCs # 0.0 /100WBC 09/16/25 20:20 Specimen Type Arterial 09/16/25 21:00 Sample Site Radial, right 09/16/25 21:00 ABG pH 7.30 (7.35-7.45) L 09/16/25 21:00 ABG pO2 122.0 mmHg (80.0-100.0) H 09/16/25 21:00 ABG PO2/FiO2 Ratio 338 09/16/25 21:00 ABG HCO3 37.1 mmol/L (22-26) H 09/16/25 21:00 ABG O2 Saturation 98.9 09/16/25 21:00 ABG Base Excess 9.3 mmol/L (-2.0-2.0) H 09/16/25 21:00 Kristian Test Pos 09/16/25 21:00 A-a O2 Gradient 5.5 mmHg (5-10) 09/16/25 21:00 Hematocrit 23.1 % (37-47) L 09/16/25 21:00 Hgb O2 Saturation 96.9 % (95-100) 09/16/25 21:00 Carboxyhemoglobin 1.6 %THgb (0.4-20.1) 09/16/25 21:00 Methemoglobin 0.4 % (0.4-1.5) 09/16/25 21:00 Total Hemoglobin 7.5 g/dL (12-16) L 09/16/25 21:00 Sodium 144.0 mmol/L (131-143) H 09/16/25 21:00 Potassium 4.9 mmol/L (3.5-5.0) 09/16/25 21:00 Glucose 165.0 mg/dL (70-115) H 09/16/25 21:00 Ionized Calcium 1.2 mmol/L (1.1-1.4) 09/16/25 21:00 O2 Delivery Device Nc 09/16/25 21:00 O2 Liters/Min 4.0 % 09/16/25 21:00 FiO2 36.0 % 09/16/25 21:00 Application Assistant ID [email or web address] 09/16/25 21:00 Sodium 141 mmol/L (136-145) 09/16/25 20:20 Potassium 5.0 mmol/L (3.5-5.1) 09/16/25 20:20 Chloride 100 mmol/L (98-107) 09/16/25 20:20 Carbon Dioxide 32 mmol/L (22-29) H 09/16/25 20:20 Anion Gap 14.0 (5-19) 09/16/25 20:20 BUN 23 mg/dL (8-23) 09/16/25 20:20 Creatinine 1.6 mg/dL (0.5-0.9) H 09/16/25 20:20 GFR Calculation Not Reportable 09/16/25 20:20 Glucose 158 mg/dL (65-115) H 09/16/25 20:20 Calculated Osmolality 299 mOsm/kg (285-295) H 09/16/25 20:20 Calcium 8.4 mg/dL (8.5-10.5) L 09/16/25 20:20 Total Bilirubin 0.2 mg/dL (0.15-1.2) 09/16/25 20:20 AST 16 U/L (0-32) 09/16/25 20:20 ALT 8 U/L (0-33) 09/16/25 20:20 Alkaline Phosphatase 169 U/L (35-105) H 09/16/25 20:20 Ammonia 27 umol/L (11-51) 09/16/25 20:20 Total Protein 6.1 g/dL (6.6-8.7) L 09/16/25 20:20 Albumin 2.8 g/dL (3.5-5.2) L 09/16/25 20:20 Globulin 3.3 g/dL (1.3-4.6) 09/16/25 20:20 Procalcitonin 0.13 ng/mL (0-0.5) 09/16/25 20:20 Urine Color Dark yellow (Yellow) A 09/16/25 21: Urine Appearance Turbid (CLEAR) A 09/16/25: Urine pH 5.0 (5-7) 09/16/25: Ur Specific [place] 1.021 (1.005-1.030) 09/16/25 21: Urine Protein 3+ (Negative) A 09/16/25: Urine Glucose (UA) Negative (Normal) 09/16/25: Urine Ketones Negative (Negative) 09/16/25: Urine Blood 2+ (Negative) A 09/16/25: Urine Nitrate Negative (Negative) 09/16/25: Urine Bilirubin Negative (Negative) 09/16/25: Urine Urobilinogen 1.0 mg/dL (Negative) 09/16/25 21:25 Ur Leukocyte Esterase 3+ (Negative) A 09/16/25: Urine RBC 3-5 /hpf (0-2) 09/16/25 21: Urine WBC >100 /hpf (0-5) H 09/16/25 21:25 Ur Squamous Epith Cells 0-5 /hpf (0-5) 09/16/25 21: Amorphous Sediment Not Reportable 09/16/25 21: Urine Bacteria None seen /hpf (NONE) 09/16/25 21: Hyaline Casts 17.37 /lpf 09/16/25 21:25 Discharge Plan Discharge Patient Disposition: Admitted As Inpatient Admit Provider: Deborah,Patience C Clinical Impression: Pleural effusion on left, Acute and chronic respiratory failure with hypercapnia, Anemia, CKD (chronic kidney disease), stage III, Acute on chronic diastolic CHF (congestive heart failure) Condition: Stable Discharge Diet: Usual diet Discharge Activity: Resume usual activity Coding Level of Care Code ED Weather Clerk for Alber Richardson
[2025-09-16 20:32] LABS: Hematocrit 24.6 % (36-47); Hemoglobin 7.10 g/dL (11.27-16.99); Mean Corpuscular HGB Conc 28.9 g/dL (30-55); Mean Corpuscular Hemoglobin 31.3 pg (27-33); Mean Corpuscular Volume 108.4 fl (85-98); Nucleated Red Blood Cells % 0 %; Platelet Count 244 10^3/cmm (157-399); Red Blood Count 2.27 10^6/uL (3.85-5.65); White Blood Count 8.86 10^3/uL (3.29-11.43)
[2025-09-16 20:40] VITALS: BP 131/70; PULSE 62; RESP 14; TEMP 36.7; O2SAT 100
[2025-09-16 20:52] LABS: Alanine Aminotransferase 8 U/L (0-33); Albumin Level 2.8 g/dL (3.5-5.2); Alkaline Phosphatase 169 U/L (35-105); Anion Gap 14.0 (5-19); Aspartate Amino Transferase 16 U/L (0-32); Blood Urea Nitrogen 23 mg/dL (8-23); Calcium 8.4 mg/dL (8.5-10.5); Carbon Dioxide 32 mmol/L (22-29); Chloride 100 mmol/L (98-107); Creatinine Clr Calc Pharmacy 22.0167; Globulin 3.3 g/dL (1.3-4.6); Glucose 158 mg/dL (65-115); Osmolality Calculated 299 mOsm/kg (285-295); Potassium 5.0 mmol/L (3.5-5.1); Sodium 141 mmol/L (136-145); Total Protein 6.1 g/dL (6.6-8.7)
[2025-09-16 20:53] LABS: Ammonia 27 umol/L (11-51)
--- NOTE | 2025-09-16 20:55 | ECG_ITS ---
[facility] Test Date: 2025-09-16 Pat Name: Kami Hemphill Department: Room: 253 Gender: Female Coordinate Measuring Equipment Operator: : [id number] Requested By: Jackie Sanabria Order Number: [id number] Angelito MD: Dilan Reed M.D. Measurements Intervals [place] Rate: 61 P: 144 CT: 205 QRS: -31 QRSD: 93 T: 112 QT: 394 QTc: 399 Interpretive Statements SINUS RHYTHM With intermittent atrial pacing LEFT VENTRICULAR HYPERTROPHY AND ST-T CHANGE [VOLTAGE CRITERIA PLUS ST/T ABNORMALITY] POSSIBLE SEPTAL MYOCARDIAL INFARCTION , OF INDETERMINATE AGE [30 ms Q WAVE IN V1/V2] Compared to ECG 09/15/2025 12:56:54 Left ventricular hypertrophy now present Myocardial infarct finding now present Electronically Signed On 09-20-2025 08:21:49 CDT by Dilan Reed M.D. [email or web address]
[2025-09-16 20:57] LABS: Procalcitonin 0.13 ng/mL (0-0.5)
[2025-09-16 21:09] LABS: ABG PH Result 7.30 (7.35-7.45); Alveolar-Arterial Oxygen Gradi 5.5 mmHg (5-10); Arterial Blood Gas Hematocrit 23.1 % (37-47); Blood Gas Allen Test Pos; Blood Gas LPM 4.0 %; Blood Gas Operator Identificat gerca; Blood Gas Sample Site Radial, right; Blood Gas Sample Type Arterial; Carboxyhemoglobin 1.6 %THgb (0.4-20.1); Glucose Level-ABG 165.0 mg/dL (70-115); HCO3 ABG 37.1 mmol/L (22-26); Ionized Calcium Level - ABG 1.2 mmol/L (1.1-1.4); Methemoglobin 0.4 % (0.4-1.5); Oxygen Saturation ABG 98.9; PO2 ABG 122.0 mmHg (80.0-100.0); PO2 FiO2 Ratio Arterial Blood 338; Potassium Level - ABG 4.9 mmol/L (3.5-5.0); Sodium Level - ABG 144.0 mmol/L (131-143)
[2025-09-16 21:25] VITALS: BP 137/57; PULSE 63; RESP 22; O2SAT 95
[2025-09-16 21:34] LABS: Glucose Urine UA Negative (Normal); Nitrate Urine Negative (Negative); Specific Gravity, Urine 1.021 (1.005-1.030)
[2025-09-16 21:39] LABS: Add Urine Microscopic? YES; Universal Test for UA Present (0)
[2025-09-16 21:51] VITALS: BP 126/78; PULSE 66; RESP 14; O2SAT 96
[2025-09-16 22:11] VITALS: BP 145/70; PULSE 64; RESP 15; O2SAT 96
[2025-09-16] MEDS: FUROsemide 10 mg/mL SDV 10mL 80 MG IVP (22:16)
[2025-09-16] MEDS: cefTRIAXone 2,000 mg SDV 2000 MG IVP (22:16)
[2025-09-16] MEDS: piperacillin-tazobactam 3.375 GM in sodium chloride 0.9% (plus) 50 ML IV (22:20)
[2025-09-16 23:25] VITALS: BP 128/50; PULSE 68; RESP 20; O2SAT 97
--- NOTE | 2025-09-16 23:54 | PM.HP ---
Providers/Chief Complaint Admitting Physician: Audrey Cabrera MD--- admitted before 12 midnight Primary Care Provider: Jayden Vásquez DO Chief Complaint: ams History of Present Illness Kami Hemphill is a 85 year old female who was recently diagnosed with pneumonia and was in the emergency room the night before. Patient was sent back to the assisted with Levaquin antibiotics. Today patient Graeme presented from her [facility] assisted for worsening condition. She was with change in mental status and was hypoxic hypercapnic respiratory failure and had 2 L of oxygen and it was increased to 3 L patient requiring BiPAP daily at bedtime. The emergency room evaluated patient patient was noted to be hypoxemic and acidotic pH was 7.3 with a pCO2 of 50. I was called to evaluate patient for admission emergency room had giving ceftriaxone and Zosyn. Patient need gram-positive coverage initiated and continued patient on Zyvox 600 mg twice daily and cefepime 1 g Q8. Patient does have with the chest x-ray significant pleural effusion. Creatinine had bumped to a 1.6 on presentation this might be a parapneumonic pleural effusion and 1 can also tap this pleural effusion that trying to diurese in the setting of acute renal failure in if 85 years old. Emergency room had given 80 mg of IV Lasix. I did not continue with IV Lasix. I will rather treat the pneumonia if anything 1 can tap this pleural effusion or follow through with imaging Dayna for interval change. Review of Systems Narrative: System review upon 10 organ reviewed where basically respiratory failure acute on chronic Medications/Allergies Home Medications ?Medication ?Instructions ?Recorded ?Confirmed ?Last Taken ?Type acetaminophen 500 mg tablet See Rx Instructions .Route .COMPLEX 08/21/24 08/21/25 08/04/25 08:00 History albuterol sulfate 90 mcg/actuation 2 puff inhalation Q6H PRN 08/21/24 08/21/25 08/04/25 18:00 History aerosol inhaler Shortness Of Breath atorvastatin 20 mg tablet 20 mg PO DAILY 08/21/24 08/21/25 07/26/25 19:00 History carvedilol 6.25 mg tablet 6.25 mg PO BID 08/21/24 08/21/25 08/04/25 18:00 History clopidogrel 75 mg tablet 75 mg PO DAILY 08/21/24 08/21/25 08/04/25 11:00 History levothyroxine 100 mcg tablet 100 mcg PO DAILY 08/21/24 08/21/25 08/04/25 06:00 History menthol 5 % topical gel (Biofreeze 1 ea topical TID PRN Pain 08/21/24 08/21/25 08/03/25 History (menthol)) nitroglycerin 0.4 mg sublingual 0.4 mg sublingual Q5M PRN Chest 08/21/24 08/21/25 Unknown History tablet (Nitrostat) Pain polyethylene glycol 3350 17 17 g PO DAILY 08/21/24 08/21/25 Unknown History gram/dose oral powder (Miralax) ropinirole 0.5 mg tablet 1.5 mg PO BEDTIME 08/21/24 08/21/25 07/25/25 20:00 History allopurinol 100 mg tablet 100 mg PO DAILY 06/30/25 08/21/25 08/04/25 07:00 History carboxymethyl 0.5 %-glycerin 1 1 drp ophthalmic (eye) QID PRN Dry 06/30/25 08/21/25 08/04/25 18:00 History %-polysorb 80 0.5 %-PF eye Eyes dropperette (Refresh Optive Advanced (PF)) emollient combination no.110 1 ea topical PRN PRN Dry Skin 06/30/25 08/21/25 Unknown History (Eucerin Intensive Repair lotion) ergocalciferol (vitamin D2) 1,250 1,250 mcg PO Q7D 06/30/25 08/21/25 07/23/25 History mcg (50,000 unit) capsule glipizide 5 mg tablet 2.5 mg PO DAILY 06/30/25 08/21/25 07/26/25 History hydrochlorothiazide 25 mg tablet 25 mg PO DAILY 06/30/25 08/21/25 08/04/25 10:00 History lidocaine 5 % topical patch 1 patch transdermal Q12H 06/30/25 08/21/25 08/04/25 09:00 History losartan 25 mg tablet 25 mg PO DAILY 06/30/25 08/21/25 08/04/25 History sertraline 50 mg tablet (Zoloft) 50 mg PO BEDTIME 06/30/25 08/21/25 07/25/25 19:00 History tizanidine 2 mg tablet 2 mg PO Q8H PRN Muscle Spasm 06/30/25 08/21/25 07/26/25 History trolamine salicylate 10 % topical 1 applic topical BID PRN arthritis 06/30/25 08/21/25 08/04/25 19:00 History cream pain white petrolatum-mineral oil 57.3 1 applic ophthalmic (eye) BEDTIME 06/30/25 08/21/25 08/04/25 20:00 History %-42.5 % eye ointment (Refresh P.M.) fidaxomicin 200 mg tablet (Dificid) 200 mg PO BID@0500,1700 #20 tabs 07/04/25 08/21/25 Unknown Rx oxycodone 5 mg tablet 5 mg PO BID PRN breakthrough pain 07/04/25 08/21/25 Unknown Rx #14 tabs oxycodone myristate 18 mg capsule 18 mg PO BID #14 ea 07/04/25 08/21/25 Unknown Rx sprinkle extended release 12hr(DON'T CRUSH) (Xtampza ER) quetiapine 50 mg tablet 50 mg PO BEDTIME 08/05/25 08/21/25 08/04/25 20:00 History morphine (PF) 1 mg/mL injection 2 mg (2 mL) SUBCUT Q6H PRN pain 08/06/25 08/21/25 Unknown Rx solution (scale score 7-10) #50 mL multivitamin-ferrous 1 tab PO DAILY #90 tabs 08/06/25 08/21/25 Unknown Rx fumarate-folic acid 18 mg-400 mcg tablet (Centrum Complete) pantoprazole 40 mg tablet,delayed 40 mg PO DAILY 90 days #90 tabs 08/06/25 08/21/25 Unknown Rx release levofloxacin 500 mg tablet 500 mg PO DAILY 7 days #7 tabs 09/15/25 Unknown Rx Allergies Allergy/AdvReac Type Severity Reaction Status Date / Time codeine Allergy Unknown Unknown Verified 08/21/25 10:49 doxycycline Allergy Unknown Unknown Verified 08/21/25 10:49 erythromycin base Allergy Unknown Unknown Verified 08/21/25 10:49 hydromorphone (From Dilaudid) Allergy Unknown Unknown Verified 08/21/25 10:49 Sulfa (Sulfonamide Allergy Unknown Unknown Verified 08/21/25 10:49 Antibiotics) PFSH Acute PFSH: Medical History Non-pressure chronic ulcer of left lower leg, limited to breakdown of skin Fusion of spine, 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 Chronic obstructive pulmonary disease, unspecified Fibromyalgia Mixed hyperlipidemia Chronic pain syndrome Personal history of diseases of the skin and subcutaneous tissue Personal history of urinary (tract) infections Personal history of other diseases of the digestive system Unspecified dementia, unspecified severity, without behavioral disturbance, psychotic disturbance, mood disturbance, and anxiety Unsteadiness on feet Presence of cardiac pacemaker Overactive bladder Hypothyroidism, unspecified Hyperlipidemia, unspecified History of falling Gout, unspecified Gastro-esophageal reflux disease without esophagitis Essential (primary) hypertension Surgical History 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 Social History Smoking and tobacco/nicotine status: unknown if used tobacco/nicotine Housing: Senior Living Vitals/I&O/Wt Last Vital Signs Temp 98.1 F 09/16/25 20:40 Pulse 68 09/16/25 23:25 Resp 20 H 09/16/25 23:25 BP 128/50 09/16/25 23:25 Pulse Ox 97 09/16/25 23:25 O2 Del Method Nasal Cannula 09/16/25 22:11 O2 Flow Rate 4 09/16/25 22:11 09/16/25 09/16/25 09/17/25 14:59 22:59 06:59 Intake Total 50 / 50 Balance 50 / 50 Weight last 48 hrs Weight 58.06 kg Physical Exam Narrative: Generally patient is frail lying down in bed verbalizing that she is okay HEENT normocephalic/atraumatic neck neck is supple cardiovascular heart rate is regular lungs are pretty much coarse breath sounds abdomen soft nontender nondistended unremarkable extremities are intact no edema has good pulses neurology has no focality lab studies lab studies reviewed and noted. Data 09/17/25 02:54 09/17/25 02:54 Micro: Microbiology 09/16/25 21:00 Blood Culture - Preliminary Blood SPECIMEN COLLECTED 09/16/25 20:58 Blood Culture - Preliminary Blood SPECIMEN COLLECTED A&P Assessment and plan 1. Acute and chronic respiratory failure with hypercapnia: 2. Pleural effusion on left: 3. Pneumonia: 4. Acute hypoxic on chronic hypercapnic respiratory failure: Plan: Pneumonia - [facility] x 1 day - Admit to general medical floor on 3 L of oxygen and increased from a 2 liters nasal cannula - Antibiotics changed to Zyvox 600 mg orally twice daily and IV cefepime. - Medication be made renal friendly, protect the kidney patient had normal renal function. Now her creatinine within a day had bumped from a 1 to a 1.7 - Continue oxygen support - Continue on nebulizing treatment Diabetes - Hold oral diabetic medication - Manage with insulin and protect the kidney - Must continue to treat and monitor Acute renal failure - Baseline creatinine is 0.9 to 1.00 but today at presentation creatinine had bumped to 1.6 - Patient had received high dose Lasix from the emergency room - Follow the left pleural effusion again this could be parapneumonic effusion and if need be tap instead of trying to diurese else patient will go into serious renal failure Obstructive sleep apnea - Patient ABG showed have been hypoxic hypercapnic respiratory failure - Patient to be on BiPAP as ordered PDMP PDMP Reviewed: Not Reviewed Attestations Medical Necessity Statement*: Patient with significant pneumonia and pleural effusion need at least 2 midnights to optimize care prior to going home. Coding Level of Care Code 30183 Diagnoses Acute and chronic respiratory failure with hypercapnia J96.22 Pleural effusion on left J90 Pneumonia J18.9 Acute hypoxic on chronic hypercapnic respiratory failure J96.01; J96.12 Time Spent (min) 60
[2025-09-17] VITALS (13 sets, daily range): BP systolic 135–179; BP diastolic 52–85; PULSE 63–84; RESP 17–20; TEMP 36.4–37.1; O2SAT 92–99; BMI 25.5
--- NOTE | 2025-09-17 00:17 | PC.NURSE ---
Pt is confused at time of assessment. Pt was able to answer some questions, but overall a poor historian. Pt has wounds on sacrum, bilateral legs and right heel as documented. Pt presents on 4L nasal cannula. Pt knows she is in the hospital and that Sylvie is the current president.
[2025-09-17] MEDS: methylPREDNISolone sod succ 40 mg/mL INJ IVP ×2 (01:52→13:03)
[2025-09-17] MEDS: heparin 5,000 unit/mL INJ 1 mL 5000 UNIT SUBCUT (01:52)
[2025-09-17 03:39] LABS: Hematocrit 24.7 % (36-47); Hemoglobin 7.00 g/dL (11.27-16.99); Mean Corpuscular HGB Conc 28.3 g/dL (30-55); Mean Corpuscular Hemoglobin 31.3 pg (27-33); Mean Corpuscular Volume 110.3 fl (85-98); Nucleated Red Blood Cells % 0 %; Platelet Count 348 10^3/cmm (157-399); Red Blood Count 2.24 10^6/uL (3.85-5.65); White Blood Count 8.17 10^3/uL (3.29-11.43)
[2025-09-17 03:53] LABS: Alanine Aminotransferase 9 U/L (0-33); Albumin Level 2.9 g/dL (3.5-5.2); Alkaline Phosphatase 165 U/L (35-105); Aspartate Amino Transferase 21 U/L (0-32); Blood Urea Nitrogen 25 mg/dL (8-23); Calcium 8.4 mg/dL (8.5-10.5); Carbon Dioxide 36 mmol/L (22-29); Chloride 100 mmol/L (98-107); Creatinine Clr Calc Pharmacy 21.2861; Globulin 2.8 g/dL (1.3-4.6); Glucose 142 mg/dL (65-115); Magnesium 1.2 mg/dL (1.7-2.3); Osmolality Calculated 301 mOsm/kg (285-295); Sodium 142 mmol/L (136-145); Total Protein 5.7 g/dL (6.6-8.7)
[2025-09-17 04:01] LABS: Anion Gap 11.1 (5-19); Potassium 5.1 mmol/L (3.5-5.1)
[2025-09-17 07:04] LABS: ABG PCO2 76.3 mmHg (35-45)
--- NOTE | 2025-09-17 07:30 | PC.PHAR ---
Pt is from [facility]
[2025-09-17] MEDS: cefepime 1,000 mg SDV 1000 MG IVP (08:17)
[2025-09-17] MEDS: morphine 4 mg/mL SDV 1 mL 2 MG IVP (08:26)
--- NOTE | 2025-09-17 09:19 | PC.CHAP ---
Pastoral Care Encounter/Spiritual Assessment Type of Contact [] Declined pot annealer visit [] Patient/Family/Request visit [] Outpatient visit [] Follow-up visit [] Physician referral [] Code/Alert [x] Routine visit [] Staff referral [] Actively dying [] Patient sleeping [] Family support [] [] Out of room [] Palliative care [] [] Receiving care in room [] Pre-surgical visit [] Trauma [] Long length of stay [] ICU visit [] Other: Relational/Emotional Strength [] Patient feels connected with others/family/visitors/staff [] Distress [] Loneliness/isolation [] Abandonment Spirituality of Patient [x] Person of Elise [] Attends Jainism of their Elise [x] Believes in Prayer [] Reads Bible or Taoism materials [] There are Spiritual issues to be addressed Vessel Scrapper Interventions [x] Prayer [x] Active listening [] Non-anxious presence [] Spiritual/emotional support [] Crisis/trauma care [] Spiritual counseling [] Bereavement support [] Provided bereavement packet [x] Provided Bible/devotional materials [] Provided toy/stuffed animal, coloring book to patient or family member [] Provided Communion [] Anointing/[place] [] Salvation [x] Completed spiritual assessment [] Other: Impact on Illness or Injury [] Angry [] Fearful [] Anxious [] Often cries [] Exhaustion [] Unable to work [] Unable to attend gnosticist [] Unable to walk/stand [] Unable to read [] Unable to drive [] Unable to eat/drink [] Unable to sleep [] Unable to be with family [] Patient intubated [] Other: Summary Time spent with patient 10 min
--- NOTE | 2025-09-17 09:22 | PC.PHAR ---
The following medications are no longer active on pt's list. Vitamin d2 50,000 units daily Dificid 200mg bid Glipizide 2.5 mg daily Hctz 25mg daily Morphine 1mg/ml louisa. 2mg q6h prn Miralax daily Tizanidine 2mg q8h prn Trolamine Salicylate 10%cr. bid prn Could not verify with nursing staff but left a message to contact me as soon as possible for verification.
[2025-09-17] MEDS: magnesium sulfate premix 4 GM/100 ML PREMIX IV (13:03)
--- NOTE | 2025-09-17 13:07 | PM.PN ---
Subjective Subjective: 85-year-old female with pneumonia diagnosed on 09/15/2025 comes in with pneumonia and acute hypercarbic respiratory failure admitted to [facility]. This morning she is anxious and wants to be discharged. She has a word finding difficulty that she uses wrong words at times. I questioned her regarding this and she is wanting to go home today does not want to stay in the hospital here. I counseled her that she needs 1 more day. I also asked her about CODE STATUS and she wants full code is not ready to . Vitals/I&O/Wt Last Vital Signs Temp 98.7 F 09/17/25 12:33 Pulse 84 09/17/25 12:33 Resp 17 09/17/25 12:33 BP 135/85 09/17/25 12:33 Pulse Ox 99 09/17/25 12:33 O2 Del Method Nasal Cannula 09/17/25 12:33 O2 Flow Rate 4 09/17/25 11:00 09/16/25 09/17/25 09/17/25 22:59 06:59 14:59 Intake Total 50 / 50 120 / 120 Output Total 350 / 350 Balance 50 / 50 -350 / -300 120 / 120 Weight last 48 hrs Weight 63.412 kg Weight 61.689 kg Weight 58.06 kg Physical Exam Narrative: General Well-developed female normal body habitus CV regular rate and rhythm Lungs diminished breath sounds and crackles in the bases Abdomen POSS bowel tones soft nontender Calves 2+ edema of the legs with pruning of the skin consistent with previous additional swelling. There is venous stasis changes and shallow ulcerations Urinary Catheter Management: Randle: Cath Placed During This Visit: yes Reason for Continuing Indwelling Catheter: Other Urinary Catheter Date of Insertion: 09/17/25 Urinary Catheter Time of Insertion: 00:02 Data 09/17/25 02:54 09/17/25 02:54 Micro: Microbiology 09/16/25 21:00 Blood Culture - Preliminary Blood SPECIMEN COLLECTED 09/16/25 20:58 Blood Culture - Preliminary Blood SPECIMEN COLLECTED A&P Assessment and plan 1. Acute and chronic respiratory failure with hypercapnia: Continue BiPAP noninvasive support for hypercapnia. Wean O2 to keep sats at 90% not 99% 2. Pleural effusion on left: This is parapneumonic. But small. Will monitor if enlarging will consider thoracentesis 3. Pneumonia: He does not look to me that the patient actually failed antibiotics but rather had hypercapnic respiratory failure and needs BiPAP support which has been done. I am going to simplify her antibiotics to Levaquin. 4. Altered mental status: Looks like her failure of outpatient treatment was primarily CO2 retention and altered mental status based on that. Will de-escalate antibiotics and treat primarily her CO2 retention and with the Levaquin. Additionally prescribed for pneumonia PDMP PDMP Reviewed: Not Reviewed Attestations Medical Necessity Statement*: Patient is to remain in the hospital for 1 additional midnight for BiPAP and repeat gas in the morning. Will see how she does on just Levaquin Coding Level of Care Code Acute Code for [facility] Fwd Diagnoses Acute and chronic respiratory failure with hypercapnia J96.22 Pleural effusion on left J90 Pneumonia J18.9 Altered mental status R41.82 Time Spent (min) 35
--- NOTE | 2025-09-17 21:59 | PC.RESP ---
Pt upset about being in hospital. Refusing BIPAP Has not wore it since being admitted. Able to give her treatments. Very much wants to leave.
[2025-09-18] VITALS (21 sets, daily range): BP systolic 126–178; BP diastolic 61–93; PULSE 60–85; RESP 8–24; TEMP 36.2–36.8; O2SAT 91–100
[2025-09-18] MEDS: methylPREDNISolone sod succ 40 mg/mL INJ IVP ×2 (01:38→13:46)
[2025-09-18] MEDS: morphine 4 mg/mL SDV 1 mL 2 MG IVP (03:00)
[2025-09-18 05:02] LABS: Hematocrit 22.7 % (36-47); Hemoglobin 6.80 g/dL (11.27-16.99); Mean Corpuscular HGB Conc 30.0 g/dL (30-55); Mean Corpuscular Hemoglobin 31.5 pg (27-33); Mean Corpuscular Volume 105.1 fl (85-98); Nucleated Red Blood Cells % 0 %; Platelet Count 227 10^3/cmm (157-399); Red Blood Count 2.16 10^6/uL (3.85-5.65); White Blood Count 9.09 10^3/uL (3.29-11.43)
[2025-09-18 05:32] LABS: Alanine Aminotransferase 8 U/L (0-33); Albumin Level 2.6 g/dL (3.5-5.2); Alkaline Phosphatase 162 U/L (35-105); Anion Gap 13.2 (5-19); Aspartate Amino Transferase 16 U/L (0-32); Blood Urea Nitrogen 32 mg/dL (8-23); Calcium 8.3 mg/dL (8.5-10.5); Carbon Dioxide 34 mmol/L (22-29); Chloride 98 mmol/L (98-107); Creatinine Clr Calc Pharmacy 21.5541; Globulin 3.2 g/dL (1.3-4.6); Glucose 223 mg/dL (65-115); Osmolality Calculated 304 mOsm/kg (285-295); Potassium 5.2 mmol/L (3.5-5.1); Sodium 140 mmol/L (136-145); Total Protein 5.8 g/dL (6.6-8.7)
[2025-09-18 05:33] LABS: Magnesium 1.8 mg/dL (1.7-2.3)
--- NOTE | 2025-09-18 09:06 | XR_ITS ---
WS: [id number] Exam: XR chest 2V* [id number] Date/Time of Exam: 09/18/2025 9:23 AM Reason For Exam: follow up left lung effusion Comparison 09/16/2025. RIGHT basal pleural effusion noted with atelectasis and possible infiltrate in the LEFT lower lobe. Acute fractures of the lateral margin of the LEFT sixth and seventh ribs noted. There may also be a healing fracture of the lateral LEFT eighth rib. No pneumothorax. Mild cardiac enlargement. Signs of previous CABG surgery. Permanent cardiac pacer superimposes the LEFT chest. The RIGHT lung is clear. The mediastinum is normal in contour. XR/XR chest 2V* [id number] IMPRESSION: 1. Atelectasis and consolidation in the LEFT lower lobe and LEFT basal pleural effusion unchanged. 2. Acute fractures of the LEFT sixth and seventh ribs. There may also be a heal ing fracture of the lateral LEFT eighth rib. No pneumothorax.
[2025-09-18 09:14] LABS: ABG PCO2 55.3 mmHg (35-45); ABG PH Result 7.44 (7.35-7.45); Alveolar-Arterial Oxygen Gradi 3.7 mmHg (5-10); Arterial Blood Gas Hematocrit 24.4 % (37-47); Blood Gas Allen Test Pos; Blood Gas LPM 2.0 %; Blood Gas Operator Identificat WALC; Blood Gas Sample Site Brachial, right; Blood Gas Sample Type Arterial; Carboxyhemoglobin 1.2 %THgb (0.4-20.1); Glucose Level-ABG 252.0 mg/dL (70-115); HCO3 ABG 37.2 mmol/L (22-26); Ionized Calcium Level - ABG 1.1 mmol/L (1.1-1.4); Methemoglobin 1.1 % (0.4-1.5); Oxygen Saturation ABG 87.4; PO2 ABG 53.9 mmHg (80.0-100.0); Potassium Level - ABG 4.8 mmol/L (3.5-5.0); Sodium Level - ABG 139.0 mmol/L (131-143)
[2025-09-18 09:28] LABS: Iron 63 ug/dL (37-145); Total Iron Binding Capacity 163 mcg/dl; Unsaturated Iron Binding 100 ug/dL (112-347)
[2025-09-18 09:44] LABS: Vitamin B12 536 pg/mL (232-1245)
--- NOTE | 2025-09-18 13:42 | PC.RESP ---
rt was able to place bipap on pt at 1146. at 1254, nurse notified resp that patient was pulling bipap off. pt was placed back on 3L nc. at this time, pt is eating lunch and adamantly refusing to place bipap back on stating she does not like it . will try again after lunch.
--- NOTE | 2025-09-18 18:58 | P.PN_ITS ---
Subjective 2 Subjective: 85-year-old female with pneumo gela diagnosed on 09/15/2025 comes in with pneumonia and acute hypercarbic respiratory failure admitted to [facility]. Patient with leg edema and left pleural effusion. Patient had anemia requiring 1 unit of blood this morning. Patient seemingly good understanding but has some word salad Vitals/I&O/Wt Last Vital Signs Temp 98.2 F 09/18/25 17:21 Pulse 60 09/18/25 17:21 Resp 15 09/18/25 17:21 BP 135/92 09/18/25 17:21 Pulse Ox 95 09/18/25 17:21 O2 Del Method Nasal Cannula 09/18/25 15:32 O2 Flow Rate 2 09/18/25 15:32 FiO2 30 09/18/25 11:46 09/18/25 09/18/25 09/18/25 06:59 14:59 22:59 Intake Total 1100 / 1100 1470 / 2570 Output Total 300 / 800 750 / 750 Balance -300 / 20 1100 / 1100 720 / 1820 Weight last 48 hrs Weight 64.949 kg Weight 63.412 kg Weight 61.689 kg Weight 58.06 kg Physical Exam 2 Narrative: General Well-developed female normal body habitus CV regular rate and rhythm with loud 5/6 systolic ejection murmur best heard at the right upper sternal border and this radiates to the back Lungs diminished breath sounds and crackles in the bases Abdomen positive bowel tones soft nontender Calves 2+ edema of the legs with pruning of the skin consistent with previous additional swelling. There is venous stasis changes and shallow ulcerations Urinary Catheter Management: Randle: Cath Placed During This Visit: yes Reason for Continuing Indwelling Catheter: Required Immobilization for Trauma or Surgery or Anesthesia Urinary Catheter Date of Insertion: 09/17/25 Urinary Catheter Time of Insertion: 00:02 Data 09/18/25 04:35 09/18/25 04:35 Micro: Microbiology 09/16/25 21:25 Urine Culture - Preliminary Urine,Clean Catch 09/16/25 21:00 Blood Culture - Preliminary Blood NEGATIVE TO DATE 09/16/25 20:58 Blood Culture - Preliminary Blood NEGATIVE TO DATE A&P Assessment and plan 1. Acute and chronic respiratory failure with hypercapnia: Continue BiPAP noninvasive support for hypercapnia. Wean O2 to keep sats at 90% not 99% 2. Pleural effusion on left: Patient with a loud aortic stenosis murmur. Will attempt gentle diuresis and monitor kidney function and. Patient also has left rib fractures 3. Pneumonia: It does not look to me that the patient actually failed antibiotics but rather had hypercapnic respiratory failure and needs BiPAP support which has been done. I am going to simplify her antibiotics to Levaquin. Will obtain echocardiogram for the morning and also a CT scan of the chest 4. Altered mental status: Looks like her failure of outpatient treatment was primarily CO2 retention and altered mental status based on that. Will de-escalate antibiotics and treat primarily her CO2 retention and with the Levaquin. Additionally prescribed for pneumonia Patient does have word salad I think that is chronic PDMP PDMP Reviewed: Not Reviewed Attestations 2 Medical Necessity Statement*: Patient josette in hospital for CT scan and echocardiogram to evaluate her left pleural effusion and will require additional midnight Coding Level of Care Code 51003 Diagnoses Acute and chronic respiratory failure with hypercapnia J96.22 Pleural effusion on left J90 Pneumonia J18.9 Altered mental status R41.82 Time Spent (min) 35
--- NOTE | 2025-09-18 19:03 | CTR_ITS ---
PROCEDURE INFORMATION: Exam: CT Chest Without Contrast; Diagnostic Exam date and time: 09/18/2025 8:26 PM Age: 85 years old Clinical indication: Pain; Shortness of breath; Left-sided; Additional info: Left rib fractures and effusion possible pneumonia TECHNIQUE: Imaging protocol: Diagnostic computed tomography of the chest without contrast. Radiation optimization: All CT scans at this facility use at least one of these dose optimization techniques: automated exposure control; mA and/or kV adjustment per patient size (includes targeted exams where dose is matched to clinical indication); or iterative reconstruction. COMPARISON: CR XR chest 2V* [id number] 09/18/2025 9:33 AM RADIATION DOSE METRICS: Total DLP (mGy-cm): 413.91 FINDINGS: Tubes, catheters and devices: Left pacemaker with leads in the heart. Lungs: Interstitial scarring again the peripheral right upper lobe. 3 mm nodule in the right middle lobe. Mild dependent atelectasis in the lower lobes. Subtle tree-in-bud opacities in the peripheral right lower lobe. Pleural spaces: Moderate left and small right pleural effusions. No pneumothorax. Heart: Unremarkable. No cardiomegaly. No pericardial effusion. Coronary arteries: Dense coronary artery calcifications with possible stents. Lymph nodes: Unremarkable. No enlarged lymph nodes. 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 Diaphragm: Large hiatal hernia. Intraperitoneal space: Mild ascites. Bones/joints: Median sternotomy changes. Scoliosis and degenerative changes in the spine. None-acute left lateral 6th, 7th, and 8th rib fractures with some callus formation. Mildly displaced acute appearing left posterolateral 9th, 10th, and 11th rib fractures. Soft tissues: Severe body wall edema. CT/CT chest con [id number] IMPRESSION: 1. Mildly displaced acute appearing left 9th through 11th rib fractures. 2. Incompletely healed nonacute left 6th through 8th rib fractures. 3. Moderate left and small right pleural effusions. 4. Mild tree-in-bud opacities in the right lower lobe most likely represents infectious bronchiolitis. 5. 3 mm right pulmonary nodule. For patients at low risk (minimal or absent history of smoking and of other known risk factors), no routine follow-up is indicated. For patients at high risk (history of smoking or of other known risk factors), consider optional CT Chest at 12 months. (Reference: Ismael) REFERENCES: Ismael Goss, et al. Guidelines for Management of Incidental Pulmonary Nodules Detected on CT Images: From the Fleischner Society 2017. Radiology. 2017;284(1):228-243.
--- NOTE | 2025-09-18 19:03 | USCV_ITS ---
Kami Hemphill Age: 85 Gender: F : 1940 Exam Date: 09/18/2025 22:01 Ordering Phys: Jerrell Carey MD Technologist: LUCERO [place] [facility] [place]: Aortic stenosis murmur and pleural effusion. BP: 155 / 92 HR: 65 Rhythm: Sinus Technical Quality: Adequate MEASUREMENTS (Male / Female) Normal Values 2D ECHO LV Diastolic Diameter PLAX 4.1 cm 4.2 - 5.9 / 3.9 - 5.3 cm IVS Diastolic Thickness 0.9 cm 0.6 - 1.0 / 0.6 - 0.9 cm IVS Systolic Thickness 1.2 cm LVPW Diastolic Thickness 1.0 cm 0.6 - 1.0 / 0.6 - 0.9 cm LVPW Systolic Thickness 1.9 cm LVOT Diameter 2.0 cm LV Ejection Fraction 2D Teich 58.1 % LV Ejection Fraction MOD 4C 74.2 % LV Ejection Fraction MOD 2C 54.2 % LV Ejection Fraction 2C AL 55.4 % LA Diameter 4.0 cm Aorta at Sinotubular Diameter 3.1 cm IVC Diameter 2.0 cm M-MODE LA Ao Ratio MM 1.1 AV Cusp Separation MM 1.3 cm DOPPLER AV Peak Velocity 366.0 cm/s LVOT Peak Velocity 84.0 cm/s AV Area Cont Eq vti 0.7 cm squared AV Area Cont Eq pk 0.7 cm squared MV Peak Velocity 159.0 cm/s MV Area PHT 2.8 cm squared Mitral E to A Ratio 1.0 TV Peak Velocity 328.3 cm/s TR Peak Velocity 383.0 cm/s TR Peak Gradient 58.7 mmHg TV Peak E Velocity 79.0 cm/s PV Peak Velocity 119.0 cm/s FINDINGS Left Ventricle Normal left ventricular size and systolic function, EF 58% . Left ventricular diastolic function indeterminate due to severe mitral annular calcification. Normal left ventricular wall thickness. Right Ventricle Pacemaker wire present in the right ventricle. Moderate pulmonary hypertension, RVSP 64 mmHg. Normal ventricular size and systolic function. Right Atrium Normal right atrial size. Pacer wire seen in right atrium. Left Atrium Normal left atrial size IA Septum Mobile interatrial septum. No evidence of atrial level shunt on color Doppler. Mitral Valve Mildly thickened mitral valve leaflets. Severe mitral annular calcification. Mild mitral valve regurgitation Aortic Valve There is a small mobile structure on the ventricular side of the right coronary cusp consistent with a small vegetation versus thrombus measuring 1 cm long and 3 mm wide. Recommend transesophageal echocardiogram for better visualization. Mild aortic valve regurgitation. Severely calcified aortic valve with restricted motion of the leaflets. Possible bicuspid aortic valve. Low gradient, severe aortic valve stenosis with aortic valve area of 0.7 cm squared and mean pressure gradient 23 mmHg. LVOT/AV velocity ratio 0.22. Tricuspid Valve Moderate tricuspid valve regurgitation due to pacer wire passing through the tricuspid valve opening. Pulmonic Valve Normal structure of pulmonic valve. Trace pulmonic valve regurgitation. No pulmonic valve stenosis. Pericardium Large left pleural effusion with echogenic structures within the effusion of indeterminate significance. Small posterior pericardial effusion with no echocardiogram evidence of tamponade. Aorta Normal size aortic root and proximal ascending aorta. IVC Normal size of the IVC with less than 50% collapse with inspiration. Estimated right atrial pressure 8 mmHg. CONCLUSIONS 1. Normal left ventricular size and systolic function, EF 58%. 2. Normal right ventricular size and systolic function. 3. Pacemaker wire present in the right atrium and the right ventricle. 4. Mobile interatrial septum with no evidence of atrial septal shunt by color Doppler. 5. Severe mitral annular calcification without mitral valve stenosis. Mild mitral valve regurgitation 6. Severe aortic valve stenosis. Possible bicuspid aortic valve. 7. Moderate tricuspid valve regurgitation 8. Moderate pulmonary hypertension, RVSP 64 mmHg 9. Large left pleural effusion 10. Small posterior pericardial effusion Dilan Reed MD, FACC (Electronically Signed) Final Date: 19 September 2025 13:09 Amended: 21 September 2025 18:38 C
[2025-09-18 19:36] LABS: Hematocrit 26.8 % (36-47); Hemoglobin 8.20 g/dL (11.27-16.99); Mean Corpuscular HGB Conc 30.6 g/dL (30-55); Mean Corpuscular Hemoglobin 30.9 pg (27-33); Mean Corpuscular Volume 101.1 fl (85-98); Nucleated Red Blood Cells % 0 %; Platelet Count 225 10^3/cmm (157-399); Red Blood Count 2.65 10^6/uL (3.85-5.65); White Blood Count 8.31 10^3/uL (3.29-11.43)
[2025-09-19] VITALS (17 sets, daily range): BP systolic 144–199; BP diastolic 64–80; PULSE 66–84; RESP 8–18; TEMP 36.5–36.8; O2SAT 90–98
[2025-09-19] MEDS: methylPREDNISolone sod succ 40 mg/mL INJ IVP ×2 (01:39→13:40)
--- NOTE | 2025-09-19 02:33 | PC.NURSE ---
at 223 Dr. Cabrera initiated the bipap on pt. RT, nurses and housefellow were present; at 228 pt took her mask off, stated she does not want it on, nurse explained the necessity of bipap, pt still wants it off. pt placed on 2L nasal cannula.
--- NOTE | 2025-09-19 02:37 | PC.RESP ---
022 Dr Gordon got patient to place BIPAP on. She has been taking the mask off all night. Pt took mask off at 022 before anyone left the room. Placed patient back on 2lpm nc. RT had exhausted Mask changes and pressure changes prior to contacting hospitalist.
--- NOTE | 2025-09-19 02:39 | P.MISC_ITS ---
Miscellaneous Note Purpose of Documentation: Reference to verbal order given to the head of the respiratory department by the primary attending physician, Dr. Carey, for the night hospitalist, Dr Cabrera to talk to any Dr Carey's patients that refuses to wear BIPAP to enforsed that he or she wears it. Note: I had come and saw the patient with the supervisor melt house, this respiratory and the patient primary nurse at the bedside. Patient finally allowed the respira tory to place the BiPAP on. Patient had the BiPAP max at 2:24 AM and patient removed it at 2:29 AM. The respiratory was notified and he he was going to notify Dr. Carey per Dr. Carey's order to the respiratory department. We have been here for over 50 minutes for over 4-minute time patient wearing a BiPAP
[2025-09-19 05:59] LABS: Alanine Aminotransferase 10 U/L (0-33); Albumin Level 2.9 g/dL (3.5-5.2); Alkaline Phosphatase 171 U/L (35-105); Anion Gap 13.7 (5-19); Aspartate Amino Transferase 19 U/L (0-32); Blood Urea Nitrogen 29 mg/dL (8-23); Calcium 8.7 mg/dL (8.5-10.5); Carbon Dioxide 32 mmol/L (22-29); Chloride 98 mmol/L (98-107); Creatinine Clr Calc Pharmacy 23.3708; Globulin 3.2 g/dL (1.3-4.6); Glucose 189 mg/dL (65-115); Osmolality Calculated 299 mOsm/kg (285-295); Potassium 4.7 mmol/L (3.5-5.1); Sodium 139 mmol/L (136-145); Total Protein 6.1 g/dL (6.6-8.7)
[2025-09-19] MEDS: hyDRALAzine 20 mg/mL INJ 1 mL 10 MG IVP (07:41)
--- NOTE | 2025-09-19 08:57 | PC.NURSE ---
Patient will not allow SCDs to be placed on legs. Patient is yelling out for Bao this am to com on let's go. This nurse reoriented patient to place. Patient could tell me name but not date of this am.
[2025-09-19] MEDS: FUROsemide 10 mg/mL SDV 2mL 20 MG IVP ×2 (09:49→15:14)
--- NOTE | 2025-09-19 09:53 | PC.SOCIAL ---
IMM Update pg 2 of IMM Updated and reviewed w/ patient. Copy provided and copy dated, initialed and placed in chart.
--- NOTE | 2025-09-19 14:27 | PM.PN ---
Subjective Subjective: 85-year-old female with pneumonia diagnosed on 09/15/2025 comes in with pneumonia and acute hypercarbic respiratory failure admitted to [facility]. Patient with leg edema and left pleural effusion. Patient had anemia requiring 1 unit of blood this 09/18/2025. Patient seemingly good understanding but has some word salad. Echo shows severe aortic stenosis Vitals/I&O/Wt Last Vital Signs Temp 98.0 F 09/19/25 12:35 Pulse 70 09/19/25 12:35 Resp 17 09/19/25 12:35 BP 177/73 09/19/25 12:35 Pulse Ox 94 09/19/25 12:35 O2 Del Method Nasal Cannula 09/19/25 12:35 O2 Flow Rate 2 09/19/25 11:14 FiO2 30 09/19/25 02:30 09/18/25 09/19/25 09/19/25 22:59 06:59 14:59 Intake Total 1470 / 2570 1120 / 1120 Output Total 950 / 950 200 / 1150 Balance 520 / 1620 -200 / 1420 1120 / 1120 Weight last 48 hrs Weight 66.253 kg Weight 64.949 kg Physical Exam Narrative: General Well-developed female normal body habitus CV regular rate and rhythm with loud 5/6 systolic ejection murmur best heard at the right upper sternal border and this radiates to the back Lungs diminished breath sounds and crackles in both bases Abdomen positive bowel tones soft nontender Calves 2+ edema of the legs with pruning of the skin consistent with previous additional swelling. There is venous stasis changes and shallow ulcerations Patient is a relatively good historian tells me she had a bypass in 1965 however when she talks she substitutes the wrong word frequently a sort of word salad. I do not recall this from previous 1 visit with her in August 05, 2025. From my visit on that day patient was reasonable historian but not completely oriented. She had altered mental status at the time of this admission and Urinary Catheter Management: Randle: Cath Placed During This Visit: yes Reason for Continuing Indwelling Catheter: Other Urinary Catheter Date of Insertion: 09/17/25 Urinary Catheter Time of Insertion: 00:02 Data 09/18/25 19:12 09/19/25 04:50 Micro: Microbiology 09/16/25 21:25 Urine Culture - Final Urine,Clean Catch Echo: Radiologist's impression: CONCLUSIONS 1. Normal left ventricular size and systolic function, EF 58%. 2. Normal right ventricular size and systolic function. 3. Pacemaker wire present in the right atrium and the right ventricle. 4. Mobile interatrial septum with no evidence of atrial septal shunt by color Doppler. 5. Severe mitral annular calcification without mitral valve stenosis. Mild mitral valve regurgitation 6. Severe aortic valve stenosis. Possible bicuspid aortic valve. 7. Moderate tricuspid valve regurgitation 8. Moderate pulmonary hypertension, RVSP 64 mmHg 9. Large left pleural effusion 10. Small posterior pericardial effusion A&P Assessment and plan 1. Severe calcific aortic stenosis: Patient comes in with altered mental status and having word salad. Placed a call to her son Marshall just now and waiting for a callback. If this is new with the findings of possible vegetation or clot on the aortic valve I think the patient should be considered for anticoagulation. I have asked Dr. Sumner to see the patient in consultation. She may need a SUZIE as suggested by Dr. Reed 2. Acute and chronic respiratory failure with hypercapnia: Continue BiPAP noninvasive support for hypercapnia. Wean O2 to keep sats at 88-91. This appears to be due to congestive heart 3. Pleural effusion on left: Patient with a loud aortic stenosis murmur. Will attempt gentle diuresis and monitor kidney function and. Patient also has left rib fractures. Patient has bilateral pleural effusion. Due to congestive heart failure from valvular disease continue with diuresis 4. Pneumonia: This is either resolved or she does not have pneumonia but rather just pleural effusion 5. Altered mental status: Looks like her failure of outpatient treatment was primarily CO2 retention and altered mental status based on that. Will de-escalate antibiotics and treat primarily her CO2 retention and with the Levaquin. Additionally prescribed for pneumonia Patient does have word salad I think that is may be acute on chronic dementia or stroke 6. S/P CABG x 3: In [place] around age 67 PDMP PDMP Reviewed: Not Reviewed Attestations Medical Necessity Statement*: Patient josette hospitalized for diuresis and evaluation by cardiology for possible SUZIE or anticoagulation for aortic valve clot Coding Level of Care Code 04622 Diagnoses Severe calcific aortic stenosis I35.0 Acute and chronic respiratory failure with hypercapnia J96.22 Pleural effusion on left J90 Pneumonia J18.9 Altered mental status R41.82 S/P CABG x 3 Z95.1 Time Spent (min) 40
--- NOTE | 2025-09-19 15:41 | P.CONIM_ITS ---
<Statement entered by Alley Sumner MD - 09/19/25 20:24> Patient was evaluated and cared for in conjunction with an advanced practice practitioner. I personally examined the patient and reviewed the chart and all pertinent data including imaging, telemetry, and laboratory results. I discussed the patient in detail with the advanced practice practitioner. Please see their note for complete H&P testing result and agreed upon plan of care for the patient. GENERAL: Patient is alert, awake and oriented x3. HEART: Regular S1 and S2. No murmur, rub or gallop. LUNGS: Clear to auscultate bilaterally. CENTRAL NERVOUS SYSTEM: Grossly nonfocal. EXTREMITIES: Lower extremities with out edema bilaterally. Assessment and plan Altered mental status Low pressure gradient severe aortic valve stenosis Vegetation/mass on aortic valve Plan for transesophageal echocardiogram to assess true aortic valve stenosis with mass that could be just calcification or vegetation or thrombus as less likely placed for thrombus however cannot rule out. Patient has been explained all risk-benefit and alternative for the procedure. Patient agrees to it. Providers/Reason For Consult 2 Consulting Physician/Specialty*: Dr Rm Sumner, interventional cardiology Reason for Consult*: Aortic valve thrombus versus vegetation Requesting Physician: Jerrell Carey MD Attending Physician: Jerrell Carey MD Primary Care Provider: Jayden Vásquez DO History of Present Illness History of Present Illness Kami Hemphill is a 85 year old female with past medical history of recent pneumonia treated on 09/15/2025 with Levaquin, cervical spine fracture and avulsion fracture of the proximal portion of left greater trochanter of the hip (pain control and partial weightbearing advised), right intertrochanteric fracture of the femur underwent ORIF 06/29/2025, history of CAD status post CABG x 3 almost 20 years ago with 8 subsequent stents, hyperlipidemia, type 2 diabetes, hypertension, pacemaker, JORDY. She presented to the emergency room 09/16/2025 with altered mental status, hypoxia. She was treated with BiPAP and antibiotic therapy was continued. She has had word salad for about a month since her hip fracture. She is being worked up for embolic strokes in the brain by hospitalist service. Echocardiogram obtained yesterday revealed LVEF 58%, moderate pulmonary hypertension (RVSP 64 mmHg), mild mitral regurgitation, small mobile structure on the ventricular side of the right coronary cusp of the aortic valve consistent with vegetation versus thrombus 1 cm x 3 cm. There is severe aortic calcification and restriction of leaflet motion, possible bicuspid aortic valve. Low gradients severe aortic stenosis (mean gradient 23 mmHg, GARRET 0.7 cm?, LVOT to AV velocity ratio 0.22). Left pleural effusion, small posterior pericardial effusion with no evidence of tamponade. Blood and urine cultures negative to date. CT of chest shows moderate left and small right pleural effusions. Multiple left-sided rib fractures. Possible infectious bronchiolitis right lower lobe. Consult was requested for possible SUZIE related to the vegetation versus thrombus on the aortic valve, severe calcific aortic stenosis. Review of Systems 2 Const: Reports: fatigue; Denies: fever(s), chills, change in weight or diaphoresis Eyes: Denies: change in vision ENMT: Denies: epistaxis Card: Reports: chest pain (sharp on the right under the breast, intermittent); Denies: palpitations, irregular heart rhythm, edema, syncope, pre-syncope, dyspnea on exertion, orthopnea or leg pain with exertion Resp: Reports: dyspnea; Denies: productive cough or wheezing GI: Denies: nausea, vomiting, hematemesis, hematochezia or melena : Denies: hematuria Musc: Denies: extremity swelling Sharif/Lymph: Denies: easy bruising or easy bleeding Medications/Allergies Home Medications ?Medication ?Instructions ?Recorded ?Confirmed ?Last Taken ?Type acetaminophen 500 mg tablet 1,000 mg PO BID 08/21/24 1 09/14/25 History albuterol sulfate 90 mcg/actuation 2 puff inhalation Q 6H PRN 08/21/24 09/17/25 08/04/25 18:00 History aerosol inhaler Shortness Of Breath carvedilol 6.25 mg tablet 6.25 mg PO BID 08/21/2408/2309/15/25 History clopidogrel 75 mg tablet 75 mg PO DAILY 08/21/2408/2309/14/25 History levothyroxine 100 mcg tablet 100 mcg PO DAILY 08/21/24 09/17/25 09/15/25 History nitroglycerin 0.4 mg sublingual 0.4 mg sublingual Q5M PRN Chest 08/21/24 09/17/25 Unknown History tablet (Nitrostat) Pain ropinirole 0.5 mg tablet 1 mg PO BEDTIME 08/21/2409/15/25 History allopurinol 100 mg tablet 100 mg PO DAILY 06/30/2509/15/25 History carboxymethyl 0.5 %-glycerin 1 1 drp ophthalmic (eye) QID PRN Dry 06/30/25 09/17/25 09/16/25 History %-polysorb 80 0.5 %-PF eye Eyes dropperette (Refresh Optive Advanced (PF)) emollient combination no.110 1 ea topical BID Dry Skin 06/30/25 09/17/25 09/15/25 History (Eucerin Intensive Repair lotion) lidocaine 5 % topical patch 1 patch transdermal Q12H 0 06/30/25 09/17/25 09/13/25 History losartan 25 mg tablet 25 mg PO DAILY 06/30/2508/2309/14/25 History sertraline 50 mg tablet (Zoloft) 50 mg PO BEDTIME 08/1609/17/25 09/15/25 History white petrolatum-mineral oil 57.3 1 applic ophthalmic (eye) BEDTIME 06/30/25 09/17/25 09/13/25 History %-42.5 % eye ointment (Refresh P.M.) oxycodone 5 mg tablet 5 mg PO BID PRN breakthrough pain 07/04/25 09/17/25 09/15/25 Rx #14 tabs oxycodone myristate 18 mg capsule 18 mg PO BID #14 ea 07/04/25 09/17/25 09/16/25 Rx sprinkle extended release 12hr(DON'T CRUSH) (Xtampza ER) quetiapine 50 mg tablet 50 mg PO BEDTIME 08/05/2509/15/25 History multivitamin-ferrous 1 tab PO DAILY #90 tabs 07/2309/17/25 09/14/25 Rx fumarate-folic acid 18 mg-400 mcg tablet (Centrum Complete) pantoprazole 40 mg tablet,delayed 40 mg PO DAILY 90 da ys #90 tabs 08/06/25 09/17/25 09/14/25 Rx release levofloxacin 500 mg tablet 500 mg PO DAILY 7 days #7 t abs 09/15/25 09/17/25 09/16/25 Rx bisacodyl 10 mg rectal suppository 10 mg OR DAILY PRN Constipation 09/17/25 09/17/25 Unknown History (Dulcolax (bisacodyl)) camphor 4 %-methyl salicylate 30 1 applic topical BID pain 09/17/25 09/17/25 09/15/25 History %-menthol 10 % topical cream (Pain Relieving Cream) furosemide 20 mg tablet (Lasix) 20 mg PO QAM 09/17/25 09/17/25 09/14/25 History gentian neha 1 % topical solution 1 applic topical D AILY 09/17/25 09/17/25 09/15/25 History magnesium hydroxide 400 mg/5 mL 30 ml PO DAILY PRN Con stipation 09/17/25 09/17/25 Unknown History oral suspension (Milk of Magnesia) menthol 4 % topical gel (Biofreeze 1 applic topical Q8 H PRN Pain 09/17/25 09/17/25 09/05/25 History (menthol)) ondansetron HCl 4 mg tablet 4 mg PO Q6H PRN Nausea And Vomiting 09/17/25 09/17/25 09/16/25 History potassium chloride 10 mEq 10 meq PO QPM 09/17/2509/17 Unknown History tablet,extended release sodium phosphates 19 gram-7 118 ml OR DAILY PRN Consti pation 09/17/25 09/17/25 Unknown History gram/118 mL enema (Fleet Enema) Allergies Allergy/AdvReac Type Severity Reaction Status Date / Time codeine Allergy Unknown Unknown Verified 08/21/25 10:49 doxycycline Allergy Unknown Unknown Verified 08/21/25 10:49 erythromycin base Allergy Unknown Unknown Verified 08/21/25 10:49 hydromorphone (From Dilaudid) Allergy Unknown Unknown Verified 08/21/25 10:49 Sulfa (Sulfonamide Allergy Unknown Unknown Verified 08/21/25 10:49 Antibiotics) Current Medications Generic Name Dose Route Start Last Admin Trade Name Freq PRN Reason Stop Dose Admin Albuterol/Ipratropium 3 ml 09/17/25 04:00 09/19/25 11:14 Ipratropium-Albuterol 3 Ml Neb INHALATION 3 ml Q4H.RESPIRATORY TIMOTHY Administration Docusate Sodium 100 mg 09/17/25 05:00 09/19/25 05:06 Docusate Sodium 100 Mg Capsule PO Not Given BID TIMOTHY Enoxaparin Sodium 40 mg 09/19/25 14:45 09/19/25 15:15 Enoxaparin 40 Mg/0.4 Ml Syringe SUBCUT 40 mg Q24H TIMOTHY Administration Levofloxacin 750 mg 09/17/25 14:00 09/19/25 15:14 Levofloxacin 750 Mg Tablet PO 750 mg Q48H TIMOTHY Administration Protocol Lorazepam 0.25 mg 09/17/25 10:24 09/19/25 04:47 Lorazepam 0.5 Mg Tablet PO 0.25 mg TID PRN Administration ANXIETY Magnesium Oxide 400 mg 09/18/25 17:00 09/19/25 05:05 Magnesium Oxide 400 Mg Tablet PO 400 mg BID TIMOTHY Administration Methylprednisolone Sodium Succinate 40 mg 09/17/25 01:00 09/19/25 13:40 Methylprednisolone Sod Succ 40 Mg/Ml Inj IVP 40 mg Q12H TIMOTHY Administration Morphine Sulfate 2 mg 09/17/25 00:35 09/18/25 03:00 Morphine 4 Mg/Ml Sdv 1 Ml IVP 2 mg Q4H PRN Administration SEVERE PAIN Pantoprazole Sodium 40 mg 09/17/25 05:00 09/19/25 05:[address] 40 Mg Tablet PO 40 mg DAILY TIMOTHY Administration Quetiapine Fumarate 50 mg 09/17/25 21:00 09/18/25 21:25 Quetiapine 25 Mg Tablet PO 50 mg BEDTIME TIMOTHY Administration Senna 17.2 mg 09/17/25 21:00 09/18/25 21:25 Sennosides 8.6 Mg Tablet PO Not Given BEDTIME TIMOTHY Sertraline HCl 50 mg 09/17/25 21:00 09/18/25 21:25 Sertraline 50 Mg Tablet PO 50 mg BEDTIME TIMOTHY Administration PFSH Acute 2 PFSH: Medical History Non-pressure chronic ulcer of left lower leg, limited to breakdown of skin Fusion of spine, 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 Chronic obstructive pulmonary disease, unspecified Fibromyalgia Mixed hyperlipidemia Chronic pain syndrome Personal history of diseases of the skin and subcutaneous tissue Personal history of urinary (tract) infections Personal history of other diseases of the digestive system Unspecified dementia, unspecified severity, without behavioral disturbance, psychotic disturbance, mood disturbance, and anxiety Unsteadiness on feet Presence of cardiac pacemaker Overactive bladder Hypothyroidism, unspecified Hyperlipidemia, unspecified History of falling Gout, unspecified Gastro-esophageal reflux disease without esophagitis Essential (primary) hypertension Surgical History 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 Social History Smoking and tobacco/nicotine status: unknown if used tobacco/nicotine Housing: Mcc Vitals/I&O/Wt Last Vital Signs Temp 98.0 F 09/19/25 12:35 Pulse 70 09/19/25 12:35 Resp 17 09/19/25 12:35 BP 177/73 09/19/25 12:35 Pulse Ox 94 09/19/25 12:35 O2 Del Method Nasal Cannula 09/19/25 12:35 O2 Flow Rate 2 09/19/25 11:14 FiO2 30 09/19/25 02:30 09/19/25 09/19/25 09/19/25 06:59 14:59 22:59 Intake Total 1120 / 1120 Output Total 200 / 1150 Balance -200 / 1420 1120 / 1120 Weight last 48 hrs Weight 146 lb 1 oz Weight 143 lb 3 oz Physical Exam 2 Const: COMMON NORMALS: no acute distress and patient oriented x3 GENERAL APPEARANCE: cooperative and comfortable ORIENTATION/CONSCIOUSNESS: Yes awake, Yes oriented to person, Yes oriented to place and Yes oriented to time Chest: COMMONS NORMALS: normal inspection of the chest and normal palpation of entire chest wall CHEST: Yes Symmetrical chest wall rise Resp: COMMON NORMALS: normal respiratory effort, No retractions and No use of accessory muscles EFFORT & INSPECTION: Yes symmetric chest movement A USCULTATION: diminished lung sounds Cardio: COMMON NORMALS: regular rate, regular rhythm, S2 normal heart sound present, No gallops present (Cardio), No clicks present (Cardio) and No rub (Cardio) RATE: regular rate RHYTHM: regular rhythm HEART SOUNDS: S2 normal heart sound present and Murmur heart sound present systolic Location: left sternal border and right sternal border Intensity: IV/ PERIPHERAL PULSES: radial pulses present Extremity: COMMON NORMALS: no pedal edema Neuro: COMMON NORMALS: patient oriented x3 and moves all extremities S ENSORIUM/ORIENTATION: Yes oriented to person, Yes oriented to place and Yes oriented to time Urinary Catheter Management: Randle: Cath Placed During This Visit: yes Reason for Continuing Indwelling Catheter: Other Urinary Catheter Date of Insertion: 09/17/25 Urinary Catheter Time of Insertion: 00:02 Data 09/18/25 19:12 09/19/25 04:50 Micro: Microbiology 09/16/25 21:25 Urine Culture - Final Urine,Clean Catch A&P Assessment and plan 1. Chronic kidney disease (CKD), stage 3: 2. Presence of cardiac pacemaker: 3. S/P CABG x 3: 4. Severe calcific aortic stenosis: 5. Diabetes mellitus with skin ulcer: 6. Anemia: 7. Altered mental status: 8. Pneumonia: 9. Pleural effusion on left: 10. Acute hypoxic on chronic hypercapnic respiratory failure: Plan: Discussed SUZIE with the patient for further evaulation of the aortic valve. She will discuss further with Dr Sumner later this evening, however she is in agreement to proceed. May discuss also with her son Marshall in regards to plan and consent given the altered mental status, although she appears lucid currently. PDMP PDMP Reviewed: Not Reviewed Coding Level of Care Code Acute Code for [facility] Fwd Diagnoses Chronic kidney disease (CKD), stage 3 N18.30 Presence of cardiac pacemaker Z95.0 S/P CABG x 3 Z95.1 Severe calcific aortic stenosis I35.0 Diabetes mellitus with skin ulcer E11.622; L98.499 Anemia D64.9 Altered mental status R41.82 Pneumonia J18.9 Pleural effusion on left J90 Acute hypoxic on chronic hypercapnic respiratory failure J96.01; J96.12
[2025-09-19] MEDS: ondansetron 2 mg/ML SDV 2 mL 4 MG IVP (18:35)
[2025-09-20] VITALS (11 sets, daily range): BP systolic 126–192; BP diastolic 54–83; PULSE 67–92; RESP 16–18; TEMP 36.8–37.4; O2SAT 91–98
[2025-09-20] MEDS: methylPREDNISolone sod succ 40 mg/mL INJ IVP ×2 (00:24→13:32)
[2025-09-20 05:39] LABS: Alanine Aminotransferase 8 U/L (0-33); Albumin Level 2.5 g/dL (3.5-5.2); Alkaline Phosphatase 137 U/L (35-105); Anion Gap 7.3 (5-19); Aspartate Amino Transferase 12 U/L (0-32); Blood Urea Nitrogen 25 mg/dL (8-23); Calcium 8.1 mg/dL (8.5-10.5); Carbon Dioxide 37 mmol/L (22-29); Chloride 101 mmol/L (98-107); Creatinine Clr Calc Pharmacy 26.7040; Globulin 2.5 g/dL (1.3-4.6); Glucose 205 mg/dL (65-115); Osmolality Calculated 302 mOsm/kg (285-295); Potassium 4.3 mmol/L (3.5-5.1); Sodium 141 mmol/L (136-145); Total Protein 5.0 g/dL (6.6-8.7)
--- NOTE | 2025-09-20 13:15 | PM.PN ---
Subjective Subjective: 85-year-old female with pneumonia diagnosed on 09/15/2025 comes in with pneumonia and acute hypercarbic respiratory failure admitted to [facility]. Patient with leg edema and left pleural effusion. Patient had anemia requiring 1 unit of blood this 09/18/2025. Patient seemingly good understanding but has some word salad. Echo shows severe aortic stenosis I spoke with the patient's son and word salad is new within the last 1 month. Patient had calcified aortic valve but cannot exclude clot or vegetation. SUZIE planned for today with Dr. Sumner. I had ordered an MRI of the brain but she cannot have that done because we do not do MRIs with pacemakers here and in fact I am not sure her pacemaker MRI compatible. Vitals/I&O/Wt Last Vital Signs Temp 99.3 F 09/20/25 11:10 Pulse 67 09/20/25 11:13 Resp 18 09/20/25 11:13 BP 162/76 09/20/25 11:10 Pulse Ox 95 09/20/25 11:13 O2 Del Method Nasal Cannula 09/20/25 11:13 O2 Flow Rate 2 09/20/25 11:13 FiO2 30 09/19/25 02:30 09/19/25 09/20/25 09/20/25 22:59 06:59 14:59 Intake Total 240 / 1360 240 / 240 Output Total 650 / 650 150 / 800 Balance -410 / 710 -150 / 560 240 / 240 Weight last 48 hrs Weight 66.224 kg Weight 66.253 kg Physical Exam Narrative: General Well-developed female normal body habitus CV regular rate and rhythm with loud 5/6 systolic ejection murmur best heard at the right upper sternal border and this radiates to the back Lungs diminished breath sounds and crackles in both bases Abdomen positive bowel tones soft nontender Calves 2+ edema of the legs with pruning of the skin consistent with previous additional swelling. There is venous stasis changes and shallow ulcerations Urinary Catheter Management: Randle: Cath Placed During This Visit: yes Reason for Continuing Indwelling Catheter: Other Urinary Catheter Date of Insertion: 09/17/25 Urinary Catheter Time of Insertion: 00:02 Data 09/18/25 19:12 09/20/25 04:38 Micro: Microbiology 09/16/25 21:25 Urine Culture - Final Urine,Clean Catch A&P Assessment and plan 1. Severe calcific aortic stenosis: Patient comes in with altered mental status and having word salad. Spoke with patient's son and word salad is new per his observation as well. CT scan showed periventricular white matter disease but not signs of embolic stroke. MRI not able to be done due to pacemaker. I am going to continue DVT prophylaxis with Lovenox and resume Plavix 75 mg daily. Continue pantoprazole for GI prophylaxis 2. Acute and chronic respiratory failure with hypercapnia: Continue BiPAP noninvasive support for hypercapnia. Wean O2 to keep sats at 88-91. This appears to be due to congestive heart failure due to valvular disease. Continue with diuresis furosemide 20 mg daily and potassium chloride 10 mEq 3. Pleural effusion on left: Patient with a loud aortic stenosis murmur. Will attempt gentle diuresis and monitor kidney function and. Patient also has left rib fractures. Patient has bilateral pleural effusion. Due to congestive heart failure from valvular disease continue with diuresis 4. Pneumonia: This is either resolved or she does not have pneumonia but rather just pleural effusion 5. Altered mental status: Looks like her failure of outpatient treatment was primarily CO2 retention and altered mental status based on that. Will de-escalate antibiotics and treat primarily her CO2 retention and with the Levaquin. Additionally prescribed for pneumonia Patient does have word salad I think that is may be acute on chronic dementia or stroke 6. S/P CABG x 3: In [place] around age 67. After that she had 6-8 stents. From what her son tells me it was 2 stent the bypasses PDMP PDMP Reviewed: Not Reviewed Attestations Medical Necessity Statement*: Patient josette hospitalized for physical therapy, SUZIE and diuresis and will require additional 1-2 midnights Coding Level of Care Code Acute Code for g Fwd Diagnoses Severe calcific aortic stenosis I35.0 Acute and chronic respiratory failure with hypercapnia J96.22 Pleural effusion on left J90 Pneumonia J18.9 Altered mental status R41.82 S/P CABG x 3 Z95.1 Time Spent (min) 35
[2025-09-20] MEDS: FUROsemide 10 mg/mL SDV 2mL 20 MG IVP (13:46)
--- NOTE | 2025-09-20 16:20 | P.PN_ITS ---
<Statement entered by Alley Sumner MD - 09/24/25 19:42> Patient was evaluated and cared for in conjunction with an advanced practice practitioner. I personally examined the patient and reviewed the chart and all pertinent data including imaging, telemetry, and laboratory results. I discussed the patient in detail with the advanced practice practitioner. Please see their note for complete H&P testing result and agreed upon plan of care for the patient Subjective 2 Subjective: No events overnight. She is upset that she cannot get out of bed however seems to be unsteady sitting on the side of the bed during work with physical therapy today. Feels nauseous currently. SUZIE planned for tomorrow. Vitals/I&O/Wt Last Vital Signs Temp 98.6 F 09/20/25 15:45 Pulse 76 09/20/25 15:45 Resp 17 09/20/25 15:45 BP 186/79 09/20/25 15:45 Pulse Ox 97 09/20/25 15:45 O2 Del Method Nasal Cannula 09/20/25 11:13 O2 Flow Rate 2 09/20/25 11:13 FiO2 30 09/19/25 02:30 09/20/25 09/20/25 09/20/25 06:59 14:59 22:59 Intake Total 240 / 240 Output Total 150 / 800 Balance -150 / 560 240 / 240 Weight last 48 hrs Weight 146 lb Weight 146 lb 1 oz Physical Exam 2 Const: COMMON NORMALS: no acute distress and patient oriented x3 GENERAL APPEARANCE: cooperative and comfortable ORIENTATION/CONSCIOUSNESS: Yes awake, Yes oriented to person, Yes oriented to place and Yes oriented to time Chest: COMMONS NORMALS: normal inspection of the chest and normal palpation of entire chest wall CHEST: Yes Symmetrical chest wall rise Resp: COMMON NORMALS: normal respiratory effort, No retractions, No use of accessory muscles and clear to auscultation bilaterally EFFORT & INSPECTION: Yes symmetric chest movement AUSCULTATION: clear to auscultation bilaterally Cardio: COMMON NORMALS: regular rate, regular rhythm, S2 normal heart sound present, No gallops present (Cardio), No clicks present (Cardio) and No rub (Cardio) RATE: regular rate RHYTHM: regular rhythm HEART SOUNDS: S2 normal heart sound present and Murmur heart sound present systolic Intensity: IV/ PERIPHERAL PULSES: radial pulses present Extremity: COMMON NORMALS: no pedal edema Neuro: COMMON NORMALS: patient oriented x3 and moves all extremities S ENSORIUM/ORIENTATION: Yes oriented to person, Yes oriented to place and Yes oriented to time Urinary Catheter Management: Randle: Cath Placed During This Visit: yes Reason for Continuing Indwelling Catheter: Other Urinary Catheter Date of Insertion: 09/17/25 Urinary Catheter Time of Insertion: 00:02 Data 09/18/25 19:12 09/20/25 04:38 A&P Assessment and plan 1. S/P CABG x 3: 2. Presence of cardiac pacemaker: 3. Acute on chronic diastolic CHF (congestive heart failure): 4. Severe calcific aortic stenosis: 5. Diabetes mellitus with skin ulcer: 6. Chronic kidney disease (CKD), stage 3: Plan: N.p.o. after midnight tonight for SUZIE tomorrow. Appears euvolemic. PDMP PDMP Reviewed: Not Reviewed Attestations 2 Medical Necessity Statement*: Workup of mass on aortic valve Coding Level of Care Code Acute Code for Chg Fwd Diagnoses S/P CABG x 3 Z95.1 Presence of cardiac pacemaker Z95.0 Acute on chronic diastolic CHF (congestive heart failure) I50.33 Severe calcific aortic stenosis I35.0 Diabetes mellitus with skin ulcer E11.622; L98.499 Chronic kidney disease (CKD), stage 3 N18.30
[2025-09-20] MEDS: ondansetron 2 mg/ML SDV 2 mL 4 MG IVP (16:41)
[2025-09-20 20:06] LABS: C.Diff PCR (Lab) POSITIVE (Negative); Clostridioides Difficile Toxin NEGATIVE (Negative)
[2025-09-20] MEDS: metroNIDAZOLE IV 500 MG/100 ML PREMIX 100 MG IV (22:48)
[2025-09-21] VITALS (14 sets, daily range): BP systolic 155–218; BP diastolic 67–97; PULSE 66–97; RESP 15–22; TEMP 36.3–36.7; O2SAT 91–99
[2025-09-21] MEDS: methylPREDNISolone sod succ 40 mg/mL INJ IVP (01:26)
[2025-09-21] MEDS: lactobacillus 1 Tablet 1 TAB PO ×2 (05:08→17:10)
[2025-09-21] MEDS: FUROsemide 10 mg/mL SDV 2mL 20 MG IVP ×2 (05:08→17:10)
[2025-09-21] MEDS: metroNIDAZOLE IV 500 MG/100 ML PREMIX 100 MG IV (05:09)
[2025-09-21 05:48] LABS: Anion Gap 9.9 (5-19); Blood Urea Nitrogen 22 mg/dL (8-23); Calcium 8.2 mg/dL (8.5-10.5); Carbon Dioxide 37 mmol/L (22-29); Chloride 99 mmol/L (98-107); Creatinine Clr Calc Pharmacy 33.6926; Glucose 295 mg/dL (65-115); Magnesium 1.5 mg/dL (1.7-2.3); Osmolality Calculated 308 mOsm/kg (285-295); Potassium 3.9 mmol/L (3.5-5.1); Sodium 142 mmol/L (136-145)
[2025-09-21] MEDS: hyDRALAzine 20 mg/mL INJ 1 mL 10 MG IVP ×2 (08:04→22:30)
--- NOTE | 2025-09-21 10:07 | ANES.PREANE2 ---
Pre-Anesthetic Assessment Height/Weight: Height 1.57 m Weight 65 kg Temp Pulse Resp BP Pulse Ox O2 Del Method O2 Flow Rate 97.5 F L 97 16 218/80 96 Nasal Cannula 3 09/21/25 07:49 09/21/25 08:00 09/21/25 08:00 09/21/25 07:49 09/21/25 08:00 09/21/25 08:00 09/21/25 08:00 FiO2 30 09/19/25 02:30 Operation Date: 09/21/25 09:30 Proposed Procedures p SUZIE(Not Applicable) - Alley Sumner MD Familial anesthetic complications: NOne Was Beta Sam taken within 24 hours: N/A Was Clonidine taken within 24 hours: N/A Last intake: Intake Last Liquid Date 09/20/25 Last Liquid Time 07:00 Last Solid Date 09/20/25 Last Solid Time 07:00 Social No alcohol and No tobacco Exam alert and regular rate & rhythm CV/HEM Hypertension CABG, multiple stents, Severe Chronic Renal Insufficiency GI Gastroesophageal Reflux Disease Metabolic Diabetes Mellitus and Thyroid Disease Neuropsych Dementia Anesthetic Plan ASA status: 4 Anesthesia: MAC Risk of > 500 ml blood loss (7ml/kg in children): No Medications/Allergies Home Medications ?Medication ?Instructions ?Recorded ?Confirmed ?Last Taken ?Type acetaminophen 500 mg tablet 1,000 mg PO BID 08/21/24 09/17/25 09/14/25 History albuterol sulfate 90 mcg/actuation 2 puff inhalation Q6H PRN 08/21/24 09/17/25 08/04/25 18:00 History aerosol inhaler Shortness Of Breath carvedilol 6.25 mg tablet 6.25 mg PO BID 08/21/24 09/17/25 09/15/25 History clopidogrel 75 mg tablet 75 mg PO DAILY 08/21/24 09/17/25 09/14/25 History levothyroxine 100 mcg tablet 100 mcg PO DAILY 08/21/24 09/17/25 09/15/25 History nitroglycerin 0.4 mg sublingual 0.4 mg sublingual Q5M PRN Chest 08/21/24 09/17/25 Unknown History tablet (Nitrostat) Pain ropinirole 0.5 mg tablet 1 mg PO BEDTIME 08/21/24 09/17/25 09/15/25 History allopurinol 100 mg tablet 100 mg PO DAILY 06/30/25 09/17/25 09/15/25 History carboxymethyl 0.5 %-glycerin 1 1 drp ophthalmic (eye) QID PRN Dry 06/30/25 09/17/25 09/16/25 History %-polysorb 80 0.5 %-PF eye Eyes dropperette (Refresh Optive Advanced (PF)) emollient combination no.110 1 ea topical BID Dry Skin 06/30/25 09/17/25 09/15/25 History (Eucerin Intensive Repair lotion) lidocaine 5 % topical patch 1 patch transdermal Q12H 06/30/25 09/17/25 09/13/25 History losartan 25 mg tablet 25 mg PO DAILY 06/30/25 09/17/25 09/14/25 History sertraline 50 mg tablet (Zoloft) 50 mg PO BEDTIME 06/30/25 09/17/25 09/15/25 History white petrolatum-mineral oil 57.3 1 applic ophthalmic (eye) BEDTIME 06/30/25 09/17/25 09/13/25 History %-42.5 % eye ointment (Refresh P.M.) oxycodone 5 mg tablet 5 mg PO BID PRN breakthrough pain 07/04/25 09/17/25 09/15/25 Rx #14 tabs oxycodone myristate 18 mg capsule 18 mg PO BID #14 ea 07/04/25 09/17/25 09/16/25 Rx sprinkle extended release 12hr(DON'T CRUSH) (Xtampza ER) quetiapine 50 mg tablet 50 mg PO BEDTIME 08/05/25 09/17/25 09/15/25 History multivitamin-ferrous 1 tab PO DAILY #90 tabs 08/06/25 09/17/25 09/14/25 Rx fumarate-folic acid 18 mg-400 mcg tablet (Centrum Complete) pantoprazole 40 mg tablet,delayed 40 mg PO DAILY 90 days #90 tabs 08/06/25 09/17/25 09/14/25 Rx release levofloxacin 500 mg tablet 500 mg PO DAILY 7 days #7 tabs 09/15/25 09/17/25 09/16/25 Rx bisacodyl 10 mg rectal suppository 10 mg FL DAILY PRN Constipation 09/17/25 09/17/25 Unknown History (Dulcolax (bisacodyl)) camphor 4 %-methyl salicylate 30 1 applic topical BID pain 09/17/25 09/17/25 09/15/25 History %-menthol 10 % topical cream (Pain Relieving Cream) furosemide 20 mg tablet (Lasix) 20 mg PO QAM 09/17/25 09/17/25 09/14/25 History gentian neha 1 % topical solution 1 applic topical DAILY 09/17/25 09/17/25 09/15/25 History magnesium hydroxide 400 mg/5 mL 30 ml PO DAILY PRN Constipation 09/17/25 09/17/25 Unknown History oral suspension (Milk of Magnesia) menthol 4 % topical gel (Biofreeze 1 applic topical Q8H PRN Pain 09/17/25 09/17/25 09/05/25 History (menthol)) ondansetron HCl 4 mg tablet 4 mg PO Q6H PRN Nausea And Vomiting 09/17/25 09/17/25 09/16/25 History potassium chloride 10 mEq 10 meq PO QPM 09/17/25 09/17/25 Unknown History tablet,extended release sodium phosphates 19 gram-7 118 ml FL DAILY PRN Constipation 09/17/25 09/17/25 Unknown History gram/118 mL enema (Fleet Enema) Allergies Allergy/AdvReac Type Severity Reaction Status Date / Time codeine Allergy Unknown Unknown Verified 08/21/25 10:49 doxycycline Allergy Unknown Unknown Verified 08/21/25 10:49 erythromycin base Allergy Unknown Unknown Verified 08/21/25 10:49 hydromorphone (From Dilaudid) Allergy Unknown Unknown Verified 08/21/25 10:49 Sulfa (Sulfonamide Allergy Unknown Unknown Verified 08/21/25 10:49 Antibiotics) Current Medications Generic Name Dose Route Start Last Admin Trade Name Freq PRN Reason Stop Dose Admin Acetaminophen 650 mg 09/17/25 00:35 09/21/25 08:24 Acetaminophen 325 Mg Tablet PO 650 mg On Hold: 09/21/25 09:59 Q6H PRN Administration Comment: Order held by Process Mild/Mod Pain Or Temp >/= 101 Transfer Albuterol/Ipratropium 3 ml 09/17/25 04:00 09/21/25 08:12 Ipratropium-Albuterol 3 Ml Neb INHALATION 3 ml On Hold: 09/21/25 09:59 Q4H.RESPIRATORY TIMOTHY Administration Comment: Order held by Process Transfer Clopidogrel Bisulfate 75 mg 09/20/25 13:20 09/21/25 05:08 Clopidogrel 75 Mg Tablet PO 75 mg On Hold: 09/21/25 09:59 DAILY TIMOTHY Administration Comment: Order held by Process Transfer Docusate Sodium 100 mg 09/17/25 05:00 09/21/25 05:09 Docusate Sodium 100 Mg Capsule PO Not Given On Hold: 09/21/25 09:59 BID TIMOTHY Comment: Order held by Process Transfer Enoxaparin Sodium 30 mg 09/20/25 14:00 09/20/25 13:33 Enoxaparin 30 Mg/0.3 Ml Syringe SUBCUT 30 mg On Hold: 09/21/25 09:59 Q24H TIMOTHY Administration Comment: Order held by Process Transfer Furosemide 20 mg 09/20/25 13:30 09/21/25 05:08 Furosemide 10 Mg/Ml Sdv 2ml IVP 20 mg On Hold: 09/21/25 09:59 BID TIMOTHY Administration Comment: Order held by Process Transfer Lactobacillus Acidophilus 1 tab 09/21/25 05:00 09/21/25 05:08 Lactobacillus 1 Tablet PO 1 tab On Hold: 09/21/25 09:59 BID TIMOTHY Administration Comment: Order held by Process Transfer Levofloxacin 750 mg 09/17/25 14:00 09/19/25 15:14 Levofloxacin 750 Mg Tablet PO 750 mg On Hold: 09/21/25 09:59 Q48H TIMOTHY Administration Comment: Order held by Process Protocol Transfer Lorazepam 0.25 mg 09/17/25 10:24 09/21/25 08:39 Lorazepam 0.5 Mg Tablet PO 0.25 mg On Hold: 09/21/25 09:59 TID PRN Administration Comment: Order held by Process ANXIETY Transfer Magnesium Oxide 400 mg 09/18/25 17:00 09/21/25 05:08 Magnesium Oxide 400 Mg Tablet PO 400 mg On Hold: 09/21/25 09:59 BID TIMOTHY Administration Comment: Order held by Process Transfer Ondansetron HCl 4 mg 09/17/25 00:35 09/20/25 16:41 Ondansetron 2 Mg/Ml Sdv 2 Ml IVP 4 mg On Hold: 09/21/25 09:59 Q8H PRN Administration Comment: Order held by Process vomiting, or N/V if npo Transfer Pantoprazole Sodium 40 mg 09/17/25 05:00 09/21/25 05:[address] 40 Mg Tablet PO 40 mg On Hold: 09/21/25 09:59 DAILY TIMOTHY Administration Comment: Order held by Process Transfer Potassium Chloride 10 meq 09/20/25 17:00 09/21/25 05:08 Potassium Chloride Er 10 Meq Tablet PO 10 meq On Hold: 09/21/25 09:59 BID TIMOTHY Administration Comment: Order held by Process Transfer Quetiapine Fumarate 50 mg 09/17/25 21:00 09/20/25 22:47 Quetiapine 25 Mg Tablet PO 50 mg On Hold: 09/21/25 09:59 BEDTIME TIMOTHY Administration Comment: Order held by Process Transfer Ropinirole HCl 1 mg 09/19/25 21:00 09/20/25 22:47 Ropinirole 1 Mg Tablet PO 1 mg On Hold: 09/21/25 09:59 BEDTIME TIMOTHY Administration Comment: Order held by Process Transfer Senna 17.2 mg 09/17/25 21:00 09/20/25 22:48 Sennosides 8.6 Mg Tablet PO Not Given On Hold: 09/21/25 09:59 BEDTIME TIMOTHY Comment: Order held by Process Transfer Sertraline HCl 50 mg 09/17/25 21:00 09/20/25 22:47 Sertraline 50 Mg Tablet PO 50 mg On Hold: 09/21/25 09:59 BEDTIME TIMOTHY Administration Comment: Order held by Process Transfer Vancomycin HCl 125 mg 09/20/25 23:00 09/21/25 05:08 Vancomycin 125 Mg Capsule PO 125 mg On Hold: 09/21/25 09:59 QID TIMOTHY Administration Comment: Order held by Process Transfer PFS Anesthesia Medical History Non-pressure chronic ulcer of left lower leg, limited to breakdown of skin Fusion of spine, 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 Chronic obstructive pulmonary disease, unspecified Fibromyalgia Mixed hyperlipidemia Chronic pain syndrome Personal history of diseases of the skin and subcutaneous tissue Personal history of urinary (tract) infections Personal history of other diseases of the digestive system Unspecified dementia, unspecified severity, without behavioral disturbance, psychotic disturbance, mood disturbance, and anxiety Unsteadiness on feet Presence of cardiac pacemaker Overactive bladder Hypothyroidism, unspecified Hyperlipidemia, unspecified History of falling Gout, unspecified Gastro-esophageal reflux disease without esophagitis Essential (primary) hypertension Surgical History 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 Social History Smoking and tobacco/nicotine status: unknown if used tobacco/nicotine Housing: [facility] Data Anesthesia 09/18/25 19:12 09/21/25 04:45 BMP 09/20/25 09/21/25 04:38 04:45 Sodium 141 142 Potassium 4.3 3.9 Chloride 101 99 Carbon Dioxide 37 H 37 H BUN 25 H 22 Creatinine 1.4 H 1.1 H Glucose 205 H 295 H Calcium 8.1 L 8.2 L Liver Function 09/20/25 Range/Units 04:38 Total Bilirubin 0.2 (0.15-1.2) mg/dL AST 12 (0-32) U/L ALT 8 (0-33) U/L Alkaline Phosphatase 137 H (35-105) U/L Albumin 2.5 L (3.5-5.2) g/dL Coags 09/19/25 09/19/25 09/19/25 16:01 16:17 17:11 ESR 2 D-Dimer 2.55 H C-Reactive Protein 3.0 Cardiac Studies: Echocardiogram 09/18/25
--- NOTE | 2025-09-21 10:13 | PC.SOCIAL ---
IMM Update pg 2 of IMM Updated and reviewed w/ patients son. Copy provided and copy dated, initialed and placed in chart.
--- NOTE | 2025-09-21 11:03 | PC.NURSE ---
Patient brought down to PACU bay 4 to prepare for SUZIE at 0945. Patient very anxious, fearful, and making statements that she just want(s) to go home . Determined by Dr. Frazier and Dr. Sumner that she is unable to sign her own consent. This RN attempted to contact the next of kin for consent with no answer. A message was left. With no contact able to be made with the next of kin Dr. Sumner and Dr. Frazier agreed to cancel the procedure. Patient was transported back to floor 253(2). Report given to Deirdre ORANTES
[2025-09-21] MEDS: LOSARTAN 25 MG TABLET PO (14:46)
--- NOTE | 2025-09-21 15:51 | P.DS_ITS ---
Discharge Providers Date of Admission: 09/16/25 22:23 Date of Discharge: September 21, 2025 Attending Provider at Admission: Audrey Cabrera MD Attending Provider at Discharge: Jerrell Carey MD Consults: Alley Sumner MD cardiology Primary Care Provider: Jayden Vásquez DO Diagnoses at Discharge Discharge Diagnosis 1. S/P CABG x 3: Details from hospital stay: Continue with Plavix 75 mg daily. Monitor for blood loss anemia 2. Presence of cardiac pacemaker: Details from hospital stay: This prevented MRI from being done. I was suspicious for possible embolic stroke but without confirmation of this I do not think it is in her best interest to put her on anticoagulation 3. Acute on chronic diastolic CHF (congestive heart failure): Details from hospital stay: Patient was diuresed and much improved 4. Severe calcific aortic stenosis: Details from hospital stay: Diuresed and much improved. There is question of aortic valve clot. Vegetation seems less likely with no fever or white count. I considered putting her on empiric anticoagulation but she has required blood transfusions twice in the last 3 months 5. Diabetes mellitus with skin ulcer: Details from hospital stay: This was primarily venous stasis ulcers start JOLIE hose and elevate both lower extremity 6. Chronic kidney disease (CKD), stage 3: Details from hospital stay: Improved with diuresis 7. Altered mental status: Details from hospital stay: Patient has intermittent episodes of word finding difficulty or word salad. This has not been present for last 2 days seems to have improved with diuresis. I considered the diagnosis of embolic CVA. She has thickened aortic valve but in speaking with Dr. Sumner this is not a likely place to have a clot. She has an elevated D-dimer. I considered anticoagulating her empirically but she is required blood transfusion twice in the last 3 months. SUZIE could not be completed. Patient does not want to stay longer for admission. Follow-up outpatient with Dr. Sumner MRI of the brain to look for possible embolic CVA could not be done because she has a pacemaker and I am not sure it is pacer compatible and regardless we do not do MRIs on pacemaker patients here at this facility Reason for Visit Reason for Visit: ams Brief History: Kami Hemphill is a 85 year old female who was recently diagnosed with pneumonia and was in the emergency room the night before. [facility] with [facility]. Today patient Graeme presented from her [facility] for worsening condition. She was with change in mental status and was hypoxic hypercapnic respiratory failure and had 2 L of oxygen and it was increased to 3 L patient requiring BiPAP daily at bedtime. The emergency room evaluated patient patient was noted to be hypoxemic and acidotic pH was 7.3 with a pCO2 of 50. I was called to evaluate patient for admission emergency room had given ceftriaxone and Zosyn. Patient need gram- positive coverage initiated and continued patient on Zyvox 600 mg twice daily and cefepime 1 g Q8. Patient does have with the chest x-ray significant pleural effusion. Creatinine had bumped to a 1.6 on presentation this might be a parapneumonic pleural effusion and 1 can also tap this pleural effusion that trying to diurese in the setting of acute renal failure in if 85 years old. Emergency room had given 80 mg of IV Lasix. I did not continue with IV Lasix. I will rather treat the pneumonia if anything 1 can tap this pleural effusion or follow through with imaging for interval change. Hospital Course Hospital Course 85-year-old female with pneumonia diagnosed on 09/15/2025 comes in with pneumonia and acute hypercarbic respiratory failure admitted to BiPAP. This morning she is anxious and wants to be discharged. She has a word finding difficulty that she uses wrong words at times. I questioned her regarding this and she is wanting to go home today does not want to stay in the hospital here. I counseled her that she needs 1 more day. I also asked her about CODE STATUS and she wants full code is not ready to . With fluid her pleural effusions worsened as did her shortness of breath and it was apparent with her loud aortic stenosis murmur and mitral valve calcification and moderate pulmonary hypertension that she was volume overloaded. With diuresis her kidney function improved as did her breathing. I do not think that she has persistent pneumonia but rather she had volume overload and hypercapnic respiratory failure Patient was consented verbally for SUZIE as was her son Marshall by me. She was also consented by cardiology but ultimately no consent was signed. When she went for SUZIE this morning there was no sign consent so the procedure could not be done as the patient was deemed confused. This afternoon the patient insist on going back to [facility] Furosemide is increased to 20 mg twice a day from once a day and potassium chloride to 10 mill colons twice a day from once a day Physical Exam Narrative: General Well-developed female normal body habitus CV regular rate and rhythm with loud 5/6 systolic ejection murmur best heard at the right upper sternal border and this radiates to the back Lungs diminished breath sounds left base and trace basilar crackles Abdomen positive bowel tones soft nontender Calves 1 edema of the legs with pruning of the skin consistent with previous additional swelling. There is venous stasis changes and shallow ulcerations. Swelling is much decreased Urinary Catheter Management: Randle: Cath Placed During This Visit: yes Reason for Continuing Indwelling Catheter: Other Urinary Catheter Date of Insertion: 09/17/25 Urinary Catheter Time of Insertion: 00:02 Discharge Data Studies Completed and Pending Completed Studies During Hospitalization Category Date Time Status CT chest wo con [id number] Routine Cat Scan 09/18/25 19:03 Completed XR chest 1V portable [id number] Stat Exams 09/16/25 20:26 Completed XR chest 2V* [id number] Routine Exams 09/18/25 09:06 Completed CV. echo complete* [id number] Routine Ultrasound 09/18/25 19:03 Completed Pending at discharge Category Date Time Status Blood Culture Stat Lab 09/16/25 21:00 Results Radiology Impressions Chest X-Ray 09/18/25 09:06 IMPRESSION: 1. Atelectasis and consolidation in the LEFT lower lobe and LEFT basal pleural effusion unchanged. 2. Acute fractures of the LEFT sixth and seventh ribs. There may also be a healing fracture of the lateral LEFT eighth rib. No pneumothorax. Chest CT 09/18/25 19:03 IMPRESSION: 1. Mildly displaced acute appearing left 9th through 11th rib fractures. 2. Incompletely healed nonacute left 6th through 8th rib fractures. 3. Moderate left and small right pleural effusions. 4. Mild tree-in-bud opacities in the right lower lobe most likely represents infectious bronchiolitis. 5. 3 mm right pulmonary nodule. For patients at low risk (minimal or absent history of smoking and of other known risk factors), no routine follow-up is indicated. For patients at high risk (history of smoking or of other known risk factors), consider optional CT Chest at 12 months. (Reference: Ismael) REFERENCES: Ismael Goss et al. Guidelines for Management of Incidental Pulmonary Nodules Detected on CT Images: From the Fleischner Society 2017. Radiology. 2017;284(1):228-243. Laboratory Results WBC 8.31 10^3/uL (3.29-11.43) 09/18/25 19:12 RBC 2.65 10^6/uL (3.85-5.65) L 09/18/25 19:12 Hgb 8.20 g/dL (11.27-16.99) L 09/18/25 19:12 Hct 26.8 % (36-47) L 09/18/25 19:12 MCV 101.1 fl (85-98) H 09/18/25 19:12 MCH 30.9 pg (27-33) 09/18/25 19:12 MCHC 30.6 g/dL (30-55) 09/18/25 19:12 RDW 21.0 % (12.1-15.1) H 09/18/25 19:12 Plt Count 225 10^3/cmm (157-399) 09/18/25 19:12 MPV 10.2 fL (7.4-10.4) 09/18/25 19:12 Neut % (Auto) 90.1 % 09/18/25 19:12 Lymph % (Auto) 7.9 % 09/18/25 19:12 [place] % (Auto) 1.6 % 09/18/25 19:12 Eos % (Auto) 0.0 % 09/18/25 19:12 Baso % (Auto) 0.0 % 09/18/25 19:12 Neut # (Auto) 7.49 10^3/uL (1.8-7.7) 09/18/25 19:12 Lymph # (Auto) 0.7 10^3/uL (0.8-4.8) L 09/18/25 19:12 [place] # (Auto) 0.1 10^3/uL (0.2-0.9) L 09/18/25 19:12 Eos # (Auto) 0.0 10^3/uL (0.0-0.8) 09/18/25 19:12 Baso # (Auto) 0.0 10^3/uL (0.0-0.1) 09/18/25 19:12 Nucleated RBC % (auto) 0 % 09/18/25 19:12 Nucleated RBCs # 0.0 /100WBC 09/18/25 19:12 ESR 2 mm/hr (0-15) 09/19/25 16:17 D-Dimer 2.55 ug/mLFEU (0-0.59) H 09/19/25 17:11 Specimen Type Arterial 09/18/25 09:03 Sample Site Brachial, right 09/18/25 09:03 ABG pH 7.44 (7.35-7.45) 09/18/25 09:03 ABG pCO2 55.3 mmHg (35-45) H 09/18/25 09:03 ABG pO2 53.9 mmHg (80.0-100.0) L 09/18/25 09:03 ABG PO2/FiO2 Ratio 338 09/16/25 21:00 ABG HCO3 37.2 mmol/L (22-26) H 09/18/25 09:03 ABG O2 Saturation 87.4 09/18/25 09:03 ABG Base Excess 11.6 mmol/L (-2.0-2.0) H 09/18/25 09:03 Kristian Test Pos 09/18/25 09:03 A-a O2 Gradient 3.7 mmHg (5-10) L 09/18/25 09:03 Hematocrit 24.4 % (37-47) L 09/18/25 09:03 Hgb O2 Saturation 85.4 % (95-100) L 09/18/25 09:03 Carboxyhemoglobin 1.2 %THgb (0.4-20.1) 09/18/25 09:03 Methemoglobin 1.1 % (0.4-1.5) 09/18/25 09:03 Total Hemoglobin 8.0 g/dL (12-16) L 09/18/25 09:03 Sodium 139.0 mmol/L (131-143) 09/18/25 09:03 Potassium 4.8 mmol/L (3.5-5.0) 09/18/25 09:03 Glucose 252.0 mg/dL (70-115) H 09/18/25 09:03 Ionized Calcium 1.1 mmol/L (1.1-1.4) 09/18/25 09:03 O2 Delivery Device Nc 09/18/25 09:03 O2 Liters/Min 2.0 % 09/18/25 09:03 FiO2 36.0 % 09/16/25 21:00 Cath Lab Radiological Technologist ID Walc 09/18/25 09:03 Sodium 142 mmol/L (136-145) 09/21/25 04:45 Potassium 3.9 mmol/L (3.5-5.1) 09/21/25 04:45 Chloride 99 mmol/L (98-107) 09/21/25 04:45 Carbon Dioxide 37 mmol/L (22-29) H 09/21/25 04:45 Anion Gap 9.9 (5-19) 09/21/25 04:45 BUN 22 mg/dL (8-23) 09/21/25 04:45 Creatinine 1.1 mg/dL (0.5-0.9) H 09/21/25 04:45 GFR Calculation Not Reportable 09/21/25 04:45 Glucose 295 mg/dL (65-115) H 09/21/25 04:45 Calculated Osmolality 308 mOsm/kg (285-295) H 09/21/25 04:45 Calcium 8.2 mg/dL (8.5-10.5) L 09/21/25 04:45 Phosphorus 4.4 mg/dL (2.5-4.5) 09/17/25 02:54 Magnesium 1.5 mg/dL (1.7-2.3) L 09/21/25 04:45 Iron 63 ug/dL (37-145) 09/18/25 04:35 TIBC 163 mcg/dl 09/18/25 04:35 % Saturation 38.6 % (20-50) 09/18/25 04:35 Unsat Iron Binding 100 ug/dL (112-347) L 09/18/25 04:35 Total Bilirubin 0.2 mg/dL (0.15-1.2) 09/20/25 04:38 AST 12 U/L (0-32) 09/20/25 04:38 ALT 8 U/L (0-33) 09/20/25 04:38 Alkaline Phosphatase 137 U/L (35-105) H 09/20/25 04:38 Ammonia 27 umol/L (11-51) 09/16/25 20:20 C-Reactive Protein 3.0 mg/L (0.0-4.9) 09/19/25 16:01 Total Protein 5.0 g/dL (6.6-8.7) L 09/20/25 04:38 Albumin 2.5 g/dL (3.5-5.2) L 09/20/25 04:38 Globulin 2.5 g/dL (1.3-4.6) 09/20/25 04:38 Vitamin B12 536 pg/mL (232-1245) 09/18/25 04:35 Folate 18.5 ng/mL (4.8-37.3) 09/18/25 04:35 Procalcitonin 0.13 ng/mL (0-0.5) 09/16/25 20:20 Urine Color Dark yellow (Yellow) A 09/16/25 21: Urine Appearance Turbid (CLEAR) A 09/16/25 21: Urine pH 5.0 (5-7) 09/16/25 21: Ur Specific [place] 1.021 (1.005-1.030) 09/16/25 21: Urine Protein 3+ (Negative) A 09/16/25 21: Urine Glucose (UA) Negative (Normal) 09/16/25 21: Urine Ketones Negative (Negative) 09/16/25 21: Urine Blood 2+ (Negative) A 09/16/25 21: Urine Nitrate Negative (Negative) 09/16/25 21: Urine Bilirubin Negative (Negative) 09/16/25 21: Urine Urobilinogen 1.0 mg/dL (Negative) 09/16/25 21:25 Ur Leukocyte Esterase 3+ (Negative) A 09/16/25 21: Urine RBC 3-5 /hpf (0-2) 09/16/25 21: Urine WBC >100 /hpf (0-5) H 09/16/25 21:25 Ur Squamous Epith Cells 0-5 /hpf (0-5) 09/16/25 21: Amorphous Sediment Not Reportable 09/16/25 21: Urine Bacteria None seen /hpf (NONE) 09/16/25 21: Hyaline Casts 17.37 /lpf 09/16/25 21:25 C. difficile (PCR) Positive (Negative) H 09/20/25 15:35 C.difficile Tox Confrm Negative (Negative) 09/20/25 15:35 Blood Type O Positive 09/18/25 11:12 Rho(D) Type Rh positive 09/18/25 11:12 Antibody Screen Negative 09/18/25 11:12 Crossmatch See Detail 09/18/25 11:12 Imaging Echo: Radiologist's impression: CONCLUSIONS 1. Normal left ventricular size and systolic function, EF 58%. 2. Normal right ventricular size and systolic function. 3. Pacemaker wire present in the right atrium and the right ventricle. 4. Mobile interatrial septum with no evidence of atrial septal shunt by color Doppler. 5. Severe mitral annular calcification without mitral valve stenosis. Mild mitral valve regurgitation 6. Severe aortic valve stenosis. Possible bicuspid aortic valve. 7. Moderate tricuspid valve regurgitation 8. Moderate pulmonary hypertension, RVSP 64 mmHg 9. Large left pleural effusion 10. Small posterior pericardial effusion Vitals Last Vital Signs Temp 97.4 F L 09/21/25 11:33 Pulse 79 09/21/25 11:33 Resp 22 H 09/21/25 11:33 BP 186/81 09/21/25 11:33 Pulse Ox 92 09/21/25 11:33 O2 Del Method Nasal Cannula 09/21/25 11:33 O2 Flow Rate 3 09/21/25 08:00 FiO2 30 09/19/25 02:30 Discharge Plan Discharge Patient Disposition: Xfer SNF Condition: Stable Prescriptions: New Lactobacillus acidoph-L.bulgar 1 million cell Tablet 1 tab PO BID Qty: 60 0RF vancomycin 125 mg Capsule 125 mg PO QID Qty: 40 0RF magnesium oxide 400 mg (241.3 mg magnesium) Tablet 400 mg PO BID Qty: 60 0RF Continued acetaminophen 500 mg tablet 1,000 mg PO BID ropinirole 0.5 mg tablet 1 mg PO BEDTIME levothyroxine 100 mcg tablet 100 mcg PO DAILY nitroglycerin [Nitrostat] 0.4 mg tablet, sublingual 0.4 mg sublingual Q5M PRN (Reason: Chest Pain) Rx Instructions: do not exceed 3 doses per episode albuterol sulfate 90 mcg/actuation HFA aerosol inhaler 2 puff inhalation Q6H PRN (Reason: Shortness Of Breath) clopidogrel 75 mg tablet 75 mg PO DAILY carvedilol 6.25 mg tablet 6.25 mg PO BID Rx Instructions: must administer with a meal/food allopurinol 100 mg tablet 100 mg PO DAILY lidocaine 5 % adhesive patch,medicated 1 patch transdermal Q12H losartan 25 mg tablet 25 mg PO DAILY sertraline [Zoloft] 50 mg tablet 50 mg PO BEDTIME Refresh P.M. 57.3-42.5 % Ointment 1 applic OPHTHALMIC (EYE) BEDTIME Refresh Optive Advanced (PF) 0.5-1-0.5 % Dropperette 1 drp OPHTHALMIC (EYE) QID PRN (Reason: Dry Eyes) Eucerin Intensive Repair Lotion 1 ea TOPICAL BID oxycodone 5 mg tablet 5 mg PO BID PRN (Reason: breakthrough pain) Qty: 14 0RF Xtampza ER 18 mg cap,sprinkl,ER12hr(DONT CRUSH) 18 mg PO BID Qty: 14 0RF Rx Instructions: must administer with a meal/food ondansetron HCl 4 mg tablet 4 mg PO Q6H PRN (Reason: Nausea And Vomiting) gentian neha 1 % Solution 1 applic TOPICAL DAILY Rx Instructions: to right heal Pain Relieving Cream 4-30-10 % Cream 1 applic TOPICAL BID Rx Instructions: to back and right hip magnesium hydroxide [Milk of Magnesia] 400 mg/5 mL Suspension 30 ml PO DAILY PRN (Reason: Constipation) bisacodyl [Dulcolax (bisacodyl)] 10 mg Suppository 10 mg MD DAILY PRN (Reason: Constipation) Fleet Enema 19-7 gram/118 mL Enema 118 ml MD DAILY PRN (Reason: Constipation) Biofreeze (menthol) 4 % Gel 1 applic TOPICAL Q8H PRN (Reason: Pain) quetiapine 50 mg tablet 50 mg PO BEDTIME Centrum Complete 18-400 mg-mcg tablet 1 tab PO DAILY Qty: 90 0RF Changed furosemide [Lasix] 20 mg Tablet 20 mg PO BID Qty: 60 0RF potassium chloride 10 mEq Tablet Extended Release 10 meq PO BID Qty: 60 0RF Held pantoprazole 40 mg Tablet,Delayed Release (Dr/Ec) 40 mg PO DAILY 90 Days Qty: 90 0RF Hold Instructions: Resume on 10/07/25. Discontinued levofloxacin 500 mg tablet 500 mg PO DAILY 7 Days Qty: 7 0RF Pharmaceutical Physician OK for DC: Hospitalist Referrals: [facility] [Outside] Alley Sumner MD [Physician, Cardiology] - 2 weeks Jayden Vásquez DO [Primary Care Provider, Internal Medicine] Discharge Diet: Usual diet Discharge Activity: Resume usual activity Patient Instructions: Altered Mental Status (ED), Opioid Safety, Patient Portal & Nitesh Instructions, GI Post Anesthesia Care Activity Restrictions/Additional Instructions: Wash your hands thoroughly after using the bathroom because you have a contagious diarrhea Take your diuretic as prescribed now furosemide 20 mg twice a day and potassium chloride 10 mEq twice a day to replace potassium loss from the furosemide We are self on arrival home. I anticipate that you will lose another 2 pounds of water and that will be your dry weight. You should try and keep your weight at that level utilizing the diuretics and potassium together once or twice a day. Wear hose on your legs We were not able to finish your transesophageal echo due to the consent not being signed. If you have symptoms of stroke you should follow-up with Dr. Sumner in the office to have the transesophageal echo performed Discharge Attestations Time Spent in Discharge Care*: greater than 30 min Time Spent in Smoking Cessation: Patient is not a Status at Discharge: Cognitive status at discharge: mildly impaired cognition , Behavioral status at discharge: can be uncooperative , Quality Metrics Clinical Quality Measures [ No reported AMI, CVA or VTE this stay] Coding Level of Care Code 65776 Diagnoses S/P CABG x 3 Z95.1 Presence of cardiac pacemaker Z95.0 Acute on chronic diastolic CHF (congestive heart failure) I50.33 Severe calcific aortic stenosis I35.0 Diabetes mellitus with skin ulcer E11.622; L98.499 Chronic kidney disease (CKD), stage 3 N18.30 Altered mental status R41.82 Time Spent (min) 40
--- NOTE | 2025-09-21 19:00 | P.PN_ITS ---
Subjective 2 Subjective: Patient blood pressure remained elevated. She appeared to be confused. Yesterday she consented me for transesophageal echocardiogram as she was well oriented in time and space however when she was brought in to PACU patient was very confused and violent. She was not able to stay in the bed and was not able to sign the consent form. It is the reason transvaginal echocardiogram was canceled. I came back to see her in the room, she is not able to sit and would like to leave the hospital. She says her son is coming to pick her up. Vitals/I&O/Wt Last Vital Signs Temp 97.5 F L 09/21/25 17:00 Pulse 80 09/21/25 17:00 Resp 21 H 09/21/25 17:00 BP 200/97 09/21/25 17:00 Pulse Ox 93 09/21/25 17:00 O2 Del Method Nasal Cannula 09/21/25 17:00 O2 Flow Rate 2 09/21/25 15:54 FiO2 30 09/19/25 02:30 09/21/25 09/21/25 09/21/25 06:59 14:59 22:59 Intake Total 200 / 880 Output Total 1150 / 2500 1000 / 1000 750 / 1750 Balance -950 / -1620 -1000 / -1000 -750 / -1750 Weight last 48 hrs Weight 143 lb 4.8 oz Weight 146 lb Physical Exam 2 Const: OTHER: GENERAL: Patient is anxious awake with some confusion HEART: Regular S1 and S2. 2/6 systolic murmur LUNGS: Decreased breath sounds on the left with inspiratory crackles on the right CENTRAL NERVOUS SYSTEM: Somewhat confusion but sometime she talks. EXTREMITIES: Lower extremities with trace edema bilaterally. Urinary Catheter Management: Randle: Cath Placed During This Visit: yes Reason for Continuing Indwelling Catheter: Other Urinary Catheter Date of Insertion: 09/17/25 Urinary Catheter Time of Insertion: 00:02 Data 09/18/25 19:12 09/21/25 04:45 A&P Assessment and plan 1. Acute on chronic diastolic CHF (congestive heart failure): 2. Uncontrolled hypertension: 3. Severe calcific aortic stenosis: 4. S/P CABG x 3: 5. Presence of cardiac pacemaker: 6. Diabetes mellitus with skin ulcer: 7. Chronic kidney disease (CKD), stage 3: Plan: Patient was not able to do SUZIE because of underlying confusion and inability to take consent. I have reviewed her echo, she does have low-flow gradient severely stenotic calcified aortic valve with possible fusion of the cusp giving morphology of bicuspid may be not true bicuspid in her age group. She does have calcified nodule and mobile presentation on the aortic valve towards a ventricular side, given her presentation location at the aortic valve it is unlikely to be a thrombus cannot rule out vegetation most likely it is a calcified valve with nodular extension. Septic vegetation is also less likely given her not being septic.lambal excrusion is a possibility, she does have underlying pneumonia for which she has been treated with IV medications. If needed once she is more coherent or less confused we can attempt transesophageal echocardiogram. I believe she may need to be first treated for pneumonia good control of blood pressure and effective diuresis. Continue IV antibiotics as per medicine Continue IV Lasix IV hydralazine 10 mg Q4 as needed for systolic blood pressure more than 160 Increase carvedilol to 9.75 mg p.o. twice daily Add amlodipine 5 mg p.o. daily Given her presentation pneumonia underlying pleural effusion uncontrolled hypertension patient needs continuation of hospitalization. PDMP PDMP Reviewed: Not Reviewed Attestations 2 Medical Necessity Statement*: Patient require continuation of hospitalization for above defined care for IV antibiotics Lasix and better control of blood pressure. Coding Level of Care Code Acute Code for Chg Fwd Diagnoses Acute on chronic diastolic CHF (congestive heart failure) I50.33 Uncontrolled hypertension I10 Severe calcific aortic stenosis I35.0 S/P CABG x 3 Z95.1 Presence of cardiac pacemaker Z95.0 Diabetes mellitus with skin ulcer E11.622; L98.499 Chronic kidney disease (CKD), stage 3 N18.30
[2025-09-21] MEDS: oxyCODONE 5 mg IR Tab/Cap PO (22:29)
[2025-09-22] VITALS (10 sets, daily range): BP systolic 125–172; BP diastolic 68–87; PULSE 66–88; RESP 16–20; TEMP 36.3–36.9; O2SAT 93–96
[2025-09-22] MEDS: LOSARTAN 25 MG TABLET PO (04:44)
[2025-09-22] MEDS: lactobacillus 1 Tablet 1 TAB PO (04:44)
[2025-09-22] MEDS: FUROsemide 10 mg/mL SDV 2mL 20 MG IVP (04:45)
[2025-09-22] MEDS: hyDRALAzine 20 mg/mL INJ 1 mL 10 MG IVP (06:26)
[2025-09-22] MEDS: ondansetron 2 mg/ML SDV 2 mL 4 MG IVP (06:31)
--- NOTE | 2025-09-22 12:11 | PM.DCS ---
Discharge Providers Date of Admission: 09/16/25 22:23 Date of Discharge: September 22, 2025 Attending Provider at Admission: Audrey Cabrera MD Attending Provider at Discharge: Jerrell Carey MD Primary Care Provider: Jayden Vásquez DO Diagnoses at Discharge Discharge Diagnosis 1. Acute on chronic diastolic CHF (congestive heart failure): Details from hospital stay: Blood pressure meds adjusted furosemide IV was given and patient diuresed total negative balance 6270 with 11,950 output from Randle. Her furosemide is increased to 20 mg twice a day and potassium to 10 mill colons twice a day. Follow-up with mini panel in 1 week 2. Uncontrolled hypertension: Details from hospital stay: Patient responded well to diuresis. Leg swelling largely resolved and pruning of the skin will take time to go away. She has pleural effusions and valvular disease. Losartan was increased to 50 mg a day and amlodipine started 5 mg a day. Continue carvedilol 3. Severe calcific aortic stenosis: Details from hospital stay: Diuresed and much improved. There is question of aortic valve clot. Vegetation seems less likely with no fever or white count. I considered putting her on empiric anticoagulation but she has required blood transfusions twice in the last 3 months 4. S/P CABG x 3: Details from hospital stay: Details from hospital stay: Continue with Plavix 75 mg daily. Monitor for blood loss anemia 5. Presence of cardiac pacemaker: Details from hospital stay: This prevented MRI from being done. I was suspicious for possible embolic stroke but without confirmation of this I do not think it is in her best interest to put her on anticoagulation 6. Diabetes mellitus with skin ulcer: Details from hospital stay: This was primarily venous stasis ulcers start JOLIE hose and elevate both lower extremity Blood sugars running 189-295. Patient will be put on diabetic diet 1500 amandeep no sweets or caloric drinks follow-up with PCP 7. Chronic kidney disease (CKD), stage 3: Details from hospital stay: With diuresis creatinine improved to 1.1 yesterday BUN 21 creatinine 1.1. Was 32 and 1.7 on admission 8. C. difficile colitis: Details from hospital stay: Patient had mucousy stools which was positive for C. difficile and she was started on vancomycin 125 mg 4 times daily for 10 days as well as a probiotic. I considered putting her on fidaxomicin but she has a erythromycin allergy which can cross-react 9. Altered mental status: Details from hospital stay: Patient has intermittent episodes of word finding difficulty or word salad. This has not been present for last 2 days seems to have improved with diuresis. I considered the diagnosis of embolic CVA. She has thickened aortic valve but in speaking with Dr. Sumner this is not a likely place to have a clot. She has an elevated D-dimer. I considered anticoagulating her empirically but she is required blood transfusion twice in the last 3 months. SUZIE could not be completed. Patient does not want to stay longer for admission. Follow-up outpatient with Dr. Sumner MRI of the brain to look for possible embolic CVA could not be done because she has a pacemaker and I am not sure it is pacer compatible and regardless we do not do MRIs on pacemaker patients here at this facility Reason for Visit Reason for Visit: ams Brief History: Kami Hemphill is a 85 year old female who was recently diagnosed with pneumonia and was in the emergency room the night before. Patient was sent back to the halfway with Levaquin antibiotics. Today patient Graeme presented from her [facility] for worsening condition. She was with change in mental status and was hypoxic hypercapnic respiratory failure and had 2 L of oxygen and it was increased to 3 L patient requiring BiPAP daily at bedtime. The emergency room evaluated patient patient was noted to be hypoxemic and acidotic pH was 7.3 with a pCO2 of 50. I was called to evaluate patient for admission emergency room had given ceftriaxone and Zosyn. Patient need gram-positive coverage initiated and continued patient on Zyvox 600 mg twice daily and cefepime 1 g Q8. Patient does have with the chest x-ray significant pleural effusion. Creatinine had bumped to a 1.6 on presentation this might be a parapneumonic pleural effusion and 1 can also tap this pleural effusion that trying to diurese in the setting of acute renal failure in if 85 years old. Emergency room had given 80 mg of IV Lasix. I did not continue with IV Lasix. I will rather treat the pneumonia if anything 1 can tap this pleural effusion or follow through with imaging for interval change. Hospital Course Hospital Course 85-year-old female with pneumonia diagnosed on 09/15/2025 comes in with pneumonia and acute hypercarbic respiratory failure admitted to [facility]. This morning she is anxious and wants to be discharged. She has a word finding difficulty that she uses wrong words at times. I questioned her regarding this and she is wanting to go home today does not want to stay in the hospital here. I counseled her that she needs 1 more day. I also asked her about CODE STATUS and she wants full code is not ready to . With fluid her pleural effusions worsened as did her shortness of breath and it was apparent with her loud aortic stenosis murmur and mitral valve calcification and moderate pulmonary hypertension that she was volume overloaded. With diuresis her kidney function improved as did her breathing. I do not think that she has persistent pneumonia but rather she had volume overload and hypercapnic respiratory failure Patient was consented verbally for SUZIE as was her son Marshall by me. She was also consented by cardiology but ultimately no consent was signed. When she went for SUZIE this morning there was no sign consent so the procedure could not be done as the patient was deemed confused. This afternoon the patient insist on going back to [place] [facility] Furosemide is increased to 20 mg twice a day from once a day and potassium chloride to 10 mill colons twice a day from once a day She was kept another day to control blood pressure with addition of amlodipine 5 mg daily and losartan increased to 50 mg daily Leave Randle in until the second Physical Exam Narrative: General Well-developed female normal body habitus CV regular rate and rhythm with loud 5/6 systolic ejection murmur best heard at the right upper sternal border and this radiates to the back Lungs diminished breath sounds left base and trace basilar crackles Abdomen positive bowel tones soft nontender Calves trace edema of the legs with pruning of the skin consistent with previous additional swelling. There is venous stasis changes and shallow ulcerations. Swelling is much decreased and skin is pruning. Urinary Catheter Management: Randle: Cath Placed During This Visit: yes Reason for Continuing Indwelling Catheter: Other Urinary Catheter Date of Insertion: 09/17/25 Urinary Catheter Time of Insertion: 00:02 Discharge Data Studies Completed and Pending Completed Studies During Hospitalization Category Date Time Status CT chest wo con [id number] Routine Cat Scan 09/18/25 19:03 Completed XR chest 1V portable [id number] Stat Exams 09/16/25 20:26 Completed XR chest 2V* [id number] Routine Exams 09/18/25 09:06 Completed CV. echo complete* [id number] Routine Ultrasound 09/18/25 19:03 Completed Radiology Impressions Chest X-Ray 10/28/25 09:06 IMPRESSION: 1. Atelectasis and consolidation in the LEFT lower lobe and LEFT basal pleural effusion unchanged. 2. Acute fractures of the LEFT sixth and seventh ribs. There may also be a healing fracture of the lateral LEFT eighth rib. No pneumothorax. Chest CT 09/18/25 19:03 IMPRESSION: 1. Mildly displaced acute appearing left 9th through 11th rib fractures. 2. Incompletely healed nonacute left 6th through 8th rib fractures. 3. Moderate left and small right pleural effusions. 4. Mild tree-in-bud opacities in the right lower lobe most likely represents infectious bronchiolitis. 5. 3 mm right pulmonary nodule. For patients at low risk (minimal or absent history of smoking and of other known risk factors), no routine follow-up is indicated. For patients at high risk (history of smoking or of other known risk factors), consider optional CT Chest at 12 months. (Reference: Ismael) REFERENCES: Ismael Goss, et al. Guidelines for Management of Incidental Pulmonary Nodules Detected on CT Images: From the Fleischner Society 2017. Radiology. 2017;284(1):228-243. Laboratory Results WBC 8.31 10^3/uL (3.29-11.43) 09/18/25 19:12 RBC 2.65 10^6/uL (3.85-5.65) L 09/18/25 19:12 Hgb 8.20 g/dL (11.27-16.99) L 09/18/25 19:12 Hct 26.8 % (36-47) L 09/18/25 19:12 MCV 101.1 fl (85-98) H 09/18/25 19:12 MCH 30.9 pg (27-33) 09/18/25 19:12 MCHC 30.6 g/dL (30-55) 09/18/25 19:12 RDW 21.0 % (12.1-15.1) H 09/18/25 19:12 Plt Count 225 10^3/cmm (157-399) 09/18/25 19:12 MPV 10.2 fL (7.4-10.4) 09/18/25 19:12 Neut % (Auto) 90.1 % 09/18/25 19:12 Lymph % (Auto) 7.9 % 09/18/25 19:12 Posey % (Auto) 1.6 % 09/18/25 19:12 Eos % (Auto) 0.0 % 09/18/25 19:12 Baso % (Auto) 0.0 % 09/18/25 19:12 Neut # (Auto) 7.49 10^3/uL (1.8-7.7) 09/18/25 19:12 Lymph # (Auto) 0.7 10^3/uL (0.8-4.8) L 09/18/25 19:12 Posey # (Auto) 0.1 10^3/uL (0.2-0.9) L 09/18/25 19:12 Eos # (Auto) 0.0 10^3/uL (0.0-0.8) 09/18/25 19:12 Baso # (Auto) 0.0 10^3/uL (0.0-0.1) 09/18/25 19:12 Nucleated RBC % (auto) 0 % 09/18/25 19:12 Nucleated RBCs # 0.0 /100WBC 09/18/25 19:12 ESR 2 mm/hr (0-15) 09/19/25 16:17 D-Dimer 2.55 ug/mLFEU (0-0.59) H 09/19/25 17:11 Specimen Type Arterial 09/18/25 09:03 Sample Site Brachial, right 09/18/25 09:03 ABG pH 7.44 (7.35-7.45) 09/18/25 09:03 ABG pCO2 55.3 mmHg (35-45) H 09/18/25 09:03 ABG pO2 53.9 mmHg (80.0-100.0) L 09/18/25 09:03 ABG PO2/FiO2 Ratio 338 09/16/25 21:00 ABG HCO3 37.2 mmol/L (22-26) H 09/18/25 09:03 ABG O2 Saturation 87.4 09/18/25 09:03 ABG Base Excess 11.6 mmol/L (-2.0-2.0) H 09/18/25 09:03 Kristian Test Pos 09/18/25 09:03 A-a O2 Gradient 3.7 mmHg (5-10) L 09/18/25 09:03 Hematocrit 24.4 % (37-47) L 09/18/25 09:03 Hgb O2 Saturation 85.4 % (95-100) L 09/18/25 09:03 Carboxyhemoglobin 1.2 %THgb (0.4-20.1) 09/18/25 09:03 Methemoglobin 1.1 % (0.4-1.5) 09/18/25 09:03 Total Hemoglobin 8.0 g/dL (12-16) L 09/18/25 09:03 Sodium 139.0 mmol/L (131-143) 09/18/25 09:03 Potassium 4.8 mmol/L (3.5-5.0) 09/18/25 09:03 Glucose 252.0 mg/dL (70-115) H 09/18/25 09:03 Ionized Calcium 1.1 mmol/L (1.1-1.4) 09/18/25 09:03 O2 Delivery Device Nc 09/18/25 09:03 O2 Liters/Min 2.0 % 09/18/25 09:03 FiO2 36.0 % 09/16/25 21:00 Sociocultural Anthropology Professor ID Walc 09/18/25 09:03 Sodium 142 mmol/L (136-145) 09/21/25 04:45 Potassium 3.9 mmol/L (3.5-5.1) 09/21/25 04:45 Chloride 99 mmol/L (98-107) 09/21/25 04:45 Carbon Dioxide 37 mmol/L (22-29) H 09/21/25 04:45 Anion Gap 9.9 (5-19) 09/21/25 04:45 BUN 22 mg/dL (8-23) 09/21/25 04:45 Creatinine 1.1 mg/dL (0.5-0.9) H 09/21/25 04:45 GFR Calculation Not Reportable 09/21/25 04:45 Glucose 295 mg/dL (65-115) H 09/21/25 04:45 Calculated Osmolality 308 mOsm/kg (285-295) H 09/21/25 04:45 Calcium 8.2 mg/dL (8.5-10.5) L 09/21/25 04:45 Phosphorus 4.4 mg/dL (2.5-4.5) 09/17/25 02:54 Magnesium 1.5 mg/dL (1.7-2.3) L 09/21/25 04:45 Iron 63 ug/dL (37-145) 09/18/25 04:35 TIBC 163 mcg/dl 09/18/25 04:35 % Saturation 38.6 % (20-50) 09/18/25 04:35 Unsat Iron Binding 100 ug/dL (112-347) L 09/18/25 04:35 Total Bilirubin 0.2 mg/dL (0.15-1.2) 09/20/25 04:38 AST 12 U/L (0-32) 09/20/25 04:38 ALT 8 U/L (0-33) 09/20/25 04:38 Alkaline Phosphatase 137 U/L (35-105) H 09/20/25 04:38 Ammonia 27 umol/L (11-51) 09/16/25 20:20 C-Reactive Protein 3.0 mg/L (0.0-4.9) 09/19/25 16:01 Total Protein 5.0 g/dL (6.6-8.7) L 09/20/25 04:38 Albumin 2.5 g/dL (3.5-5.2) L 09/20/25 04:38 Globulin 2.5 g/dL (1.3-4.6) 09/20/25 04:38 Vitamin B12 536 pg/mL (232-1245) 09/18/25 04:35 Folate 18.5 ng/mL (4.8-37.3) 09/18/25 04:35 Procalcitonin 0.13 ng/mL (0-0.5) 09/16/25 20:20 Urine Color Dark yellow (Yellow) A 09/16/25 21:25 Urine Appearance Turbid (CLEAR) A 09/16/25 21: Urine pH 5.0 (5-7) 09/16/25 21:25 Ur Specific [place] 1.021 (1.005-1.030) 09/16/25 21:25 Urine Protein 3+ (Negative) A 09/16/25 21:25 Urine Glucose (UA) Negative (Normal) 09/16/25 21: Urine Ketones Negative (Negative) 09/16/25 21: Urine Blood 2+ (Negative) A 09/16/25 21: Urine Nitrate Negative (Negative) 09/16/25 21: Urine Bilirubin Negative (Negative) 09/16/25 21: Urine Urobilinogen 1.0 mg/dL (Negative) 09/16/25 21:25 Ur Leukocyte Esterase 3+ (Negative) A 09/16/25 21:25 Urine RBC 3-5 /hpf (0-2) 09/16/25 21:25 Urine WBC >100 /hpf (0-5) H 09/16/25 21:25 Ur Squamous Epith Cells 0-5 /hpf (0-5) 09/16/25 21:25 Amorphous Sediment Not Reportable 09/16/25 21: Urine Bacteria None seen /hpf (NONE) 09/16/25 21: Hyaline Casts 17.37 /lpf 09/16/25 21:25 C. difficile (PCR) Positive (Negative) H 09/20/25 15:35 C.difficile Tox Confrm Negative (Negative) 09/20/25 15:35 Blood Type O Positive 09/18/25 11:12 Rho(D) Type Rh positive 09/18/25 11:12 Antibody Screen Negative 09/18/25 11:12 Crossmatch See Detail 09/18/25 11:12 Vitals Last Vital Signs Temp 97.5 F L 09/22/25 11:35 Pulse 79 09/22/25 11:35 Resp 16 09/22/25 11:35 BP 125/74 09/22/25 11:35 Pulse Ox 94 09/22/25 11:35 O2 Del Method Nasal Cannula 09/22/25 11:35 O2 Flow Rate 2 09/22/25 11:20 FiO2 30 09/19/25 02:30 Discharge Plan Discharge Patient Disposition: Xfer SNF Condition: Stable Prescriptions: New Lactobacillus acidoph-L.bulgar 1 million cell Tablet 1 tab PO BID Qty: 60 0RF magnesium oxide 400 mg (241.3 mg magnesium) Tablet 400 mg PO BID Qty: 60 0RF vancomycin 125 mg Capsule 125 mg PO QID Qty: 40 0RF carvedilol 3.125 mg Tablet 9.375 mg PO BID Qty: 180 0RF amlodipine 5 mg Tablet 5 mg PO DAILY Qty: 30 0RF Lactobacillus acidoph-L.bulgar 1 million cell Tablet 1 tab PO BID Qty: 60 0RF Continued acetaminophen 500 mg tablet 1,000 mg PO BID ropinirole 0.5 mg tablet 1 mg PO BEDTIME levothyroxine 100 mcg tablet 100 mcg PO DAILY nitroglycerin [Nitrostat] 0.4 mg tablet, sublingual 0.4 mg sublingual Q5M PRN (Reason: Chest Pain) Rx Instructions: do not exceed 3 doses per episode albuterol sulfate 90 mcg/actuation HFA aerosol inhaler 2 puff inhalation Q6H PRN (Reason: Shortness Of Breath) clopidogrel 75 mg tablet 75 mg PO DAILY allopurinol 100 mg tablet 100 mg PO DAILY lidocaine 5 % adhesive patch,medicated 1 patch transdermal Q12H sertraline [Zoloft] 50 mg tablet 50 mg PO BEDTIME Refresh P.M. 57.3-42.5 % Ointment 1 applic OPHTHALMIC (EYE) BEDTIME Refresh Optive Advanced (PF) 0.5-1-0.5 % Dropperette 1 drp OPHTHALMIC (EYE) QID PRN (Reason: Dry Eyes) Eucerin Intensive Repair Lotion 1 ea TOPICAL BID oxycodone 5 mg tablet 5 mg PO BID PRN (Reason: breakthrough pain) Qty: 14 0RF Xtampza ER 18 mg cap,sprinkl,ER12hr(DONT CRUSH) 18 mg PO BID Qty: 14 0RF Rx Instructions: must administer with a meal/food ondansetron HCl 4 mg tablet 4 mg PO Q6H PRN (Reason: Nausea And Vomiting) gentian neha 1 % Solution 1 applic TOPICAL DAILY Rx Instructions: to right heal Pain Relieving Cream 4-30-10 % Cream 1 applic TOPICAL BID Rx Instructions: to back and right hip magnesium hydroxide [Milk of Magnesia] 400 mg/5 mL Suspension 30 ml PO DAILY PRN (Reason: Constipation) bisacodyl [Dulcolax (bisacodyl)] 10 mg Suppository 10 mg AR DAILY PRN (Reason: Constipation) Fleet Enema 19-7 gram/118 mL Enema 118 ml AR DAILY PRN (Reason: Constipation) Biofreeze (menthol) 4 % Gel 1 applic TOPICAL Q8H PRN (Reason: Pain) quetiapine 50 mg tablet 50 mg PO BEDTIME Centrum Complete 18-400 mg-mcg tablet 1 tab PO DAILY Qty: 90 0RF Changed potassium chloride 10 mEq Tablet Extended Release 10 meq PO BID Qty: 60 0RF furosemide [Lasix] 20 mg Tablet 20 mg PO BID Qty: 60 0RF losartan 25 mg tablet 50 mg PO DAILY Qty: 60 0RF Held pantoprazole 40 mg Tablet,Delayed Release (Dr/Ec) 40 mg PO DAILY 90 Days Qty: 90 0RF Hold Instructions: Resume on 10/07/25. Discontinued carvedilol 6.25 mg tablet 6.25 mg PO BID Rx Instructions: must administer with a meal/food levofloxacin 500 mg tablet 500 mg PO DAILY 7 Days Qty: 7 0RF [employer] OK for DC: Hospitalist Discharge Order = DC NOW: Discharge Order (Routine); Ordered 09/22/25 Ordered By: Jerrell Carey Referrals: Susan Romero [Outside] Alley Sumner MD [Physician, Cardiology] - 2 weeks Referral Note: We have notified your physician's clinic of the need for a follow-up appointment to be scheduled. If you have not heard from them within the next 2 business days, please call them directly. Jayden Vásquez DO [Primary Care Provider, Internal Medicine] Discharge Diet: Diabetic and Low Salt Discharge Activity: Resume usual activity Patient Instructions: Altered Mental Status (ED), Opioid Safety, Patient Portal & Nitesh Instructions, GI Post Anesthesia Care Activity Restrictions/Additional Instructions: Wash your hands thoroughly after using the bathroom because you have a contagious diarrhea Take your diuretic as prescribed now furosemide 20 mg twice a day and potassium chloride 10 mEq twice a day to replace potassium loss from the furosemide We are self on arrival home. I anticipate that you will lose another 2 pounds of water and that will be your dry weight. You should try and keep your weight at that level utilizing the diuretics and potassium together once or twice a day. Wear hose on your legs We were not able to finish your transesophageal echo due to the consent not being signed. If you have symptoms of stroke you should follow-up with Dr. Sumner in the office to have the transesophageal echo performed Anita Randle on September 24, 2025 Need to follow diabetic diet with no added sugars or calorie drinks and 1500 amandeep Discharge Attestations Time Spent in Discharge Care*: greater than 30 min Time Spent in Smoking Cessation: Patient is not a smoker Status at Discharge: Cognitive status at discharge: mildly impaired cognition, Behavioral status at discharge: can be uncooperative, Quality Metrics Clinical Quality Measures [ No reported AMI, CVA or VTE this stay] Coding Level of Care Code 10349 Diagnoses Acute on chronic diastolic CHF (congestive heart failure) I50.33 Uncontrolled hypertension I10 Severe calcific aortic stenosis I35.0 S/P CABG x 3 Z95.1 Presence of cardiac pacemaker Z95.0 Diabetes mellitus with skin ulcer E11.622; L98.499 Chronic kidney disease (CKD), stage 3 N18.30 C. difficile colitis A04.72 Altered mental status R41.82 Time Spent (min) 40
--- NOTE | 2025-09-22 12:57 | PC.NURSE ---
Per Dr. Carey, marte is to stay in place until 09/24 so pt left facility with marte catheter in place. Itzel at [facility] notified.
--- NOTE | 2025-09-22 18:23 | P.PN_ITS ---
Subjective 2 Subjective: Patient today doing fine denies any complaint today chest pain shortness of breath. Blood pressure well-controlled Vitals/I&O/Wt Last Vital Signs Temp 97.5 F L 09/22/25 12:54 Pulse 79 09/22/25 12:54 Resp 16 09/22/25 12:54 BP 125/74 09/22/25 12:54 Pulse Ox 94 09/22/25 12:54 O2 Del Method Nasal Cannula 09/22/25 11:35 O2 Flow Rate 2 09/22/25 11:20 FiO2 30 09/19/25 02:30 09/22/25 09/22/25 09/22/25 06:59 14:59 22:59 Output Total 2950 / 5700 650 / 650 Balance -2950 / -5700 -650 / -650 Weight last 48 hrs Weight 126 lb 3.2 oz Weight 143 lb 4.8 oz Physical Exam 2 Const: OTHER: GENERAL: Patient is alert awake oriented times HEART: Regular S1 and S2. 2/6 systolic murmur LUNGS: Clear to auscultate bilateral CENTRAL NERVOUS SYSTEM: Nonfocal EXTREMITIES: Lower extremities with trace edema bilaterally. Urinary Catheter Management: Randle: Cath Placed During This Visit: yes Reason for Continuing Indwelling Catheter: Other Urinary Catheter Date of Insertion: 09/17/25 Urinary Catheter Time of Insertion: 00:02 Data 09/18/25 19:12 09/21/25 04:45 Micro: Microbiology 09/16/25 21:00 Blood Culture - Final Blood NO GROWTH AFTER 5 DAYS 09/16/25 20:58 Blood Culture - Final Blood NO GROWTH AFTER 5 DAYS A&P Assessment and plan 1. Acute on chronic diastolic CHF (congestive heart failure): 2. Uncontrolled hypertension: 3. Severe calcific aortic stenosis: 4. S/P CABG x 3: 5. Presence of cardiac pacemaker: 6. Diabetes mellitus with skin ulcer: 7. Chronic kidney disease (CKD), stage 3: Plan: Patient was not able to do SUZIE because of underlying confusion and inability to take consent. I have reviewed her echo, she does have low-flow gradient severely stenotic calcified aortic valve with possible fusion of the cusp giving morphology of bicuspid may be not true bicuspid in her age group. She does have calcified nodule and mobile presentation on the aortic valve towards a ventricular side, given her presentation location at the aortic valve it is unlikely to be a thrombus cannot rule out vegetation most likely it is a calcified valve with nodular extension. Septic vegetation is also less likely given her not being septic.lambal excrusion is a possibility, she does have underlying pneumonia for which she TAVR been treated with IV medications. If needed once she is more coherent or less confused we can attempt transesophageal echocardiogram. I believe she may need to be first treated for pneumonia good control of blood pressure and effective diuresis. Continue IV antibiotics as per medicine Continue IV Lasix IV hydralazine 10 mg Q4 as needed for systolic blood pressure more than 160 Increase carvedilol to 9.75 mg p.o. twice daily Add amlodipine 5 mg p.o. daily Given her presentation pneumonia underlying pleural effusion uncontrolled hypertension patient needs continuation of hospitalization. On today's visit dated 09/22/2025, patient is doing fine from a cardiovascular perspective at detailed discussion with the patient she would not like to do transesophageal echocardiogram. Patient is very weak fall risk may not be suitable candidate for anticoagulation however given history of moderate to severe aortic valve stenosis and thickened valve possible mass in the valve was not thrombus but calcified nodule or extension. Advised patient if she would consider aortic valve replacement through TAVR, we can assess her or referred her. She will be seeing us in the clinic. Will follow-up on her. PDMP PDMP Reviewed: Not Reviewed Attestations 2 Medical Necessity Statement*: Patient will be discharged to [facility] today. Coding Level of Care Code Acute Code for Chg Fwd Diagnoses Acute on chronic diastolic CHF (congestive heart failure) I50.33 Uncontrolled hypertension I10 Severe calcific aortic stenosis I35.0 S/P CABG x 3 Z95.1 Presence of cardiac pacemaker Z95.0 Diabetes mellitus with skin ulcer E11.622; L98.499 Chronic kidney disease (CKD), stage 3 N18.30
== END 2025-09-22 12:30 | disposition skilled nursing facility (03) | DRG 193 ==
LOC: ER 22:00 → MEDSURG 22:41
PROVIDERS: Internal Medicine Cardiovascular Disease; Admitting Provider Internal Medicine; Emergency Provider Physician Assistant; PCP Internal Medicine; Visit Provider Internal Medicine
PROC: (CPT 93312; principal; 2025-09-21 09:30)
DX: J18.9 Pneumonia, unspecified organism (principal); I50.33 Acute on chronic diastolic (congestive) heart failure; J96.21 Acute and chronic respiratory failure with hypoxia; J96.22 Acute and chronic respiratory failure with hypercapnia; J44.0 Chronic obstructive pulmonary disease with (acute) lower respiratory infection; N17.9 Acute kidney failure, unspecified; I13.0 Hypertensive heart and chronic kidney disease with heart failure and stage 1 through stage 4 chronic kidney disease, or unspecified chronic kidney disease; E87.29 Other acidosis; A04.72 Enterocolitis due to Clostridium difficile, not specified as recurrent; F03.918 Unspecified dementia, unspecified severity, with other behavioral disturbance; N32.81 Overactive bladder; E03.9 Hypothyroidism, unspecified; M10.9 Gout, unspecified; K21.9 Gastro-esophageal reflux disease without esophagitis; I25.10 Atherosclerotic heart disease of native coronary artery without angina pectoris; E11.42 Type 2 diabetes mellitus with diabetic polyneuropathy; M79.7 Fibromyalgia; G47.33 Obstructive sleep apnea (adult) (pediatric); E78.2 Mixed hyperlipidemia; G89.4 Chronic pain syndrome; D63.1 Anemia in chronic kidney disease; I87.8 Other specified disorders of veins; I35.0 Nonrheumatic aortic (valve) stenosis; R41.82 Altered mental status, unspecified; I27.20 Pulmonary hypertension, unspecified; E11.22 Type 2 diabetes mellitus with diabetic chronic kidney disease; N18.30 Chronic kidney disease, stage 3 unspecified; E11.622 Type 2 diabetes mellitus with other skin ulcer; L98.499 Non-pressure chronic ulcer of skin of other sites with unspecified severity; Z79.899 Other long term (current) drug therapy; Z79.02 Long term (current) use of antithrombotics/antiplatelets; Z88.1 Allergy status to other antibiotic agents; Z88.5 Allergy status to narcotic agent; Z88.2 Allergy status to sulfonamides; Z88.8 Allergy status to other drugs, medicaments and biological substances; Z95.0 Presence of cardiac pacemaker; Z91.81 History of falling; Z95.1 Presence of aortocoronary bypass graft; Z99.81 Dependence on supplemental oxygen; Z79.84 Long term (current) use of oral hypoglycemic drugs; Z95.5 Presence of coronary angioplasty implant and graft; Z79.890 Hormone replacement therapy
CPT/HCPCS: 36415; 36430; 36600; 51702; 70450; 71045; 71046; 71250; 80048; 80051; 80053; 81001; 82140; 82330; 82607; 82746; 82805; 83540; 83550; 83690; 83735; 83880; 84100; 84145; 85025; 85378; 85651; 86140; 86850; 86900; 86920; 87040; 87086; 87324; 87493; 93005; 93306; 94640; 94660; 96365; 96372; 96375; 97162; 97530; 99285; J0360; J0692; J0696; J1644; J1650; J1938; J2270; J2405; J2543; J2919; J3475; J3490; J7030; J7120; J9999; P9016

== ENCOUNTER 2025-10-27 11:31 | Inpatient (IN) | payer MEDICARE, MEDICAID, SELFPAY ==
--- OUTSIDE RECORDS SUMMARY | 2025-05-15 12:00 | XMS_ITS ---
Author Organization [facility] Address [address] [place] [address] Care Team Providers Care Fountain Operator Name Role Phone Jayden Vásquez Primary Care Provider ALMA DELIA Zavala Unavailable [phone] CHE COLLINS Unavailable [phone] REASON FOR VISIT L ESWL @ [facility] Encounters Encounter Location Date Provider Diagnosis [facility] [address] [facility] [place] [address] 05/15/2025 CHE COLLINS Plan Of Treatment No Information Progress Notes * Beatris HEMPHILL KDOB: [birth year] (85 yo F)Acc No.[id number]:05/15/2025 Patient: Wolfgang PARRA Beatris Richardson Provider: Una COLLINS MD :1940 A ge:85 Y S ex:Female Date:05/15/2025 Address:[address] [place], [place] [id number] Pcp:Jayden Vásquez * Billing Information: * Visit Code: * Procedure Codes: * Electronic signature of AUST IN MD KARINA on 10/27/2025 at 03:38 PM COAT BASTER Sign off status: Pending * Provider: Una COLLINS MD Date: 05/15/2025 Generated for Printi ng/Faxing/eTransmitting on: 1 12/28/2024 03:38 PM COAT BASTER
[2025-10-27] VITALS (10 sets, daily range): BP systolic 93–115; BP diastolic 41–72; PULSE 60–70; RESP 12–16; TEMP 35.4–36.5; O2SAT 88–97; BMI 24.3
--- NOTE | 2025-10-27 11:35 | CTR_ITS ---
PROCEDURE INFORMATION: Exam: CT Head Without Contrast Exam date and time: 10/27/2025 11:48 AM Age: 85 years old Clinical indication: Malaise or fatigue; Additional info: Weakness TECHNIQUE: Imaging protocol: Computed tomography of the head without contrast. Radiation optimization: All CT scans at this facility use at least one of these dose optimization techniques: automated exposure control; mA and/or kV adjustment per patient size (includes targeted exams where dose is matched to clinical indication); or iterative reconstruction. COMPARISON: CT head wo con* [id number] 09/15/2025 11:58 AM RADIATION DOSE METRICS: Total DLP (mGy-cm): 765.68 FINDINGS: Brain: There is mild small vessel disease. There is no evidence of acute parenchymal hemorrhage, extra-axial collection, or acute infarction. There is no mass effect, midline shift, or downward herniation. Cerebral ventricles: No ventriculomegaly. Paranasal sinuses: Visualized sinuses are unremarkable. No fluid levels. Mastoid air cells: Visualized mastoid air cells are well aerated. Bones: Unremarkable. No acute fracture. Soft tissues: Unremarkable. CT/CT head wo con* [id number] IMPRESSION: Mild small-vessel disease. No evidence of acute intracranial process.
--- NOTE | 2025-10-27 11:35 | XRR_ITS ---
PROCEDURE INFORMATION: Exam: XR Chest Exam date and time: 10/27/2025 11:38 AM Age: 85 years old Clinical indication: Other: Weakness; Prior surgery; Surgery date: 6+ months; Surgery type: Cabg; Pacemaker; Additional info: Weakness; AMS TECHNIQUE: Imaging protocol: Radiologic exam of the chest. Views: 1 view. Total images: 2 COMPARISON: 1. CT chest wo con [id number] 09/18/2025 8:26 PM 2. CR XR chest 2V* [id number] 09/18/2025 9:33 AM 3. CR (CHEST, ) 09/16/2025 8:30 PM 4. CR (CHEST, ) 09/15/2025 12:16 PM FINDINGS: Airway: Trachea is normal. Lungs: Compressive lung atelectasis, cdgy-[id number]-sxku-right. Reticular interstitial thickening, likely chronic, without focal alveolar consolidation. Pleural spaces: Bilateral small pleural effusions. Heart/Mediastinum: Biventricular cardiac conduction assist device (pacemaker) present. Leads projecting appropriately within right atrium, right ventricle. Normal heart size. Vasculature: Aorta mild atherosclerotic calcification. Bones/joints: Prior median sternotomy. Shoulder glenohumeral mild osteoarthritis. Moderate generalized degenerative changes of the vertebral column, including multilevel osteophytes, degenerative disc height loss, and facet arthrosis, consistent with patient age. Qualitative demineralization of bones (osteopenia) limiting evaluation for nondisplaced fractures. Few dental fillings noted incidentally. XR/XR chest 1V portable [id number] IMPRESSION: 1. No new or worsening findings; chronic findings stable. 2. Small bilateral pleural effusions with compressive lung atelectasis, owpm-vrwuduo-oavh-right, improved on the left side. 3. Stable reticular interstitial thickening, likely chronic, without focal alveolar consolidation. Nonspecific; most consistent with chronic fibrotic interstitial change, age-related/nonspecific. Recommend correlation with clinical history; pulmonary function tests if clinically indicated. 4. Small bilateral pleural effusions. 5. Moderate age-appropriate degenerative spinal changes. Other chronic/non-acute findings as described above. Advanced upper lumbar degenerative levoconvex scoliosis and partial visualization of pedicle screw/rory fixation hardware at the inferior margin field of view. COMMENTS: Qualitative demineralization of bones (osteopenia) limiting evaluation for nondisplaced fractures.
--- NOTE | 2025-10-27 11:36 | ECG_ITS ---
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: : 1940 Requested By: Martha Torres Order Number: [id number] Reading MD: LEÓN PADILLA Measurements Intervals [place] Rate: 61 P: 181 KS: 231 QRS: -38 QRSD: 95 T: 111 QT: 441 QTc: 445 Interpretive Statements ELECTRONIC ATRIAL PACEMAKER LEFT AXIS DEVIATION [QRS AXIS < -30] INCOMPLETE RIGHT BUNDLE BRANCH BLOCK [90+ ms QRS DURATION, TERMINAL R IN V1/V2, 40+ ms S IN I/aVL/V4/V5/V6] LEFT VENTRICULAR HYPERTROPHY AND ST-T CHANGE [VOLTAGE CRITERIA PLUS ST/T ABNORMALITY] POSSIBLE ANTEROSEPTAL MYOCARDIAL INFARCTION , OF INDETERMINATE AGE [30 ms Q WAVE IN V1-V4] Compared to ECG 09/16/2025 20:55:00 Left-axis deviation now present Incomplete right bundle-branch block now present Electronically Signed On 10-27-2025 18:37:50 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
[2025-10-27 11:56] LABS: Hematocrit 28.8 % (36-47); Hemoglobin 8.70 g/dL (11.27-16.99); Mean Corpuscular HGB Conc 30.2 g/dL (30-55); Mean Corpuscular Hemoglobin 32.7 pg (27-33); Mean Corpuscular Volume 108.3 fl (85-98); Nucleated Red Blood Cells % 0.2 %; Platelet Count 295 10^3/cmm (157-399); Red Blood Count 2.66 10^6/uL (3.85-5.65); White Blood Count 21.59 10^3/uL (3.29-11.43)
--- NOTE | 2025-10-27 11:59 | W.ED.WEAKNES ---
HPI - Weakness General: Chief complaint: Weakness Stated complaint: lethargy; weakness Time Seen by Provider: 10/27/25 11:32 Source: EMS Mode of arrival: EMS Limitations: altered mental status History of Present Illness: 85-year-old female who is here from long-term patient currently being treated for C. difficile. intermediate patient has not been eating or drinking over the last 2 days has became increasingly lethargic. Patient here is lethargic and only able to tell me her name. No known fever denies any pain Related Data Home Medications ?Medication ?Instructions ?Recorded ?Confirmed acetaminophen 500 mg tablet 1,000 mg PO BID 08/21/24 09/17/25 albuterol sulfate 90 mcg/actuation 2 puff inhalation Q6H PRN 08/21/24 09/17/25 aerosol inhaler Shortness Of Breath clopidogrel 75 mg tablet 75 mg PO DAILY 08/21/24 09/17/25 levothyroxine 100 mcg tablet 100 mcg PO DAILY 08/21/24 09/17/25 nitroglycerin 0.4 mg sublingual 0.4 mg sublingual Q5M PRN Chest 08/21/24 09/17/25 tablet (Nitrostat) Pain ropinirole 0.5 mg tablet 1 mg PO BEDTIME 08/21/24 09/17/25 allopurinol 100 mg tablet 100 mg PO DAILY 06/30/25 09/17/25 carboxymethyl 0.5 %-glycerin 1 1 drp ophthalmic (eye) QID PRN Dry 06/30/25 09/17/25 %-polysorb 80 0.5 %-PF eye Eyes dropperette (Refresh Optive Advanced (PF)) emollient combination no.110 1 ea topical BID Dry Skin 06/30/25 09/17/25 (Eucerin Intensive Repair lotion) lidocaine 5 % topical patch 1 patch transdermal Q12H 06/30/25 09/17/25 sertraline 50 mg tablet (Zoloft) 50 mg PO BEDTIME 06/30/25 09/17/25 white petrolatum-mineral oil 57.3 1 applic ophthalmic (eye) BEDTIME 06/30/25 09/17/25 %-42.5 % eye ointment (Refresh P.M.) quetiapine 50 mg tablet 50 mg PO BEDTIME 08/05/25 09/17/25 bisacodyl 10 mg rectal suppository 10 mg ME DAILY PRN Constipation 09/17/25 09/17/25 (Dulcolax (bisacodyl)) camphor 4 %-methyl salicylate 30 1 applic topical BID pain 09/17/25 09/17/25 %-menthol 10 % topical cream (Pain Relieving Cream) gentian neha 1 % topical solution 1 applic topical DAILY 09/17/25 09/17/25 magnesium hydroxide 400 mg/5 mL 30 ml PO DAILY PRN Constipation 09/17/25 09/17/25 oral suspension (Milk of Magnesia) menthol 4 % topical gel (Biofreeze 1 applic topical Q8H PRN Pain 09/17/25 09/17/25 (menthol)) ondansetron HCl 4 mg tablet 4 mg PO Q6H PRN Nausea And Vomiting 09/17/25 09/17/25 sodium phosphates 19 gram-7 118 ml ME DAILY PRN Constipation 09/17/25 09/17/25 gram/118 mL enema (Fleet Enema) Previous Rx's ?Medication ?Instructions ?Recorded oxycodone 5 mg tablet 5 mg PO BID PRN breakthrough pain 07/04/25 #14 tabs oxycodone myristate 18 mg capsule 18 mg PO BID #14 ea 07/04/25 sprinkle extended release 12hr(DON'T CRUSH) (Xtampza ER) multivitamin-ferrous 1 tab PO DAILY #90 tabs 08/06/25 fumarate-folic acid 18 mg-400 mcg tablet (Centrum Complete) pantoprazole 40 mg tablet,delayed 40 mg PO DAILY 90 days #90 tabs 08/06/25 release Held on 09/22/25. Instructions: Resume on 10/07/25. Lactobacillus acidoph-L.bulgaricus 1 tab PO BID #60 tabs 09/21/25 1 million cell tablet furosemide 20 mg tablet (Lasix) 20 mg PO BID #60 tabs 09/21/25 magnesium oxide 400 mg (241.3 mg 400 mg PO BID #60 tabs 09/21/25 magnesium) tablet potassium chloride 10 mEq 10 meq PO BID #60 tabs 09/21/25 tablet,extended release vancomycin 125 mg capsule 125 mg PO QID #40 caps 09/21/25 Lactobacillus acidoph-L.bulgaricus 1 tab PO BID #60 tabs 09/22/25 1 million cell tablet amlodipine 5 mg tablet 5 mg PO DAILY #30 tabs 09/22/25 carvedilol 3.125 mg tablet 9.375 mg (3 x 3.125 mg) PO BID 09/22/25 #180 tabs losartan 25 mg tablet 50 mg (2 x 25 mg) PO DAILY #60 tabs 09/22/25 Allergies Allergy/AdvReac Type Severity Reaction Status Date / Time codeine Allergy Unknown Unknown Verified 08/21/25 10:49 doxycycline Allergy Unknown Unknown Verified 08/21/25 10:49 erythromycin base Allergy Unknown Unknown Verified 08/21/25 10:49 hydromorphone (From Dilaudid) Allergy Unknown Unknown Verified 08/21/25 10:49 Sulfa (Sulfonamide Allergy Unknown Unknown Verified 08/21/25 10:49 Antibiotics) Review of Systems General: Reports: ROS unobtainable due to mental status PFSH ED PFSH: Medical History (Updated 10/27/25 @ 15:07 by Martha Torres MD) Non-pressure chronic ulcer of left lower leg, limited to breakdown of skin Fusion of spine, 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 Chronic obstructive pulmonary disease, unspecified Fibromyalgia Mixed hyperlipidemia Chronic pain syndrome Personal history of diseases of the skin and subcutaneous tissue Personal history of urinary (tract) infections Personal history of other diseases of the digestive system Unspecified dementia, unspecified severity, without behavioral disturbance, psychotic disturbance, mood disturbance, and anxiety Unsteadiness on feet Presence of cardiac pacemaker Overactive bladder Hypothyroidism, unspecified Hyperlipidemia, unspecified History of falling Gout, unspecified Gastro-esophageal reflux disease without esophagitis Essential (primary) hypertension Surgical History (Updated 09/23/25 @ 00:00 by ANU Almanzar) 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 Social History Smoking and tobacco/nicotine status: unknown if used tobacco/nicotine Housing: [facility] Physical Exam Const: COMMON NORMALS: alert; negative for patient oriented x3 GENERAL APPEARANCE: ill appearing ORIENTATION/CONSCIOUSNESS: Yes oriented to person; not oriented to place and not oriented to time HENMT: COMMON NORMALS: normocephalic and atraumatic HEAD & SCALP: normocephalic and atraumatic Eye: COMMON NORMALS: Equal, round and reactive pupils present and EOMs intact bilaterally PUPIL: Yes Equal, round and reactive pupils present Neck/C-Spine: COMMON NORMALS: full ROM and supple Chest: COMMONS NORMALS: normal inspection of the chest and normal palpation of entire chest wall Resp: COMMON NORMALS: normal respiratory effort, No retractions, No use of accessory muscles and clear to auscultation bilaterally AUSCULTATION: clear to auscultation bilaterally Cardio: COMMON NORMALS: regular rate, regular rhythm and No murmurs present (Cardio) RATE: regular rate RHYTHM: regular rhythm GI: COMMON NORMALS: Normal to inspection, nondistended, normoactive bowel sounds present, Soft to palpation, non-tender and no masses PALPATION: Yes Soft to palpation Extremity: COMMON NORMALS: normal to inspection and full ROM Neuro: COMMON NORMALS: moves all extremities and no focal motor deficits; negative for patient oriented x3 SENSORIUM/ORIENTATION: Yes alert, Yes oriented to person, No oriented to place and No oriented to time Psych: COMMON NORMALS: cooperative; negative for mental status grossly normal Skin: COMMON NORMALS: no rashes or lesions noted and no wounds GENERAL SKIN EXAM: no rashes or lesions noted Course Vital Signs: Vital signs: Vital Signs Temperature 97.7 F 10/27/25 11:31 Pulse Rate 62 10/27/25 13:03 Respiratory Rate 12 10/27/25 13:03 Blood Pressure 101/49 10/27/25 13:03 Pulse Oximetry 91 10/27/25 13:03 Oxygen Delivery Me thod Nasal Cannula 10/27/25 13:03 Oxygen Flow Rate 4 10/27/25 13:03 MDM - Weakness Medical Decision Making 85-year-old female presents here with lethargy Altered mental status had not been drinking for 2 days. Differential includes sepsis, infection, CVA, dehydration. Did do a CT of her head showed no signs of stroke she has no focal deficits here patient does have acute kidney injury with elevated creatinine also has a UTI elevated white count with likely sepsis. Did not give her the full sepsis bolus as she has a history of CHF elevated BNP and would do more harm than good and fluid overload her. She did get antibiotics here. I have spoke to the hospitalist will admit to cardiac stepdown at this time. critical care time 50 minutes The high probability of a clinically significant, sudden or life threatening deterioration of the patient's renal system(s) required my full and direct attention, intervention and personal management. The critical care time is as shown. This time is in addition to time spent performing any reported procedures but includes the following: [x] Data and vital sign review and interpretation [x] Patient assessment, examination and intervention [x] Documentation [x] Medication orders and management EKG interpreted at 1255 normal sinus rhythm heart rate [address] elevation QRS 95 QTc 443 Lab Data I reviewed the patient's lab results. 10/27/25 11:02 10/27/25 11:02 Radiology Impressions Chest X-Ray 10/27/25 11:35 IMPRESSION: 1. No new or worsening findings; chronic findings stable. 2. Small bilateral pleural effusions with compressive lung atelectasis, vjbh-mopishd-zock-right, improved on the left side. 3. Stable reticular interstitial thickening, likely chronic, without focal alveolar consolidation. Nonspecific; most consistent with chronic fibrotic interstitial change, age-related/nonspecific. Recommend correlation with clinical history; pulmonary function tests if clinically indicated. 4. Small bilateral pleural effusions. 5. Moderate age-appropriate degenerative spinal changes. Other chronic/non-acute findings as described above. Advanced upper lumbar degenerative levoconvex scoliosis and partial visualization of pedicle screw/rory fixation hardware at the inferior margin field of view. COMMENTS: Qualitative demineralization of bones (osteopenia) limiting evaluation for nondisplaced fractures. Head CT 10/27/25 11:35 IMPRESSION: Mild small-vessel disease. No evidence of acute intracranial process. Laboratory Results WBC 21.59 10^3/uL (3.29-11.43) H 10/27/25 11:02 RBC 2.66 10^6/uL (3.85-5.65) L 10/27/25 11:02 Hgb 8.70 g/dL (11.27-16.99) L 10/27/25 11:02 Hct 28.8 % (36-47) L 10/27/25 11:02 MCV 108.3 fl (85-98) H 10/27/25 11:02 MCH 32.7 pg (27-33) 10/27/25 11:02 MCHC 30.2 g/dL (30-55) 10/27/25 11:02 RDW 17.2 % (12.1-15.1) H 10/27/25 11:02 Plt Count 295 10^3/cmm (157-399) 10/27/25 11:02 MPV 10.2 fL (7.4-10.4) 10/27/25 11:02 Neut % (Auto) 89.9 % 10/27/25 11:02 Lymph % (Auto) 6.1 % 10/27/25 11:02 [place] % (Auto) 2.8 % 10/27/25 11:02 Eos % (Auto) 0.0 % 10/27/25 11:02 Baso % (Auto) 0.2 % 10/27/25 11:02 Neut # (Auto) 19.41 10^3/uL (1.8-7.7) H 10/27/25 11:02 Lymph # (Auto) 1.3 10^3/uL (0.8-4.8) 10/27/25 11:02 [place] # (Auto) 0.6 10^3/uL (0.2-0.9) 10/27/25 11:02 Eos # (Auto) 0.0 10^3/uL (0.0-0.8) 10/27/25 11:02 Baso # (Auto) 0.0 10^3/uL (0.0-0.1) 10/27/25 11:02 Nucleated RBC % (auto) 0.2 % 10/27/25 11:02 Nucleated RBCs # 0.0 /100WBC 10/27/25 11:02 PT 17.30 SECONDS (12.1-14.9) H 10/27/25 11:02 INR 1.32 (0.8-1.2) H 10/27/25 11:02 Sodium 135 mmol/L (136-145) L 10/27/25 11:02 Potassium 5.2 mmol/L (3.5-5.1) H 10/27/25 11:02 Chloride 99 mmol/L (98-107) 10/27/25 11:02 Carbon Dioxide 28 mmol/L (22-29) 10/27/25 11:02 Anion Gap 13.2 (5-19) 10/27/25 11:02 BUN 37 mg/dL (8-23) H 10/27/25 11:02 Creatinine 2.3 mg/dL (0.5-0.9) H 10/27/25 11:02 GFR Calculation Not Reportable 10/27/25 11:02 Glucose 186 mg/dL (65-115) H 10/27/25 11:02 Calculated Osmolality 294 mOsm/kg (285-295) 10/27/25 11:02 Lactic Acid 1.3 mmol/L (0.5-2.2) 10/27/25 11:02 Calcium 8.8 mg/dL (8.5-10.5) 10/27/25 11:02 Magnesium 1.8 mg/dL (1.7-2.3) 10/27/25 11:02 Total Bilirubin 0.2 mg/dL (0.15-1.2) 10/27/25 11:02 AST 792 U/L (0-32) H 10/27/25 11:02 ALT 286 U/L (0-33) H 10/27/25 11:02 Alkaline Phosphatase 166 U/L (35-105) H 10/27/25 11:02 NT-Pro-B Natriuret Pep 70576 pg/mL (0-450) H 10/27/25 11:02 Total Protein 6.5 g/dL (6.6-8.7) L 10/27/25 11:02 Albumin 3.1 g/dL (3.5-5.2) L 10/27/25 11:02 Globulin 3.4 g/dL (1.3-4.6) 10/27/25 11:02 TSH 17.00 uIU/mL (0.27-4.20) H 10/27/25 11:02 Urine Color Yellow (Yellow) 10/27/25 13:14 Urine Appearance Turbid (CLEAR) A 10/27/25 13:14 Urine pH 6.0 (5-7) 10/27/25 13:14 Ur Specific [place] 1.019 (1.005-1.030) 10/27/25 13:14 Urine Protein 4+ (Negative) A 10/27/25 13:14 Urine Glucose (UA) Trace (Normal) H 10/27/25 13:14 Urine Ketones Negative (Negative) 10/27/25 13:14 Urine Blood 2+ (Negative) A 10/27/25 13:14 Urine Nitrate Negative (Negative) 10/27/25 13:14 Urine Bilirubin Negative (Negative) 10/27/25 13:14 Urine Urobilinogen 0.2 mg/dL (Negative) 10/27/25 13:14 Ur Leukocyte Esterase 3+ (Negative) A 10/27/25 13:14 Urine RBC 6-10 /hpf (0-2) 10/27/25 13:14 Urine WBC >100 /hpf (0-5) H 10/27/25 13:14 Ur Squamous Epith Cells 0-5 /hpf (0-5) 10/27/25 13:14 Amorphous Sediment Not Reportable 10/27/25 13:14 Urine Bacteria None seen /hpf (NONE) 10/27/25 13:14 Hyaline Casts 18.50 /lpf 10/27/25 13:14 All radiology interpretation(s) finalized by discharge Critical Care Time Critical Care Time: Critical Care Time: Yes Total Critical Care Time: 50 Attestation: The high probability of a clinically significant, sudden or life threatening deterioration of the patient's renal system(s) required my full and direct attention, intervention and personal management. The critical care time is as shown. 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
[2025-10-27 12:14] LABS: INR 1.32 (0.8-1.2); Prothrombin Time 17.30 SECONDS (12.1-14.9)
[2025-10-27 12:23] LABS: Lactic Sepsis W/Reflex 1.3 mmol/L (0.5-2.2)
[2025-10-27 12:29] LABS: Alanine Aminotransferase 286 U/L (0-33); Albumin Level 3.1 g/dL (3.5-5.2); Alkaline Phosphatase 166 U/L (35-105); Anion Gap 13.2 (5-19); Blood Urea Nitrogen 37 mg/dL (8-23); Calcium 8.8 mg/dL (8.5-10.5); Carbon Dioxide 28 mmol/L (22-29); Chloride 99 mmol/L (98-107); Globulin 3.4 g/dL (1.3-4.6); Glucose 186 mg/dL (65-115); Magnesium 1.8 mg/dL (1.7-2.3); Osmolality Calculated 294 mOsm/kg (285-295); Potassium 5.2 mmol/L (3.5-5.1); Sodium 135 mmol/L (136-145); Thyroid Stimulating Hormone 17.00 uIU/mL (0.27-4.20); Total Protein 6.5 g/dL (6.6-8.7)
[2025-10-27 12:33] LABS: NT Pro B Type Natriuretic Pept 31716 pg/mL (0-450)
[2025-10-27 12:38] LABS: Aspartate Amino Transferase 792 U/L (0-32)
[2025-10-27] MEDS: piperacillin-tazobactam 3.375 GM in sodium chloride 0.9% (plus) 50 ML IV (13:03)
[2025-10-27 13:30] LABS: Glucose Urine UA Trace (Normal); Nitrate Urine Negative (Negative); Specific Gravity, Urine 1.019 (1.005-1.030)
[2025-10-27 13:35] LABS: Add Urine Microscopic? YES
[2025-10-27 13:51] LABS: UA Slide Review UA Slide Review Perf
--- OUTSIDE RECORDS SUMMARY | 2025-10-27 15:39 | XMS_ITS | Patient Health Record ---
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 Name Role Phone Vásquez, Jayden Primary Care Provider ALMA DELIA Zavala Unavailable [phone] CHE COLLINS Unavailable [phone] Allergies Allergen (clinical drug ingredient) Drug/Non Drug [...] Glucose - Bilirubin - Ketones - Specific [place] 1.025 Occult Blood 2+ pH 6.0 Urine Protein 3+ Urobilinogen,Semi-Qn - Nitrite, Urine - WBC Esterase - Urinalysis Gross Exam - Reason For Referral Reason Renal Stone Diagnosis 1 Left renal stone (N2 0.0) Referral Organization [facility] [employer] [employer] Referring Provider First Name CHE Referring Provider [...] Status Risk Notes Problem Low back pain (456632815) Low back pain (M54.50) Active confirmed Problem Kidney stone (43794482) Left renal stone (N20.0) Active confirmed Problem Recurrent urinary tract infection (364790838) Recurrent UTI (N39.0) Active confirmed Problem Clot hematuria (360528849) Clot hematuria (R31.0) Active confirmed Vital Signs [...] 66ml Encounters Encounter Location Date Provider Diagnosis [facility] [address] [place] [address] 03/05/2025 ALMA DELIA SHAFFER Clot hematuria R31.0 ; Recurrent UTI N39.0 ; Low back pain M54.50 ; Upper abdominal pain R10.10 ; History of kidney stones Z87.442 ; History of smoking Z87.891 and Dysuria R30.0 [facility] [address] [place] [address] 04/09/2025 CHE COLLINS Clot hematuria R31.0 ; Left renal stone N20.0 ; Recurrent UTI N39.0 ; Low back pain M54.50 ; Upper abdominal pain R10.10 ; History of kidney stones Z87.442 ; History of smoking Z87.891 and Dysuria R30.0 [facility] [address] [place] [address] 02/15/2025 ALMA DELIA SHAFFER [facility] [address] [place] [address] 03/06/2025 ALMA DELIA SHAFFER [facility] [address] [place] [address] 04/13/2025 ALMA DELIA SHAFFER Assessments Encounter Date [...] next available. Plan: schedule Left [facility] at [facility] obtain clearance from Dr. Vásquez in [...] next available. Plan: schedule Left [facility]L at [facility] obtain clearance from Dr. Vásquez in [...] next available. Plan: schedule Left ESWL at [facility] obtain clearance from Dr. Vásquez in [...] next available. Plan: schedule Left ESWL at [facility] obtain clearance from Dr. Vásquez in [...] next available. Plan: schedule Left E[facility]L at [facility] obtain clearance from Dr. Vásquez in [...] next available. Plan: schedule Left ESWL at [facility] obtain clearance from Dr. Vásquez in [...] next available. Plan: schedule Left ESWL at [facility] obtain clearance from Dr. Vásquez in [...] next available. Plan: schedule Left ESWL at [facility] obtain clearance from Dr. Vásquez in [...] & Pelvis W & [place] contrast [id number] 03/05/2025 BUN, Creatinine 03/05/2025 Insurance Providers Payer Name Payer Address Payer Phone Subscriber Number Group Number Insured Name Patient Relationship to Insured Coverage Start Date Coverage End Date [facility] Medicare Advantage HMO [address] [address] [place], [place] [id number] [phone] [id number] Beatris Hemphill Self - patient is the insured [place] Medicaid [address] [place], [place] [id number] Beatris Hemphill Self - patient is the insured Medical (General) History Medical History History ICD Code Cystitis with hematuria RA osteoarthritis heart disease COPD Surgical History Surgery Date(Month/Year) triple bypas gallbladder Appendix Tonsils Hospitalization History Reason Date(Month/Year) multiple
--- NOTE | 2025-10-27 16:03 | PM.HP ---
Providers/Chief Complaint Admitting Physician: Walter Worrell MD Primary Care Provider: Jayden Vásquez DO Chief Complaint: lethargy; weakness History of Present Illness Kami Hemphill is a 85 year old female Review of Systems General: Reports: ROS unobtainable due to mental status Medications/Allergies Home Medications ?Medication ?Instructions ?Recorded ?Confirmed ?Last Taken ?Type acetaminophen 500 mg tablet 1,000 mg PO BID 08/21/24 09/17/25 09/14/25 History albuterol sulfate 90 mcg/actuation 2 puff inhalation Q6H PRN 08/21/24 09/17/25 08/04/25 18:00 History aerosol inhaler Shortness Of Breath clopidogrel 75 mg tablet 75 mg PO DAILY 08/21/24 09/17/25 09/14/25 History levothyroxine 100 mcg tablet 100 mcg PO DAILY 08/21/24 09/17/25 09/15/25 History nitroglycerin 0.4 mg sublingual 0.4 mg sublingual Q5M PRN Chest 08/21/24 09/17/25 Unknown History tablet (Nitrostat) Pain ropinirole 0.5 mg tablet 1 mg PO BEDTIME 08/21/24 09/17/25 09/15/25 History allopurinol 100 mg tablet 100 mg PO DAILY 06/30/25 09/17/25 09/15/25 History carboxymethyl 0.5 %-glycerin 1 1 drp ophthalmic (eye) QID PRN Dry 06/30/25 09/17/25 09/16/25 History %-polysorb 80 0.5 %-PF eye Eyes dropperette (Refresh Optive Advanced (PF)) emollient combination no.110 1 ea topical BID Dry Skin 06/30/25 09/17/25 09/15/25 History (Eucerin Intensive Repair lotion) lidocaine 5 % topical patch 1 patch transdermal Q12H 06/30/25 09/17/25 09/13/25 History sertraline 50 mg tablet (Zoloft) 50 mg PO BEDTIME 06/30/25 09/17/25 09/15/25 History white petrolatum-mineral oil 57.3 1 applic ophthalmic (eye) BEDTIME 06/30/25 09/17/25 09/13/25 History %-42.5 % eye ointment (Refresh P.M.) oxycodone 5 mg tablet 5 mg PO BID PRN breakthrough pain 07/04/25 09/17/25 09/15/25 Rx #14 tabs oxycodone myristate 18 mg capsule 18 mg PO BID #14 ea 07/04/25 09/17/25 09/16/25 Rx sprinkle extended release 12hr(DON'T CRUSH) (Xtampza ER) quetiapine 50 mg tablet 50 mg PO BEDTIME 08/05/25 09/17/25 09/15/25 History multivitamin-ferrous 1 tab PO DAILY #90 tabs 08/06/25 09/17/25 09/14/25 Rx fumarate-folic acid 18 mg-400 mcg tablet (Centrum Complete) pantoprazole 40 mg tablet,delayed 40 mg PO DAILY 90 days #90 tabs 08/06/25 09/17/25 09/14/25 Rx release Held on 09/22/25. Instructions: Resume on 10/07/25. bisacodyl 10 mg rectal suppository 10 mg RI DAILY PRN Constipation 09/17/25 09/17/25 Unknown History (Dulcolax (bisacodyl)) camphor 4 %-methyl salicylate 30 1 applic topical BID pain 09/17/25 09/17/25 09/15/25 History %-menthol 10 % topical cream (Pain Relieving Cream) gentian neha 1 % topical solution 1 applic topical DAILY 09/17/25 09/17/25 09/15/25 History magnesium hydroxide 400 mg/5 mL 30 ml PO DAILY PRN Constipation 09/17/25 09/17/25 Unknown History oral suspension (Milk of Magnesia) menthol 4 % topical gel (Biofreeze 1 applic topical Q8H PRN Pain 09/17/25 09/17/25 09/05/25 History (menthol)) ondansetron HCl 4 mg tablet 4 mg PO Q6H PRN Nausea And Vomiting 09/17/25 09/17/25 09/16/25 History sodium phosphates 19 gram-7 118 ml RI DAILY PRN Constipation 09/17/25 09/17/25 Unknown History gram/118 mL enema (Fleet Enema) Lactobacillus acidoph-L.bulgaricus 1 tab PO BID #60 tabs 09/21/25 Unknown Rx 1 million cell tablet furosemide 20 mg tablet (Lasix) 20 mg PO BID #60 tabs 09/21/25 09/17/25 09/14/25 Rx magnesium oxide 400 mg (241.3 mg 400 mg PO BID #60 tabs 09/21/25 Unknown Rx magnesium) tablet potassium chloride 10 mEq 10 meq PO BID #60 tabs 09/21/25 09/17/25 Unknown Rx tablet,extended release vancomycin 125 mg capsule 125 mg PO QID #40 caps 09/21/25 Unknown Rx Lactobacillus acidoph-L.bulgaricus 1 tab PO BID #60 tabs 09/22/25 Unknown Rx 1 million cell tablet amlodipine 5 mg tablet 5 mg PO DAILY #30 tabs 09/22/25 Unknown Rx carvedilol 3.125 mg tablet 9.375 mg (3 x 3.125 mg) PO BID 09/22/25 Unknown Rx #180 tabs losartan 25 mg tablet 50 mg (2 x 25 mg) PO DAILY #60 tabs 09/22/25 09/17/25 09/14/25 Rx Allergies Allergy/AdvReac Type Severity Reaction Status Date / Time codeine Allergy Unknown Unknown Verified 08/21/25 10:49 doxycycline Allergy Unknown Unknown Verified 08/21/25 10:49 erythromycin base Allergy Unknown Unknown Verified 08/21/25 10:49 hydromorphone (From Dilaudid) Allergy Unknown Unknown Verified 08/21/25 10:49 Sulfa (Sulfonamide Allergy Unknown Unknown Verified 08/21/25 10:49 Antibiotics) PFSH Acute PFSH: Medical History (Updated 10/27/25 @ 16:08 by Tamar Degroot NP) Non-pressure chronic ulcer of left lower leg, limited to breakdown of skin Fusion of spine, 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 Chronic obstructive pulmonary disease, unspecified Fibromyalgia Mixed hyperlipidemia Chronic pain syndrome Personal history of diseases of the skin and subcutaneous tissue Personal history of urinary (tract) infections Personal history of other diseases of the digestive system Unspecified dementia, unspecified severity, without behavioral disturbance, psychotic disturbance, mood disturbance, and anxiety Unsteadiness on feet Presence of cardiac pacemaker Overactive bladder Hypothyroidism, unspecified Hyperlipidemia, unspecified History of falling Gout, unspecified Gastro-esophageal reflux disease without esophagitis Essential (primary) hypertension Surgical History (Updated 09/23/25 @ 00:00 by ANU Almanzar) 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 Social History Smoking and tobacco/nicotine status: unknown if used tobacco/nicotine Housing: [facility] Vitals/I&O/Wt Last Vital Signs Temp 97.7 F 10/27/25 11:31 Pulse 61 10/27/25 15:50 Resp 12 10/27/25 13:03 BP 103/56 10/27/25 15:50 Pulse Ox 91 10/27/25 15:50 O2 Del Method Nasal Cannula 10/27/25 14:30 O2 Flow Rate 5 10/27/25 14:30 10/27/25 10/27/25 10/27/25 06:59 14:59 22:59 Intake Total 1300 / 1300 Balance 1300 / 1300 Weight last 48 hrs Weight 61.235 kg Physical Exam Narrative: Chronically ill-appearing, frail 85-year-old female laying in bed opens eyes but does not otherwise interact or engage. Const: EXAM LIMITATIONS: altered mental status GENERAL APPEARANCE: disheveled, lethargic and ill appearing NUTRITIONAL APPEARANCE: thin ORIENTATION/CONSCIOUSNESS: Yes lethargic HENMT: COMMON NORMALS: normocephalic and Normal external nose present NOSE: Other nasal findings present (Dry mucous membranes) Eye: COMMON NORMALS: conjunctivae normal GENERAL EYE: appearance normal, both eyes and all related structures Resp: COMMON NORMALS: normal respiratory effort and No retractions Cardio: COMMON NORMALS: no JVD and regular rate GI: COMMON NORMALS: Soft to palpation AUSCULTATION: Yes normoactive bowel sounds Extremity: NARRATIVE EXTREMITY EXAM: Bilateral lower extremity 1+ pitting edema, unable to assess gait, independently moving extremities and repositioning Neuro: SENSORIUM/ORIENTATION: Yes lethargic Psych: OTHER: Unable to assess Insight and judgment due to lethargy/obtundation Skin: NARRATIVE SKIN EXAM: poor turgor Urinary Catheter Management: Randle: Cath Placed During This Visit: yes Urinary Catheter Date of Insertion: 10/27/25 Urinary Catheter Time of Insertion: 13:25 Data 10/27/25 11:02 10/27/25 11:02 Micro: Microbiology 10/27/25 12:51 Blood Culture - Preliminary Blood SPECIMEN COLLECTED 10/27/25 12:09 Blood Culture - Preliminary Blood SPECIMEN COLLECTED A&P Assessment and plan 1. JORDY (acute kidney injury): 2. Metabolic encephalopathy: 3. Type 2 diabetes mellitus with diabetic polyneuropathy: 4. Leukocytosis: 5. Volume depletion: 6. Hypothyroidism, unspecified: 7. Anemia: Plan: Acute kidney injury Volume depletion - Creatinine 2.3, baseline around 1.0 - Given 1 L NS bolus in the ER, continue gentle IV fluid hydration with NS at 100 mL/h on admission - Renally dose medications, Avoid nephrotoxic agents Metabolic encephalopathy - Patient is lethargic, reports from outlying facility that she has not been able to eat or drink the last 2 days and has had increasing lethargy and worsening mentation - Is able to open eyes and track movement, not verbalizing or responding to questions Leukocytosis Concern for early sepsis, no source of infection Recent C. difficile - Admitting WBC 21.59 - Given Zosyn 3.375g and Vancomycin 1g in ER, will hold off on further antibiotics pending work-up - Pending blood cultures x 2 - Pending repeat C. difficile PCR, has not had diarrhea since admission - Treated for C. difficile approximately 6 weeks ago Diabetes mellitus type 2 - When able to resume diet resume carb controlled - Low-dose sliding scale insulin, hypoglycemic protocols - Pending A1c Volume Depletion - Given 1 L NS bolus in the ER - Gentle IV fluid hydration given comorbidities with normal saline 100 mL/h Anemia - Admitting hemoglobin 8.70 - No signs or symptoms of bleeding - Monitor hemoglobin and transfuse for hemoglobin less than 7.0 Poor oral intake food and fluids Concern for malnutrition - N.p.o. with concern for aspiration, aspiration precautions - Resume diet if mentation improves - Greatly appreciate dietitian consultation and recommendations Acute on chronic diastolic heart failure Status post CABG x 3 Severe calcific aortic stenosis - Monitor closely for volume overload - Admitting proBNP 31,716 - Telemetry monitoring - Resume cardioprotective medication once home medications have been verified Hypothyroidism - TSH 17.00 - Levothyroxine 100mcg Daily VTE PPX: SCD's, Lovenox GI PPX: PPI Code Status: Full code PDMP PDMP Reviewed: Not Reviewed Attestations Medical Necessity Statement*: Inpatient hospitalization expected to cross 2 midnights due to metabolic encephalopathy, leukocytosis with concern for sepsis further workup pending, and complex management of comorbidities. and High Time for a total of 75 minutes, includes reviewing past or interval history, examining/interviewing patient, placing orders, discussing plan of care with staff, communicating with other healthcare providers, documenting encounter and coordinating care Diagnoses JORDY (acute kidney injury) N17.9 Metabolic encephalopathy G93.41 Type 2 diabetes mellitus with diabetic polyneuropathy E11.42 Leukocytosis D72.829 Volume depletion E86.9 Hypothyroidism, unspecified E03.9 Anemia D64.9
[2025-10-27] MEDS: pantoprazole 40 mg SDV IVP (17:05)
--- NOTE | 2025-10-27 17:07 | XRR_ITS ---
PROCEDURE INFORMATION: Exam: XR Abdomen Exam date and time: 10/27/2025 7:08 PM Age: 85 years old Clinical indication: Vomiting; Prior surgery; Surgery date: 6+ months; Surgery type: Appendectomy, gallbladder, hysterectomy, spine, hip; Additional info: Vomiting/diarrhea TECHNIQUE: Imaging protocol: Radiologic exam of the abdomen. Views: Frontal supine view of the abdomen. 1 View. COMPARISON: CT abdomen pelvis con [id number] 06/30/2025 1:57 PM FINDINGS: Gastrointestinal tract: Nonspecific bowel gas pattern. Presence of scattered gas and stool in the colon. Intraperitoneal space: No indication of free air. Left renal calculus lower pole left kidney suggested. Vascular calcification noted. Bones/joints: Postsurgical fusion hardware lower lumbar spine. Partially visualized internal fixation hardware right hip. Degenerative bony changes. XR/XR KUB [id number] IMPRESSION: Nonspecific nonobstructive bowel gas pattern. Chronic left renal calculus. Postsurgical changes lower lumbar spine and right hip with hardware.
--- NOTE | 2025-10-27 22:35 | PM.PN ---
Subjective Subjective: Called to evaluate for full comfort care. I spoke with her son Marshall who states that patient was brought in because she is lethargic and not following commands. Patient was seen in noted to have severe calcific aortic stenosis, chronic kidney disease, C. difficile colitis and possibly intermittent strokes at the time of her last admission. This was potentially attributable to aortic valve clot. She was unable to have her SUZIE done due to lack of a signed consent but then elected to discharge back to [facility]. Vitals/I&O/Wt Last Vital Signs Temp 97 F L 10/27/25 20:17 Pulse 61 10/27/25 20:17 Resp 12 10/27/25 20:17 BP 97/52 10/27/25 20:17 Pulse Ox 97 10/27/25 20:17 O2 Del Method Oxymask 10/27/25 16:46 O2 Flow Rate 5 10/27/25 14:30 10/27/25 10/27/25 10/27/25 06:59 14:59 22:59 Intake Total 1300 / 1300 Balance 1300 / 1300 Weight last 48 hrs Weight 60.3 kg Weight 61.235 kg Physical Exam Narrative: General Chronically ill-appearing elderly female mildly tachypneic CV regular rate and rhythm with 5/6 systolic ejection murmur best heard at the left sternal border lungs clear anteriorly Abdomen diminished bowel tones Hands and feet 1+ to 2 bilateral edema Mentation patient is minimally responsive to sternal rub Urinary Catheter Management: Randle: Cath Placed During This Visit: yes Reason for Continuing Indwelling Catheter: Acute Urinary Retention or Obstruction Urinary Catheter Date of Insertion: 10/27/25 Urinary Catheter Time of Insertion: 13:25 Data 10/27/25 11:02 10/27/25 11:02 Micro: Microbiology 10/27/25 12:51 Blood Culture - Preliminary Blood SPECIMEN COLLECTED 10/27/25 12:09 Blood Culture - Preliminary Blood SPECIMEN COLLECTED A&P Assessment and plan 1. Severe calcific aortic stenosis: Cannot exclude aortic valve clot patient with altered mental status possibly related to embolism. White count 21,000 consistent with infection. Blood and urine cultures ordered. 2. JORDY (acute kidney injury): Volume sensitive due to sepsis and aortic stenosis 3. Sepsis: Patient with greater 100 white cells in the urine +20,000 peripheral serum white count. Initial antibiotics in the emergency department were not continued but urine comes back with UTI so she will be treated with Rocephin 4. Acute cystitis: As above Plan: I discussed with the son Marshall that I thought it was appropriate for her to go on comfort care given her severe aortic valve stenosis, current hypotension and patient's previous desire not to proceed with intervention or workup but he states that he he would like to think about it more and pray on it before making a decision. Will start Rocephin continue with supportive IV fluids PDMP PDMP Reviewed: Not Reviewed Attestations Medical Necessity Statement*: Patient josette hospitalized for hypotension and low urine output and severe calcific aortic stenosis anticipated require greater than 2 midnights Coding Level of Care Code Acute Code for Chg Fwd Diagnoses Severe calcific aortic stenosis I35.0 JORDY (acute kidney injury) N17.9 Sepsis A41.9 Acute cystitis N30.00 Time Spent (min) 35
[2025-10-28] VITALS (8 sets, daily range): BP systolic 80–106; BP diastolic 36–47; PULSE 60–65; RESP 14–19; TEMP 35.7–36.6; O2SAT 89–95
[2025-10-28] MEDS: cefTRIAXone 1,000 mg SDV 1000 MG IVP (02:18)
[2025-10-28 02:46] LABS: Hematocrit 27.6 % (36-47); Hemoglobin 8.00 g/dL (11.27-16.99); Mean Corpuscular HGB Conc 29.0 g/dL (30-55); Mean Corpuscular Hemoglobin 31.7 pg (27-33); Mean Corpuscular Volume 109.5 fl (85-98); Nucleated Red Blood Cells % 0.3 %; Platelet Count 248 10^3/cmm (157-399); Red Blood Count 2.52 10^6/uL (3.85-5.65); White Blood Count 20.08 10^3/uL (3.29-11.43)
--- NOTE | 2025-10-28 02:50 | PC.NURSE ---
BP low, noted left arm has PILLow pt on her right side--- sbp 88/39 then removed pillow and rechecked now 90/47 w a MAP of 61 FC urine close 50 cc since 7pm pt remains responsive to painful stimuli , one occassion for few sec pt was mumbling couple words. IVF NS continued at 125 cc per hour. Rocephine IVP was given. Notified of above
[2025-10-28 03:04] LABS: Alanine Aminotransferase 190 U/L (0-33); Albumin Level 2.4 g/dL (3.5-5.2); Alkaline Phosphatase 136 U/L (35-105); Anion Gap 12.2 (5-19); Aspartate Amino Transferase 243 U/L (0-32); Blood Urea Nitrogen 42 mg/dL (8-23); Calcium 7.9 mg/dL (8.5-10.5); Carbon Dioxide 27 mmol/L (22-29); Chloride 106 mmol/L (98-107); Globulin 3.0 g/dL (1.3-4.6); Glucose 135 mg/dL (65-115); Magnesium 1.7 mg/dL (1.7-2.3); Osmolality Calculated 303 mOsm/kg (285-295); Potassium 5.2 mmol/L (3.5-5.1); Sodium 140 mmol/L (136-145); Total Protein 5.4 g/dL (6.6-8.7)
--- NOTE | 2025-10-28 07:30 | PC.PHAR ---
Spoke to patient's nurse about an hour adn a half after Patient was brought in and she sent Papers with EMT ,we didn't receive them adn she was suppose to fax over. I called back many times after , and never received fax before me leaving .
--- NOTE | 2025-10-28 10:29 | P.PN_ITS ---
Subjective 2 Subjective: Patient is seen this morning in the stepdown unit. She is an 85-year-old female who was admitted yesterday because of report of nausea/vomiting with some diarrhea at home. She was found to be very lethargic, and hypotensive upon presentation. Thought to have sepsis, she was given some vancomycin and Zosyn, and thereafter admitted to the ICU stepdown for further evaluation. Overnight, she was brought to be hypotensive, therefore required some fluid boluses. She also remained mentally altered, with some associated hypoxia. Currently on Rocephin for UTI. This morning, the RN report that she is much more awake, though still mentally altered. Family reported to have been considering making her comfort care. Vitals/I&O/Wt Last Vital Signs Temp 97.8 F 10/28/25 07:27 Pulse 60 10/28/25 08:19 Resp 16 10/28/25 08:19 BP 106/45 10/28/25 07:27 Pulse Ox 95 10/28/25 08:19 O2 Del Method Oxymask 10/28/25 08:19 O2 Flow Rate 10 10/28/25 08:19 10/27/25 10/28/25 10/28/25 22:59 06:59 14:59 Intake Total 921.667 / 2221.667 0 / 0 Output Total 40 / 40 Balance 921.667 / 2221.667 -40 / -40 Weight last 48 hrs Weight 60.3 kg Weight 61.235 kg Physical Exam 2 Narrative: General: Severe lethargic patient. Otherwise awake, unable to respond to questions. Chest/Resp: Normal respiratory chest movts; no obvious respiratory distress. No obvious crackles or wheezes. CVS: Mildly tachycardic. Regular heart rate and rhythm. No obvious murmurs appreciated. GI: Soft. Nontender. Non-distended; No obvious organomegaly. Extremities: No obvious pitting pedal edema. Skin: Very dry mucous membrane, with increased skin turgor. No obvious new rashes or new skin lesions. Urinary Catheter Management: Randle: Cath Placed During This Visit: yes Reason for Continuing Indwelling Catheter: Acute Urinary Retention or Obstruction Urinary Catheter Date of Insertion: 10/27/25 Urinary Catheter Time of Insertion: 13:25 Data 10/28/25 02:26 10/28/25 02:26 Micro: Microbiology 10/27/25 12:51 Blood Culture - Preliminary Blood SPECIMEN COLLECTED 10/27/25 12:09 Blood Culture - Preliminary Blood SPECIMEN COLLECTED A&P Assessment and plan 1. Sepsis: Likely from UTI. I am changing Rocephin to cefepime at this time. 2. Volume depletion: Nurse reports suspected anasarca; I do not quite appreciate this on my physical exam. If anything, patient is moderately to severely dehydrated. Earlier, I had ordered some IV albumin 25 g x 1; resume fluid rehydration intravenous with normal saline, already ordered at 100 cc/h. I will check for fluid overload. 3. Urinary tract infection without hematuria, site unspecified: See #1 above. Antibiotics to be adjusted based on urine culture result. 4. Metabolic encephalopathy: Likely caused by the combination of the report as above. 5. Elevated liver enzymes: Very likely due to shock liver 6. Acute prerenal failure: Likely due to combination of poor oral intake versus sepsis. Resolving, otherwise. 7. Essential (primary) hypertension: Currently hypotensive/marginal. The marginal hypotension likely due to fluid depletion, already mentioned above. Will rehydrate patient first, and possibly restart her antihypertensives, if this is needed. Will consider vasopressors if hypotension persists. 8. Type 2 diabetes mellitus with diabetic polyneuropathy: Otherwise stable. We resume/start patient on basal prandial insulin when the above for problems above are better controlled/corrected. 9. Coronary artery disease: Otherwise stable. 10. Chronic pain syndrome: Will start patient on adequate pain control. 11. Presence of cardiac pacemaker: Noted in advisement. Plan: See plans s stated above. Overall, patient is encephalopathic, which is likely from acute on chronic renal failure in the face of of sepsis from acute (recurrent) UTI. Like mentioned above, I will cautiously rehydrate IV, and monitor the BUN and creatinine, as well as blood pressure. Hopefully, this will help resolve other ongoing problems, including the metabolic encephalopathy. I do not think patient needs to be made comfort care at this time, given that the current problem is all acute, and have a very high chance of recovery. The elevated liver enzymes are likely due to shock liver, which will likely resolve with correction of the underlying etiology, the prerenal failure and acute hypotension. I do not see need for any further workup/evaluation for any acute hepatitis, given very low pretest probability and low likelihood ratio. Of note, there was concern about C. difficile, given history of C. difficile colitis; I do not think there is any significant reason to suspect patient has C. difficile colitis at the moment. As a result, I am cancelling the difficile test. Will continue to monitor closely in the C[facility], and reassess in the morning. Repeat CBC plus CMP in the morning. Further plans to be adjusted clinical picture evolves. PDMP PDMP Reviewed: Not Reviewed Attestations 2 Medical Necessity Statement*: Patient admitted for apparent severe clinical condition, as outlined in the Assessment & Plan section above. Patient will need up to 2 midnight stay, estimated, at least, to adequately and appropriately treat and optimally control above-named clinical conditions,. Coding Level of Care Code 32811 Diagnoses Sepsis A41.9 Volume depletion E86.9 Urinary tract infection without hematuria, site unspecified N39.0 Urinary tract infection type: site unspecified Hematuria presence: without hematuria Metabolic encephalopathy G93.41 Elevated liver enzymes R74.8 Acute prerenal failure N17.9 Essential (primary) hypertension I10 Type 2 diabetes mellitus with diabetic polyneuropathy E11.42 Coronary artery disease I25.10 Chronic pain syndrome G89.4 Presence of cardiac pacemaker Z95.0
[2025-10-28] MEDS: albumin 25 G/100 ML BAG 60 G IV (10:53)
--- NOTE | 2025-10-28 11:03 | PC.NURSE ---
patient moaning in pain, 1 mg morphine given for pain. New ultrasound IV also placed on left upper arm. Albumin currently running per orders.
[2025-10-28] MEDS: cefepime 1,000 mg SDV 1000 MG IVP (12:18)
--- NOTE | 2025-10-28 17:04 | PC.NURSE ---
Dr Worrell notified twice about the patient's blood pressure being too low. During the first call he ordered to give a 1000ml bolus, which is currently running. Nurse also placed the patient in trendleberg position, with a slight improvement to 98/54. Nurse called a second time at 1705 to notify doctor of a blood pressure of 82/34 and a map of 50. Nurse had to leave a voicemail. Dr Worrell is not currently available via [employer]. Nurse closely monitoring during the rest of her shift.
[2025-10-28 18:47] LABS: Anion Gap 17.2 (5-19); Blood Urea Nitrogen 47 mg/dL (8-23); Calcium 7.5 mg/dL (8.5-10.5); Carbon Dioxide 19 mmol/L (22-29); Chloride 107 mmol/L (98-107); Glucose 126 mg/dL (65-115); Osmolality Calculated 300 mOsm/kg (285-295); Potassium 5.2 mmol/L (3.5-5.1); Sodium 138 mmol/L (136-145)
--- NOTE | 2025-10-28 19:48 | PC.NURSE ---
Dr. Worrell at nurses station both day shift nurse and this nurse notified MD of current BP of 86/34. Per Dr. Worrell give another 500 bolus and call updates to Night doctor.
--- NOTE | 2025-10-28 20:18 | PC.NURSE ---
Son at bedside to discuss patients condition. Patient SBP has been 80-90 with maps below 65. Patient also having poor urine output and shows pain cues. Son notifies this nurse that he thinks its time to make her comfort care. Dr. Carey made aware.
--- NOTE | 2025-10-28 20:57 | PM.PN ---
Subjective Subjective: 85-year-old female admitted with lethargy and UTI treated with Rocephin. Patient switched to cefepime this morning for possible resistant organism as she has been hospitalized a couple times in recent months as well as staying at [facility]. Patient is accompanied by her son Marshall. I have been asked by Marshall, Dr. Worrell and nurse Kori to speak with Marshall about comfort measures. Marshall tells me that he is thinking about this overnight and is leaning towards comfort measures. Would discuss that patient did not want to go for appointment for [facility] even after her anxiety resolved and she was at the [facility]. It does not sound like she wants to have her valve replaced. She has wounds on the sacrum that are not healing and she continues to lose weight as well as have UTI and altered mental status episodes. She is constantly in pain and cannot sleep. She has talked to him about not wanting to be in pain anymore. Vitals/I&O/Wt Last Vital Signs Temp 96.2 F L 10/28/25 16:00 Pulse 65 10/28/25 20:18 Resp 19 H 10/28/25 20:18 BP 93/36 10/28/25 20:18 Pulse Ox 94 10/28/25 20:18 O2 Del Method Oxymask 10/28/25 20:18 O2 Flow Rate 5 10/28/25 20:18 10/28/25 10/28/25 10/28/25 06:59 14:59 22:59 Intake Total 921.667 / 2221.667 1100 / 1100 1626.667 / 2726.667 Output Total 40 / 40 50 / 90 Balance 921.667 / 2221.667 1060 / 1060 1576.667 / 2636.667 Weight last 48 hrs Weight 60.3 kg Weight 61.235 kg Physical Exam Narrative: General Chronically ill-appearing elderly female mildly tachypneic CV regular rate and rhythm with 5/6 systolic ejection murmur best heard at the left sternal border lungs clear anteriorly Abdomen diminished bowel tones Hands and feet 1+ to 2 bilateral edema Mentation patient is responsive and answers affirmatively that she knows who I am but is not able to give me name. She is not able to tell me where she is or what the current situation of her illness is she is disoriented to place and date for sure and she is not able to give me her own name. Urinary Catheter Management: Randle: Cath Placed During This Visit: yes Reason for Continuing Indwelling Catheter: Accurate Measurement of Urinary Output in Critically Ill Patients Urinary Catheter Date of Insertion: 10/27/25 Urinary Catheter Time of Insertion: 13:25 Data 10/28/25 02:26 10/28/25 18:26 Micro: Microbiology 10/27/25 12:51 Blood Culture - Preliminary Blood NEGATIVE TO DATE 10/27/25 12:09 Blood Culture - Preliminary Blood NEGATIVE TO DATE 10/27/25 13:14 Urine Culture - Preliminary Urine,Clean Catch A&P Assessment and plan 1. Sepsis: This has improved but she has metabolic acidosis. Son has elected to switch her to comfort care 2. Volume depletion: Improved but still volume depleted with metabolic acidosis switching to comfort care 3. Metabolic encephalopathy: Patient with very low threshold for confusion based on last couple of admissions 4. Elevated liver enzymes: Very likely due to shock liver 5. Acute prerenal failure: As above 6. Essential (primary) hypertension: Discontinue noncomfort care medications 7. Type 2 diabetes mellitus with diabetic polyneuropathy: Comfort care only 8. Coronary artery disease: Comfort care 9. Chronic pain syndrome: Patient has had anger with morphine in the past. Will monitor for agitation. 10. Presence of cardiac pacemaker: Switching to comfort care pacemaker may need to be turned off Plan: Patient mated with altered mental status and UTI and history of C. difficile but not stooling here. Patient's metabolic acidosis and severe aortic stenosis and previous request for comfort to the son has convinced him to make her comfort care. I am comfortable with and agree with that change and will make her comfort care at this time PDMP PDMP Reviewed: Not Reviewed Attestations Medical Necessity Statement*: Patient is switched to comfort care and anticipated to require 1 additional midnight in the hospital with transfer back to [facility] for comfort care potentially tomorrow Coding Level of Care Code Acute Code for [facility] Diagnoses Sepsis A41.9 Sepsis acute organ dysfunction status: without acute organ dysfunction Sepsis type: sepsis due to unspecified organism Volume depletion E86.9 Metabolic encephalopathy G93.41 Elevated liver enzymes R74.8 Acute prerenal failure N17.9 Essential (primary) hypertension I10 Type 2 diabetes mellitus with diabetic polyneuropathy E11.42 Coronary artery disease I25.10 Chronic pain syndrome G89.4 Presence of cardiac pacemaker Z95.0 Time Spent (min) 35 Comment [id number] x 2
[2025-10-28] MEDS: morphine 4 mg/mL SDV 1 mL IVP (21:56)
[2025-10-28] MEDS: LORazepam 2 mg/mL INJ 1 mL IVP (21:57)
[2025-10-28] MEDS: glycopyrrolate 0.2 mg/mL SDV 2 mL IV (21:57)
[2025-10-28] MEDS: blistex lip oint 7 gm Tube 1 APPLIC TOPICAL (21:58)
[2025-10-29] VITALS (7 sets, daily range): BP systolic 0; BP diastolic 0; PULSE 0–73; RESP 0–22; TEMP 36.2; O2SAT 0–94
[2025-10-29] MEDS: morphine 4 mg/mL SDV 1 mL IVP ×2 (01:52→03:36)
[2025-10-29] MEDS: glycopyrrolate 0.2 mg/mL SDV 2 mL IV (03:36)
[2025-10-29] MEDS: LORazepam 2 mg/mL INJ 1 mL IVP (03:37)
--- NOTE | 2025-10-29 07:58 | P.PN_ITS ---
Subjective 2 Subjective: Patient seen this morning sitting in the [facility]. She was made DNR and comfort care by family last night. Otherwise, no new reports of any major issues that warrant further considerations from me at this time. Vitals/I&O/Wt Last Vital Signs Temp 97.1 F L 10/29/25 07:31 Pulse 60 10/29/25 07:31 Resp 21 H 10/29/25 07:31 BP 93/36 10/28/25 20:18 Pulse Ox 90 10/29/25 07:31 O2 Del Method Aerosol Mask 10/29/25 07:31 O2 Flow Rate 3 10/29/25 00:33 10/28/25 10/29/25 10/29/25 22:59 06:59 14:59 Intake Total 2126.667 / 3226.667 1000 / 4226.667 Output Total 50 / 90 5 / 95 Balance 2076.667 / 3136.667 995 / 4131.667 Weight last 48 hrs Weight 60.3 kg Weight 61.235 kg Physical Exam 2 Narrative: General: Sleeping peacefully. Oxygen by facemask in situ. Chest/Resp: Normal respiratory chest movts; no obvious respiratory distress. CVS: Regular heart rate and rhythm. GI: Non-distended; No obvious organomegaly. Extremities: No obvious pitting pedal edema. Skin: Dry mucous membrane. Increased skin turgor. Urinary Catheter Management: Randle: Cath Placed During This Visit: yes Reason for Continuing Indwelling Catheter: Accurate Measurement of Urinary Output in Critically Ill Patients Urinary Catheter Date of Insertion: 10/27/25 Urinary Catheter Time of Insertion: 13:25 Data 10/28/25 02:26 10/28/25 18:26 Micro: Microbiology 10/27/25 12:51 Blood Culture - Preliminary Blood NEGATIVE TO DATE 10/27/25 12:09 Blood Culture - Preliminary Blood NEGATIVE TO DATE 10/27/25 13:14 Urine Culture - Preliminary Urine,Clean Catch A&P Assessment and plan 1. Elevated liver enzymes: 2. Acute prerenal failure: 3. Essential (primary) hypertension: 4. Chronic pain syndrome: 5. Coronary artery disease: 6. Urinary tract infection without hematuria, site unspecified: 7. Volume depletion: 8. Metabolic encephalopathy: 9. Sepsis: Plan: Like mentioned in the HPI above, patient has been made comfort care by the overnight physician, after due advice from family. Currently, IV fluid is still going on. Otherwise, nothing more for me to contribute or add at this time. Further changes to be made as needed if further instructions are given by family. PDMP PDMP Reviewed: Not Reviewed Attestations 2 Medical Necessity Statement*: Comfort care patient. Coding Level of Care Code Acute Code for [facility] Diagnoses Elevated liver enzymes R74.8 Acute prerenal failure N17.9 Essential (primary) hypertension I10 Chronic pain syndrome G89.4 Coronary artery disease I25.10 Urinary tract infection without hematuria, site unspecified N39.0 Urinary tract infection type: site unspecified Hematuria presence: without hematuria Volume depletion E86.9 Metabolic encephalopathy G93.41 Sepsis A41.9
[2025-10-29] MEDS: morphine 10 mg/0.5 mL oral liq UD SUBLINGUAL (09:19)
--- NOTE | 2025-10-29 09:22 | PC.NURSE ---
2 mg oral liquid morphine given for agonal breathing
--- NOTE | 2025-10-29 11:10 | PC.NURSE ---
patient's oxygen turned off at 1104. Patient resting comfortably in bed.
--- NOTE | 2025-10-29 12:49 | PC.SLP ---
Patient had orders for ENGRAVER SET UP OPERATOR assessment entered yesterday morning, however, the patient's family decided on comfort care last evening. ENGRAVER SET UP OPERATOR will not follow-up at this time.
--- NOTE | 2025-10-29 12:59 | PC.NURSE ---
MTS contacted on patient expiration. Patient has been placed on a hold at this time. Reference number is #[id number]. Patient son Marshall has been contacted and he is still deciding on home arrangements at this time.
--- NOTE | 2025-10-29 13:09 | PC.NURSE ---
Patient at 1234 on 10/29/25. Verified with second nurse, Verna Delgado RN. Son notified and to [facility] boarding[facility] keeper with final arrangements. Dr Worrell notified and he asked nurse to call Dr Carpenter. Dr Carpenter notified.
--- NOTE | 2025-12-29 17:27 | PM.DDS ---
Discharge Providers DDS Date of Admission: 10/27/25 13:59 Date Summary Completed: 12/29/25 Attending Provider at Admission: Walter Worrell MD Time of : 12:34 Attending Provider at Discharge: Walter Worrell MD Primary Care Provider: DO TEX Daugherty Diagnoses Hospital Diagnoses 1. Elevated liver enzymes: 2. Acute prerenal failure: 3. Essential (primary) hypertension: 4. Chronic pain syndrome: 5. Coronary artery disease: 6. Urinary tract infection without hematuria, site unspecified: Qualifiers: Urinary tract infection type: site unspecified Hematuria presence: without hematuria 7. Volume depletion: 8. Metabolic encephalopathy: 9. Sepsis: Qualifiers: Sepsis acute organ dysfunction status: without acute organ dysfunction Sepsis type: sepsis due to unspecified organism Qualified Code(s): A41.9 - Sepsis, unspecified organism Reason for Visit Reason for Visit lethargy; weakness Brief History: As per progress notes from Dr. Carey and Dr. Worrell on 10/28 She is an 85-year-old female who was admitted yesterday because of report of nausea/vomiting with some diarrhea at home. She was found to be very lethargic, and hypotensive upon presentation. Thought to have sepsis, she was given some vancomycin and Zosyn, and thereafter admitted to the ICU stepdown for further evaluation. Overnight, she was brought to be hypotensive, therefore required some fluid boluses. She also remained mentally altered, with some associated hypoxia. Currently on Rocephin for UTI. This morning, the RN report that she is much more awake, though still mentally altered. Family reported to have been considering making her comfort care. 85-year-old female admitted with lethargy and UTI treated with Rocephin. Patient switched to cefepime this morning for possible resistant organism as she has been hospitalized a couple times in recent months as well as staying at [facility]. Patient is accompanied by her son Marshall. I have been asked by Dr. Gm Olivares and nurse Kori to speak with Marshall about comfort measures. Marshall tells me that he is thinking about this overnight and is leaning towards comfort measures. Would discuss that patient did not want to go for appointment for [facility] even after her anxiety resolved and she was at the [facility]. It does not sound like she wants to have her valve replaced. She has wounds on the sacrum that are not healing and she continues to lose weight as well as have UTI and altered mental status episodes. She is constantly in pain and cannot sleep. She has talked to him about not wanting to be in pain anymore. Summary Date and Time of Date of : 10/29/25 Time of : 12:34 Summary Summary: Patient was transition to comfort care measures as per discussions with DPOA/son/Mr. Olivares. She eventually on 10/29/2025 at 1234 hrs in comfortable state with family at bedside. Additional Data Family: at bedside Additional persons at bedside: nursing staff Attending/PCP notified?: Attending notified Was code activated?: No Autopsy requested?: No Advance directives?: No Hospice patient?: Yes Discharge Plan Discharge Patient Disposition: Condition: Stable Probable Cause of Probable cause of : Cardiac arrest DS Attestations Time Spent in /Discharge Care*: less than 30 min Quality - AMI: AMI present?: No Quality - Stroke: CVA present?: No Quality - VTE: VTE present?: No Coding Level of Care Code 19526 Total time (in minutes) for Discharge: 30 Diagnoses Elevated liver enzymes R74.8 Acute prerenal failure N17.9 Essential (primary) hypertension I10 Chronic pain syndrome G89.4 Coronary artery disease I25.10 Urinary tract infection without hematuria, site unspecified N39.0 Urinary tract infection type: site unspecified Hematuria presence: without hematuria Volume depletion E86.9 Metabolic encephalopathy G93.41 Sepsis A41.9 Sepsis acute organ dysfunction status: without acute organ dysfunction Sepsis type: sepsis due to unspecified organism
== END 2025-10-29 12:34 | disposition expired | DRG 871 ==
LOC: ER 12:04 → ER IP 14:14 → CSU 15:37
PROVIDERS: Registered Nurse; Admitting Provider Family Medicine; Emergency Provider Emergency Medicine; PCP Internal Medicine; Visit Provider Family Medicine
DX: A41.9 Sepsis, unspecified organism (principal); G93.41 Metabolic encephalopathy; I50.33 Acute on chronic diastolic (congestive) heart failure; K72.00 Acute and subacute hepatic failure without coma; N17.9 Acute kidney failure, unspecified; I13.0 Hypertensive heart and chronic kidney disease with heart failure and stage 1 through stage 4 chronic kidney disease, or unspecified chronic kidney disease; N30.00 Acute cystitis without hematuria; A04.72 Enterocolitis due to Clostridium difficile, not specified as recurrent; R65.20 Severe sepsis without septic shock; N18.9 Chronic kidney disease, unspecified; E11.22 Type 2 diabetes mellitus with diabetic chronic kidney disease; G89.4 Chronic pain syndrome; I25.10 Atherosclerotic heart disease of native coronary artery without angina pectoris; E86.9 Volume depletion, unspecified; R09.02 Hypoxemia; I46.9 Cardiac arrest, cause unspecified; Z66 Do not resuscitate; E11.42 Type 2 diabetes mellitus with diabetic polyneuropathy; I35.0 Nonrheumatic aortic (valve) stenosis; F03.90 Unspecified dementia, unspecified severity, without behavioral disturbance, psychotic disturbance, mood disturbance, and anxiety; E78.2 Mixed hyperlipidemia; M79.7 Fibromyalgia; J44.9 Chronic obstructive pulmonary disease, unspecified; Z98.1 Arthrodesis status; Z79.02 Long term (current) use of antithrombotics/antiplatelets; Z51.5 Encounter for palliative care; Z86.73 Personal history of transient ischemic attack (TIA), and cerebral infarction without residual deficits; Z95.1 Presence of aortocoronary bypass graft; Z91.81 History of falling; Z95.0 Presence of cardiac pacemaker; Z87.440 Personal history of urinary (tract) infections; D63.1 Anemia in chronic kidney disease; K21.9 Gastro-esophageal reflux disease without esophagitis; M10.9 Gout, unspecified; E03.9 Hypothyroidism, unspecified; N32.81 Overactive bladder
CPT/HCPCS: 36415; 51702; 70450; 71045; 74018; 80048; 80053; 81001; 83605; 83735; 83880; 84443; 85025; 85610; 87040; 87086; 93005; 96365; 96367; 96372; 99285; 99291; 99292; J0692; J0696; J1650; J2060; J2270; J2470; J2543; J3373; J3490; J7030; J7040; J7050; J9999; P9046